=== PATIENT | female | born 1945 | race Caucasian/White ===

== ENCOUNTER 2016-03-23 20:32 | Inpatient (IN) | payer MEDICARE ==
[~2016-03-23] VITALS: Ht 167.6 cm; Wt 88.5 kg
[~2016-03-23 20:32] MED LIST changes: -ACET50TAOT PO; -CALCTAB52 PO; -KETO0.5S15 OS; -PRED1SOL3 OS; -VITA100066 PO
[2016-03-23 21:56] LABS: BASO % 0.4 % (0.0-1.0); EOS # 0.1 K/mm3 (0.0-0.50); EOS % 1.2 % (0.0-3.0); LARGE UNSTAINED CELL # 0.1 K/mm3 (0.0-0.4); LARGE UNSTAINED CELL % 1.1 % (0.0-4.0); LYMPH # 0.8 K/mm3 (1.5-4.5); LYMPH % 8.8 % (24.0-44.0); MEAN CORPUSCULAR HEMOGLOBIN 29.4 pg (27.0-33.0); MEAN CORPUSCULAR HGB CONC 33.5 g/dl (32.0-36.5); MONO # 0.4 K/mm3 (0.0-0.8); MONO % 4.5 % (0.0-5.0); NEUTROPHILS # 7.2 K/mm3 (1.8-7.7); NEUTROPHILS % 84.1 % (36.0-66.0); PLATELET COUNT, AUTOMATED 288 k/mm3 (150-450); RED CELL DISTRIBUTION WIDTH 13.1 % (11.5-14.5); WHITE BLOOD COUNT 8.6 K/mm3 (4.0-10.0)
[2016-03-23 22:04] LABS: INR 1.4
[2016-03-24 00:20] LABS: ALBUMIN 3.5 GM/DL (3.2-5.2); ALBUMIN/GLOBULIN RATIO 0.95 (1.00-1.93); BILIRUBIN,DIRECT 0.2 MG/DL (0.0-0.2); BILIRUBIN,TOTAL 0.4 MG/DL (0.2-1.0); CALCIUM LEVEL 9.7 MG/DL (8.8-10.2); GLOMERULAR FILTRATION RATE 1.3 (>39); POTASSIUM SERUM 4.6 MEQ/L (3.5-5.1); TOTAL PROTEIN 7.2 GM/DL (6.4-8.2)
[2016-03-24 00:22] LABS: CREATININE FOR GFR 27.1 MG/DL (0.55-1.02)
[2016-03-24] MEDS ORDERED: KETO0.5S15 OS (01:08)
[2016-03-24] MEDS ORDERED: CALCTAB52 PO (01:08)
[2016-03-24] MEDS ORDERED: PRED1SOL3 OS (01:08)
[2016-03-24] MEDS ORDERED: VITA100066 PO (01:08)
[2016-03-24] MEDS ORDERED: ACET50TAOT PO (01:08)
[2016-03-24] MEDS ORDERED: METOCLOPRAMIDE INJ 10MG/2ML VIAL (J2765) IV PRN (02:15)
--- NOTE | 2016-03-24 03:20 | REPUSA ---
CLINICAL HISTORY: Pain. TECHNIQUE: Realtime sonographic images were obtained in multiple projections. COMMENTS: The right kidney measures 14.1x5.3x6.2 cm and the left kidney measures 12.6x6.5x6.7 cm cm. Both k idneys demonstrate hydronephrosis. There is no evidence of solid or cystic mass. There is no perineph kimberly fluid. There is no renal calculus. IMPRESSION: Bilateral hydroureteronephrosis more prominent on the right. Thank you for your kind referral of this patient.
--- NOTE | 2016-03-24 03:54 | EDDOCDS ---
Physician Documentation [facility] Name: Briana Castlelanos Age: 70 yrs Sex: Female : 1945 Arrival Date: 03/23/2016 Time: 20:32 Bed 11 Private MD: Hellen Bose L. Disposition: 03/24/16 00:51 Hospitalization ordered by Ana Luisa Moser for Inpatient Admission. Preliminary diagnosis is Acute kidney failure. - Bed requested for 4 [place]. - Status is Inpatient Admission. cf2 - Condition is Stable. - Problem is new. - Symptoms are unchanged. Historical: - Allergies: No known drug Allergies; - Home Meds: 1. Calcium + Vitamin D 600 mg calcium- 200 unit Oral tab daily 2. Advil 200 mg Oral tab 1 tab as needed 3. acetaminophen 325 mg Oral tab 2 tabs as needed 4. Vitamin D3 1,000 unit oral tab daily 5. losartan-hydrochlorothiazide 50-12.5 mg oral tab 1 tab once daily - PMHx: Hypertension; COPD; vitamin D deficiency; hyperparathyroidism; osteopenia; - PSHx: Tubal ligation; right knee replacement; bilateral cataract; - Social history: Smoking status: Patient states former smoker of tobacco. No barriers to communication noted, The patient speaks fluent Singaporean, Speaks appropriately for age. - Family history: Not pertinent. - : The pt / caregiver states he / she is not on anticoagulants. Home medication list is obtained from the patient. - Exposure Risk Screening:: None identified. Vital Signs: 03/23 20:34 BP 219 / 106 RA Sitting (auto/reg); Pulse 108; Resp 18 S; Temp 96.7(O); Pulse Ox 98% on dd6 R/A; Weight 92.08 kg / 203 lbs (R); Height 5 ft. 6 in. (167.64 cm) (R); 20:35 BP 210 / 99 LA Sitting (auto/reg); dd6 23:51 BP 162 / 77; Pulse 88; Resp 18 S; Pulse Ox 96% on R/A; Pain 0/10; af2 03/24 03:11 BP 144 / 87; Pulse 82; Resp 16; Temp 98.0; Pulse Ox 97% on R/A; Pain 0/10; cf2 03/23 20:34 Body Mass Index 32.76 (92.08 kg, 167.64 cm) dd6 MDM: 03/23 21:16 IV Saline Lock ordered. cs11 21:16 CBC with Diff Ordered. EDMS 21:16 MED Profile Ordered. EDMS 21:16 Pt & Aptt Ordered. EDMS 21:16 Liver Profile Ordered. EDMS 21:45 NS 0.9% 500 ml IV at bolus once ordered. cs11 22:00 CBC with Diff Reviewed. cs11 22:29 Financial registration complete. [facility] 22:36 [facility] Payment Agreement was scanned into [employer] and attached to record. gjb 03/24 00:24 MED Profile Reviewed. cs11 00:24 Pt & Aptt Reviewed. cs11 00:24 Liver Profile Reviewed. cs11 00:28 BED REQUEST+ADM ordered. EDMS 00:35 Ultrasound, Renal Ordered. EDMS 02:15 Admission / Observation Status ordered. EDMS 02:45 URINALYSIS Ordered. EDMS 02:52 SODIUM,RANDOM URINE Ordered. EDMS 02:52 OSMOLALITY,URINE Ordered. EDMS 02:52 OSMOLALITY, SERUM Ordered. EDMS 02:52 COMPLEMENT C3 Ordered. EDMS 02:52 COMPLEMENT C4 Ordered. EDMS 02:52 COMPLEMENT TOTAL(CH50) Ordered. EDMS 02:52 ANTINUCLEAR ANTIBODIES Ordered. EDMS 02:53 ANTI-NEUTROPHIL CYTOPLASMIC AB Ordered. EDMS 02:53 ANTI-GLOMERULAR BASEMENT MEMB Ordered. EDMS 02:53 ANTI DOUBLE STRAND DNA ILDEFONSO Ordered. EDMS 02:53 GASTROINTESTINAL (GI) PANEL Ordered. EDMS 03:00 COMPLETE BLOOD COUNT Ordered. EDMS 03:00 RENAL PROFILE Ordered. EDMS 03:00 CALCIUM LEVEL Ordered. EDMS 03:02 VITAMIN D, 25-HYDROXY Ordered. EDMS 03:03 2 GRAM SODIUM DIET ordered. EDMS 03:47 ANTI-STREPTOLYSIN O SCREEN Ordered. EDMS Administered Medications: 03/23 21:48 Drug: NS 0.9% 500 ml [sodium chloride 0.9 % intravenous solution] Route: IV; Rate: cf2 bolus; Site: left antecubital; Signatures: Dispatcher [employer] EDNV Tameka Ly RN Garry Montano DO DO cs11 Pramod Mata RN RN jmb Beck, Gabriela gj Sherita CollazoRN RN cf2 The chart was reviewed and I authenticate all verbal orders and agree with the evaluation and treatment provided.Corrections: (The following items were deleted from the chart) 03/24 02:53 02:53 GASTROINTESTINAL (GI) PANEL ordered. EDMS EDMS 02:53 02:53 GASTROINTESTINAL (GI) PANEL ordered. EDMS EDMS 03: 03:00 VITAMIN D, 25-HYDROXY ordered. EDMS EDMS 03:03 02:15 NPO DIET ordered. EDMS EDMS : 03/23 22:36 [facility] [place] [place] Payment Agreement freddie MTDD
--- NOTE | 2016-03-24 03:54 | EDDOCDS ---
Nurse's Notes [facility] Name: Briana Castellanos Age: 70 yrs Sex: Female : 1945 Arrival Date: 03/23/2016 Time: 20:32 Bed 11 Private MD: Hellen Bose L. Diagnosis: Acute kidney failure Presentation: 03/23 20:36 Presenting complaint: Patient states: Patient reports that seen by Dr. Dupree whom was b suppose to call [facility] to let providers know that patient is severely dehydrated. Patient reports nausea, vomiting, and diarrhea since . Adult Sepsis Screening: The patient does not have new or worsening altered mentation. Patient's respiratory rate is less than 22. Systolic blood pressure is greater than 100. Patient has a qSOFA score of 0- Negative Sepsis Screen. Suicide/Homicide risk assessment- the patient denies having any suicidal and/or homicidal ideations and does not present with any other emotional, behavioral or mental health complaints. Status: Patient is not a seasonal customer service associate or dependent. Transition of care: patient was not received from another setting of care. 20:36 Acuity: CHARLEE Level 3 [facility] 20:36 Method Of Arrival: Walkin/Carried/Asstd [facility] Triage Assessment: 20:43 General: Appears in no apparent distress, Behavior is appropriate for age, cooperative. [facility] Pain: Denies pain. Neurological: Level of Consciousness is awake, alert, obeys commands, Oriented to person, place, time. Respiratory: Airway is patent Respiratory effort is even, Respiratory pattern is regular. Derm: Skin is pink, warm & dry. Musculoskeletal: Range of motion intact in all extremities. Historical: - Allergies: No known drug Allergies; - Home Meds: 1. Calcium + Vitamin D 600 mg calcium- 200 unit Oral tab daily 2. Advil 200 mg Oral tab 1 tab as needed 3. acetaminophen 325 mg Oral tab 2 tabs as needed 4. Vitamin D3 1,000 unit oral tab daily 5. losartan-hydrochlorothiazide 50-12.5 mg oral tab 1 tab once daily - PMHx: Hypertension; COPD; vitamin D deficiency; hyperparathyroidism; osteopenia; - PSHx: Tubal ligation; right knee replacement; bilateral cataract; - Social history: Smoking status: Patient states former smoker of tobacco. No barriers to communication noted, The patient speaks fluent Emirati, Speaks appropriately for age. - Family history: Not pertinent. - : The pt / caregiver states he / she is not on anticoagulants. Home medication list is obtained from the patient. - Exposure Risk Screening:: None identified. Screenin/05 00:27 Screening information is obtained from the patient. Fall risk: No risks identified. cf2 Assistance ADL's: requires no assistance with activities of daily living. Abuse/DV Screen: The patient / caregiver reports he/she is: not in a situation that causes fear, pain or injury. Nutritional screening: No deficits noted. Advance Directives: Further advance directive information is declined. home support is adequate. Assessment: 00:27 General: Appears in no apparent distress, comfortable, Behavior is appropriate for age, cf2 cooperative. Pain: Denies pain. Neurological: No deficits noted. EENT: No deficits noted. Cardiovascular: No deficits noted. Respiratory: No deficits noted. GI: Bowel sounds present X 4 quads. Abd is soft and non tender Reports diarrhea, nausea, vomiting. : No deficits noted. Derm: No deficits noted. Musculoskeletal: No deficits noted. Injury Description: No known injury. Vital Signs: 03/23 20:34 BP 219 / 106 RA Sitting (auto/reg); Pulse 108; Resp 18 S; Temp 96.7(O); Pulse Ox 98% on dd6 R/A; Weight 92.08 kg (R); Height 5 ft. 6 in. (167.64 cm) (R); 20:35 BP 210 / 99 LA Sitting (auto/reg); dd6 23:51 BP 162 / 77; Pulse 88; Resp 18 S; Pulse Ox 96% on R/A; Pain 0/10; af2 03/24 03:11 BP 144 / 87; Pulse 82; Resp 16; Temp 98.0; Pulse Ox 97% on R/A; Pain 0/10; cf2 03/23 20:34 Body Mass Index 32.76 (92.08 kg, 167.64 cm) dd6 Vitals: 03/23 20:34 Log In Time: March 23, 2016 at 20:32. dd6 ED Course: 20:34 Patient visited by Ortega Aguirre PCA. dd6 20:34 Hellen Bose is Private Physician. dd6 20:34 Patient moved to Waiting dd6 20:35 Patient moved to Pre RCE dd6 20:37 Triage Initiated jmb 20:54 Patient moved to Triage 3 jmb 21:09 Garry Fisher DO is Attending Physician. cs11 21:09 Patient visited by Garry Fisher DO. cs11 21:10 Patient moved to 11 b 21:12 Sherita Collazo,MARIA LUISA is Primary Nurse. cf2 21:12 Patient visited by Sherita Collazo,MARIA LUISA. cf2 21:47 Patient visited by Sherita Collazo RN. cf2 21:48 Liver Profile Sent. cf2 21:48 Pt & Aptt Sent. cf2 21:48 CBC with Diff Sent. cf2 21:48 MED Profile Sent. cf2 22:26 Patient visited by Sherita Collazo RN. cf2 22:36 [facility] Payment Agreement was scanned into [employer] and attached to record. gjb 22:40 Patient name changed from Briana\S\\S\Emanuel\S\ to Briana\S\ \S\Emanuel. EDMS 23:41 Patient visited by Dang Henley, Wheel Truing Machine Tender. jlm 23:51 Patient visited by Kirsten Matamoros RN. af2 23:52 Patient visited by Kirsten Matamoros RN. af2 23:52 The patient / caregiver is instructed regarding the plan of care and ED course. Patient af2 has correct armband on for positive identification. Placed in gown. 23:52 Labs drawn. (by ED staff). Sent per order to lab. af2 03/24 00:23 Patient visited by Sherita Collazo RN. cf2 00:23 Patient visited by Sherita Collazo RN. cf2 00:27 Inserted saline lock: 20 gauge in right antecubital area and blood collected. The cf2 patient tolerated the procedure well. No procedures done that require assistance. 00:51 Ana Luisa Moser is Hospitalizing Provider. cs11 00:56 Patient moved to Ultrasound br3 01:18 Patient moved to 11 br3 01:41 Patient visited by Sherita Collazo RN. cf2 03:23 Ultrasound, Renal Returned. EDMS Administered Medications: 03/23 21:48 Drug: NS 0.9% 500 ml [sodium chloride 0.9 % intravenous solution] Route: IV; Rate: cf2 bolus; Site: left antecubital; Order Results: Lab Order: CBC with Diff; SPEC'M 03/23/16 21:41 Test: WHITE BLOOD COUNT; Value: 8.6; Range: 4.0-10.0; Units: K/mm3; Status: F Test: RED BLOOD COUNT; Value: 4.02; Range: 4.00-5.40; Units: M/mm3; Status: F Test: HEMOGLOBIN; Value: 11.8; Range: 12.0-16.0; Abnormal: Below low normal; Units: g/dl; Status: F Test: HEMATOCRIT; Value: 35.4; Range: 36.0-47.0; Abnormal: Below low normal; Units: %; Status: F Test: MEAN CORPUSCULAR VOLUME; Value: 88.0; Range: 80.0-96.0; Units: fl; Status: F Test: MEAN CORPUSCULAR HEMOGLOBIN; Value: 29.4; Range: 27.0-33.0; Units: pg; Status: F Test: MEAN CORPUSCULAR HGB CONC; Value: 33.5; Range: 32.0-36.5; Units: g/dl; Status: F Test: RED CELL DISTRIBUTION WIDTH; Value: 13.1; Range: 11.5-14.5; Units: %; Status: F Test: PLATELET COUNT, AUTOMATED; Value: 288; Range: 150-450; Units: k/mm3; Status: F Test: NEUTROPHILS %; Value: 84.1; Range: 36.0-66.0; Abnormal: Above high normal; Units: %; Status: F Test: LYMPH %; Value: 8.8; Range: 24.0-44.0; Abnormal: Below low normal; Units: %; Status: F Test: MONO %; Value: 4.5; Range: 0.0-5.0; Units: %; Status: F Test: EOS %; Value: 1.2; Range: 0.0-3.0; Units: %; Status: F Test: BASO %; Value: 0.4; Range: 0.0-1.0; Units: %; Status: F Test: LARGE UNSTAINED CELL %; Value: 1.1; Range: 0.0-4.0; Units: %; Status: F Test: NEUTROPHILS #; Value: 7.2; Range: 1.8-7.7; Units: K/mm3; Status: F Test: LYMPH #; Value: 0.8; Range: 1.5-4.5; Abnormal: Below low normal; Units: K/mm3; Status: F Test: MONO #; Value: 0.4; Range: 0.0-0.8; Units: K/mm3; Status: F Test: EOS #; Value: 0.1; Range: 0.0-0.50; Units: K/mm3; Status: F Test: BASO #; Value: 0.0; Range: 0.0-0.2; Units: K/mm3; Status: F Test: LARGE UNSTAINED CELL #; Value: 0.1; Range: 0.0-0.4; Units: K/mm3; Status: F Lab Order: MED Profile; SPEC'M 03/23/16 23:47 Test: GLUCOSE, FASTING; Value: 104; Range: 83-110; Units: MG/DL; Status: F Test: BLOOD UREA NITROGEN; Value: 160; Range: 7-18; Abnormal: Above high normal; Units: MG/DL; Status: F Test: CREATININE FOR GFR; Value: 27.10; Range: 0.55-1.02; Abnormal: Above high normal; Units: MG/DL; Status: F Test: GLOMERULAR FILTRATION RATE; Value: 1.3; Range: >39; Abnormal: Below low normal; Status: F Test: SODIUM LEVEL; Value: 141; Range: 136-145; Units: MEQ/L; Status: F Test: POTASSIUM SERUM; Value: 4.6; Range: 3.5-5.1; Units: MEQ/L; Status: F Test: CHLORIDE LEVEL; Value: 102; Range: 98-107; Units: MEQ/L; Status: F Test: CARBON DIOXIDE LEVEL; Value: 15; Range: 21-32; Abnormal: Below low normal; Units: MEQ/L; Status: F Test: ANION GAP; Value: 24; Range: 8-16; Abnormal: Above high normal; Units: MEQ/L; Status: F Test: CALCIUM LEVEL; Value: 9.7; Range: 8.8-10.2; Units: MG/DL; Status: F Test Note: ; Units are mL/min/1.73 m2 Chronic Kidney Disease Staging per NKF: Stage I & II GFR >=60 Normal to Mildly Decreased Stage III GFR 30-59 Moderately Decreased Stage IV GFR 15-29 Severely Decreased Stage V GFR <15 Very Little GFR Left ESRD GFR <15 on HOSPITALIST MEDICAL DIRECTOR Lab Order: Pt & Aptt; SPEC'M 03/23/16 21:41 Test: PROTHROMBIN TIME; Value: 17.3; Range: 12.3-14.5; Abnormal: Above high normal; Units: SECONDS; Status: F Test: INR; Value: 1.40; Status: F Test: PARTIAL THROMBOPLASTIN TIME; Value: 31.7; Range: 26.6-37.1; Units: SECONDS; Status: F Test Note: ; THERAPUTIC HUMAN INR VALUES INDICATIONS NORMAL RANGES PROPHYLAXIS/TREATMENT OF: VENOUS THROMBOSIS 2.0-3.0 PULMONARY EMBOLISM 2.0-3.0 PREVENTION OF SYSTEMIC EMBOLISM FROM: TISSUE HEART VALVES 2.0-3.0 ACUTE MYOCARDIAL INFARCTION 2.0-3.0 VALVULAR HEART DISEASE 2.0-3.0 ATRIAL FIBRILLATION 2.0-3.0 MECHANICAL VALVES(HIGH RISK) 2.5-3.5 RECURRENT MYOCARDIAL INFARCTION 2.5-3.5 Lab Order: Liver Profile; SPEC'M 03/23/16 23:47 Test: AST/SGOT; Value: 7; Range: 15-37; Abnormal: Below low normal; Units: U/L; Status: F Test: ALT/SGPT; Value: 19; Range: 12-78; Units: U/L; Status: F Test: ALKALINE PHOSPHATASE; Value: 79; Range: 45-117; Units: U/L; Status: F Test: BILIRUBIN,TOTAL; Value: 0.4; Range: 0.2-1.0; Units: MG/DL; Status: F Test: BILIRUBIN,DIRECT; Value: 0.2; Range: 0.0-0.2; Units: MG/DL; Status: F Test: TOTAL PROTEIN; Value: 7.2; Range: 6.4-8.2; Units: GM/DL; Status: F Test: ALBUMIN; Value: 3.5; Range: 3.2-5.2; Units: GM/DL; Status: F Test: ALBUMIN/GLOBULIN RATIO; Value: 0.95; Range: 1.00-1.93; Abnormal: Below low normal; Status: F Radiology Order: Ultrasound, Renal Test: Ultrasound, Renal REASON FOR EXAMINATION: renal failure; ; CLINICAL HISTORY: Pain.; TECHNIQUE: Realtime sonographic images were obtained in multiple projections.; COMMENTS:; The right kidney measures 14.1x5.3x6.2 cm and the left kidney measures 12.6x6.5x6.7 cm cm. Both k; idneys demonstrate hydronephrosis. There is no evidence of solid or cystic mass. There is no perineph; kimberly fluid. There is no renal calculus.; IMPRESSION:; Bilateral hydroureteronephrosis more prominent on the right.; Thank you for your kind referral of this patient.; ; ; Outcome: 03/24 00:27 Property :Personal belongings accompany Pt. cf2 00:51 Decision to Hospitalize by Provider. cs11 03:11 The following High Risk Discharge criteria are identified: Yes, Admitted to Floor. cf2 Condition: improved. Ultrasound Study completed. 03:48 Discharge Assessment: Patient awake, alert and oriented x 3. No cognitive and/or cf2 functional deficits noted. Patient verbalized understanding of disposition instructions. Patient awake and alert. Oriented to person, place and time. patient administered narcotics - no. 03:53 Patient left the ED. cf2 Signatures: Dispatcher [employer] EDMS Ortega Aguirre, WHEAT SHIPPER WHEAT SHIPPER dd6 Laila Ty br3 Garry Fisher DO DO cs11 Pramod Mata,RN RN Dang Sandoval, Wheel Truing Machine Tender Unit Kirsten Dale RN RN Yesika Puri Christina,RN RN cf2 MTDD
[2016-03-24 04:25] VITALS: BP 162/86
[2016-03-24] MEDS: NS 1,000 ML IV SCH ×2 (04:26→07:13)
[2016-03-24] MEDS: ONDANSETRON 4MG/2ML VIAL (J2405) IV PRN ×2 (04:27→17:52)
[2016-03-24] MEDS: HEPARIN SOD (PORCINE) 5000 UNITS/ML VIAL SC SCH ×3 (05:30→21:39)
--- NOTE | 2016-03-24 05:39 | HPE ---
DATE OF ADMISSION: 03/24/2016 PRIMARY CARE PROVIDER: SERGIO Dan CHIEF COMPLAINT: Renal failure. HISTORY OF PRESENT ILLNESS: The patient is 70-year-old female with past medical history significant for hypertension, chronic obstructive pulmonary disease (COPD), osteopenia, who was instructed to come to [facility] on 03/23/2016, by her primary care provider. The patient followed up with primary care provider and patient was found to have acute renal failure on laboratory tests and patient was instructed to come to [facility] for further evaluation. Patient states she has been having diarrhea since 03/15/2016. Patient is also having constant vomiting. Usually she will have watery stool more than six times on a daily basis. Stool is dark brown. She is also vomiting continuously. She is not able to tolerate any significant oral intake due to the gastrointestinal (GI) symptoms. She denies any recent sick contacts. Denies any antibiotic use. Denies any new medication changes. Denies any food unprepared. She has never had these symptoms before. Patient also stated she is not able to urinate for the past seven days. Denies any fever or chills. Denies any chest pain, shortness of breath, or any associated symptoms. When patient arrived in the emergency room, her blood pressure was 219/106, pulse was 108. Patient was given 0.5 liter IV bolus and hospitalist team was called for admission. ALLERGIES: No known drug allergies. HOME MEDICATIONS: - calcium/vitamin D supplement by mouth daily - Advair 200 mg by mouth as needed - Tylenol 650 mg as needed - vitamin D3, 1000 units by mouth daily - losartan/hydrochlorothiazide 50/12.5 mg by mouth daily PAST MEDICAL HISTORY: 1. Hypertension. 2. COPD. 3. Vitamin D deficiency. 4. Osteopenia. 5. Questionable history of hyperparathyroidism (listed on medical record; however, patient denies the diagnosis). PAST SURGICAL HISTORY: 1. Tubal ligation. 2. Right knee replacement. 3. Bilateral cataracts. SOCIAL HISTORY: Patient used to smoke one pack daily for more than 30 years. Patient quit 14 years ago. Patient drinks a wine cooler occasionally. Denies any recreational drug use. PHYSICAL EXAMINATION: VITAL SIGNS: Blood pressure is 162/77, pulse is 88, respirations 18, temperature is 96.7, pulse oximetry is 98% in room air. Body weight is 92 kg, body height is 167.6 cm. GENERAL: No signs of acute distress, alert, and oriented times three, fatigued. HEENT: Normocephalic, atraumatic. Extraocular motors are grossly intact. CARDIOVASCULAR: Positive S1, S2, regular rate. LUNGS: Distant heart sounds, clear to auscultation bilaterally. No wheezes or rhonchi. ABDOMEN: Soft, nontender, and nondistended. Bowel sounds are present. No rebound, no guarding. EXTREMITIES: No lower extremity edema, no cyanosis. NEUROLOGICAL: Muscle strength 5/5. Sensation to fine touch grossly intact. LABORATORY DATA: WBC 8.6, hemoglobin 11.8, hematocrit is 35.4, platelet count is 288. Sodium is 141, potassium 4.6, chloride is 102, carbon dioxide is 15, BUN 160, creatinine is 27.1, GFR is 1.3, fasting glucose 104, calcium 9.7, total bilirubin 0.4, direct bilirubin 0.2, AST 7, ALT 19, alkaline phosphatase 79, total protein 7.2, albumin 3.5. IMAGING STUDIES: Renal ultrasound is pending. ASSESSMENT AND PLAN: 1. Acute renal failure. Patient will be admitted to the medical-surgical floor under inpatient status. Patient does have a history of significant fluid loss, and patient is received an IV bolus in the emergency room. We will continue with IV fluids. We will control the nausea and vomiting with IV Zofran or Reglan. We will obtain a GI panel to rule out any possible infectious etiology for the patient's continuous diarrhea. We will consult the head of drama in the morning. I will wait for the renal ultrasound report. We will followup with laboratory workup for the acute renal failure. Patient denies any history of any new medication changes. 2. Persistent diarrhea. Followup with GI panel. We will continue with conservative approach. Patient does not have any white count and vitals are stable at this moment. 3. Hypertension. Patient is hypertensive with a blood pressure of 219/106 initially, later patient's blood pressure came down nicely to 162/77 with a pulse of 88. Patient usually takes losartan and hydrochlorothiazide for her hypertension. Currently, due to acute renal failure, these medications will be on hold. We will monitor patient's blood pressure. 4. History of chronic obstructive pulmonary disease (COPD). Currently, it is compensated. Patient does not require any oxygen support at this moment. 5. History of vitamin D deficiency/osteopenia. 6. Questionable history of hyperparathyroidism. Patient denies the diagnosis. We will request records from the primary care provider. 7. Deep vein thrombosis (DVT) prophylaxis. The patient will be on heparin.
[2016-03-24 06:00] VITALS: BP 160/74
[2016-03-24 06:36] LABS: MEAN CORPUSCULAR HEMOGLOBIN 29.5 pg (27.0-33.0); MEAN CORPUSCULAR VOLUME 89.3 fl (80.0-96.0); WHITE BLOOD COUNT 9.2 K/mm3 (4.0-10.0)
[2016-03-24 07:11] LABS: ALBUMIN 3.2 GM/DL (3.2-5.2); CALCIUM LEVEL 9.6 MG/DL (8.8-10.2); CREATININE FOR GFR 26.3 MG/DL (0.55-1.02); GLOMERULAR FILTRATION RATE 1.3 (>39); PHOSPHORUS LEVEL 7.7 MG/DL (2.5-4.9); POTASSIUM SERUM 4.9 MEQ/L (3.5-5.1)
[2016-03-24 07:29] LABS: COMPLEMENT C4 24.4 MG/DL (10-40)
[2016-03-24 08:11] LABS: VENOUS BASE EXCESS -14.2 (-2.0-2.0); VENOUS O2 SATURATION 99.1 % (60.0-80.0); VENOUS PARTIAL PRESSURE O2 179.6 mmHg (30.0-50.0); VENOUS STANDARD HCO3 13.4 MEQ/L; VENOUS TOTAL CO2 11.7 MEQ/L (24.0-28.0)
[2016-03-24] MEDS: SODIUM BICARBONATE 75 MEQ in NS 0.45% 1,000 ML IV SCH (11:25)
--- NOTE | 2016-03-24 13:29 | CR ---
DATE OF CONSULTATION: 03/24/2016 REQUESTING PHYSICIAN: Sandro Pereira MD CONSULTING PHYSICIAN: Juan Naavrrete MD REASON FOR CONSULTATION: Management of acute kidney injury. CHIEF COMPLAINT: Patient was seen from her primary cares office for abnormal labs. HISTORY OF PRESENT ILLNESS: Briana Castellanos is a 70-year-old female with a past medical history of hypertension and chronic obstructive pulmonary disease (COPD). No significant past medical history of kidney disease. She presented to the emergency room yesterday after being asked by her primary care provider to go to the ER for abnormal labs and kidney failure. As reported by the patient, she started having diarrhea on 03/15/2016. The patient reports that she did not go outside, she did not eat anything from outside over [place], but she started having diarrhea about 3-4 episodes every time. Initially they were loose, but now the episodes of the diarrhea is still the same but she is not making a significant amount of stools at this time. She also reported having vomiting for the last one week at well. The patient also reports that she stopped making urine about 3-4 days before presentation to the hospital. The patient denies any fevers, chills or rigors at this time. She denies seeing any blood in the stools. On arrival in the emergency room, she was found to be hypertensive with blood pressure in the 200s and her BUN on admission was 160 and creatinine was 27. Nephrology service was called for the management of acute renal failure. The patient was already started on IV normal saline by the primary team. She got a Li catheter done this morning, but no urine came out. An ultrasound done this morning showed bilateral hydroureteronephrosis and the patient is still anuric at this time. PAST MEDICAL HISTORY: Past medical history is significant for hypertension, chronic obstructive pulmonary disease (COPD), osteopenia. PAST SURGICAL HISTORY: The patient has a history of tubal ligation, status post right knee replacement times two, bilateral cataract surgeries. ALLERGIES: No known drug allergies. HOME MEDICATIONS: The patient was taking losartan and hydrochlorothiazide 50/12.5 mg by mouth daily. She reports that she stopped taking this medicine about three days ago. She was also on calcium plus vitamin D, Advair 200 twice a day, Tylenol as needed and vitamin D 1000 units daily. FAMILY HISTORY: No significant family history of end stage renal disease or hemodialysis in the past. SOCIAL HISTORY: The patient is a former smoker. She quit 14 years ago. She occasionally drinks alcohol. She denies any recreational drug use at this time. REVIEW OF SYSTEMS: CONSTITUTIONAL: Patient reports feeling weak and tired. Otherwise, she denies any chills or rigors. EYES: She denies any recent blurry vision or change in the vision. ENT: She denies any ear discharge, ear pain, dysphagia or odynophagia. CARDIOVASCULAR: She denies any chest pain or palpitations. RESPIRATORY: She denies any shortness of breath or cough. GASTROINTESTINAL (GI): She reports diarrhea for the last one week and nausea and vomiting as well. GENITOURINARY (): She reports that she has not been making urine for the last three days. Otherwise, she denies any dysuria or hematuria. MUSCULOSKELETAL: She denies any muscle aches and pains. HEMATOLOGIC/ONCOLOGIC: She denies any history of anemia or easy bruising. ENDOCRINE: She denies any history of diabetes or thyroid disease. PSYCH: She denies any history of anxiety or depression. SAMPLE TESTER: No history of strokes or seizure disorder. All other review of systems is negative. PHYSICAL EXAMINATION: GENERAL: Patient is awake, alert and oriented times three, lying in bed in no apparent distress. VITAL SIGNS: Temperature is 96.8 degrees Fahrenheit, blood pressure is 160/74, pulse is 85, respiratory rate of 19, saturating 94% on room air. INTAKE AND OUTPUT: There is no urine output recorded so far. Weight on the bed scale is 92.08 kg. HEAD/NECK EXAM: Extraocular muscles intact. Pupils equally round and reactive to light. Neck is supple. There is no jugular venous distention (JVD). Mucous membranes are moist. CARDIOVASCULAR: S1 and S2, regular rate. No murmur, rub or gallop. RESPIRATORY: Chest is clear to auscultation bilaterally. Bilateral equal air entry. No rales or rhonchi. ABDOMEN: Soft, positive bowel sounds. Nontender. No ascites. No organomegaly. The patient has a Li catheter and there is no urine in the bag. EXTREMITIES: No clubbing or cyanosis. Pulses are 2+. SAMPLE TESTER: No focal neurological deficit. Power is 5/5 in all extremities. DIALYSIS ACCESS: Patient has a left IJ tunneled hemodialysis catheter. SKIN: No rashes or ulcers. PSYCH: Normal mood and affect. LYMPH NODES: There is no significant cervical, axillary or inguinal lymphadenopathy. LAB REVIEW: CBC showed a WBC of 9.2, hemoglobin 10.6, platelets 253. INR was 1.4. VBG showed a pH of 7.27, pCO2 was 24, pO2 179, bicarb is 10.9. BMP done this morning showed sodium 144, potassium 4.9, chloride 106, bicarb 13, BUN is 161, creatinine is 26.3. Osmolarity was 352, phosphorous is 7.7, calcium is 9.6, vitamin D is 47.7, PTH is 345. C3 is 144, which is normal. C4 is 24.4, which is normal. ENZO, ANCA, anti-double stranded DNA and anti-GBM antibodies are pending. Antistreptolysin O antibodies are high. They are 224. Urinalysis is not available. Microbiology: GI panel is pending. IMAGING: Ultrasound of the kidney showed bilateral hydroureteronephrosis, more prominent on the right side. CURRENT MEDICATIONS: Patient's medications were reviewed by me. She is on: - normal saline 150 mL per hour - Tylenol as needed - heparin subcu - Reglan 10 mg every 6 hours as needed nausea - Zofran 4 mg IV every 6 hours as needed nausea ASSESSMENT: 70-year-old female with past medical history of hypertension admitted this time with diarrhea and anuric renal failure. PLAN: 1. Acute anuric renal failure. The patient has not made any urine ever since she came to the hospital. Li catheter was also placed and bladder scan was also done. She is not making any urine. She was already hydrated overnight. Etiology is unknown at this time. The patient has bilateral hydronephrosis and she gives a history of diarrhea, nausea and vomiting for the last one week as well. The patient's volume status is well optimized at this time. Clinically she does not look like she is dry, however I have changed her IV fluids to 1/2 NS plus 75 mEq of bicarb at 100 mL per hour. The patient is going to get a stat CAT scan of the abdomen to look for the cause of bilateral hydroureteronephrosis. If the patient does show obstruction in the ureters, she would need to be evaluated stat by urology and if we cannot relieve obstruction, or if the changes are chronic, then the patient would need a PermaCath and we need to start hemodialysis on her. 2. Bilateral hydroureteronephrosis. A stat CAT scan with stone protocol was ordered. CAT scan report is pending. Further management after report of the CAT scan. 3. Metabolic acidosis. Metabolic acidosis is secondary to acute renal failure and diarrhea for the last one week. IV fluids have changed into bicarb fluids. Currently, acidosis is being compensated by respiratory alkalosis. 4. Hypertension. Patient was taking losartan and hydrochlorothiazide at home. The patient is in acute renal failure. Losartan has been stopped. If the patient's blood pressure stays high, she can be started on amlodipine. 5. Secondary hyperparathyroidism. Her PTH is 345. Phosphorous is 7.7. I am going to start the patient on calcitriol. 6. Hyperphosphatemia. Hyperphosphatemia is secondary to anuric acute renal failure. I am not going to start the phos binders at this time. Hyperphosphatemia will hopefully improve if the patient's obstruction is relived or if we start dialyzing this patient. Plan of care was discussed with the hospitalist team, Dr. Sandro Pereira. Thank you for the involving us in the care of this patient. We shall be happy to follow the patient along with you tomorrow morning.
--- NOTE | 2016-03-24 13:30 | REP ---
CT of abdomen and pelvis without IV or oral contrast, 03/24/2016: Indication: Evaluate hydronephrosis. Comparison: Renal ultrasound 03/24/2016. Technique: 3 mm contiguous spiral axial sections performed through the abdomen and pelvis without IV or oral contrast. Findings: Small amount of fibrotic scarring is seen in lung bases bilaterally, right greater than left. Liver is without focal lesions. The spleen, pancreas are normal. Gallbladder is partially contracted without visualized stones. There is no biliary dilatation. There is a large right and moderate left hydronephrosis with hydroureter, right greater than left. The right ureter is narrowed below the level of the inferior aspect of the right SI joint. A tiny 2 mm calcification at the left ureter is also tapered below the level of the left SI joint seen in distal right ureter in the area of ureteral narrowing/tapering. The left ureter mildly dilated throughout its course but with tapering in the lower left ureter distribution. Atrophic changes are seen within the upper pole right kidney. There are no definite obstructing ureteral calculi bilaterally. Moderate atrophic changes are seen within the upper pole right kidney. There is asymmetric mural thickening with a small hiatal hernia at gastroesophageal junction. The hiatal hernia is 2.7 cm diameter. There is asymmetric mural thickening within the gastric body. The small bowel is without obstruction. The terminal ileum and appendix are normal. There is mural thickening and generalized under distension seen throughout the colon most pronounced within the base of cecum. These findings may be secondary to spasm or possibly mild nonspecific colitis. Bladder is contracted due to Li catheter. The uterus is atrophic consistent with advanced patient age. There are no visualized adnexal masses. Impression: Large right and moderate left hydronephrosis with hydroureter with distal tapering in the pelvis bilaterally. There are no obvious pelvic masses. Bladder is contracted due to Li catheter. Consider CT of the abdomen and pelvis with hematuria protocol if and when possible (patient has history of acute renal failure). Pelvic ultrasound may also be beneficial. Diffuse mural thickening seen throughout the colon contributed to by under distension. In the appropriate clinical setting, differential diagnosis can also include mild generalized colitis. Asymmetric mural thickening noted within the mid gastric body. Consider upper endoscopy. Signed by Tania Kenny MD 03/26/2016 03:10 P
[2016-03-24 14:00] VITALS: BP 136/77
[2016-03-24 20:55] VITALS: BP_SYST 128; BP_SYST 153; BP_DIAS 61; BP_DIAS 74
[2016-03-25] VITALS (8 sets, daily range): BP systolic 140–172; BP diastolic 76–90
[2016-03-25 06:02] LABS: MEAN CORPUSCULAR HEMOGLOBIN 29.7 pg (27.0-33.0); MEAN CORPUSCULAR HGB CONC 33.1 g/dl (32.0-36.5); MEAN CORPUSCULAR VOLUME 89.6 fl (80.0-96.0); RED CELL DISTRIBUTION WIDTH 13.3 % (11.5-14.5); WHITE BLOOD COUNT 8.5 K/mm3 (4.0-10.0)
[2016-03-25 06:24] LABS: ALBUMIN 3.2 GM/DL (3.2-5.2); CALCIUM LEVEL 8.5 MG/DL (8.8-10.2); CREATININE FOR GFR 28.4 MG/DL (0.55-1.02); GLOMERULAR FILTRATION RATE 1.2 (>39); PHOSPHORUS LEVEL 8.1 MG/DL (2.5-4.9); POTASSIUM SERUM 4.7 MEQ/L (3.5-5.1)
[2016-03-25] MEDS: SODIUM BICARBONATE 75 MEQ in NS 0.45% 1,000 ML IV SCH (06:34)
[2016-03-25] MEDS ORDERED: LIDOCAINE 2% MDV 20 ML VIAL As Ordered ONE (11:19)
[2016-03-25] MEDS ORDERED: ISOVUE-300 61% 50ML VIAL (Q9967) As Ordered ONE (11:19)
[2016-03-25] MEDS ORDERED: SODIUM BICARBONATE 8.4% INJ 50MEQ 50 ML VIAL As Ordered ONE (11:19)
[2016-03-25] MEDS ORDERED: cefTRIAXone SOD 1 GM VIAL (J0696) As Ordered ONE (11:19)
[2016-03-25] MEDS ORDERED: MIDAZOLAM INJ 2 MG/2 ML VIAL (J2250) As Ordered ONE (11:23)
[2016-03-25] MEDS ORDERED: fentaNYL 100 MCG/2 ML INJECTION (J3010) As Ordered ONE (11:23)
--- NOTE | 2016-03-25 11:50 | IPN ---
DATE: 03/25/2016 SUBJECTIVE: Patient was seen and examined at the bedside today in the morning. Last 24 hour events were noted. CT scan of the abdomen and pelvis showed bilateral hydroureteronephrosis. She is totally anuric at this time. Patient was discussed with urology yesterday by the primary team. They recommended bilateral nephrostomy tubes and later on patient will probably get a cystoscopy and ureteroscopy as well. Patient is scheduled to have bilateral nephrostomy tubes placed at 10:30 this morning. REVIEW OF SYSTEMS: Patient denies any fever, chills, rigors, headache, chest pain. She does report some shortness of breath. She denies any pain in abdomen, but she still has diarrhea, she reports that she is having about 3-4 episodes of loose stools, but the amount of diarrhea is very small. Patient is totally anuric at this time. Her Li catheter was removed this morning. All other review of systems is negative. OBJECTIVE: VITAL SIGNS: Temperature 97.2 degrees Fahrenheit, blood pressure 172/83, pulse 85, respiratory rate 18, saturating at 94% on room air. INTAKE/OUTPUT: Patient is totally anuric, she is 865 mL positive yesterday, 600 mL positive so far today. Weight in the bed scale was 92 kg yesterday. PHYSICAL EXAMINATION: GENERAL: Patient is awake, alert, oriented times three, laying in bed, in no apparent distress. HEAD and NECK: Extraocular muscles intact. Pupils equally round and reactive to light. Neck is supple. There is mildly elevated jugular venous distention (JVD). Mucous membranes are moist. CARDIOVASCULAR: S1, S2, regular rate. No murmur, rub, or gallop. RESPIRATORY: Chest is clear to auscultation bilaterally. Bilateral equal air entry. No rales or rhonchi. ABDOMEN: Soft, positive bowel sounds, nontender. No ascites. No organomegaly. Li catheter has been removed. EXTREMITIES: No clubbing or cyanosis. Pulses are 2+. CENTRAL NERVOUS SYSTEM (ANESTHESIA TECHNICIAN): No focal neurological deficit. Power is 5/5 in all extremities. There is no asterixis. LABORATORY REVIEW: CBC showed WBC 8.5, hemoglobin 10.3, platelets 236. BMP showed sodium 144, potassium 4.7, chloride 106, bicarbonate 16, BUN 161, creatinine 28.4, calcium is 8.5. phosphorous 8.1, albumin 3.2. Microbiology: Gastrointestinal (GI) panel is negative by polymerase chain reaction (PCR). CURRENT MEDICATIONS: Patient's medications were all reviewed by me. There is no change in the medications as compared with yesterday. She continues to be on half normal saline (NS) plus 75 mEq of bicarbonate at 50 mL/hour. She is not on any antihypertensive medications at this time. ASSESSMENT: 70-year-old female with past medical history of hypertension, admitted at this time with diarrhea, nausea, vomiting, and anuric renal failure. Imaging showed she has bilateral hydroureteronephrosis. PLAN: 1. Acute anuric renal failure. Patient has bilateral hydroureteronephrosis on the CT scan and ultrasound. She is going for bilateral nephrostomy tubes. If patient starts having good urine output after the nephrostomy tubes, then we can wait for her renal function to improve. If patient's urine output does not improve after the nephrostomy tubes, then patient will need a tunneled hemodialysis catheter and we will need to start dialysis on her. Plan of care was already discussed with the patient and her at the bedside. 2. Bilateral hydroureteronephrosis. As mentioned above, patient is going for bilateral nephrostomies and, after the nephrostomies, urology service will possibly take her for a cystoscopy and ureteroscopy. 3. Metabolic acidosis. Metabolic acidosis is secondary to acute renal failure. She has been started on intravenous (IV) half normal saline (NS) plus bicarbonate. I cannot increase the fluid rate because she is anuric at this time. I am hopeful that after nephrostomies, once the patient's renal function starts improving, her acidosis will improve. 4. Hypertension. Patient was taking losartan and hydrochlorothiazide at home. Losartan has been stopped because of acute renal failure. Patient's blood pressure is still elevated. I will wait for her to get nephrostomies and once the urine output improves her blood pressure will also improve. If blood pressure remains elevated about 150, patient will be started on amlodipine. 5. Secondary hyperparathyroidism. Her parathyroid hormone (PTH) was high. I am going to start calcitriol for the patient. 6. Hyperphosphatemia. This is secondary to acute renal failure. Phosphorous will improve after relieving the obstruction and once the kidney function starts improving. Plan of care was discussed with the hospitalist team, Dr. Sandro Pereira, as well.
[2016-03-25] MEDS ORDERED: IPRATROPIUM 0.5MG/ALBUTEROL 2.5MG INH SOL UD 3ML (DUONEB)(J7620) NEB PRN (12:30)
--- NOTE | 2016-03-25 12:41 | IPNPDOC ---
Text Note Date of Service The patient was seen on 03/25/16 at 12:27. NOTE Subjective: Patient is a 70 year old female with a PMHx of HTN, COPD, Vit D deficiency, and Osteopenia, who presetned to the ER at the direction of her PCP because of abnormal renal function. She had lab work on 03/23 which revealed Acute renal failure. Patient noted that she had diarrhea from 03/15 and saw her primary care doctor. She notes that she has had several bowel movements and vomiting. She denies any blood in her stool. She notes that over the last 7 days she has not been urinating. Patient was admitted for acute renal failure. Patient was seen and examined at the bedside today. She notes that she is not having abdominal pain at this time. She notes that her diarrhea is not as bad as it was. She denies any chest pain, palpitations or confusion. Objective: Vitals (See below) General: Lying in bed, no acute distress, comfortable, AAOx3 HEENT: NC, AT CVS: RRR, +S1S2 Lungs: Fair air entry b/l, -w/r/r Abdomen: Soft, ND, NT, +BSx34 Extremities: +PPx4, -Edema, -calf tenderness Assessment and plan: 1. Acute renal failure - possibly 2/2 obstruction - Creatinine significantly elevated at 28 from baseline of 0.8 on 01/2016 - Reports no urine output, no symptoms - Li catheter placed without any output - US kidneys reveal bilateral hydronephrosis with hydroureter; CT Abdomen/ Pelvis - does not reveal any obvious bladder mass - Case discussed with Urology, Nephrology and IR: Plan for IR guided bilateral nephrostomy tubes to be placed today --- If output is poor and no urine is produced, will need to have IR guided catheter placement for dialysis today --- Will evaluate nephrostomy output post-op - Nephrology following (Dr. Navarrete) - appreciate their input - Urology following (Dr. Parra) - appreciate their input 2. AG metabolic acidosis - likely 2/2 uremia, diarrhea - Venous blood gas initially revealed acidosis - Will continue with Bicarb drip - Nephrology following (Dr. Navarrete) - appreciate their input 3. Diarrhea - Reports some improvement - GI panel has been negative 4. Hypertensive urgency - Will re-evaluate after nephrostomy tubes are placed - will start BP medication if still elevated 5. COPD - no evidence of exacerbation at this time - will c/w duoneb PRN 6. Vitamin D deficiency / Osteopenia 7. DVT prophylaxis - c/w heparin VS,Fishbone, I+O VS, Fishbone, I+O Laboratory Tests 03/25/16 05:48 Anion Gap 22 H, Red Blood Count 3.48 L, Mean Corpuscular Volume 89.6, Mean Corpuscular Hemoglobin 29.7, Mean Corpuscular Hemoglobin Concent 33.1, Red Cell Distribution Width 13.3 Vital Signs Date Time Temp Pulse Resp B/P Pulse Ox O2 Delivery O2 Flow Rate FiO2 03/25/16 05:35 97.2 85 19 172/83 94 Room Air I&O- Last 24 Hours up to 6 AM 03/25/16 06:00 Intake Total 640 ml Output Total 0 ml Balance 640 ml EVELINE ESCOTO MD Mar 25, 2016 12:41
--- NOTE | 2016-03-25 13:06 | REPKIM ---
CLINICAL HISTORY: Acute renal failure and bilateral hydronephrosis. The referring service has asked bilateral nephrostomy catheter placement. PROCEDURE PERFORMED: 1. Ultrasound Kidneys 2. Left Antegrade Pyelogram and Percutaneous Nephrostomy Drainage Catheter Placement 3. Right Antegrade Pyelogram and Percutaneous Nephrostomy Drainage Catheter Placement INTERVENTIONALIST: Yvonne Mendoza MD CONSENT: The risks, benefits and alternatives to the procedure were explained to the patient and informed written consent was obtained. SEDATION: Sedation and analgesia was provided by the Anesthesiology Dept. EBL: 5 mL FLUORO TIME: 1.6 minutes CONTRAST: 27mL Isovue 300 DEVICES USED: Resolve 8.5F catheter x 2 Lot# [id number] PROCEDURE/FINDINGS: The patient was brought to the interventional radiology suite and placed in the prone position. Time out procedure was performed. The patient was prepped and draped in a usual sterile fashion. Patient received Rocephin 1gm prophylactic IV antibiotic. LEFT SIDE: Ultrasound of the left kidney showed moderate hydronephrosis. Using ultrasound and fluoroscopy guidance, a 21-gauge Accustick needle was advanced into the targeted lower pole posterior calyx, after infiltration of the skin and deep tissues with local anesthetic. Using this access an Accustick catheter was introduced into the renal pelvis. Initial aspirate revealed relatively clear urine. Contrast was injected and an antegrade pyelogram was performed. This showed no free antegrade flow of contrast into the urinary bladder. Over the guidewire, an 8.5-[place]an nephrostomy drainage catheter was introduced. Its distal loop was formed and locked in the renal pelvis. Contrast was hand injected, confirming satisfactory drainage catheter position. RIGHT SIDE: Ultrasound of the right kidney showed severe hydronephrosis. Using ultrasound and fluoroscopy guidance, a 21-gauge Accustick needle was advanced into the lower pole posterior calyx, after infiltration of the skin and deep tissues with local anesthetic. Using this access an Accustick catheter was introduced into the renal pelvis. Initial aspirate revealed somewhat cloudy urine. A sample of urine sent for c/s. Contrast was injected and an antegrade pyelogram was performed. This showed no free antegrade flow of contrast into the urinary bladder. Over the guidewire, an 8.5-[place]an nephrostomy drainage catheter was introduced. Its distal loop was formed and locked in the renal pelvis. Contrast was hand injected, confirming satisfactory drainage catheter position. Each drainage catheter was then secured to the skin with 2-0 Prolene suture and covered with a sterile dressing. Each drainage catheter was flushed and connected to a gravity drainage bag. The patient tolerated the procedure well with no immediate complications. This procedure was performed using ultrasound and fluoroscopy. Dr. Mendoza was present. FINDINGS: 1. Ultrasound demonstrates moderate hydronephrosis on the left and severe hydronephrosis on the right. There is no free antegrade flow of contrast into the urinary bladder. A sample of urine sent for c/s. 2. Successful placement of bilateral 8.5-[place]an percutaneous nephrostomy urinary diversion tubes. IMPRESSION: Moderate to severe bilateral hydronephrosis. Successful placement of bilateral 8.5F percutaneous nephrostomy urinary diversion tubes as discussed above. cc: MD Juan Escobar MD MTDD
[2016-03-25] MEDS ORDERED: PROPOFOL 200 MG/20 ML VIAL As Ordered ONE (13:26)
[2016-03-25] MEDS: HEPARIN SOD (PORCINE) 5000 UNITS/ML VIAL SC SCH ×3 (14:23→22:56)
[2016-03-25] MEDS: diphenhydrAMINE 25 MG CAP PO PRN (14:43)
[2016-03-25 15:27] LABS: ALBUMIN 3.7 GM/DL (3.2-5.2); CREATININE FOR GFR 16.9 MG/DL (0.55-1.02); GLOMERULAR FILTRATION RATE 2.2 (>39); PHOSPHORUS LEVEL 4.9 MG/DL (2.5-4.9); POTASSIUM SERUM 4.4 MEQ/L (3.5-5.1)
[2016-03-25 15:31] LABS: ALBUMIN 3.8 GM/DL (3.2-5.2); ALBUMIN/GLOBULIN RATIO 1.09 (1.00-1.93); BILIRUBIN,TOTAL 0.3 MG/DL (0.2-1.0); CREATININE FOR GFR 16.9 MG/DL (0.55-1.02); GLOMERULAR FILTRATION RATE 2.2 (>39); MAGNESIUM LEVEL 2.6 MG/DL (1.8-2.4); POTASSIUM SERUM 4.4 MEQ/L (3.5-5.1); TOTAL PROTEIN 7.3 GM/DL (6.4-8.2)
[2016-03-25 15:40] LABS: CALCIUM LEVEL 9.8 MG/DL (8.8-10.2); CALCIUM LEVEL 9.9 MG/DL (8.8-10.2)
[2016-03-25] MEDS: KETOROLAC 0.4% OS SCH ×2 (18:02→22:56)
[2016-03-25] MEDS ORDERED: SODIUM CHLORIDE 0.9% 1000 ML IV ONE (18:15)
[2016-03-25] MEDS: NS 0.45% 1,000 ML IV SCH ×4 (18:23→22:57)
[2016-03-25] MEDS: ACETAMINOPHEN TAB 650MG DOSE (2X325MG) PO PRN (20:05)
[2016-03-25] MEDS ORDERED: diphenhydrAMINE INJ 50MG/ML VIAL (J1200) IV ONE (20:30)
[2016-03-25] MEDS: prednisoLONE ACET 1% OPHTH SUSP 5ML OS SCH (20:40)
[2016-03-25 21:40] LABS: ALBUMIN 3.7 GM/DL (3.2-5.2); CALCIUM LEVEL 9.9 MG/DL (8.8-10.2); CREATININE FOR GFR 5.53 MG/DL (0.55-1.02); GLOMERULAR FILTRATION RATE 8.1 (>39); PHOSPHORUS LEVEL 2.2 MG/DL (2.5-4.9); POTASSIUM SERUM 3.7 MEQ/L (3.5-5.1)
[2016-03-25] MEDS ORDERED: POTASSIUM CHLORIDE 10 MEQ SR TABLET PO ONE (22:45)
[2016-03-26] VITALS (11 sets, daily range): BP systolic 142–176; BP diastolic 72–95
[2016-03-26 00:06] LABS: COMPLEMENT TOTAL (CH50) > 63 U/mL (42-60)
[2016-03-26] MEDS: NS 0.45% 1,000 ML IV SCH ×10 (01:47→22:35)
[2016-03-26] MEDS: ACETAMINOPHEN TAB 650MG DOSE (2X325MG) PO PRN ×2 (04:09→08:09)
--- NOTE | 2016-03-26 04:54 | EDDOCDS ---
Nurse's Notes [facility] Name: Briana Castellanos Age: 70 yrs Sex: Female : 1945 Arrival Date: 03/23/2016 Time: 20:32 Bed 11 Private MD: Hellen Bose L. Diagnosis: Acute kidney failure Presentation: 03/23 20:36 Presenting complaint: Patient states: Patient reports that seen by Dr. Dupree whom was b suppose to call [facility] to let providers know that patient is severely dehydrated. Patient reports nausea, vomiting, and diarrhea since . Adult Sepsis Screening: The patient does not have new or worsening altered mentation. Patient's respiratory rate is less than 22. Systolic blood pressure is greater than 100. Patient has a qSOFA score of 0- Negative Sepsis Screen. Suicide/Homicide risk assessment- the patient denies having any suicidal and/or homicidal ideations and does not present with any other emotional, behavioral or mental health complaints. Status: Patient is not a insurance and financial services agent or dependent. Transition of care: patient was not received from another setting of care. 20:36 Acuity: CHARLEE Level 3 [facility] 20:36 Method Of Arrival: Walkin/Carried/Asstd [facility] Triage Assessment: 20:43 General: Appears in no apparent distress, Behavior is appropriate for age, cooperative. [facility] Pain: Denies pain. Neurological: Level of Consciousness is awake, alert, obeys commands, Oriented to person, place, time. Respiratory: Airway is patent Respiratory effort is even, Respiratory pattern is regular. Derm: Skin is pink, warm & dry. Musculoskeletal: Range of motion intact in all extremities. Historical: - Allergies: No known drug Allergies; - Home Meds: 1. Calcium + Vitamin D 600 mg calcium- 200 unit Oral tab daily 2. Advil 200 mg Oral tab 1 tab as needed 3. acetaminophen 325 mg Oral tab 2 tabs as needed 4. Vitamin D3 1,000 unit oral tab daily 5. losartan-hydrochlorothiazide 50-12.5 mg oral tab 1 tab once daily - PMHx: Hypertension; COPD; vitamin D deficiency; hyperparathyroidism; osteopenia; - PSHx: Tubal ligation; right knee replacement; bilateral cataract; - Social history: Smoking status: Patient states former smoker of tobacco. No barriers to communication noted, The patient speaks fluent Togolese, Speaks appropriately for age. - Family history: Not pertinent. - : The pt / caregiver states he / she is not on anticoagulants. Home medication list is obtained from the patient. - Exposure Risk Screening:: None identified. Screenin/05 00:27 Screening information is obtained from the patient. Fall risk: No risks identified. cf2 Assistance ADL's: requires no assistance with activities of daily living. Abuse/DV Screen: The patient / caregiver reports he/she is: not in a situation that causes fear, pain or injury. Nutritional screening: No deficits noted. Advance Directives: Further advance directive information is declined. home support is adequate. Assessment: 00:27 General: Appears in no apparent distress, comfortable, Behavior is appropriate for age, cf2 cooperative. Pain: Denies pain. Neurological: No deficits noted. EENT: No deficits noted. Cardiovascular: No deficits noted. Respiratory: No deficits noted. GI: Bowel sounds present X 4 quads. Abd is soft and non tender Reports diarrhea, nausea, vomiting. : No deficits noted. Derm: No deficits noted. Musculoskeletal: No deficits noted. Injury Description: No known injury. Vital Signs: 03/23 20:34 BP 219 / 106 RA Sitting (auto/reg); Pulse 108; Resp 18 S; Temp 96.7(O); Pulse Ox 98% on dd6 R/A; Weight 92.08 kg (R); Height 5 ft. 6 in. (167.64 cm) (R); 20:35 BP 210 / 99 LA Sitting (auto/reg); dd6 23:51 BP 162 / 77; Pulse 88; Resp 18 S; Pulse Ox 96% on R/A; Pain 0/10; af2 03/24 03:11 BP 144 / 87; Pulse 82; Resp 16; Temp 98.0; Pulse Ox 97% on R/A; Pain 0/10; cf2 03/23 20:34 Body Mass Index 32.76 (92.08 kg, 167.64 cm) dd6 Vitals: 03/23 20:34 Log In Time: March 23, 2016 at 20:32. dd6 ED Course: 20:34 Patient visited by Ortega Aguirre PCA. dd6 20:34 Hellen Bose is Private Physician. dd6 20:34 Patient moved to Waiting dd6 20:35 Patient moved to Pre RCE dd6 20:37 Triage Initiated jmb 20:54 Patient moved to Triage 3 jmb 21:09 Garry Fisher DO is Attending Physician. cs11 21:09 Patient visited by Garry Fisher DO. cs11 21:10 Patient moved to 11 jmb 21:12 Sherita Collazo,MARIA LUISA is Primary Nurse. cf2 21:12 Patient visited by Sherita Collazo,MARIA LUISA. cf2 21:47 Patient visited by Sherita Collazo RN. cf2 21:48 Liver Profile Sent. cf2 21:48 Pt & Aptt Sent. cf2 21:48 CBC with Diff Sent. cf2 21:48 MED Profile Sent. cf2 22:26 Patient visited by Sherita Collazo RN. cf2 22:36 [facility] Payment Agreement was scanned into [employer] and attached to record. gjb 22:40 Patient name changed from Briana\S\\S\Emanuel\S\ to Briana\S\ \S\Emanuel. EDMS 23:41 Patient visited by Dang Henley, Slab Polisher. jlm 23:51 Patient visited by Kirsten Matamoros RN. af2 23:52 Patient visited by Kirsten Matamoros RN. af2 23:52 The patient / caregiver is instructed regarding the plan of care and ED course. Patient af2 has correct armband on for positive identification. Placed in gown. 23:52 Labs drawn. (by ED staff). Sent per order to lab. af2 03/24 00:23 Patient visited by Sherita Collazo RN. cf2 00:23 Patient visited by Sherita Collazo RN. cf2 00:27 Inserted saline lock: 20 gauge in right antecubital area and blood collected. The cf2 patient tolerated the procedure well. No procedures done that require assistance. 00:51 Ana Luisa Moser is Hospitalizing Provider. cs11 00:56 Patient moved to Ultrasound br3 01:18 Patient moved to 11 br3 01:41 Patient visited by Sherita Collazo RN. cf2 03:23 Ultrasound, Renal Returned. EDMS 03/25 08:26 T-Sheet-- Draft Copy was scanned into [employer] and attached to record. gb Administered Medications: 03/23 21:48 Drug: NS 0.9% 500 ml [sodium chloride 0.9 % intravenous solution] Route: IV; Rate: cf2 bolus; Site: left antecubital; Order Results: Lab Order: CBC with Diff; SPEC'M 03/23/16 21:41 Test: WHITE BLOOD COUNT; Value: 8.6; Range: 4.0-10.0; Units: K/mm3; Status: F Test: RED BLOOD COUNT; Value: 4.02; Range: 4.00-5.40; Units: M/mm3; Status: F Test: HEMOGLOBIN; Value: 11.8; Range: 12.0-16.0; Abnormal: Below low normal; Units: g/dl; Status: F Test: HEMATOCRIT; Value: 35.4; Range: 36.0-47.0; Abnormal: Below low normal; Units: %; Status: F Test: MEAN CORPUSCULAR VOLUME; Value: 88.0; Range: 80.0-96.0; Units: fl; Status: F Test: MEAN CORPUSCULAR HEMOGLOBIN; Value: 29.4; Range: 27.0-33.0; Units: pg; Status: F Test: MEAN CORPUSCULAR HGB CONC; Value: 33.5; Range: 32.0-36.5; Units: g/dl; Status: F Test: RED CELL DISTRIBUTION WIDTH; Value: 13.1; Range: 11.5-14.5; Units: %; Status: F Test: PLATELET COUNT, AUTOMATED; Value: 288; Range: 150-450; Units: k/mm3; Status: F Test: NEUTROPHILS %; Value: 84.1; Range: 36.0-66.0; Abnormal: Above high normal; Units: %; Status: F Test: LYMPH %; Value: 8.8; Range: 24.0-44.0; Abnormal: Below low normal; Units: %; Status: F Test: MONO %; Value: 4.5; Range: 0.0-5.0; Units: %; Status: F Test: EOS %; Value: 1.2; Range: 0.0-3.0; Units: %; Status: F Test: BASO %; Value: 0.4; Range: 0.0-1.0; Units: %; Status: F Test: LARGE UNSTAINED CELL %; Value: 1.1; Range: 0.0-4.0; Units: %; Status: F Test: NEUTROPHILS #; Value: 7.2; Range: 1.8-7.7; Units: K/mm3; Status: F Test: LYMPH #; Value: 0.8; Range: 1.5-4.5; Abnormal: Below low normal; Units: K/mm3; Status: F Test: MONO #; Value: 0.4; Range: 0.0-0.8; Units: K/mm3; Status: F Test: EOS #; Value: 0.1; Range: 0.0-0.50; Units: K/mm3; Status: F Test: BASO #; Value: 0.0; Range: 0.0-0.2; Units: K/mm3; Status: F Test: LARGE UNSTAINED CELL #; Value: 0.1; Range: 0.0-0.4; Units: K/mm3; Status: F Lab Order: MED Profile; SPEC'M 03/23/16 23:47 Test: GLUCOSE, FASTING; Value: 104; Range: 83-110; Units: MG/DL; Status: F Test: BLOOD UREA NITROGEN; Value: 160; Range: 7-18; Abnormal: Above high normal; Units: MG/DL; Status: F Test: CREATININE FOR GFR; Value: 27.10; Range: 0.55-1.02; Abnormal: Above high normal; Units: MG/DL; Status: F Test: GLOMERULAR FILTRATION RATE; Value: 1.3; Range: >39; Abnormal: Below low normal; Status: F Test: SODIUM LEVEL; Value: 141; Range: 136-145; Units: MEQ/L; Status: F Test: POTASSIUM SERUM; Value: 4.6; Range: 3.5-5.1; Units: MEQ/L; Status: F Test: CHLORIDE LEVEL; Value: 102; Range: 98-107; Units: MEQ/L; Status: F Test: CARBON DIOXIDE LEVEL; Value: 15; Range: 21-32; Abnormal: Below low normal; Units: MEQ/L; Status: F Test: ANION GAP; Value: 24; Range: 8-16; Abnormal: Above high normal; Units: MEQ/L; Status: F Test: CALCIUM LEVEL; Value: 9.7; Range: 8.8-10.2; Units: MG/DL; Status: F Test Note: ; Units are mL/min/1.73 m2 Chronic Kidney Disease Staging per NKF: Stage I & II GFR >=60 Normal to Mildly Decreased Stage III GFR 30-59 Moderately Decreased Stage IV GFR 15-29 Severely Decreased Stage V GFR <15 Very Little GFR Left ESRD GFR <15 on CAT SKINNER Lab Order: Pt & Aptt; SPEC'M 03/23/16 21:41 Test: PROTHROMBIN TIME; Value: 17.3; Range: 12.3-14.5; Abnormal: Above high normal; Units: SECONDS; Status: F Test: INR; Value: 1.40; Status: F Test: PARTIAL THROMBOPLASTIN TIME; Value: 31.7; Range: 26.6-37.1; Units: SECONDS; Status: F Test Note: ; THERAPUTIC HUMAN INR VALUES INDICATIONS NORMAL RANGES PROPHYLAXIS/TREATMENT OF: VENOUS THROMBOSIS 2.0-3.0 PULMONARY EMBOLISM 2.0-3.0 PREVENTION OF SYSTEMIC EMBOLISM FROM: TISSUE HEART VALVES 2.0-3.0 ACUTE MYOCARDIAL INFARCTION 2.0-3.0 VALVULAR HEART DISEASE 2.0-3.0 ATRIAL FIBRILLATION 2.0-3.0 MECHANICAL VALVES(HIGH RISK) 2.5-3.5 RECURRENT MYOCARDIAL INFARCTION 2.5-3.5 Lab Order: Liver Profile; SPEC03/23/16 23:47 Test: AST/SGOT; Value: 7; Range: 15-37; Abnormal: Below low normal; Units: U/L; Status: F Test: ALT/SGPT; Value: 19; Range: 12-78; Units: U/L; Status: F Test: ALKALINE PHOSPHATASE; Value: 79; Range: 45-117; Units: U/L; Status: F Test: BILIRUBIN,TOTAL; Value: 0.4; Range: 0.2-1.0; Units: MG/DL; Status: F Test: BILIRUBIN,DIRECT; Value: 0.2; Range: 0.0-0.2; Units: MG/DL; Status: F Test: TOTAL PROTEIN; Value: 7.2; Range: 6.4-8.2; Units: GM/DL; Status: F Test: ALBUMIN; Value: 3.5; Range: 3.2-5.2; Units: GM/DL; Status: F Test: ALBUMIN/GLOBULIN RATIO; Value: 0.95; Range: 1.00-1.93; Abnormal: Below low normal; Status: F Radiology Order: Ultrasound, Renal Test: Ultrasound, Renal REASON FOR EXAMINATION: renal failure; ; CLINICAL HISTORY: Pain.; TECHNIQUE: Realtime sonographic images were obtained in multiple projections.; COMMENTS:; The right kidney measures 14.1x5.3x6.2 cm and the left kidney measures 12.6x6.5x6.7 cm cm. Both k; idneys demonstrate hydronephrosis. There is no evidence of solid or cystic mass. There is no perineph; kimberly fluid. There is no renal calculus.; IMPRESSION:; Bilateral hydroureteronephrosis more prominent on the right.; Thank you for your kind referral of this patient.; ; ; Outcome: 03/24 00:27 Property :Personal belongings accompany Pt. cf2 00:51 Decision to Hospitalize by Provider. cs11 03:11 The following High Risk Discharge criteria are identified: Yes, Admitted to Floor. cf2 Condition: improved. Ultrasound Study completed. 03:48 Discharge Assessment: Patient awake, alert and oriented x 3. No cognitive and/or cf2 functional deficits noted. Patient verbalized understanding of disposition instructions. Patient awake and alert. Oriented to person, place and time. patient administered narcotics - no. 03:53 Patient left the ED. cf2 Signatures: Dispatcher [employer] EDMS Shadia Arana, Darnell Reg gb Ortega Aguirre, CRYSTAL INSPECTOR CRYSTAL INSPECTOR dd6 Laila Ty br3 Garry Fisher DO DO cs11 Pramod Mata,RN RN Dang Sandoval, Slab Polisher Unit Kirsten DaleRN RN af2 Yesika Louise Christina,RN RN cf2 Chart Complete MTDD
--- NOTE | 2016-03-26 04:54 | EDDOCDS ---
Physician Documentation [facility] Name: Briana Castellanos Age: 70 yrs Sex: Female : 1945 Arrival Date: 03/23/2016 Time: 20:32 Bed 11 Private MD: Hlelen Bose L. Disposition: 03/24/16 00:51 Hospitalization ordered by Ana Luisa Moser for Inpatient Admission. Preliminary diagnosis is Acute kidney failure. - Bed requested for 4 [place]. - Status is Inpatient Admission. cf2 - Condition is Stable. - Problem is new. - Symptoms are unchanged. Historical: - Allergies: No known drug Allergies; - Home Meds: 1. Calcium + Vitamin D 600 mg calcium- 200 unit Oral tab daily 2. Advil 200 mg Oral tab 1 tab as needed 3. acetaminophen 325 mg Oral tab 2 tabs as needed 4. Vitamin D3 1,000 unit oral tab daily 5. losartan-hydrochlorothiazide 50-12.5 mg oral tab 1 tab once daily - PMHx: Hypertension; COPD; vitamin D deficiency; hyperparathyroidism; osteopenia; - PSHx: Tubal ligation; right knee replacement; bilateral cataract; - Social history: Smoking status: Patient states former smoker of tobacco. No barriers to communication noted, The patient speaks fluent Serbian, Speaks appropriately for age. - Family history: Not pertinent. - : The pt / caregiver states he / she is not on anticoagulants. Home medication list is obtained from the patient. - Exposure Risk Screening:: None identified. Vital Signs: 03/23 20:34 BP 219 / 106 RA Sitting (auto/reg); Pulse 108; Resp 18 S; Temp 96.7(O); Pulse Ox 98% on dd6 R/A; Weight 92.08 kg / 203 lbs (R); Height 5 ft. 6 in. (167.64 cm) (R); 20:35 BP 210 / 99 LA Sitting (auto/reg); dd6 23:51 BP 162 / 77; Pulse 88; Resp 18 S; Pulse Ox 96% on R/A; Pain 0/10; af2 03/24 03:11 BP 144 / 87; Pulse 82; Resp 16; Temp 98.0; Pulse Ox 97% on R/A; Pain 0/10; cf2 03/23 20:34 Body Mass Index 32.76 (92.08 kg, 167.64 cm) dd6 MDM: 03/23 21:16 IV Saline Lock ordered. cs11 21:16 CBC with Diff Ordered. EDMS 21:16 MED Profile Ordered. EDMS 21:16 Pt & Aptt Ordered. EDMS 21:16 Liver Profile Ordered. EDMS 21:45 NS 0.9% 500 ml IV at bolus once ordered. cs11 22:00 CBC with Diff Reviewed. cs11 22:29 Financial registration complete. [facility] 22:36 [facility] Payment Agreement was scanned into [employer] and attached to record. gjb 03/24 00:24 MED Profile Reviewed. cs11 00:24 Pt & Aptt Reviewed. cs11 00:24 Liver Profile Reviewed. cs11 00:28 BED REQUEST+ADM ordered. EDMS 00:35 Ultrasound, Renal Ordered. EDMS 02:15 Admission / Observation Status ordered. EDMS 02:45 URINALYSIS Ordered. EDMS 02:52 SODIUM,RANDOM URINE Ordered. EDMS 02:52 OSMOLALITY,URINE Ordered. EDMS 02:52 OSMOLALITY, SERUM Ordered. EDMS 02:52 COMPLEMENT C3 Ordered. EDMS 02:52 COMPLEMENT C4 Ordered. EDMS 02:52 COMPLEMENT TOTAL(CH50) Ordered. EDMS 02:52 ANTINUCLEAR ANTIBODIES Ordered. EDMS 02:53 ANTI-NEUTROPHIL CYTOPLASMIC AB Ordered. EDMS 02:53 ANTI-GLOMERULAR BASEMENT MEMB Ordered. EDMS 02:53 ANTI DOUBLE STRAND DNA ILDEFONSO Ordered. EDMS 02:53 GASTROINTESTINAL (GI) PANEL Ordered. EDMS 03:00 COMPLETE BLOOD COUNT Ordered. EDMS 03:00 RENAL PROFILE Ordered. EDMS 03:00 CALCIUM LEVEL Ordered. EDMS 03:02 VITAMIN D, 25-HYDROXY Ordered. EDMS 03:03 2 GRAM SODIUM DIET ordered. EDMS 03:47 ANTI-STREPTOLYSIN O SCREEN Ordered. EDMS 03/25 08:26 T-Sheet-- Draft Copy was scanned into [employer] and attached to record. gb Administered Medications: 03/23 21:48 Drug: NS 0.9% 500 ml [sodium chloride 0.9 % intravenous solution] Route: IV; Rate: cf2 bolus; Site: left antecubital; Signatures: Dispatcher [employer] EDMS Tameka Ly RN RN daq Shadia Arana, Reg Reg Garry Arias DO DO csPramod CuetoRN RN Yesika Muñoz ChristinaRN RN cf2 The chart was reviewed and I authenticate all verbal orders and agree with the evaluation and treatment provided.Corrections: (The following items were deleted from the chart) 03/24 02:53 02:53 GASTROINTESTINAL (GI) PANEL ordered. EDMS EDMS 02:53 02:53 GASTROINTESTINAL (GI) PANEL ordered. EDMS EDMS : 03:00 VITAMIN D, 25-HYDROXY ordered. EDMS EDMS 03:03 02:15 NPO DIET ordered. EDMS EDMS : 03/23 22:36 [facility] Payment Agreement [facility] 03/25 08:26 T-Sheet-- Draft Copy gb Chart Complete MTDD
--- NOTE | 2016-03-26 04:54 | EDDOCDS ---
Physician Documentation [facility] Name: Briana Castellanos Age: 70 yrs Sex: Female : 1945 Arrival Date: 03/23/2016 Time: 20:32 Bed 11 Private MD: Hellen Bose L. Disposition: 03/24/16 00:51 Hospitalization ordered by Ana Luisa Moser for Inpatient Admission. Preliminary diagnosis is Acute kidney failure. - Bed requested for 4 [place]. - Status is Inpatient Admission. cf2 - Condition is Stable. - Problem is new. - Symptoms are unchanged. Historical: - Allergies: No known drug Allergies; - Home Meds: 1. Calcium + Vitamin D 600 mg calcium- 200 unit Oral tab daily 2. Advil 200 mg Oral tab 1 tab as needed 3. acetaminophen 325 mg Oral tab 2 tabs as needed 4. Vitamin D3 1,000 unit oral tab daily 5. losartan-hydrochlorothiazide 50-12.5 mg oral tab 1 tab once daily - PMHx: Hypertension; COPD; vitamin D deficiency; hyperparathyroidism; osteopenia; - PSHx: Tubal ligation; right knee replacement; bilateral cataract; - Social history: Smoking status: Patient states former smoker of tobacco. No barriers to communication noted, The patient speaks fluent East [place]orese, Speaks appropriately for age. - Family history: Not pertinent. - : The pt / caregiver states he / she is not on anticoagulants. Home medication list is obtained from the patient. - Exposure Risk Screening:: None identified. Vital Signs: 03/23 20:34 BP 219 / 106 RA Sitting (auto/reg); Pulse 108; Resp 18 S; Temp 96.7(O); Pulse Ox 98% on dd6 R/A; Weight 92.08 kg / 203 lbs (R); Height 5 ft. 6 in. (167.64 cm) (R); 20:35 BP 210 / 99 LA Sitting (auto/reg); dd6 23:51 BP 162 / 77; Pulse 88; Resp 18 S; Pulse Ox 96% on R/A; Pain 0/10; af2 03/24 03:11 BP 144 / 87; Pulse 82; Resp 16; Temp 98.0; Pulse Ox 97% on R/A; Pain 0/10; cf2 03/23 20:34 Body Mass Index 32.76 (92.08 kg, 167.64 cm) dd6 MDM: 03/23 21:16 IV Saline Lock ordered. cs11 21:16 CBC with Diff Ordered. EDMS 21:16 MED Profile Ordered. EDMS 21:16 Pt & Aptt Ordered. EDMS 21:16 Liver Profile Ordered. EDMS 21:45 NS 0.9% 500 ml IV at bolus once ordered. cs11 22:00 CBC with Diff Reviewed. cs11 22:29 Financial registration complete. [facility] 22:36 [facility] Payment Agreement was scanned into [employer] and attached to record. gjb 03/24 00:24 MED Profile Reviewed. cs11 00:24 Pt & Aptt Reviewed. cs11 00:24 Liver Profile Reviewed. cs11 00:28 BED REQUEST+ADM ordered. EDMS 00:35 Ultrasound, Renal Ordered. EDMS 02:15 Admission / Observation Status ordered. EDMS 02:45 URINALYSIS Ordered. EDMS 02:52 SODIUM,RANDOM URINE Ordered. EDMS 02:52 OSMOLALITY,URINE Ordered. EDMS 02:52 OSMOLALITY, SERUM Ordered. EDMS 02:52 COMPLEMENT C3 Ordered. EDMS 02:52 COMPLEMENT C4 Ordered. EDMS 02:52 COMPLEMENT TOTAL(CH50) Ordered. EDMS 02:52 ANTINUCLEAR ANTIBODIES Ordered. EDMS 02:53 ANTI-NEUTROPHIL CYTOPLASMIC AB Ordered. EDMS 02:53 ANTI-GLOMERULAR BASEMENT MEMB Ordered. EDMS 02:53 ANTI DOUBLE STRAND DNA ILDEFONSO Ordered. EDMS 02:53 GASTROINTESTINAL (GI) PANEL Ordered. EDMS 03:00 COMPLETE BLOOD COUNT Ordered. EDMS 03:00 RENAL PROFILE Ordered. EDMS 03:00 CALCIUM LEVEL Ordered. EDMS 03:02 VITAMIN D, 25-HYDROXY Ordered. EDMS 03:03 2 GRAM SODIUM DIET ordered. EDMS 03:47 ANTI-STREPTOLYSIN O SCREEN Ordered. EDMS 03/25 08:26 T-Sheet-- Draft Copy was scanned into [employer] and attached to record. gb Administered Medications: 03/23 21:48 Drug: NS 0.9% 500 ml [sodium chloride 0.9 % intravenous solution] Route: IV; Rate: cf2 bolus; Site: left antecubital; Signatures: Dispatcher [employer] EDMS Tameka Ly RN RN daq Shadia Arana, Reg Reg Garry Arias DO DO csPramod CuetoRN RN Yesika Muñoz ChristinaRN RN cf2 The chart was reviewed and I authenticate all verbal orders and agree with the evaluation and treatment provided.Corrections: (The following items were deleted from the chart) 03/24 02:53 02:53 GASTROINTESTINAL (GI) PANEL ordered. EDMS EDMS 02:53 02:53 GASTROINTESTINAL (GI) PANEL ordered. EDMS EDMS : 03:00 VITAMIN D, 25-HYDROXY ordered. EDMS EDMS 03:03 02:15 NPO DIET ordered. EDMS EDMS : 03/23 22:36 [facility] Payment Agreement [facility] 03/25 08:26 T-Sheet-- Draft Copy gb Chart Complete MTDD
[2016-03-26] MEDS: HEPARIN SOD (PORCINE) 5000 UNITS/ML VIAL SC SCH ×3 (05:42→21:17)
[2016-03-26 06:33] LABS: MEAN CORPUSCULAR HEMOGLOBIN 28.9 pg (27.0-33.0); MEAN CORPUSCULAR HGB CONC 32.7 g/dl (32.0-36.5); MEAN CORPUSCULAR VOLUME 88.2 fl (80.0-96.0); RED CELL DISTRIBUTION WIDTH 13.6 % (11.5-14.5); WHITE BLOOD COUNT 10.4 K/mm3 (4.0-10.0)
[2016-03-26 06:51] LABS: ALBUMIN 3.8 GM/DL (3.2-5.2); CALCIUM LEVEL 10.1 MG/DL (8.8-10.2); CREATININE FOR GFR 1.57 MG/DL (0.55-1.02); GLOMERULAR FILTRATION RATE 34.5 (>39); PHOSPHORUS LEVEL 1.5 MG/DL (2.5-4.9)
[2016-03-26] MEDS: diphenhydrAMINE 25 MG CAP PO PRN (08:09)
[2016-03-26] MEDS: KETOROLAC 0.4% OS SCH ×4 (08:09→21:15)
[2016-03-26] MEDS: prednisoLONE ACET 1% OPHTH SUSP 5ML OS SCH ×2 (08:10→21:17)
--- NOTE | 2016-03-26 09:04 | SMCUROLCON ---
Urology Consultation General Date of Consultation 03/26/16 Reason For Consultation This patient is seen for Acute Renal Failure, Diarrhea. History of Present Illness The patient is a [70]-year-old [female] with a past medical history for [ARF s/ p bilateral NT; bilateral HUN with distal ureter stricture?]. NPO. Cystoscopy, bilateral RPG, +/- balloon dilation, JJ. Full consultation dictated. Cipro care transitions nurse to OR. Reviewed with Hospitalist. Medications Current Medications Current Medications Acetaminophen (Tylenol) 650 mg Q4HP PRN PO MILD PAIN OR FEVER Last administered on 03/26/16 08:09; Start 03/24/16 at 02:15; Stop 04/23/16 at 02:14 Albuterol/ Ipratropium (Duoneb (Ipr 0.5mg/Alb 2.5mg)) 3 ml Q2HP PRN NEB SOB/ WHEEZING; Start 03/25/16 at 12:30; Stop 04/24/16 at 12:29 Ceftriaxone Sodium (Rocephin) 1 gm STK-MED ONCE As Ordered ; Start 03/25/16 at 11 :19; Stop 03/25/16 at 11:20; Status DC Diphenhydramine HCl (Benadryl) 25 mg ONCE ONCE IV Last administered on 20:39; Start 03/25/16 at 20:30; Stop 03/25/16 at 20:34; Status DC Diphenhydramine HCl (Benadryl) 25 mg Q8HP PRN PO ITCHING Last administered on 08:09; Start 03/25/16 at 14:45; Stop 04/24/16 at 14:44 Fentanyl Citrate (Sublimaze) 100 mcg STK-MED ONCE As Ordered ; Start 03/25/16 at 11:23; Stop 03/25/16 at 11:24; Status DC Heparin Sodium (Porcine) 5000 units 5,000 units Q8H SC Last administered on 03/26 05:42; Start 03/24/16 at 06:00; Stop 03/29/16 at 05:59; Status Future hold Home Med ASDIRECTED XX ; Start 03/24/16 at 01:15; Stop 03/24/16 at 07:02; Status DC Iopamidol (Isovue-300 61%) 100 ml STK-MED ONCE As Ordered ; Start 03/25/16 at 11: 19; Stop 03/25/16 at 11:20; Status DC Lidocaine HCl (Lidocaine 2% Mdv) 40 ml STK-MED ONCE As Ordered ; Start 03/25/16 at 11:19; Stop 03/25/16 at 11:20; Status DC Metoclopramide HCl (Reglan) 10 mg Q6HP PRN IV NAUSEA OR VOMITING; Start at 02:15; Stop 03/24/16 at 12:22; Status DC Midazolam HCl (Versed) 2 mg STK-MED ONCE As Ordered ; Start 03/25/16 at 11:23; Stop 03/25/16 at 11:24; Status DC Miscellaneous SEE LABEL COMMENTS UNRESOLVED XX ; Start 03/25/16 at 00:01; Stop at 16:20; Status DC Ondansetron HCl (Zofran) 4 mg Q6HP PRN IV NAUSEA OR VOMITING Last administered on 03/24/16 17:52; Start 03/24/16 at 02:15; Stop 04/23/16 at 02:14 Patient Own Medication (Patient'S Own Med) 1 ea QID OS Last administered on 03/26 08:09; Start 03/25/16 at 17:00; Stop 04/24/16 at 16:59 Potassium Chloride 40 meq 40 meq ONCE ONCE PO Last administered on 03/25/16 22 :56; Start 03/25/16 at 22:45; Stop 03/25/16 at 22:48; Status DC Potassium Phosphate/Dextrose (Potassium Phosphate Inj/ Dextrose 5%) 256.6667 ml @ 85.553 m... ONCE ONCE IV ; Start 03/26/16 at 10:00; Stop 03/26/16 at 12:59 Prednisolone Acetate (Predforte 1% Ophth Susp) 1 drop BID OS Last administered on 03/26/16 08:10; Start 03/25/16 at 21:00; Stop 04/24/16 at 20:59 Propofol (Diprivan) 200 mg STK-MED ONCE As Ordered ; Start 03/25/16 at 13:26; Stop 03/25/16 at 13:27; Status DC Propofol (Diprivan) 200 mg STK-MED ONCE As Ordered ; Start 03/25/16 at 13:26; Stop 03/25/16 at 13:27; Status DC Sodium Bicarbonate/ Sodium Chloride (Sodium Bicarbonate/Nacl 0.45%) 1,075 ml @ 150 mls/hr Q7H10M IV Last administered on 03/25/16 06:34; Start 03/24/16 at 11: 00; Stop 03/25/16 at 17:59; Status DC Sodium Bicarbonate (Sodium Bicarbonate) 50 meq STK-MED ONCE As Ordered ; Start 03/25/16 at 11:19; Stop 03/25/16 at 11:20; Status DC Sodium Chloride (Nacl 0.45%) 1,000 ml @ 250 mls/hr Q4H IV Last administered on 03/26/16 08:00; Start 03/25/16 at 18:00; Stop 04/24/16 at 17:59 Sodium Chloride (Nacl 0.9%) 500 ml BOLUS ONCE IV Last administered on 18:23; Start 03/25/16 at 18:15; Stop 03/25/16 at 18:16; Status DC Sodium Chloride (Nacl 0.9%) 1,000 ml @ 150 mls/hr Q6H40M IV Last administered on 03/24/16 07:13; Start 03/24/16 at 02:12; Stop 03/24/16 at 09:26; Status DC Allergies Allergies: Coded Allergies: No Known Allergies (Verified , 09/23/02) Vital Signs/I&O Vital Signs Date Time Temp Pulse Resp B/P Pulse Ox O2 Delivery O2 Flow Rate FiO2 03/26/16 05:20 97.3 77 16 168/89 94 Room Air I&O- Last 24 Hours up to 6 AM 03/26/16 06:00 Intake Total 7200 ml Output Total 9630 ml Balance -2430 ml Laboratory Data 24H Labs Laboratory Tests 2 03/25/16 14:50: Blood Urea Nitrogen 131H, Creatinine 16.90H, Sodium Level 149H, Potassium Level 4.4, Chloride Level 113H, Carbon Dioxide Level 19L, Calcium Level 9.8, Aspartate Amino Transf (AST/SGOT) 10L, Alanine Aminotransferase (ALT/SGPT) 23, Alkaline Phosphatase 92, Total Bilirubin 0.3, Total Protein 7.3, Albumin 3.8, Albumin/Globulin Ratio 1.09, Anion Gap 16, Glomerular Filtration Rate 2.2L, Magnesium Level 2.6H, Phosphorus Level 4.9# 03/25/16 21:08: Blood Urea Nitrogen 66H, Creatinine 5.53#H, Sodium Level 150H, Potassium Level 3.7, Chloride Level 117H, Carbon Dioxide Level 20L, Calcium Level 9.9, Albumin 3.7, Anion Gap 13, Glomerular Filtration Rate 8.1L, Phosphorus Level 2.2#L 03/26/16 05:41: Blood Urea Nitrogen 28#H, Creatinine 1.57#H, Sodium Level 149H, Potassium Level 4.0, Chloride Level 117H, Carbon Dioxide Level 20L, Calcium Level 10.1, Albumin 3.8, Anion Gap 12, Glomerular Filtration Rate 34.5L, Phosphorus Level 1.5#L CBC/BMP Laboratory Tests 03/25/16 14:50 Anion Gap 16, Calcium Level 9.8, Aspartate Amino Transf (AST/SGOT) 10 L, Alanine Aminotransferase (ALT/SGPT) 23, Alkaline Phosphatase 92, Total Bilirubin 0.3, Total Protein 7.3, Albumin 3.8 03/25/16 21:08 Anion Gap 13 03/26/16 05:41 Anion Gap 12, Red Blood Count 4.18, Mean Corpuscular Volume 88.2, Mean Corpuscular Hemoglobin 28.9, Mean Corpuscular Hemoglobin Concent 32.7, Red Cell Distribution Width 13.6 Microbiology Microbiology 03/24/16 Gastrointestinal Tract Panel (PCR) - Final, Complete 03/25/16 Urine Culture, Received Pending 03/25/16 Gram Stain - Final, Resulted 03/25/16 Anaerobic Culture, Resulted Pending GUSTAVO MARCELO MD Mar 26, 2016 09:04
--- NOTE | 2016-03-26 09:40 | CR ---
DATE OF CONSULTATION: 03/26/2016 This 70-year-old female was evaluated in consultation as requested by Dr. Pereira on 03/26/2016 for acute renal failure and anuria. She was admitted to the hospital (03/24/2016) with diarrhea, acute renal failure and four day history of anuria. Serum creatinine at presentation was 28. She is status post bilateral nephrostomy tube placement by interventional radiology (03/25/2016). Subsequent to nephrostomy tube drainage, the creatinine has almost normalized. Prior to presentation, there is no history of voiding symptoms, gross hematuria, urinary tract infection, urolithiasis, flank pain or constitutional symptoms. PAST MEDICAL HISTORY: Significant for hypertension, chronic obstructive pulmonary disease, tubal ligation, right total knee arthroplasty, and bilateral cataract surgery. REVIEW OF SYSTEMS: Negative for diabetes, cardiac or thyroid pathology, headaches, epilepsy, coronary artery disease (CAD), glaucoma, peptic ulcer disease, urolithiasis, cholelithiasis, or blood borne diseases. CURRENT MEDICATIONS (include): - hydrochlorothiazide - Advair No allergies to medications. Socially, she is a 30 pack year smoker who quit 14 years previously. She consumes alcohol occasionally. She is and has two children. FAMILY HISTORY: Noncontributory. General examination revealed a comfortable individual. Her heart rate was 77, respiratory rate 16, blood pressure 160/89, and temperature 97.3 degrees Fahrenheit. Palpation of the head and neck failed to reveal the appearance of lymphadenopathy. Auscultation of the chest was clear. Normal heart sounds. Examination of the back and abdomen were benign. Bilateral nephrostomy tubes were noted. Urine culture (03/25/2016) remains pending at the time of this dictation. Bladder ultrasonograph (03/26/2016) recorded 44 mL of urine. Renal sonography (03/24/2016) demonstrated bilateral hydroureteronephrosis. Computer tomography of the abdomen and pelvis without intravenous contrast (03/24/2016) demonstrated bilateral hydroureteronephrosis (right greater than left), bilateral distal ureteral strictures ?, and a hiatal hernia. Serum hematologic and biochemical indices determination (03/26/2016) demonstrated a hemoglobin at 12.1, leukocyte content 0.4 and a creatinine of 1.6 (decreased from 2.8). ASSESSMENT: 1. Bilateral hydroureteronephrosis. 2. Bilateral distal ureter strictures ?. 3. Acute renal failure, resolving status post bilateral nephrostomy tube placement (03/25/2016). 4. Hypertension. 5. Chronic obstructive pulmonary disease. 6. Right total knee arthroplasty. 7. History of tubal ligation. PLAN: The above findings were discussed with the patient, nursing staff and primary service. Following nothing by mouth status, cystoscopy, bilateral retrograde ureteropyelography and possible balloon dilation of ureter with JJ-stent insertion will be performed to evaluate the distal ureters bilaterally. Perioperative ampicillin and gentamicin will be provided. Should you require additional information, please do not hesitate to contact me. Thanking you for the confidence of your referral.
[2016-03-26] MEDS ORDERED: GENTAMICIN SULF INJ 80MG/2ML VIAL (J1580) IP ONE (09:45)
[2016-03-26] MEDS ORDERED: VANCOMYCIN HCL 500 MG in D5W MINI-BAG PLUS 100 ML IV SCH (09:45)
[2016-03-26] MEDS ORDERED: POTASSIUM PHOSPHATE INJ 20 MMOL in D5W 250 ML IV ONE ×2 (10:00→17:00)
[2016-03-26] MEDS ORDERED: GENTAMICIN SULFATE 80 MG in APPROPRIATE DILUENT 1 EA IV SCH (10:00)
[2016-03-26] MEDS ORDERED: CONRAY-60 60% 50ML VIAL (Q9961) As Ordered ONE (11:48)
[2016-03-26] MEDS ORDERED: GENTAMICIN SULF INJ 80MG/2ML VIAL (J1580) As Ordered ONE (11:55)
[2016-03-26] MEDS ORDERED: AMPICILLIN 1 GM VIAL As Ordered ONE (12:08)
[2016-03-26] MEDS ORDERED: CONRAY-60 60% 50ML VIAL (Q9961) XX ONE (12:39)
[2016-03-26] MEDS ORDERED: PROPOFOL 200 MG/20 ML VIAL As Ordered ONE (12:41)
[2016-03-26] MEDS ORDERED: ONDANSETRON 4MG/2ML VIAL (J2405) As Ordered ONE (12:41)
[2016-03-26] MEDS ORDERED: LIDOCAINE 2% INJ 100 MG/5 ML SDV (FOR ANES.) As Ordered ONE (12:41)
[2016-03-26] MEDS ORDERED: MIDAZOLAM INJ 2 MG/2 ML VIAL (J2250) As Ordered ONE (12:41)
[2016-03-26] MEDS ORDERED: fentaNYL 100 MCG/2 ML INJECTION (J3010) As Ordered ONE (12:41)
[2016-03-26] MEDS ORDERED: fentaNYL 100 MCG/2 ML INJECTION (J3010) IV PRN (13:30)
[2016-03-26] MEDS ORDERED: ONDANSETRON 4MG/2ML VIAL (J2405) IV PRN (13:30)
[2016-03-26] MEDS ORDERED: LR 1,000 ML IV SCH (13:30)
--- NOTE | 2016-03-26 14:00 | IPNPDOC ---
Text Note Date of Service The patient was seen on 03/26/16 at 13:47. NOTE Subjective: Patient is a 70 year old female with a PMHx of HTN, COPD, Vit D deficiency, and Osteopenia, who presetned to the ER at the direction of her PCP because of abnormal renal function. She had lab work on 03/23 which revealed Acute renal failure. Patient noted that she had diarrhea from 03/15 and saw her primary care doctor. She notes that she has had several bowel movements and vomiting. She denies any blood in her stool. She notes that over the last 7 days she has not been urinating. Patient was admitted for acute renal failure. Patient was seen and examined at the bedside today. Reports that she feels fine. Still is having loose water stools, up to 5x today. No fever / chills. Objective: Vitals (See below) General: Lying in bed, no acute distress, comfortable, AAOx3 HEENT: NC, AT CVS: RRR, +S1S2 Lungs: Fair air entry b/l, -w/r/r Abdomen: Soft, ND, NT, +BSx34 Extremities: +PPx4, -Edema, -calf tenderness Assessment and plan: 1. Acute renal failure - possibly 2/2 obstruction; imaging with b/l hydronephrosis and hydroureter - Creatinine significantly elevated at 28 from baseline of 0.8 on 01/2016 - Reports no urine output - no output with urinary catheter, no symptoms - s/p IR guided b/l nephrostomy tubes - large volume diuresis - have been clamped - s/p Cystoscopy 03/26: Bilateral JJ stents placed, R ureter stricture 4cm - will need repair, L ureter narrow - should passively dilate - Output of >10 liters - post obstructive diuresis - Nephrology following (Dr. Navarrete) - appreciate their input - Urology following (Dr. Parra) - appreciate their input 2. AG and Non-AG metabolic acidosis - likely 2/2 uremia, diarrhea - Venous blood gas initially revealed acidosis - Delta / Delta of <1 - Improving - s/p Bicarb drip - Nephrology following (Dr. Navarrete) - appreciate their input 3. Multiple electrolyte abnormalities - will replete as required - Nephrology following (Dr. Navarrete) - appreciate their input 3. Acute diarrhea - will check stool osmolality gap (re: secretory vs. osmotic) - Alpha 1 antitrypsin, chymotrypsin, calprotectin, pancreatic elastase, - repeat C. diff PCR - GI panel has been negative 4. Hypertensive urgency - Will re-evaluate after nephrostomy tubes are placed - continues to have post obstructive diuresis - will start BP medication if BP remains elevated 5. COPD - no evidence of exacerbation at this time - will c/w duoneb PRN 6. Vitamin D deficiency / Osteopenia 7. DVT prophylaxis - c/w heparin VS,Fishbone, I+O VS, Fishbone, I+O Laboratory Tests 03/25/16 14:50 Anion Gap 16, Calcium Level 9.8, Aspartate Amino Transf (AST/SGOT) 10 L, Alanine Aminotransferase (ALT/SGPT) 23, Alkaline Phosphatase 92, Total Bilirubin 0.3, Total Protein 7.3, Albumin 3.8 03/25/16 21:08 Anion Gap 13 03/26/16 05:41 Anion Gap 12, Red Blood Count 4.18, Mean Corpuscular Volume 88.2, Mean Corpuscular Hemoglobin 28.9, Mean Corpuscular Hemoglobin Concent 32.7, Red Cell Distribution Width 13.6 Vital Signs Date Time Temp Pulse Resp B/P Pulse Ox O2 Delivery O2 Flow Rate FiO2 03/26/16 13:29 97.9 80 16 174/84 92 Room Air I&O- Last 24 Hours up to 6 AM 03/26/16 06:00 Intake Total 7200 ml Output Total 9630 ml Balance -2430 ml EVELINE ESCOTO MD Mar 26, 2016 13:59
[2016-03-26] MEDS: amLODIPine 5 MG TAB PO SCH (14:23)
--- NOTE | 2016-03-26 14:28 | RO ---
DATE OF PROCEDURE: 03/26/2016 PREOPERATIVE DIAGNOSES: 1. Bilateral hydroureteronephrosis. 2. Acute renal failure, status post bilateral nephrostomy tube insertion. POSTOPERATIVE DIAGNOSES: 1. Bilateral hydroureteronephrosis. 2. Acute renal failure, status post bilateral nephrostomy tube insertion. 3. Right midureter 4 cm stricture. 4. Left narrow ureter. COMPLICATIONS: None. SURGEON: Gibran Jain MD CLASSIFIED ADVERTISING MANAGER: ANESTHESIA: Laryngeal mask airway (LMA) anesthesia. ESTIMATED BLOOD LOSS: 0 mL. PROCEDURE: Cystoscopy, bilateral retrograde ureteropyelography, #6-German universal double J stent insertion, fluoroscopy. DESCRIPTION OF PROCEDURE: In lithotomy position, the patient was prepped and draped in the usual fashion. Plain fluoroscopy of the upper urinary tract confirmed the presence of bilateral nephrostomy tube placement. No radiopaque calculi were noted. A #22-German rigid cystoscope was advanced into the urinary bladder under direct vision. A urine specimen for culture and sensitivity was obtained. Minimal urine was noted within the urinary bladder. Pancystoscopy revealed normal ureteric orifices bilaterally and normal urothelium. There was no evidence of tumor, active bleeding, or urolithiasis. Normal bladder neck and urethra were noted. An area of erythema was noted on the posterior bladder wall, likely secondary to cystoscope insertion. On the right, a #5-German open-ended ureteral catheter was used to intubate the right ureteric orifice. Retrograde ureteropyelography confirmed a normal distal ureter with a 4 cm midureter stricture. Mild proximal hydroureter was noted with a second discrete area of stricture near the ureteropelvic junction. Under fluoroscopy, a 0.035 glidewire was advanced up into the right renal pelvis. The #5-German open-ended ureteral catheter was removed, and a #6-German universal double J stent was advanced under fluoroscopy and direct vision. Its position was confirmed. A #5-German open-ended ureteral catheter was then used to intubate the left ureteric orifice. Retrograde ureteropyelography confirmed no discrete areas of stricture. However, a small-caliber ureter was noted along the majority of the length of the ureter to the renal pelvis. Under fluoroscopy, a 0.035 glidewire was advanced up into the left renal pelvis. The #5-German open-ended ureteral catheter was removed, and a #6-German universal double J stent was advanced under fluoroscopy and direct vision. Its position was confirmed. Prior to removal of the instruments, the bladder was drained. At the conclusion of the procedure, sponge and instrument counts were correct. Estimated blood loss for the procedure was 0 mL. In the recovery room, the patient was alert and stable. DISPOSITION: Given the length of the right ureter stricture, balloon dilation was not performed (4 cm). Definitive stricture management will be undertaken by urology as an outpatient. On the left, passive dilation of the double J stent may allow for improvement of the ureter caliber. Clamp nephrostomy tubes. Serial creatinines until aubrey. The above information was transmitted to the primary service. CARMINA
[2016-03-26 14:29] LABS: ALBUMIN 3.5 GM/DL (3.2-5.2); ANION GAP 9 MEQ/L (8-16); BLOOD UREA NITROGEN 14 MG/DL (7-18); CALCIUM LEVEL 9.4 MG/DL (8.8-10.2); CARBON DIOXIDE LEVEL 23 MEQ/L (21-32); CHLORIDE LEVEL 114 MEQ/L (98-107); CREATININE FOR GFR 0.82 MG/DL (0.55-1.02); GLOMERULAR FILTRATION RATE > 60.0 (>39); GLUCOSE, FASTING 111 MG/DL (83-110); PHOSPHORUS LEVEL 1.9 MG/DL (2.5-4.9); POTASSIUM SERUM 4.2 MEQ/L (3.5-5.1); SODIUM LEVEL 146 MEQ/L (136-145)
--- NOTE | 2016-03-26 15:02 | ECGEPIP ---
Stationary ECG Study [facility] Test Date: 2016-03-25 Pat Name: ALFONSO BASHIR Department: Room: [place] [address] Gender: F Manager Of Case: JERROD [employer] SH[employer] MANAGER : 1945 Requested By: JORGE LUIS Rajput Order Number: [id number] Reading MD: Antony Serrano Measurements Intervals [place] Rate: 92 P: 53 [place]: 138 QRS: 26 QRSD: 100 T: 47 QT: 382 QTc: 474 Interpretive Statements SINUS RHYTHM WITH OCCASIONAL VENTRICULAR PREMATURE COMPLEXES WITH OCCASIONAL SUPRAVENTRICULAR PREMATURE COMPLEXES POSSIBLE LEFT ATRIAL ENLARGEMENT NO PRIOR Electronically Signed On 03-26-2016 15:01:46 EST by Antony Serrano
--- NOTE | 2016-03-26 16:24 | REP ---
Retrograde pyelogram: Nine views. History: Retrograde in OR. Fluoroscopy time is reported at 1 minute 11 seconds. Findings: A sequence of nine fluoroscopically obtained intraprocedural spot radiographs of the abdomen document bilateral percutaneous nephrostomy tubes, right and then left ureteral cannulation and contrast injection, and double pigtail bilateral ureteral stenting. Signed by Joni Jaramillo MD 03/26/2016 04:39 P
[2016-03-26] MEDS: SODIUM BICARBONATE 75 MEQ in NS 0.45% 1,000 ML IV SCH (22:22)
[2016-03-27] MEDS: ACETAMINOPHEN TAB 650MG DOSE (2X325MG) PO PRN (00:11)
[2016-03-27 02:00] VITALS: BP 158/83
[2016-03-27] MEDS: HEPARIN SOD (PORCINE) 5000 UNITS/ML VIAL SC SCH ×3 (05:51→21:11)
[2016-03-27] MEDS: NS 0.45% 1,000 ML IV SCH (05:53)
[2016-03-27 06:15] VITALS: BP 148/80
[2016-03-27 06:20] LABS: MEAN CORPUSCULAR HEMOGLOBIN 29.8 pg (27.0-33.0); MEAN CORPUSCULAR HGB CONC 33.1 g/dl (32.0-36.5); MEAN CORPUSCULAR VOLUME 89.9 fl (80.0-96.0); RED CELL DISTRIBUTION WIDTH 14.4 % (11.5-14.5); WHITE BLOOD COUNT 10.9 K/mm3 (4.0-10.0)
[2016-03-27 06:32] LABS: ALBUMIN 3.2 GM/DL (3.2-5.2); ANION GAP 9 MEQ/L (8-16); BLOOD UREA NITROGEN 9 MG/DL (7-18); CARBON DIOXIDE LEVEL 23 MEQ/L (21-32); CHLORIDE LEVEL 112 MEQ/L (98-107); CREATININE FOR GFR 0.66 MG/DL (0.55-1.02); GLOMERULAR FILTRATION RATE > 60.0 (>39); GLUCOSE, FASTING 93 MG/DL (83-110); PHOSPHORUS LEVEL 1.4 MG/DL (2.5-4.9); POTASSIUM SERUM 3.8 MEQ/L (3.5-5.1); SODIUM LEVEL 144 MEQ/L (136-145)
--- NOTE | 2016-03-27 08:02 | IPN ---
DATE OF SERVICE: 03/26/2016 SUBJECTIVE: The patient was seen and examined at the bedside today in the morning. She feels much better. She got the nephrostomy tubes placed yesterday bilaterally. She went into postobstructive diuresis after that. She required aggressive intravenous (IV) fluid hydration because of postobstructive diuresis. Her renal function is significantly getting better as compared with yesterday. She continues to be hypertensive at this time. The patient has some electrolyte abnormalities, as well, because of postobstructive diuresis; and at this time, the patient is nothing by mouth. She is getting IV vancomycin, and she is being prepared for operating room (OR). She would undergo cystoscopy and ureteroscopy by urology service this morning. REVIEW OF SYSTEMS: The patient denies any fever, chills, rigors, headache, nausea, vomiting. She does report that she is feeling very thirsty. She denies any chest pain or shortness of breath. She denies any pain abdomen, constipation, diarrhea. The rest of review of systems is negative. OBJECTIVE: VITAL SIGNS: Temperature 97.3 degrees Fahrenheit, blood pressure 168/89, pulse 77, respiratory rate 16, saturating 94% on room air. INTAKE AND OUTPUT: Urine output recorded is 7.5 liters yesterday and 2.9 liters so far today since overnight. Weight in the bed scale is 88.5 kg. PHYSICAL EXAMINATION: GENERAL: The patient is awake, alert, oriented times three, laying in bed, in no apparent distress. HEAD AND NECK EXAMINATION: Extraocular muscles intact. Pupils equally round and reactive to light. Neck is supple. There is no jugular venous distention (JVD) . Mucous membranes are moist. CARDIOVASCULAR: S1, S2, regular rate. No murmur, rub, and gallop. RESPIRATORY: Chest is clear to auscultation bilaterally. Bilateral equal air entry. No rales or rhonchi. ABDOMEN: Soft, positive bowel sounds, nontender. No ascites. No organomegaly. The patient has bilateral nephrostomy tubes at this time, which are draining a good amount of urine. Right-sided nephrostomy drainage is a little bit bloody as compared with left side. EXTREMITIES: No clubbing or cyanosis. Pulses are 2+. CENTRAL NERVOUS SYSTEM (PLANNING COORDINATOR): No focal neurological deficit. Power is 5/5 in all extremities. LABORATORY REVIEW: CBC showed WBC 10.4, hemoglobin 12.1, platelets 301. BMP showed sodium 149, potassium 4, chloride 117, bicarbonate 20, BUN 28, creatinine 1.5, glucose 111, calcium is 10.1. phosphorous 1.5, magnesium 2, albumin 3.8. MICROBIOLOGY: Urine culture is pending. CURRENT MEDICATIONS: The patient's medications were all reviewed by me. She is getting gentamicin and vancomycin for the OR. I have changed her IV fluid rate to 150 mL/hour of half normal saline. She has already been ordered potassium phosphate mmol V times one dose. I have ordered amlodipine 5 mg by mouth daily for her today. No other change in the medications as compared with yesterday. ASSESSMENT: A 70-year-old female with past medical history of hypertension, admitted at this time with diarrhea, nausea, vomiting, and anuric renal failure. She was found to have bilateral hydroureteronephrosis, status post bilateral nephrostomies. PLAN: 1. Acute anuric renal failure. The patient is status post bilateral nephrostomies. She is in postobstructive diuresis at this time. She required IV aggressive fluids. Her urine output is slowly decreasing now. I have changed the IV fluid rate to 150 mL/hour. 2. Bilateral hydroureteronephrosis. The patient is going to OR today for cystoscopy and ureteroscopy by urology. 3. Metabolic acidosis. Her acidosis is improving. She is not requiring any bicarbonate at this time. Bicarbonate level would improve with improving renal function. 4. Hypertension. Her angiotensin-converting enzyme (JOSE) inhibitors were stopped on admission because of acute renal failure. I have started the patient on amlodipine 5 mg by mouth daily. 5. Hypophosphatemia. Hypophosphatemia is secondary to postobstructive diuresis and secondary hyperparathyroidism. The primary team has already ordered potassium phosphate 20 mmol. It needs to be given sooner before the patient goes for the OR. The patient's RN was already informed. 6. Secondary hyperparathyroidism. It is most likely because of the chronic obstruction. I would start the treatment and repeat PTH again The plan of care was discussed with the patient's RN at the bedside and with the hospitalist, Dr. Sandro Pereira. CARMINA
[2016-03-27 08:38] LABS: MAGNESIUM LEVEL 1.6 MG/DL (1.8-2.4)
[2016-03-27] MEDS ORDERED: MAG SULF 1GM/100ML (MAG RUN) 1 GM in APPROPRIATE DILUENT 1 EA IV ONE (09:00)
[2016-03-27] MEDS: amLODIPine 5 MG TAB PO SCH (09:32)
[2016-03-27] MEDS: KETOROLAC 0.4% OS SCH ×4 (09:33→21:11)
[2016-03-27] MEDS: prednisoLONE ACET 1% OPHTH SUSP 5ML OS SCH ×2 (09:33→21:11)
[2016-03-27 10:00] VITALS: BP 155/69
[2016-03-27] MEDS ORDERED: POTASSIUM PHOSPHATE INJ 30 MMOL in D5W 500 ML IV ONE (10:00)
[2016-03-27] MEDS: CALCITRIOL 0.25 MCG CAP (S0169) PO SCH (11:13)
--- NOTE | 2016-03-27 13:18 | IPNPDOC ---
Assessment/Plan Date Seen The patient was seen on 03/27/16. Plan/VTE VTE Prophylaxis Ordered?: No VTE Exclusion Mechanical Proph: Low Risk for VTE Plan/Urinary Catheter Reason for insertion/continuin: Other-document below Subjective Review oF Systems Chief Complaint The patient is a 70-year-old female admitted with a reason for visit of Acute Renal Failure, Diarrhea. s/p cystoscopy, bilateral RPG, JJ (03/26/16). Bilateral NT clamped. Asymptomatic. Voiding well. Nephrology evaluation in progress. Urine clear. Comfortable. 94, 20, 155/69, 98.0F. Abdo: Benign. Urine culture (03/25/16) negative. (03/27/16) Hg 11.2, wbc 10.9, Cr .66 (normalized). A: Bilateral HUN; ARF resolved; right ureter stricture (4cm); narrow left ureter. P: NT clamp. Urology f/u for right ureter stricture management. Objective Vital Signs/I&O Vital Signs Date Time Temp Pulse Resp B/P Pulse Ox O2 Delivery O2 Flow Rate FiO2 03/27/16 10:00 98.0 94 20 155/69 94 Room Air I&O- Last 24 Hours up to 6 AM 03/27/16 06:00 Intake Total 3752 ml Output Total 2925 ml Balance 827 ml Laboratory Data Labs 24H Laboratory Tests 2 03/26/16 14:07: Albumin 3.5, Blood Urea Nitrogen 14, Creatinine 0.82, Sodium Level 146H, Potassium Level 4.2, Chloride Level 114H, Carbon Dioxide Level 23, Anion Gap 9, Calcium Level 9.4, Glomerular Filtration Rate > 60.0, Phosphorus Level 1.9#L 03/26/16 17:06: 03/27/16 00:20: 03/27/16 05:32: Albumin 3.2, Blood Urea Nitrogen 9, Creatinine 0.66, Sodium Level 144, Potassium Level 3.8, Chloride Level 112H, Carbon Dioxide Level 23, Anion Gap 9, Calcium Level 9.0, Glomerular Filtration Rate > 60.0, Phosphorus Level 1.4#L, Magnesium Level 1.6L CBC/BMP Laboratory Tests 03/26/16 14:07 Anion Gap 9 03/27/16 05:32 Anion Gap 9, Red Blood Count 3.76 L, Mean Corpuscular Volume 89.9, Mean Corpuscular Hemoglobin 29.8, Mean Corpuscular Hemoglobin Concent 33.1, Red Cell Distribution Width 14.4 Microbiology Microbiology 03/26/16 Stool Lactoferrin - Final, Complete 03/26/16 Clostridium difficile (PCR) - Final, Complete 03/24/16 Gastrointestinal Tract Panel (PCR) - Final, Complete 03/26/16 Urine Culture, Received Pending 03/25/16 Urine Culture - Final, Complete 03/25/16 Gram Stain - Final, Complete 03/25/16 Anaerobic Culture - Final, Complete GUSTAVO MARCELO MD Mar 27, 2016 13:18
[2016-03-27 14:00] VITALS: BP 152/70
--- NOTE | 2016-03-27 14:20 | IPNPDOC ---
Text Note Date of Service The patient was seen on 03/27/16 at 14:16. NOTE Subjective: Patient is a 70 year old female with a PMHx of HTN, COPD, Vit D deficiency, and Osteopenia, who presented to the ER at the direction of her PCP because of abnormal renal function. She had lab work on 03/23 which revealed Acute renal failure. Patient noted that she had diarrhea from 03/15 and saw her primary care doctor. She notes that she has had several bowel movements and vomiting. She denies any blood in her stool. She notes that over the last 7 days she has not been urinating. Patient was admitted for acute renal failure. Patient was seen and examined at the bedside today. She denies any pain. Notes that this morning that for the first time her BM was formed. She has been able to urinate without problem. Denies any dysuria. Objective: Vitals (See below) General: Lying in bed, no acute distress, comfortable, AAOx3 HEENT: NC, AT CVS: RRR, +S1S2 Lungs: Fair air entry b/l, -w/r/r Abdomen: Soft, ND, NT, +BSx34 Extremities: +PPx4, -Edema, -calf tenderness Assessment and plan: 1. Acute renal failure - possibly 2/2 obstruction; imaging with b/l hydronephrosis and hydroureter - Creatinine significantly elevated at 28 at admission from baseline of 0.8 on 01/2016 - Reports no urine output - no output with urinary catheter, no symptoms - s/p IR guided b/l nephrostomy tubes - large volume diuresis - have been clamped - s/p Cystoscopy 03/26: Bilateral JJ stents placed, R ureter stricture 4cm - will need repair, L ureter narrow - should passively dilate - Output of >10 liters - post obstructive diuresis; has had improvement in output today - Nephrology following (Dr. Navarrete) - appreciate their input - Urology following (Dr. Parra / Dr. Jain) - appreciate their input --- Case discussed; from urology perspective can be discharged home with Nephrostomy tubes in place (no bags), to follow up with urologist as outpatient ; provide patient with bags and teaching on attachment of bags 2. AG and Non-AG metabolic acidosis - likely 2/2 uremia, diarrhea - Venous blood gas initially revealed acidosis - Delta / Delta of <1 - Improving - s/p Bicarb drip - Nephrology following (Dr. Navarrete) - appreciate their input 3. Multiple electrolyte abnormalities (Magnesium, Phosphorous) - will replete as required - Nephrology following (Dr. Navarrete) - appreciate their input 3. Acute diarrhea - improving and becoming more formed - will check stool osmolality gap (re: secretory vs. osmotic) - Alpha 1 antitrypsin, chymotrypsin, calprotectin, pancreatic elastase, - GI panel has been negative and repeat C. diff PCR - negative 4. Hypertensive urgency - will increase dose of amlodipine today 5. COPD - no evidence of exacerbation at this time - will c/w duoneb PRN 6. Vitamin D deficiency / Osteopenia 7. DVT prophylaxis - c/w heparin VS,Fishbone, I+O VS, Fishbone, I+O Laboratory Tests 03/27/16 05:32 Anion Gap 9, Red Blood Count 3.76 L, Mean Corpuscular Volume 89.9, Mean Corpuscular Hemoglobin 29.8, Mean Corpuscular Hemoglobin Concent 33.1, Red Cell Distribution Width 14.4 Vital Signs Date Time Temp Pulse Resp B/P Pulse Ox O2 Delivery O2 Flow Rate FiO2 03/27/16 10:00 98.0 94 20 155/69 94 Room Air I&O- Last 24 Hours up to 6 AM 03/27/16 06:00 Intake Total 3752 ml Output Total 2925 ml Balance 827 ml EVELINE ESCOTO MD Mar 27, 2016 14:20
[2016-03-27 15:41] LABS: ALBUMIN 3.5 GM/DL (3.2-5.2); ALBUMIN/GLOBULIN RATIO 0.97 (1.00-1.93); ALKALINE PHOSPHATASE 75 U/L (45-117); ALT/SGPT 23 U/L (12-78); ANION GAP 10 MEQ/L (8-16); AST/SGOT 17 U/L (15-37); BILIRUBIN,TOTAL 0.4 MG/DL (0.2-1.0); BLOOD UREA NITROGEN 8 MG/DL (7-18); CALCIUM LEVEL 9.1 MG/DL (8.8-10.2); CARBON DIOXIDE LEVEL 23 MEQ/L (21-32); CHLORIDE LEVEL 108 MEQ/L (98-107); CREATININE FOR GFR 0.81 MG/DL (0.55-1.02); GLOMERULAR FILTRATION RATE > 60.0 (>39); GLUCOSE, FASTING 143 MG/DL (83-110); MAGNESIUM LEVEL 1.9 MG/DL (1.8-2.4); POTASSIUM SERUM 3.9 MEQ/L (3.5-5.1); SODIUM LEVEL 141 MEQ/L (136-145); TOTAL PROTEIN 7.1 GM/DL (6.4-8.2)
[2016-03-27 18:00] VITALS: BP 150/82
--- NOTE | 2016-03-27 20:25 | IPN ---
DATE: 03/27/2016 SUBJECTIVE: The patient was seen and examined at the bedside today in the morning. She feels much better. She is status post cystoscopy and ureteroscopy and bilateral double J stent placement yesterday. Bilateral nephrostomies have been clamped. She is making a good amount of urine. Her renal function is back to normal. She is still making a lot of urine and has some electrolyte abnormalities. Electrolytes are being repleted at this time. The patient is symptomatically feeling a lot better and her blood pressure is also better controlled with amlodipine today. REVIEW OF SYSTEMS: The patient denies any fever, chills, rigors, headache, nausea, vomiting, chest pain, shortness of breath, pain abdomen, constipation, diarrhea. The rest of review of systems is negative. OBJECTIVE: VITAL SIGNS: Temperature 98 degrees Fahrenheit, blood pressure 155/69, pulse is 94, respiratory rate 16, saturating 94% on room air. INTAKE AND OUTPUT: Urine output recorded is 4.8 liters yesterday and 1.4 liters so far today since overnight. PHYSICAL EXAMINATION: GENERAL: The patient is awake, alert, oriented times three, laying in bed, in no apparent distress. HEAD AND NECK EXAMINATION: Extraocular muscles intact. Pupils equally round and reactive to light. Neck is supple. There is no jugular venous distention (JVD). Mucous membranes are moist. CARDIOVASCULAR: S1, S2, regular rate. No murmur, rub, and gallop. RESPIRATORY: Chest is clear to auscultation bilaterally. Bilateral equal air entry. No rales or rhonchi. ABDOMEN: Soft, positive bowel sounds, nontender. No ascites. No organomegaly. The patient has bilateral nephrostomy tubes in place but they have been clamped. EXTREMITIES: No clubbing or cyanosis. Pulses are 2+. CENTRAL NERVOUS SYSTEM (COMPUTER SCIENCE PROFESSOR): No focal neurological deficit. Power is 5/5 in all extremities. LABORATORY REVIEW: Complete blood count (CBC) showed WBC 10.9, hemoglobin 11.2, platelets 258. Basic metabolic panel (BMP) showed sodium 141, potassium 3.9, chloride 108, bicarbonate 23, BUN 8, creatinine 0.8, calcium 9.1. phosphorous 1.4, magnesium was 1.6 this morning. MICROBIOLOGY: Stool for Clostridium (C) difficile is negative. Urine culture is negative. CURRENT MEDICATIONS: The patient's medications were all reviewed by me. Her IV fluids have been stopped. The patient is getting IV potassium phosphate and IV magnesium sulfate. She is currently on amlodipine 10 mg by mouth daily, and she has been started on calcitriol 0.25 mg by mouth daily. ASSESSMENT: A 70-year-old female with past medical history of hypertension, admitted at this time with anuric renal failure. Later on she was found to have bilateral hydroureteronephrosis, status post bilateral nephrostomies and bilateral double J stent placements in the ureters. PLAN: 1. Acute renal failure. The patient's bilateral nephrostomy tubes have been clamped. She got bilateral double J stents placed by urology yesterday. She is making a good amount of urine. Appreciate urology input. Renal function is back to normal. 2. Hypophosphatemia. Hypophosphatemia is secondary to postobstructive diuresis and secondary hyperparathyroidism. Phosphorous is being repleted at this time. I have also started the patient on calcitriol 0.25 mcg by mouth daily. 3. Hypomagnesemia. The patient is getting intravenous magnesium sulfate. I repeated the laboratories and repeat magnesium level is normal, it is 1.9, and repeat phosphorous is still pending. 4. Hypertension. The patient's angiotensin-converting enzyme (JOSE) inhibitors were stopped on admission. She was started on amlodipine 5 mg by mouth daily. Dose has been increased to amlodipine 10 mg by mouth daily. 5. Secondary hyperparathyroidism. I have started the patient on calcitriol 0.25 mcg by mouth daily because of high PTH levels and very low phosphorous on daily laboratories. She can followup as an outpatient and if the PTH levels come back within normal range, then calcitriol dose can be slowly tapered down. DISCHARGE PLANNING: If the patient's electrolytes remain stable by tomorrow, then can be discharged home and followup with urology as an outpatient. The plan of care was discussed with the hospitalist, Dr. Sandro Pereira.
[2016-03-27 22:00] VITALS: BP 166/81
[2016-03-28] MEDS: HEPARIN SOD (PORCINE) 5000 UNITS/ML VIAL SC SCH ×2 (05:28→14:29)
[2016-03-28 06:00] VITALS: BP 162/80
[2016-03-28 06:21] LABS: MEAN CORPUSCULAR HEMOGLOBIN 29.7 pg (27.0-33.0); MEAN CORPUSCULAR HGB CONC 33.4 g/dl (32.0-36.5); MEAN CORPUSCULAR VOLUME 89.1 fl (80.0-96.0); RED CELL DISTRIBUTION WIDTH 13.6 % (11.5-14.5); WHITE BLOOD COUNT 13.2 K/mm3 (4.0-10.0)
[2016-03-28 06:38] LABS: ALBUMIN 3.6 GM/DL (3.2-5.2); CALCIUM LEVEL 9.4 MG/DL (8.8-10.2); CREATININE FOR GFR 1.01 MG/DL (0.55-1.02); GLOMERULAR FILTRATION RATE 57.4 (>39); MAGNESIUM LEVEL 2.1 MG/DL (1.8-2.4); POTASSIUM SERUM 4.1 MEQ/L (3.5-5.1)
[2016-03-28] MEDS ORDERED: amLODIPine 10 MG TAB PO SCH (09:00)
[2016-03-28 09:55] VITALS: BP 140/84
[2016-03-28] MEDS: CALCITRIOL 0.25 MCG CAP (S0169) PO SCH (09:55)
[2016-03-28] MEDS: KETOROLAC 0.4% OS SCH ×2 (09:55→13:28)
[2016-03-28] MEDS: prednisoLONE ACET 1% OPHTH SUSP 5ML OS SCH (09:55)
[2016-03-28] MEDS ORDERED: SODIUM PHOSPHATE INJ 30 MMOL in D5W 500 ML IV ONE (10:00)
[2016-03-28] MEDS ORDERED: AMLO10TA2 PO (10:14)
--- NOTE | 2016-03-28 11:46 | IPN ---
DATE OF ENCOUNTER: 03/28/2016 SUBJECTIVE: Patient was seen this morning at bedside. No acute overnight issues. Patient states that she is feeling good. She is status post cystoscopy and ureteroscopy and bilateral double-J stent placement on 03/26/2016. Previously had bilateral nephrostomies. She is making good urine output at this time and renal function has normalized. She is feeling well and ready to go home. No acute overnight issues. No fevers or chills. No gastrointestinal (GI ) symptoms. No chest pain or shortness of breath. Appetite is good. OBJECTIVE: Vital signs: Temperature 98.8, pulse 82, respiratory rate 18, blood pressure 140/84, pulse oximetry 93% on room air. Intake and output total negative balance of 50 mL in previous 24 hours. Weight is currently 88.5. General: Patient is alert and oriented. In no acute distress. HEENT: Normocephalic, atraumatic. Extraocular muscles are intact. Moist mucosa. Neck: Supple. No jugular venous distension appreciated. Heart: Normal S1, S2. Regular rate and rhythm. No murmurs appreciated. No rubs or gallops. Lungs: Clear to auscultation bilaterally. No rales, rhonchi or wheezing. Abdomen: Soft, nontender, nondistended. Back: No drainage from former nephrostomy placement. Extremities: No cyanosis or edema. Neurologic: No focal deficits. LABORATORY DATA: WBC 13.2, hemoglobin 12.4, hematocrit 37.0, platelet count 278. Sodium 143, potassium 4.1, chloride 109, carbon dioxide 22, anion gap 12, BUN 10 , creatinine 1.01, GFR 57.4, fasting glucose 106, calcium 9.4, phosphorus 2.0, magnesium 2.1, albumin 3.6. ENZO, p-ANCA, double-stranded DNA glomerular basement membrane antibody is pending. Total complement slightly elevated at 63. C3-C4 within normal range. Antistreptolysin antibody 224. MICROBIOLOGY: Urine culture drawn on 03/25/2016 is negative. Repeat urine culture on 03/26/2016 is pending. C diff negative. ASSESSMENT AND PLAN: Ms. Castellanos is a 70-year-old female with past medical history significant for hypertension, admitted for anuric renal failure. Later on found to have bilateral hydro ureteral nephrosis, status post bilateral nephrostomies and bilateral double-J stent placement in the ureters. 1. Acute renal failure. She currently has bilateral double-J stents in place, placed on 03/26/2016. Making good urine at this time. Renal function is back to normal. She will need to followup with nephrology as well as urology as outpatient. Continue to follow with Dr. Navarrete as he was seen by him during hospitalization. 2. Hypomagnesemia. This was repleted and magnesium level is back to normal. 3. Hypophosphatemia. Improved. Probably secondary to post obstructive diuresis. She did receive phosphorous supplementation. Encouraged her to drink beverages with high phosphate with her meals. 4. Secondary hyperparathyroidism. Patient was started on calcitriol 0.25 mcg daily on 03/27/2016. Labs will need to continue to be monitored as outpatient, may be able to taper off of the calcitriol. 5. Hypertension. Amlodipine has been increased to 10 mg daily. Please continue to monitor her blood pressures. Angiotensin -converting enzyme (JOSE) inhibitor was stopped on admission. DISPOSITION: Patient's renal function is stable. Making good urine and double J stents are in place. She can be discharged home to followup with nephrology and urology. Thank you for allowing us to participate in the care of Ms. Castellanos. My preceptor for this patient encounter was Brenda Doe MD. The preceptor was physically present in the building during the encounter and was fully available. As needed, all aspects of the patient interview, examination, medical decision making process, and medical care plan development were reviewed and approved by the preceptor. The preceptor is aware and concurs with the plan as stated in the body of this note and will attest to such by his/her co-signature. CARMINA
--- NOTE | 2016-03-28 14:38 | IPN ---
DATE: 03/28/2016 Mrs. Castellanos is seen this morning on her bedside. She was admitted with acute renal failure and noticed to have bilateral hydronephrosis. She initially underwent bilateral nephrostomy tubes and later she had a cystoscopy and bilateral ureteral stents have been placed. She reports urinating well. Her nephrostomy tubes have been clamped. Her acute renal failure has resolved and creatinine has returned to normal range. The patient had a large amount of urine output after the obstruction was resolved. She is now at about euvolemic state. She also developed hypophosphatemia as a result of excessive urine output. Today, she is feeling well and denies any complaints. She has no dyspnea, chest pain, nausea or vomiting. PHYSICAL EXAMINATION Temperature 98.8 degrees Fahrenheit, heart rate 82 per minute and respiratory rate 18 per minute. Blood pressure 140/84 mmHg and oxygen saturation 93% on room air. Head is atraumatic. Ears, nose and throat are unremarkable. Heart sounds are regular and lungs clear to auscultation. Abdomen is soft and nontender. Bilateral nephrostomy tubes are in place and dressings are intact. Extremities have no cyanosis or clubbing. Skin has no rash or ulcers. Neurologically, she is awake, alert and oriented times three. Today's labs show intact PTH level of 144. Sodium is 9.4 and phosphorus 2.0. Magnesium level is 2.1. Rest of her electrolytes are within normal range. BUN is 10 and creatinine 1.0. WBC count is 13.2, hemoglobin 12.4 and hematocrit 37.0. PROBLEMS: 1. Acute renal failure. Kidney function has returned to normal. She has good urine output following bilateral J-tube ureteral stents placed. 2. Hypernatremia. Sodium level has corrected and normalized. No intervention is indicated. 3. Hypophosphatemia. Th is most likely nutritional and due to resolution of acute renal failure. Phosphorus level has improved. The patient is being advised to eat normal diet. She can drink Pepsi or Coke, which will also help to improve her phosphorus level. 4. Hyperparathyroidism. This is most likely related to acute renal failure. She is on calcitriol 0.25 mcg daily, which should be continued, and she can have a followup intact PTH level checked as an outpatient. 5. Hypertension. Blood pressure is well-controlled on current medications. DISPOSITION: From a renal standpoint, the patient can be discharged to home and follow up with Dr. Navarrete as an outpatient in a couple of weeks.
--- NOTE | 2016-03-28 18:02 | DSES ---
DATE OF ADMISSION: 03/24/2016 DATE OF DISCHARGE: 03/28/2016 ATTENDING PHYSICIAN: Sandro Pereira MD PRIMARY CARE PHYSICIAN: Hellen Bose NP REFERRING PHYSICIAN: None CONSULTING PHYSICIANS: Dr. Juan Navarrete, Dr. Iglesia Parra, Dr. Gibrna Jain, Dr. Brenda Doe. CONDITION ON DISCHARGE: Stable. FINAL DIAGNOSIS: Acute renal failure secondary to obstructive etiology. PROCEDURES: Patient had bilateral interventional radiology (IR) guided nephrostomy tubes placed on 03/25/2016. Patient had a cystoscopy and bilateral ureteral JJ stents placed by urology on 03/26/2016. HISTORY OF PRESENT ILLNESS: The patient is a 70-year-old female with a past medical history of hypertension, chronic obstructive pulmonary disease (COPD), vitamin D deficiency, and osteopenia, who presented to the emergency room at the direction of her primary care provider because of an abnormal renal function. She had lab work on 03/23/2016, which revealed acute renal failure. The patient noted that she had diarrhea from 03/15/2016, and saw her primary care doctor. She notes that since 2 days after Neida she has not been having any urine output. She notes that she has been having several bowel movements with voiding and she also had associated vomiting. She denied any blood in her stool. She noted that in the last 7 days she is having difficulty with urination. Patient was admitted for acute renal failure. HOSPITAL COURSE: 1. Acute renal failure, possibly secondary to obstructive etiology. Imaging was consistent with bilateral hydronephrosis and hydroureter. Creatinine was significantly elevated at 28 on admission, baseline in January 2016 was 0.8. Reports no urine output. No urine was noted with urinary catheter placement. Status post IR guided placement of bilateral nephrostomy tubes which revealed large volume diuresis. She had cystoscopy done on 03/26/2015, and bilateral JJ stents placed which also revealed there was right ureteral stricture 4 cm which needs repair and left ureteral narrowing. Output has been greater than 10 liters after the nephrostomy tubes were placed. Nephrology was consulted and urology was consulted to manage postobstructive diuresis. Her creatinine has trended back to normal. Her urine output has normalized and she is making normal amounts of urine. 2. Anion gap and non-anion gap metabolic acidosis, secondary to uremia and diarrhea. Venous blood gas was initially acidotic, delta of less than 1, it has been improving. She is status post bicarbonate drip. 3. Multiple electrolyte abnormalities including magnesium and phosphate, have been repleted. 4. Acute diarrhea. Patient notes that her diarrhea has become more formed after she had the nephrostomy tubes put in. She has no more diarrhea this morning. Stool workup was ordered, however was not completed. Gastrointestinal (GI) panel was negative for Clostridium (C) difficile. 5. Hypertensive urgency. Will increase dose of amlodipine. Blood pressure well controlled with amlodipine 10 mg. 6. Chronic obstructive pulmonary disease (COPD). No evidence of exacerbation at this time. Will continue with DuoNeb as needed. 7. Vitamin D deficiency and osteopenia. 8. Deep venous thrombosis (DVT) prophylaxis. Continue with heparin. DISCHARGE MEDICATIONS: Patient has been discharged home with: - acetaminophen 500 mg by mouth every 4 hours as needed for pain - calcium one tablet by mouth daily - vitamin D 1000 units by mouth daily - ketorolac one drop in each eye four times a day - prednisolone one drop in each eye three times a day Medications which were stopped include losartan and hydrochlorothiazide one tablet by mouth daily. New medications which were prescribed are: - amlodipine 10 mg by mouth daily DISCHARGE INSTRUCTIONS: Patient was advised to followup with her primary care provider and nephrology, as well as urology, within the next 1-2 weeks. She has been advised to call to confirm/schedule appointment. She has been advised to remain compliant with treatment plan and recommendations and to return to the emergency room if she experiences any problems. TIME SPENT ON DISCHARGE: 35 minutes.
== END 2016-03-28 15:45 | disposition home or self-care (01) | DRG 683 ==
LOC: M ED 20:32 → M ED INP 03-24 02:12 → M MSPAV 03-24 04:20
PROVIDERS: ADMIT Internal Medicine; ATTEND Internal Medicine
PROC: 0T9130Z Drainage of Left Kidney with Drainage Device, Percutaneous Approach (ICD-10-PCS; principal; 2016-03-25)
PROC: 0T788DZ Dilation of Bilateral Ureters with Intraluminal Device, Via Natural or Artificial Opening Endoscopic (ICD-10-PCS; 2016-03-26)
PROC: 0T903ZZ Drainage of Right Kidney, Percutaneous Approach (ICD-10-PCS; 2016-03-26)
DX: N17.9 Acute kidney failure, unspecified (principal); E87.0 Hyperosmolality and hypernatremia; I10 Essential (primary) hypertension; J44.9 Chronic obstructive pulmonary disease, unspecified; M85.80 Other specified disorders of bone density and structure, unspecified site; E83.42 Hypomagnesemia; R19.7 Diarrhea, unspecified; E55.9 Vitamin D deficiency, unspecified; N25.81 Secondary hyperparathyroidism of renal origin; R11.2 Nausea with vomiting, unspecified; N13.1 Hydronephrosis with ureteral stricture, not elsewhere classified; I16.0 Hypertensive urgency; Z87.891 Personal history of nicotine dependence; Z96.651 Presence of right artificial knee joint; Z79.899 Other long term (current) drug therapy

== ENCOUNTER → 2016-03-23 | Outpatient (REF) | payer MEDICARE ==
[~2016-03-23] MED LIST: ACET50TAOT PO; CALCTAB52 PO; IBUP-1114 PO; KETO0.5S15 OS; LOSA50TA21 PO; PRED1SOL3 OS; TYLE500T78 PO; VITA100066 PO
[2016-03-23 16:26] LABS: MEAN CORPUSCULAR HEMOGLOBIN 28.9 pg (27.0-33.0); MEAN CORPUSCULAR HGB CONC 32.7 g/dl (32.0-36.5); MEAN CORPUSCULAR VOLUME 88.3 fl (80.0-96.0); RED CELL DISTRIBUTION WIDTH 13.8 % (11.5-14.5); WHITE BLOOD COUNT 12.2 K/mm3 (4.0-10.0)
[2016-03-23 17:00] LABS: ALBUMIN 3.7 GM/DL (3.2-5.2); ALBUMIN/GLOBULIN RATIO 0.95 (1.00-1.93); BILIRUBIN,TOTAL 0.4 MG/DL (0.2-1.0); CALCIUM LEVEL 10.5 MG/DL (8.8-10.2); POTASSIUM SERUM 4.6 MEQ/L (3.5-5.1); TOTAL PROTEIN 7.6 GM/DL (6.4-8.2)
[2016-03-23 17:36] LABS: GLOMERULAR FILTRATION RATE 1.3 (>39)
[2016-03-23 17:37] LABS: CREATININE FOR GFR 26.6 MG/DL (0.55-1.02)
== END ==
LOC: M SFHCPLAZ 14:21
PROVIDERS: ATTEND Nurse Practitioner Adult Health
DX: K29.70 Gastritis, unspecified, without bleeding (principal)

== ENCOUNTER 2016-04-01 16:18 | Inpatient (IN) | payer MEDICARE ==
[~2016-04-01] VITALS: Ht 167.6 cm; Wt 93.5 kg
[~2016-04-01 16:18] MED LIST changes: +ACET50TAOT PO; +AMLO10TA2 PO; +CALCTAB52 PO; +KETO0.5S15 OS; +PRED1SOL3 OS; +VITA100066 PO
[2016-04-01 18:21] LABS: BASO % 0.2 % (0.0-1.0); EOS # 0.2 K/mm3 (0.0-0.50); LARGE UNSTAINED CELL # 0.3 K/mm3 (0.0-0.4); LARGE UNSTAINED CELL % 1.7 % (0.0-4.0); LYMPH # 1.1 K/mm3 (1.5-4.5); LYMPH % 6.4 % (24.0-44.0); MEAN CORPUSCULAR HEMOGLOBIN 29.4 pg (27.0-33.0); MEAN CORPUSCULAR HGB CONC 32.7 g/dl (32.0-36.5); MEAN CORPUSCULAR VOLUME 89.8 fl (80.0-96.0); MONO # 1.1 K/mm3 (0.0-0.8); MONO % 6.5 % (0.0-5.0); NEUTROPHILS % 84.3 % (36.0-66.0); PLATELET COUNT, AUTOMATED 354 k/mm3 (150-450); RED CELL DISTRIBUTION WIDTH 13.3 % (11.5-14.5); WHITE BLOOD COUNT 16.6 K/mm3 (4.0-10.0)
[2016-04-01 18:43] LABS: CALCIUM LEVEL 10.6 MG/DL (8.8-10.2); CREATININE FOR GFR 2.13 MG/DL (0.55-1.02); GLOMERULAR FILTRATION RATE 24.2 (>39); POTASSIUM SERUM 3.7 MEQ/L (3.5-5.1)
--- NOTE | 2016-04-01 18:45 | REP ---
Clinical: Flank pain rule out a nephrostomy tube obstruction. Comparison: 03/24/2016. Findings: Bilateral nephrostomy tubes and eight ureteral stents are identified in seemingly satisfactory position. Marked bilateral grade IV/V hydroureteronephrosis (right greater than left) appears essentially unchanged. Minimal right perinephric stranding appears similar to prior examination while increased left perinephric stranding is not noted on current examination which may reflect associated acute pyelonephritis. No significant perinephric fluid collection or hematoma is identified. The bladder is grossly unremarkable and the previously placed Li catheter has been removed. Liver, spleen, pancreas, gallbladder, and bilateral adrenal glands are normal for noncontrast examination. The enteric system suggests fecal stasis without obstruction or obvious acute inflammatory process. Colonic diverticulosis noted without acute diverticulitis. Normal terminal ileum and appendix are identified in the right lower quadrant. Pelvis demonstrates stable age appropriate appearance to the uterus and adnexa. No pelvic fluid/ascites. No significant adenopathy. Musculoskeletal structures demonstrate age-related degenerative changes. Lung bases demonstrate mild chronic changes. Impression: 1. Bilateral ureteral stents and nephrostomy tubes in seemingly satisfactory position. The extent of bilateral hydronephrosis is unchanged. Increased left perinephric stranding is appreciated which may reflect an associated pyelonephritis. Actual obstruction to the bilateral nephrostomy tubes cannot be evaluated by CT and should be correlated clinically although given the fact that neither kidney demonstrates improved hydronephrosis may reflect chronic change. 2. Sigmoid diverticula without acute diverticulitis. 3. No pelvic fluid or ascites. No significant adenopathy. No free air. Signed by Juan Pablo Garsia MD 04/01/2016 06:37 P
[2016-04-01] MEDS ORDERED: ACETAMINOPH W/CODEINE #3 TAB UD As Ordered ONE (20:10)
[2016-04-01] MEDS ORDERED: cefTRIAXone SOD 1 GM VIAL (J0696) As Ordered ONE (20:46)
[2016-04-01] MEDS ORDERED: diphenhydrAMINE INJ 50MG/ML VIAL (J1200) IV PRN (21:00)
[2016-04-01] MEDS ORDERED: ONDANSETRON 4MG/2ML VIAL (J2405) IV PRN (21:00)
[2016-04-01] MEDS ORDERED: ACETAMINOPHEN 500 MG TAB PO PRN (21:00)
[2016-04-01] MEDS ORDERED: LACT10SO29 PO (21:00)
[2016-04-01] MEDS ORDERED: K-TA10TA2 PO (21:00)
[2016-04-01] MEDS ORDERED: metroNIDAZOLE 500 MG in APPROPRIATE DILUENT 1 EA IV SCH (21:15)
--- NOTE | 2016-04-01 22:07 | EDDOCDS ---
Physician Documentation [facility] Name: Briana Castellanos Age: 70 yrs Sex: Female : 1945 Arrival Date: 04/01/2016 Time: 16:18 Bed I6 / 28 Private MD: Hellen Bose L. Disposition: 04/01/16 20:44 Hospitalization ordered by Constance Pradhan for Inpatient Admission. Preliminary diagnosis are Acute kidney failure, Urinary tract infection, site not specified. - Bed requested for 4 [place]. - Status is Inpatient Admission. mcp - Condition is Stable. - Problem is new. - Symptoms have improved. Historical: - Allergies: PENICILLINS; - Home Meds: 1. amlodipine 10 mg Oral tab 1 tab once daily (Last dose: 04/01/2016 08:00) 2. Vitamin D Oral 1,000 unit daily 3. acetaminophen 325 mg Oral tab 2 tabs as needed 4. potassium chloride 10 mEq Oral TbER 1 tab once daily hasnt started yet 5. lactulose 10 gram/15 mL (15 mL) Oral soln 3 tsp once daily hasnt started 6. Tylenol 500mg Oral every 4 hours prn - PMHx: COPD; hyperparathyroidism; Hypertension; osteopenia; Vitamin D deficiency; kideny failure; hydronephrosis with ureteral stricture; hypercalcemia; hypokalemia; - PSHx: Tubal ligation; right knee replacement; bilateral cataract; bilateral nephrostomy tube placement; - Social history: Smoking status: Patient states former smoker of tobacco. No barriers to communication noted, The patient speaks fluent Setswana, Speaks appropriately for age. - Family history: Not pertinent. - : The pt / caregiver states he / she is not on anticoagulants. Home medication list is obtained from the patient. - Exposure Risk Screening:: None identified. Vital Signs: 04/01 16:20 BP 166 / 83; Pulse 85; Resp 18; Temp 98.3(O); Pulse Ox 98% on R/A; Weight 87.54 kg / ct3 192.99 lbs (R); Height 5 ft. 6 in. (167.64 cm) (R); Pain 6/10; 21:52 BP 118 / 64; Pulse 82; Resp 18; Temp 98.6; Pulse Ox 98% ; Pain 5/10; ajs 16:20 Body Mass Index 31.15 (87.54 kg, 167.64 cm) ct3 MDM: 17:45 IV Saline Lock ordered. ck7 17:45 Misc. Nursing Order ordered. ck7 17:46 Basic Metabolic Profile Ordered. EDMS 17:46 CBC with Diff Ordered. EDMS 17:47 CT ABD & PELVIS: No Contrast Ordered. EDMS 17:49 Financial registration complete. gjb 17:49 Physician consultation:. ck7 17:50 [facility] Payment Agreement was scanned into [employer] and attached to record. gjb 18:43 UA Ordered. EDMS 19:11 Basic Metabolic Profile Reviewed. ck7 19:11 CBC with Diff Reviewed. ck7 19:11 CT ABD & PELVIS: No Contrast Reviewed. ck7 19:57 UA Reviewed. ck7 20:01 Acetaminophen-Codeine 300 mg-30 mg 2 tabs PO once ordered. ck7 20:39 Urine Culture Ordered. EDMS 20:43 cefTRIAXone 1 grams IVPB once over 30 mins; dilute in 50mL of NS or D5W ordered. ck7 20:43 BED REQUEST+ADM ordered. EDMS 21:08 Admission / Observation Status ordered. EDMS 21:08 REGULAR DIET ordered. EDMS 21:53 URINE CULTURE Ordered. EDMS 21:53 BLOOD CULTURES Ordered. EDMS Administered Medications: 20:14 Drug: Acetaminophen-Codeine 2 tabs [acetaminophen 300 mg-codeine 30 mg tablet (2 tabs)] af2 Route: PO; 21:00 Drug: cefTRIAXone 1 grams [ceftriaxone 1 gram solution for injection] Route: IVPB; af2 Infused Over: 30 mins; Site: right antecubital; Signatures: [facility] Gisselle Alexander RN RN srm Peters, Mary RN Tameka Covington mcp, RN RN daq Kwaczala, Christopher, RPA-C RPA-Yesika Hagan Amber RN af2 The chart was reviewed and I authenticate all verbal orders and agree with the evaluation and treatment provided.Attachments: 17:50 [facility] Payment Agreement gj [id number]
--- NOTE | 2016-04-01 22:07 | EDDOCDS ---
Nurse's Notes [facility] Name: Briana Castellanos Age: 70 yrs Sex: Female : 1945 Arrival Date: 04/01/2016 Time: 16:18 Bed I6 / 28 Private MD: Hellen Bose L. Diagnosis: Acute kidney failure;Urinary tract infection, site not specified Presentation: 04/01 16:26 Presenting complaint: Patient states: sent here from kidney doctor ( agnes) to have srm bags attached to nephrostomy tubes. then pt can be discharged. Adult Sepsis Screening: The patient does not have new or worsening altered mentation. Patient's respiratory rate is less than 22. Systolic blood pressure is greater than 100. Patient has a qSOFA score of 0- Negative Sepsis Screen. Suicide/Homicide risk assessment- the patient denies having any suicidal and/or homicidal ideations and does not present with any other emotional, behavioral or mental health complaints. Status: Patient is not a special agent secret service or dependent. Transition of care: patient was received from dr alarcon. 16:26 Method Of Arrival: Walkin/Carried/Asstd srm 16:26 Acuity: CHARLEE Level 4 srm 17:25 Presenting complaint: per charge nurse- she was notified by nephrology that pt's neph srm tubes may be obstructed and is here for evaluation. Acuity level changed due to complexity of care. 17:25 Acuity: CHARLEE Level 3 srm Triage Assessment: 16:33 General: Appears in no apparent distress, Behavior is appropriate for age, cooperative. srm Pain: Pain currently is 6 out of 10 on a pain scale. Historical: - Allergies: PENICILLINS; - Home Meds: 1. amlodipine 10 mg Oral tab 1 tab once daily (Last dose: 04/01/2016 08:00) 2. Vitamin D Oral 1,000 unit daily 3. acetaminophen 325 mg Oral tab 2 tabs as needed 4. potassium chloride 10 mEq Oral TbER 1 tab once daily hasnt started yet 5. lactulose 10 gram/15 mL (15 mL) Oral soln 3 tsp once daily hasnt started 6. Tylenol 500mg Oral every 4 hours prn - PMHx: COPD; hyperparathyroidism; Hypertension; osteopenia; Vitamin D deficiency; kideny failure; hydronephrosis with ureteral stricture; hypercalcemia; hypokalemia; - PSHx: Tubal ligation; right knee replacement; bilateral cataract; bilateral nephrostomy tube placement; - Social history: Smoking status: Patient states former smoker of tobacco. No barriers to communication noted, The patient speaks fluent Tajik, Speaks appropriately for age. - Family history: Not pertinent. - : The pt / caregiver states he / she is not on anticoagulants. Home medication list is obtained from the patient. - Exposure Risk Screening:: None identified. Screenin:22 Screening information is obtained from the patient. Fall risk: No risks identified. jmk Assistance ADL's: requires no assistance with activities of daily living. Abuse/DV Screen: The patient / caregiver reports he/she is: not in a situation that causes fear, pain or injury. Nutritional screening: No deficits noted. home support is adequate. 22:05 Advance Directives: There is no active DNR order. [facility] Assessment: 18:18 General: Appears in no apparent distress, skin warm and dry color satisfactory. moist jmk pink oral mucosa. abd unremarkable, indicates bilateral back pain. dressings intact to bilateral low back area. 8.5 nephrostomy tubes noted bilaterally.. Respiratory: No deficits noted. Airway is patent Respiratory effort is even, unlabored, Respiratory pattern is regular, Sputum is. : Reports pain to flank area. 18:47 General: Appears ambulated to bathroom with steady gait to obtain UA. k 19:40 General: Appears in no apparent distress, Behavior is appropriate for age, cooperative, af2 assumed care of pt at this time, pt lying on stretcher resting quietly without complaint. nephrostomy tubes not attached to pt at this time, pt updated regarding plan of care. will continue to monitor.. 20:09 General: Appears in no apparent distress, Behavior is appropriate for age, nephrostomy af2 bags applied to pt at this time, tolerated procedure well. will continue to monitor. . 21:00 General: Appears in no apparent distress, comfortable, Behavior is appropriate for age, af2 cooperative, This television writer spoke with Dr. Pradhan and LUIS ENRIQUE Perera regarding pt allergy of penicillins and pt to receive ceftriaxone. Per Dr. Pradhan, pt okay to receive ceftriaxone with close monitoring for any symptoms. Pt and spouse instructed of this information, door to pt room open and visible from nursing station. Will continue to monitor.. Neurological: Level of Consciousness is awake, alert. Respiratory: Airway is patent Respiratory effort is even, unlabored. :. : no drainage noted in nephrostomy bags. Derm: Skin is normal. 22:03 General: Appears in no apparent distress, Behavior is cooperative. Neurological: No mcp deficits noted. Respiratory: Airway is patent Respiratory effort is even, unlabored. : nephrostomy tube intact with no drainage noted in bag. Derm: Skin is pink, warm & dry. Vital Signs: 16:20 BP 166 / 83; Pulse 85; Resp 18; Temp 98.3(O); Pulse Ox 98% on R/A; Weight 87.54 kg (R); ct3 Height 5 ft. 6 in. (167.64 cm) (R); Pain 6/10; 21:52 BP 118 / 64; Pulse 82; Resp 18; Temp 98.6; Pulse Ox 98% ; Pain 5/10; ajs 16:20 Body Mass Index 31.15 (87.54 kg, 167.64 cm) ct3 Vitals: 16:20 Log In Time: April 01, 2016 at 16:17. ct3 ED Course: 16:20 Patient visited by Shalini Lam PCA. ct3 16:20 Hellen Bose is Private Physician. ct3 16:20 Patient moved to Waiting ct3 16:21 Patient moved to Pre RCE ct3 16:28 Triage Initiated srm 17:15 Patient moved to Triage 2 srm 17:32 Justus Guaman RPA-C is [facility]. ck7 17:32 Beverly Nelosn MD is Attending Physician. ck7 17:32 Patient visited by Justus Guaman RPA-C. ck7 17:47 Patient moved to I dy 17:50 [facility] Payment Agreement was scanned into [employer] and attached to record. gjb 17:51 Patient name changed from Briana\S\\S\Emanuel\S\ to Briana\S\ \S\Emanuel. EDMS 17:51 Patient moved to I nb2 18:09 Basic Metabolic Profile Sent. jmk 18:09 CBC with Diff Sent. jmk 18:12 Patient visited by Justus Guaman RPA-C. ck7 18:22 Patient visited by Dale Chamorro RN. jmk 18:53 UA Sent. ajs 19:02 Patient visited by Justus Guaman RPA-C. ck7 19:08 CT ABD & PELVIS: No Contrast Returned. EDMS 19:36 Patient visited by Justus Guaman RPA-C. ck7 19:41 Patient visited by Kirsten Matamoros RN. af2 20:13 Patient visited by Kirsten Matamoros RN. af2 20:43 Constance Pradhan is Hospitalizing Provider. ck7 20:44 Urine Culture Sent. af2 21:03 Patient visited by Kirsten Matamoros RN. af2 21:53 Patient visited by Zahra Mitchell. ajs 21:59 Patient visited by Luz Santiago RN. mcp 22:05 The patient / caregiver is instructed regarding the plan of care and ED course. mcp 22:05 No procedures done that require assistance. mcp 22:05 Inserted saline lock: 20 gauge in right antecubital area. mcp Administered Medications: 20:14 Drug: Acetaminophen-Codeine 2 tabs [acetaminophen 300 mg-codeine 30 mg tablet (2 tabs)] af2 Route: PO; 21:00 Drug: cefTRIAXone 1 grams [ceftriaxone 1 gram solution for injection] Route: IVPB; af2 Infused Over: 30 mins; Site: right antecubital; Order Results: Lab Order: Basic Metabolic Profile; SPEC'M 04/01/16 18:06 Test: GLUCOSE, FASTING; Value: 111; Range: 83-110; Abnormal: Above high normal; Units: MG/DL; Status: F Test: BLOOD UREA NITROGEN; Value: 27; Range: 7-18; Abnormal: Above high normal; Units: MG/DL; Status: F Test: CREATININE FOR GFR; Value: 2.13; Range: 0.55-1.02; Abnormal: Above high normal; Units: MG/DL; Status: F Test: GLOMERULAR FILTRATION RATE; Value: 24.2; Range: >39; Abnormal: Below low normal; Status: F Test: SODIUM LEVEL; Value: 135; Range: 136-145; Abnormal: Below low normal; Units: MEQ/L; Status: F Test: POTASSIUM SERUM; Value: 3.7; Range: 3.5-5.1; Units: MEQ/L; Status: F Test: CHLORIDE LEVEL; Value: 99; Range: 98-107; Units: MEQ/L; Status: F Test: CARBON DIOXIDE LEVEL; Value: 27; Range: 21-32; Units: MEQ/L; Status: F Test: ANION GAP; Value: 9; Range: 8-16; Units: MEQ/L; Status: F Test: CALCIUM LEVEL; Value: 10.6; Range: 8.8-10.2; Abnormal: Above high normal; Units: MG/DL; Status: F Test Note: ; Units are mL/min/1.73 m2 Chronic Kidney Disease Staging per NKF: Stage I & II GFR >=60 Normal to Mildly Decreased Stage III GFR 30-59 Moderately Decreased Stage IV GFR 15-29 Severely Decreased Stage V GFR <15 Very Little GFR Left ESRD GFR <15 on SEED TECHNICIAN Lab Order: CBC with Diff; SPEC'M 04/01/16 18:06 Test: WHITE BLOOD COUNT; Value: 16.6; Range: 4.0-10.0; Abnormal: Above high normal; Units: K/mm3; Status: F Test: RED BLOOD COUNT; Value: 4.04; Range: 4.00-5.40; Units: M/mm3; Status: F Test: HEMOGLOBIN; Value: 11.9; Range: 12.0-16.0; Abnormal: Below low normal; Units: g/dl; Status: F Test: HEMATOCRIT; Value: 36.3; Range: 36.0-47.0; Units: %; Status: F Test: MEAN CORPUSCULAR VOLUME; Value: 89.8; Range: 80.0-96.0; Units: fl; Status: F Test: MEAN CORPUSCULAR HEMOGLOBIN; Value: 29.4; Range: 27.0-33.0; Units: pg; Status: F Test: MEAN CORPUSCULAR HGB CONC; Value: 32.7; Range: 32.0-36.5; Units: g/dl; Status: F Test: RED CELL DISTRIBUTION WIDTH; Value: 13.3; Range: 11.5-14.5; Units: %; Status: F Test: PLATELET COUNT, AUTOMATED; Value: 354; Range: 150-450; Units: k/mm3; Status: F Test: NEUTROPHILS %; Value: 84.3; Range: 36.0-66.0; Abnormal: Above high normal; Units: %; Status: F Test: LYMPH %; Value: 6.4; Range: 24.0-44.0; Abnormal: Below low normal; Units: %; Status: F Test: MONO %; Value: 6.5; Range: 0.0-5.0; Abnormal: Above high normal; Units: %; Status: F Test: EOS %; Value: 1.0; Range: 0.0-3.0; Units: %; Status: F Test: BASO %; Value: 0.2; Range: 0.0-1.0; Units: %; Status: F Test: LARGE UNSTAINED CELL %; Value: 1.7; Range: 0.0-4.0; Units: %; Status: F Test: NEUTROPHILS #; Value: 14.0; Range: 1.8-7.7; Abnormal: Above high normal; Units: K/mm3; Status: F Test: LYMPH #; Value: 1.1; Range: 1.5-4.5; Abnormal: Below low normal; Units: K/mm3; Status: F Test: MONO #; Value: 1.1; Range: 0.0-0.8; Abnormal: Above high normal; Units: K/mm3; Status: F Test: EOS #; Value: 0.2; Range: 0.0-0.50; Units: K/mm3; Status: F Test: BASO #; Value: 0.0; Range: 0.0-0.2; Units: K/mm3; Status: F Test: LARGE UNSTAINED CELL #; Value: 0.3; Range: 0.0-0.4; Units: K/mm3; Status: F Lab Order: UA; SPEC'M 04/01/16 18:51 Test: APPEARANCE, URINE; Value: HAZY; Range: CLEAR; Status: F Test: COLOR, URINE; Value: YELLOW; Range: YELLOW; Status: F Test: PH,URINE; Value: 5.0; Range: 5.0-9.0; Units: UNITS; Status: F Test: SPECIFIC GRAVITY URINE AUTO; Value: 1.016; Range: 1.002-1.035; Status: F Test: PROTEIN, URINE AUTO; Value: NEGATIVE; Range: NEGATIVE; Units: mg/dL; Status: F Test: GLUCOSE, URINE (UA) AUTO; Value: NEGATIVE; Range: NEGATIVE; Units: mg/dL; Status: F Test: KETONE, URINE AUTO; Value: NEGATIVE; Range: NEGATIVE; Units: mg/dL; Status: F Test: UROBILINOGEN, URINE AUTO; Value: 0.2; Range: 0.0-2.0; Units: mg/dL; Status: F Test: BILIRUBIN, URINE AUTO; Value: NEGATIVE; Range: NEGATIVE; Status: F Test: NITRITE, URINE AUTO; Value: NEGATIVE; Range: NEGATIVE; Status: F Test: LEUKOCYTE ESTERASE, URINE AUTO; Value: 3+; Range: NEGATIVE; Abnormal: Above high normal; Status: F Test: BLOOD, URINE BLOOD; Value: 2+; Range: NEGATIVE; Abnormal: Above high normal; Status: F Test: WBC, URINE AUTO; Value: 123; Range: 0-3; Abnormal: Above high normal; Units: /HPF; Status: F Test: RBC, URINE AUTO; Value: 16; Range: 0-3; Abnormal: Above high normal; Units: /HPF; Status: F Test: BACTERIA, URINE AUTO; Value: 1+; Range: NEGATIVE; Abnormal: Above high normal; Status: F Test: SQUAMOUS EPITHELIAL CELL UR AU; Value: 1; Range: 0-6; Units: /HPF; Status: F Test: MUCUS, URINE; Value: SMALL; Range: NEGATIVE; Status: F Test: HYALINE CAST, URINE AUTO; Value: 0; Range: 0-1; Units: /LPF; Status: F Test: AMORPHOUS SEDIMENT; Value: SMALL; Range: NEGATIVE; Abnormal: Above high normal; Status: F Radiology Order: CT ABD & PELVIS: No Contrast Test: CT ABD & PELVIS: No Contrast REASON FOR EXAMINATION: r/o nephrostomy tube obstruction; Clinical: Flank pain rule out a nephrostomy tube obstruction.; ; Comparison: 03/24/2016.; ; Findings:; Bilateral nephrostomy tubes and eight ureteral stents are identified in seemingly; satisfactory position. Marked bilateral grade IV/V hydroureteronephrosis (right; greater than left) appears essentially unchanged. Minimal right perinephric; stranding appears similar to prior examination while increased left perinephric; stranding is not noted on current examination which may reflect associated acute; pyelonephritis. No significant perinephric fluid collection or hematoma is; identified. The bladder is grossly unremarkable and the previously placed Li; catheter has been removed.; ; Liver, spleen, pancreas, gallbladder, and bilateral adrenal glands are normal for; noncontrast examination. The enteric system suggests fecal stasis without; obstruction or obvious acute inflammatory process. Colonic diverticulosis noted; without acute diverticulitis. Normal terminal ileum and appendix are identified; in the right lower quadrant. Pelvis demonstrates stable age appropriate; appearance to the uterus and adnexa. No pelvic fluid/ascites. No significant; adenopathy. Musculoskeletal structures demonstrate age-related degenerative; changes. Lung bases demonstrate mild chronic changes.; ; Impression:; 1. Bilateral ureteral stents and nephrostomy tubes in seemingly satisfactory; position. The extent of bilateral hydronephrosis is unchanged. Increased left; perinephric stranding is appreciated which may reflect an associated; pyelonephritis. Actual obstruction to the bilateral nephrostomy tubes cannot be; evaluated by CT and should be correlated clinically although given the fact that; neither kidney demonstrates improved hydronephrosis may reflect chronic change.; 2. Sigmoid diverticula without acute diverticulitis.; 3. No pelvic fluid or ascites. No significant adenopathy. No free air.; ; ; Signed by; Juan Pablo Garsia MD 04/01/2016 06:37 P; Outcome: 20:44 Decision to Hospitalize by Provider. ck7 22:04 Discharge Assessment: patient administered narcotics - no. The following High Risk [facility] Discharge criteria are identified: None. Admitted to Med/Surg accompanied by tech, via stretcher, on monitor. Condition: stable. Property :Personal belongings accompany Pt. 22:05 CT Study completed. [facility] 22:06 Patient left the ED. [facility] Signatures: Dispatcher [employer] EDIA Dale Chamorro,RN Gisselle Barragan RN Luz Hernandez RN RN mcp Youngs, David, RN Shalini Min, SCUBA DIVING TEACHER SCUBA DIVING TEACHER ct3 Zahra Mitchell Christopher, RPA-C RPA-Cck7 Kirsten Matamoros,RN RN Yesika Puri Nicole nb2 MTDD
[2016-04-01 22:30] VITALS: BP 137/87
[2016-04-01] MEDS ORDERED: oxyCODONE 5MG TAB PO PRN (22:30)
[2016-04-01] MEDS: NS 1,000 ML IV SCH (22:46)
[2016-04-02 06:00] VITALS: BP 123/79
[2016-04-02 09:30] VITALS: BP 132/60
[2016-04-02 11:05] LABS: MEAN CORPUSCULAR HGB CONC 32.2 g/dl (32.0-36.5); MEAN CORPUSCULAR VOLUME 89.8 fl (80.0-96.0); RED CELL DISTRIBUTION WIDTH 14.3 % (11.5-14.5); WHITE BLOOD COUNT 8.6 K/mm3 (4.0-10.0)
[2016-04-02] MEDS: PANTOPRAZOLE 40MG TAB (PROTONIX) PO SCH (11:08)
[2016-04-02] MEDS: amLODIPine 10 MG TAB PO SCH (11:08)
[2016-04-02] MEDS: ENOXAPARIN 30 MG/0.3 ML SYR (J1650) SC SCH (11:09)
[2016-04-02 11:20] LABS: ALBUMIN 2.8 GM/DL (3.2-5.2); CALCIUM LEVEL 9.7 MG/DL (8.8-10.2); CREATININE FOR GFR 1.22 MG/DL (0.55-1.02); GLOMERULAR FILTRATION RATE 46.1 (>39); PHOSPHORUS LEVEL 2.7 MG/DL (2.5-4.9); POTASSIUM SERUM 3.6 MEQ/L (3.5-5.1)
[2016-04-02] MEDS: NS 1,000 ML IV SCH (11:49)
[2016-04-02] MEDS: prednisoLONE ACET 1% OPHTH SUSP 5ML OS SCH ×2 (12:30→21:10)
[2016-04-02] MEDS: KETOROLAC 0.4% OS SCH ×3 (12:30→21:10)
[2016-04-02 14:05] VITALS: BP 127/60
--- NOTE | 2016-04-02 15:34 | CR.PDOC ---
[facility] Consultation Consultation DATE OF ADMISSION: 04/01/2016 DATE OF CONSULTATION: 04/02/2016 REQUESTING PROVIDER: Dr. Branden Salazar REASON FOR CONSULTATION/CHIEF COMPLAINT: Acute renal failure HISTORY OF PRESENT ILLNESS: Ms. Castellanos is a 70-year-old female with past medical history significant for hypertension, COPD, osteopenia, vitamin D deficiency who presents to the hospital after being found to have worsening renal function on labs during outpatient routine office visit. Patient was recently admitted from March 24 to March 28 after being found to have abnormal renal function on outpatient labs. She reported some GI losses as well as inability to urinate during that admission. Imaging performed at that time revealed bilateral hydroureteronephrosis. She had bilateral nephrostomy tubes placed on March 25 with subsequent cystoscopy and bilateral ureteral double- J stents placed on March 26. She was found to have midureter stricture on the left and left ureter narrowing and with these interventions her renal function returned to normal. She was discharged in stable condition and had a routine follow-up with nephrology yesterday. Her labs revealed that her creatinine had increased from 1.01 (on March 28) to 2.13. She states that she felt well at home without any symptoms. She denied any flank pain or abdominal pain. Denies difficulty with urination. Reports having back pain last night after presenting to the ER. No nausea, vomiting, diarrhea, constipation, fever, chills, chest pain, shortness of breath, headache, lightheadedness, dizziness. Her bilateral nephrostomy tubes were initially clamped, but she had significant urinary output when they were opened and attached to a bag yesterday. She has not yet been to see urology, as she has an appointment on April 11. Nephrology consult was requested secondary to her acute renal injury. PAST MEDICAL HISTORY: 1. Bilateral hydroureteronephrosis status post nephrostomy tubes and double-J stents 2. History of acute renal failure secondary to obstructive uropathy 3. Hypertension 4. Hyperparathyroidism 5. COPD 6. Vitamin D deficiency 7. Osteopenia PAST SURGICAL HISTORY: 1. Bilateral nephrostomy tubes 2. Ureteral stents 3. Right knee replacement 4. Bilateral cataract surgery 5. Tubal ligation ALLERGIES: Penicillin HOME MEDICATIONS: Please see below. FAMILY HISTORY: No significant family history of renal disease. SOCIAL HISTORY: She is a former smoker, quit 14 years ago. Occasional alcohol. No illicit drug use. REVIEW OF SYSTEMS: CONSTITUTIONAL: Denies fevers, chills, fatigue, weakness. HEENT: Denies headache, lightheadedness, dizziness. No visual disturbance. No hearing changes. CARDIOVASCULAR: Denies chest pain, chest pressure, shortness of breath. No orthopnea or paroxysmal nocturnal dyspnea. No chronic lower extremity edema. RESPIRATORY: No shortness of breath. No cough or hemoptysis. GENITOURINARY: No increased urinary frequency or urgency. No dysuria or hematuria. MUSCULOSKELETAL: No new or unusual muscle or joint pains GASTROINTESTINAL: No nausea, vomiting, abdominal pain, diarrhea, constipation, hematochezia or melena. SKIN: No unusual rashes or skin lesions. NEUROLOGICAL: No Syncope. No numbness or tingling. ENDOCRINE: No history of diabetes or thyroid disorder. HEMATOLOGIC/LYMPHATIC: No excessive bleeding or bruising. PHYSICAL EXAMINATION: Vital Signs Date Time Temp Pulse Resp B/P Pulse Ox O2 Delivery O2 Flow Rate FiO2 04/02/16 14:05 97.8 20 127/60 93 Room Air 04/02/16 11:08 98 I&O- Last 24 Hours up to 6 AM 04/02/16 06:00 Intake Total 240 ml Output Total 2675 ml Balance -2435 ml GENERAL APPEARANCE: Alert and oriented 3. In no acute distress. HEENT: Normocephalic, atraumatic. Extraocular muscles are intact. Pupils are equally round and reactive to light. No scleral icterus. Moist mucosa. NECK: Supple. No jugular venous distention appreciated. HEART: Normal S1 and S2. Regular rate and rhythm. No murmur, gallops or rubs appreciated. LUNGS: Good air movement bilaterally. No rales, rhonchi or wheezing appreciated. ABDOMEN: Soft, nontender, nondistended. Bowel sounds are present. No rebound, guarding or rigidity. BACK: Left CVA tenderness. Has bilateral nephrostomy tubes draining clear urine. EXTREMITIES: No cyanosis or lower extremity edema. Positive pedal pulses bilaterally. SKIN: Warm and dry. Good skin turgor. No rashes or lesions noted. NEUROLOGIC: No focal deficits. Cranial nerves II through XII are grossly intact. Motor and sensation intact. LABORATORY DATA: 04/02/16 10:46 Red Blood Count 3.69 L, Mean Corpuscular Volume 89.8, Mean Corpuscular Hemoglobin 29.0, Mean Corpuscular Hemoglobin Concent 32.2, Red Cell Distribution Width 14.3, Anion Gap 10, Calcium Level 9.7, Glomerular Filtration Rate 46.1, Albumin 2.8L, Phosphorus Level 2.7 MICROBIOLOGY: Urine culture showed no growth. Blood culture pending. IMAGING: Abdomen/pelvis CT performed yesterday show bilateral ureteral stents and nephrostomy tubes. The extent of bilateral hydronephrosis is unchanged. She had increased left perinephric stranding which may reflect pyelonephritis. Obstruction in the nephrostomy tubes could not be appreciated. ASSESSMENT/PLAN: 1. Acute renal failure, likely secondary to obstruction with possible pyelonephritis in the setting of bilateral hydroureteronephrosis status post nephrostomy tubes and double-J stents. Her nephrostomy tubes were unclamped and she produced a lot of urine. Renal function has already significantly improved. Given her huge jump in sodium, we will change her fluids to half normal at a rate of 75 mL/h and add a little potassium to her fluids. Urology consult has already been placed to determine why her stents have already caused an issue. Nephrostomy tubes should remain open until this has been sorted out. 2. Possible pyelonephritis. Patient is currently on ceftriaxone. 3. Hypertension. Blood pressure stable on Norvasc. 4. Anemia. Hemoglobin is currently stable. The decrease is likely dilutional. Thank you for the consultation and allowing us to participate in the care of Ms. Castellanos. We will continue to follow along with you. Allergies Coded Allergies: Penicillins (Verified Allergy, Mild, Rash / Hives, 03/26/16) Home Medications Scheduled Amlodipine Besylate (Amlodipine Besylate) 10 Mg Tab #30 10 MG PO DAILY Cholecalciferol (Vitamin D) 1,000 Unit Tab 1,000 UNIT PO DAILY (Reported) Ketorolac Tromethamine (Ketorolac Tromethamine) 100 Drop/5 Ml Soln 1 DROP OS QID (Reported) Lactulose (Lactulose) 10 Gm/15 Ml Lyndsey 15 ML PO DAILY (Reported) JUST PRESCRIBED. HAS NOT STARTED YET Potassium Chloride (K-Tab) 10 Meq Tab 10 MEQ PO DAILY (Reported) JUST PRESCRIBED. HAS NOT STARTED YET Prednisolone Sodium Phosphate (Prednisolone Sodium Phosp 1% Opth Lyndsey) 1 % Lyndsey 1 DROP OS TID (Reported) Scheduled PRN Acetaminophen (Acetaminophen) 500 Mg Tab 500 MG PO Q4H PRN PRN PAIN (Reported) GME ATTESTATION GME ATTESTATION My preceptor for this patient encounter was physically present in the building during the encounter and was fully available. As needed, all aspects of the patient interview, examination, medical decision making process, and medical care plan development were reviewed and approved by the preceptor. Preceptor is aware and concurs with the plan as stated in the body of this note and will attest to such by his/her cosignature. JORGE MOE DO Apr 02, 2016 15:34
--- NOTE | 2016-04-02 16:09 | HPE ---
DATE OF ADMISSION: 04/01/2016 PRIMARY CARE PHYSICIAN: Hellen Bose NP ROADABILITY MACHINE OPERATOR: Dr. Navarrete CHIEF COMPLAINT: The patient was sent from beef killer's office for worsening renal function. PAST MEDICAL HISTORY: 1. Acute renal failure due to bilateral obstructive uropathy and bilateral hydroureteronephrosis diagnosed on 03/24/2016. Has bilateral percutaneous nephrostomies in position, which are clamped at this point. 2. Right sided ureteral stricture and narrow left ureter with bilateral ureteral stents. 3. Hypertension. 4. Chronic obstructive pulmonary disease (COPD). HISTORY OF PRESENT ILLNESS: This is a 70-year-old female who was recently admitted to the hospital from 03/24 to 03/28/2016 for acute renal failure due to obstructive uropathy due to bilateral ureteral obstructions. Cystoscopy showed right sided mid ureteral stricture of 4 cm and left sided overall narrow ureter. The patient was managed with bilateral percutaneous nephrostomy and bilateral ureteral stents, seven in number, and was discharged with normal renal function on 03/28/2016. On discharge, the patient's percutaneous nephrostomy tubes were clamped. The patient was able to urinate normally by herself. Today, the patient had gone for a routine followup visit with her beef killer. Blood work was done in the office, which showed worsening of renal functions with a rise in creatinine from 1 on discharge to 2.1 in four days. The patient was sent to the emergency room for evaluation. In the emergency department, the patient complained of bilateral back pain related to the position of both the nephrostomy tubes and also complained of left lower quadrant pain. However, she did say that she was able to urinate normally by herself. The nephrostomy tubes have been clamped since discharge from the hospital and they have not needed to use them. The patient denied any fever or chills at home. Denied any dysuria or hematuria. In the emergency department, the patient was found to have a creatinine of 2.1, white count of 16.6. The patient's UA was dirty with a WBC of 123, 16 of RBC, 3+ leukocyte esterase, 2+ blood, nitrate was negative. CT scan of the abdomen and pelvis was done, which showed bilateral nephrostomy tubes and eight ureteral stents, which were in satisfactory position. There was persistent grade IV to V hydroureteronephrosis, right greater than left, which remained unchanged. There was increased perinephric stranding around the left kidney, suggestive of acute pyelonephritis, as well as there some diverticulosis was seen, without any diverticulitis. The patient was diagnosed with acute pyelonephritis with acute kidney injury and was admitted to the hospitalist service for management. PAST SURGICAL HISTORY: 1. Bilateral percutaneous stent placement. 2. Right knee replacement. 3. Cataract surgery. 4. Bilateral percutaneous nephrostomy tube placement. 5. Bilateral ureteral stents. 6. Cystoscopy. ALLERGIES: PENICILLIN causes rash and hives. HOME MEDICATIONS: - amlodipine 10 mg daily - Tylenol 500 mg by mouth every four hours as needed for pain - cholecalciferol 1000 units by mouth daily - lactulose 15 mL by mouth daily - potassium chloride 10 mEq by mouth daily - prednisolone drops one drop in both eyes three times a day - ketorolac eye drops one drop four times a day SOCIAL HISTORY: The patient used to be a smoker, quit 14 years ago. Drinks wine occasionally. Does not use any recreational drugs. REVIEW OF SYSTEMS: All 10 point review of systems are negative except as mentioned in the history of present illness. PHYSICAL EXAMINATION: VITAL SIGNS: Blood pressure 166/83, pulse 85, respiratory rate 18, temperature 98.3, pulse oximetry 98% on room air. GENERAL: The patient awake, alert, oriented times three. Sitting up in bed in no acute distress. HEENT: Normocephalic, atraumatic. Moist mucous membranes. Anicteric eyes. CHEST: Clear to auscultation. CARDIOVASCULAR: S1, S2 regular. No rub, murmur, or gallop. ABDOMEN: Soft, nontender. Bowel sounds are present. EXTREMITIES: Bilateral 1+ edema. LABORATORY DATA: White blood count (WBC) 16.6, hemoglobin 11.9, platelets 354. Sodium 135, potassium 3.7, chloride 99, bicarbonate 27, BUN 27, creatine 2.1, glucose 111, calcium 10.6, PTH 144. UA dirty. Urine cultures and blood cultures have been ordered. ASSESSMENT AND PLAN: This is a 70-year-old female admitted for acute pyelonephritis and acute kidney injury. PLAN: 1. Acute pyelonephritis. We will start the patient on ceftriaxone. The patient carries a diagnosis of allergy to penicillin, so we will give Benadryl as needed if there is any rash or hives. 2. Acute kidney injury. We will open the percutaneous nephrostomy tubes. We will give her gentle hydration. Monitor creatinine. CT of the abdomen and pelvis shows the tubes and ureteral stents are in satisfactory position. 3. Hypertension. We will continue with amlodipine. 4. Chronic obstructive pulmonary disease (COPD). The patient takes Advair as needed. At present, no issues. We will continue to monitor. 5. Hyperparathyroidism with mildly elevated calcium. We will continue to monitor. 6. Deep vein thrombosis (DVT) prophylaxis has been ordered. 7. Gastrointestinal prophylaxis has been ordered.
[2016-04-02] MEDS: KCL 20MEQ IN 0.45NS 1000ML 1,000 ML IV SCH (16:42)
[2016-04-02 17:04] VITALS: BP 128/62
[2016-04-02] MEDS: cefTRIAXone SOD 1 GM in D5W MINI-BAG PLUS 50 ML IV SCH (21:10)
[2016-04-02] MEDS ORDERED: BISACODYL 5 MG TAB PO PRN (21:30)
[2016-04-02 22:00] VITALS: BP 125/54
[2016-04-02] MEDS: SENOKOT S TAB PO SCH (22:18)
[2016-04-03] MEDS: KCL 20MEQ IN 0.45NS 1000ML 1,000 ML IV SCH (05:31)
[2016-04-03 06:00] VITALS: BP 124/80
[2016-04-03 06:32] LABS: MEAN CORPUSCULAR HEMOGLOBIN 29.3 pg (27.0-33.0); MEAN CORPUSCULAR HGB CONC 32.3 g/dl (32.0-36.5); MEAN CORPUSCULAR VOLUME 90.5 fl (80.0-96.0); RED CELL DISTRIBUTION WIDTH 13.5 % (11.5-14.5); WHITE BLOOD COUNT 6.3 K/mm3 (4.0-10.0)
[2016-04-03 06:42] LABS: CALCIUM LEVEL 9.3 MG/DL (8.8-10.2); CREATININE FOR GFR 0.98 MG/DL (0.55-1.02); GLOMERULAR FILTRATION RATE 59.4 (>39); POTASSIUM SERUM 3.3 MEQ/L (3.5-5.1)
[2016-04-03] MEDS ORDERED: POTASSIUM CHLORIDE 10 MEQ SR TABLET PO ONE (07:15)
[2016-04-03] MEDS: amLODIPine 10 MG TAB PO SCH (09:18)
[2016-04-03] MEDS: ENOXAPARIN 30 MG/0.3 ML SYR (J1650) SC SCH (09:18)
[2016-04-03] MEDS: SENOKOT S TAB PO SCH ×2 (09:18→20:08)
[2016-04-03] MEDS: KETOROLAC 0.4% OS SCH ×4 (09:19→20:08)
[2016-04-03] MEDS: prednisoLONE ACET 1% OPHTH SUSP 5ML OS SCH ×2 (09:19→20:08)
[2016-04-03] MEDS: PANTOPRAZOLE 40MG TAB (PROTONIX) PO SCH (09:19)
[2016-04-03 09:31] LABS: MAGNESIUM LEVEL 1.5 MG/DL (1.8-2.4)
--- NOTE | 2016-04-03 11:28 | HPEPDOC ---
General Date of Admission Apr 01, 2016 at 20:46 Chief Complaint The patient is a 70-year-old female admitted with acute renal failure associated with bilateral ureteral obstruction. 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 She was admitted on the of this month with acute renal failure that was found to be secondary to bilateral ureteral obstruction. During that hospitalization she had bilateral ureteral stents placed, 8 [place]. An bilateral nephrostomy tubes. Her renal function improved she was here was discharged on the with a creatinine of 1.01. After discharge her nephrostomy tubes were clamped. She progressively gallop worsening bilateral flank pain that she attributed to the tubes themselves. She was seen for routine follow-up at her nephrology office and blood work showed a creatinine risen to 2.13. She was sent here to the emergency room for admission and treatment. Her nephrostomy tubes were unclamped and both are draining good amounts of urine since been unclamped. Her pain is significantly improved since they were unclamped as well. She denies any fever or chills but does report that on her way to the hospital she had some nausea and vomiting. On admission on the which was 2 days ago, she had a white count of 16 and has now come down to 6. Her creatinine was 2.138 is now come down to 0.98. She is making good urine output out of both nephrostomy tubes and urology was asked to assist in further management. Home Medications Scheduled Amlodipine Besylate (Amlodipine Besylate) 10 Mg Tab 10 MG PO DAILY Cholecalciferol (Vitamin D) 1,000 Unit Tab 1,000 UNIT PO DAILY (Reported) Ketorolac Tromethamine (Ketorolac Tromethamine) 100 Drop/5 Ml Soln 1 DROP OS QID (Reported) Lactulose (Lactulose) 10 Gm/15 Ml Lyndsey 15 ML PO DAILY (Reported) JUST PRESCRIBED. HAS NOT STARTED YET Potassium Chloride (K-Tab) 10 Meq Tab 10 MEQ PO DAILY (Reported) JUST PRESCRIBED. HAS NOT STARTED YET Prednisolone Sodium Phosphate (Prednisolone Sodium Phosp 1% Opth Lyndsey) 1 % Lyndsey 1 DROP OS TID (Reported) Scheduled PRN Acetaminophen (Acetaminophen) 500 Mg Tab 500 MG PO Q4H PRN PRN PAIN (Reported) Allergies Coded Allergies: Penicillins (Verified Allergy, Mild, Rash / Hives, 03/26/16) Past Medical History Medical History 1. Acute renal failure due to bilateral obstructive uropathy and bilateral hydroureteronephrosis diagnosed on 03/24/2016. Has bilateral percutaneous nephrostomies in position, which are clamped at this point. 2. Right sided ureteral stricture and narrow left ureter with bilateral ureteral stents. 3. Hypertension. 4. Chronic obstructive pulmonary disease (COPD). Surgical History 1. Bilateral percutaneous nephrostomy tubes placed 03/25/2016 2. Cystoscopy with bilateral ureteral stents placed 03/26/2016 3. Right knee replacement. 4. Cataract surgery. Family History Significant Family History: No pertinent family hx Social History * Smoker: former Smoker Alcohol: rarely Drugs: denies Recent Travel/Sick Contacts: Denies: Recent sick contacts, Recent travel Psychosocial History: No pertinent psych hx Review of Symptoms Constitutional: Denies: Chills, Fever, Night Sweats Eyes: Denies: Pain, Vision change ENT: Denies: Dysphagia, Ear Pain, Head Aches Skin: Denies: Breakdown, Lesions, Rash Pulmonary: Denies: Cough, Dyspnea Cardiovascular: Denies: Chest Pain, Lt Headedness, Orthopnea, Palpitations, Paroxysmal Noc. Dyspnea Gastrointestinal: Reports: Nausea, Other Symptoms (bilateral flank pain), Vomiting, Denies: Abdominal Pain, Constipation, Diarrhea, Hematochezia, Melena Hematologic: Denies: Bleeding Excessively, Bruising Endocrine: Denies: Cold Intolerance, Heat Intolerance, Other Endocrine Sx, Polydipsia, Polyphagia, Polyuria Musculoskeletal: Reports: Back Pain, Denies: Joint Pain, Muscle Pain, Neck Pain, Spasms Neurological: Denies: Change in speech, Confusion, Numbness, Weakness Psych: Reports: Mood Normal, Denies: Depression, Memory Issues Physical Examination General Exam: Positive: Alert, Cooperative, No Acute Distress Eye Exam: Positive: Conjunctiva & lids normal, EOMI, PERRLA, Negative: Sclera icteric ENT Exam: Positive: Atraumatic, Mucous membr. moist/pink, Pharynx Normal Neck Exam: Positive: Supple, Negative: JVD, thyromegaly Chest Exam: Positive: Clear to auscultation, Normal air movement Heart Exam: Positive: Normal S1, Normal S2, Rate Normal, Regular Rhythm, Negative: Murmurs, Rubs Abdomen Exam: Positive: Normal bowel sounds, Soft, Negative: Hepatospenomegaly Extremity Exam: Positive: Normal pulses, Negative: Clubbing, Cyanosis, Edema Skin Exam: Positive: Nl turgor and temperature, Negative: Breakdown, Lesion Neuro Exam: Positive: Cranial Nerves 3-12 NL, Normal Gait, Normal Speech Psych Exam: Positive: Mental status NL Other physical findings Bilateral nephrostomy tubes are in position and draining urine. The left urine is completely clear the right urine is blood-tinged. Vital Signs Vital Signs Label Value Date Time Patient Temperature 97.6 degrees F 04/03/16 0600 Pulse 82 04/03/16 0600 Respiratory Rate 20 bpm 04/03/16 0600 Blood Pressure Assessment 124/80 (95) 04/03/16 0600 Bedside Pulse Oximetry 96 % 04/03/16 0600 Laboratory Data Labs 24H Laboratory Tests 2 04/03/16 05:40: Anion Gap 10, Blood Urea Nitrogen 19H, Creatinine 0.98, Sodium Level 144, Potassium Level 3.3L, Chloride Level 107, Carbon Dioxide Level 27, Calcium Level 9.3, Glomerular Filtration Rate 59.4, Magnesium Level 1.5L CBC/BMP Laboratory Tests 04/03/16 05:40 Calcium Level 9.3, Red Blood Count 3.47 L, Mean Corpuscular Volume 90.5, Mean Corpuscular Hemoglobin 29.3, Mean Corpuscular Hemoglobin Concent 32.3, Red Cell Distribution Width 13.5 Microbiology Microbiology 04/01/16 Blood Culture - Preliminary, Resulted No growth after 24 hours . All specim... 04/01/16 Urine Culture - Final, Complete RAD Interpretation STUDY: Impression: Assessment/Plan Problems: (1) Acute renal failure Status: Acute Response to Treatment: Improving Discussed With: Nurse, Payroll Secretary (2) Diarrhea Status: Acute (3) Acute pyelonephritis Status: Acute Response to Treatment: Improving Discussed With: Nurse, Payroll Secretary (4) Acute kidney injury Status: Acute Response to Treatment: Improving Discussed With: Nurse, Payroll Secretary Plan / VTE VTE Prophylaxis Ordered?: Yes Plan Plan This patient is very well known to Dr. Parra from her recent admission. I Agree with monitoring and admission. Recommend leaving nephrostomy tubes unclamped and draining freely. Since the nephrostomy tubes have been unclamped her white count is come back down to normal and her creatinine has normalized and she is making good urine out of both nephrostomy tubes. I will add culture from each nephrostomy tube in addition to the one taken from the bladder. She is currently on Rocephin and responding well. We will await the cultures. We'll notify Dr. Kelley of her admission and he can make a long-term plan. Diet: Continue Current Activity: Continue Current LUI HERNANDEZ MD Apr 03, 2016 11:28
--- NOTE | 2016-04-03 11:54 | IPNPDOC ---
Assessment/Plan Date Seen The patient was seen on 04/02/16. Problems Problems: (1) Acute renal failure Status: Acute Response to Treatment: Improving Discussed With: Nurse, Solar Installation Helper Problem Specific Plan: Consult Specialist, Repeat Labs Problem Text: in the setting of bilateral obstructive uropathy secondary to bilateral hydrouretronephrolithiasis s/p b/l nephrostomy tubes 03/24/16 nephrostomy tubes originally clamped and were opened in ER draining well (2) Acute pyelonephritis Status: Acute Response to Treatment: Improving Discussed With: Nurse, Solar Installation Helper Problem Specific Plan: Consult Specialist, Monitor Clinically, Repeat Labs Problem Text: cultures pending IV ceftriaxone (3) Diarrhea Status: Resolved Discussed With: Patient (4) COPD (chronic obstructive pulmonary disease) Status: Chronic Problem Specific Plan: Monitor Clinically (5) HTN (hypertension) Status: Chronic Discussed With: Patient Problem Specific Plan: Monitor Clinically Problem Text: norvasc Plan / VTE VTE Prophylaxis Ordered?: Yes Plan IVF: Continue Diet: Continue Current Activity: Continue Current Diagnostics: Repeat Labs in AM, Obtain Cultures Anticipated Discharge: Home Subjective Review of Systems CC/HPI The patient is a 70-year-old female admitted with a reason for visit of Acute Kidney Injury/Acute Pyelonephritis. General: Denies: Chills, Fatigue, Malaise, Night Sweats, Normal Appetite, Other Symptoms, ROS Unobtainable Constitutional: Denies: Chills, Fatigue, Fever, Lethargy, Malaise, Night Sweats , Other, Weakness, Weight Loss Eyes: Denies: Conjunctivae inflammation, Eyelid inflammation, Other, Pain, Redness, Vision change ENT: Denies: Dysphagia, Ear Pain, Epistaxis, Head Aches, Other Symptoms, Post Nasal Drip, Sinus Congestion, Sore Throat Skin: Denies: Breakdown, Bruising, Dry, Itching, Jaundice, Lesions, Nail Changes, Other, Rash Pulmonary: Denies: Cough, Dyspnea, Other Symptoms, Pleuritic Chest Pain Gastrointestinal: Denies: Abdominal Pain, Constipation, Diarrhea, Hematochezia , Melena, Nausea, Other Symptoms, Vomiting Genitourinary: Denies: Dysuria, Frequency, Hematuria, Incontinence, Other Symptoms, Retention Musculoskeletal: Reports: Back Pain Objective Physical Examination General Exam: Positive: Alert, Cooperative, No Acute Distress Eye Exam: Positive: Conjunctiva & lids normal, EOMI, PERRLA, Negative: Sclera icteric ENT Exam: Positive: Atraumatic, Mucous membr. moist/pink, Pharynx Normal Neck Exam: Positive: Supple, Negative: JVD, thyromegaly Chest Exam: Positive: Clear to auscultation, Normal air movement Heart Exam: Positive: Normal S1, Normal S2, Rate Normal, Regular Rhythm, Negative: Murmurs, Rubs Abdomen Exam: Positive: Normal bowel sounds, Soft, Negative: Hepatospenomegaly Extremity Exam: Positive: Normal pulses, Negative: Clubbing, Cyanosis, Edema Skin Exam: Positive: Nl turgor and temperature, Negative: Breakdown, Lesion Neuro Exam: Positive: Cranial Nerves 3-12 NL, Normal Gait, Normal Speech Psych Exam: Positive: Mental status NL Vital Signs/I&O Vital Signs Date Time Temp Pulse Resp B/P Pulse Ox O2 Delivery O2 Flow Rate FiO2 04/03/16 09:18 82 124/80 04/03/16 06:00 97.6 20 96 04/02/16 17:04 Room Air I&O- Last 24 Hours up to 6 AM 04/03/16 06:00 Intake Total 3960 ml Output Total 1940 ml Balance 2020 ml Laboratory Data Labs 24H Laboratory Tests 2 04/03/16 05:40: Anion Gap 10, Blood Urea Nitrogen 19H, Creatinine 0.98, Sodium Level 144, Potassium Level 3.3L, Chloride Level 107, Carbon Dioxide Level 27, Calcium Level 9.3, Glomerular Filtration Rate 59.4, Magnesium Level 1.5L CBC/BMP Laboratory Tests 04/03/16 05:40 Calcium Level 9.3, Red Blood Count 3.47 L, Mean Corpuscular Volume 90.5, Mean Corpuscular Hemoglobin 29.3, Mean Corpuscular Hemoglobin Concent 32.3, Red Cell Distribution Width 13.5 Microbiology Microbiology 04/01/16 Blood Culture - Preliminary, Resulted No growth after 24 hours . All specim... 04/01/16 Urine Culture - Final, Complete KEVEN CHAVARRIA MD Apr 03, 2016 11:54
--- NOTE | 2016-04-03 11:57 | IPNPDOC ---
Assessment/Plan Date Seen The patient was seen on 04/03/16. Problems Problems: (1) Acute renal failure Status: Acute Response to Treatment: Improving Discussed With: Endless Track Vehicle Supervisor Problem Specific Plan: Consult Specialist, Repeat Labs Problem Text: in the setting of bilateral obstructive uropathy with bilateral hydrouretronephrosis s/p b/l nephrostomy tubes 03/24/16 nephrostomy tubes originally clamped and were opened in ER draining well renal function continues to improve follow as per nephrology and urology, assistance appreciated (2) Acute pyelonephritis Status: Acute Response to Treatment: Improving Discussed With: Endless Track Vehicle Supervisor Problem Specific Plan: Consult Specialist, Monitor Clinically, Repeat Labs Problem Text: cultures pending repeat cultures obtained as per urology IV ceftriaxone (3) Diarrhea Status: Resolved Discussed With: Patient (4) COPD (chronic obstructive pulmonary disease) Status: Chronic Problem Specific Plan: Monitor Clinically (5) HTN (hypertension) Status: Chronic Discussed With: Patient Problem Specific Plan: Monitor Clinically Problem Text: norvasc Plan / VTE VTE Prophylaxis Ordered?: Yes Plan IVF: Continue Diet: Continue Current Activity: Continue Current Diagnostics: Repeat Labs in AM, Obtain Cultures Anticipated Discharge: Home Subjective Review of Systems CC/HPI The patient is a 70-year-old female admitted with a reason for visit of Acute Kidney Injury/Acute Pyelonephritis. General: Denies: Chills, Fatigue, Malaise, Night Sweats, Normal Appetite, Other Symptoms, ROS Unobtainable Constitutional: Denies: Chills, Fatigue, Fever, Lethargy, Malaise, Night Sweats , Other, Weakness, Weight Loss Eyes: Denies: Conjunctivae inflammation, Eyelid inflammation, Other, Pain, Redness, Vision change ENT: Denies: Dysphagia, Ear Pain, Epistaxis, Head Aches, Other Symptoms, Post Nasal Drip, Sinus Congestion, Sore Throat Skin: Denies: Breakdown, Bruising, Dry, Itching, Jaundice, Lesions, Nail Changes, Other, Rash Pulmonary: Denies: Cough, Dyspnea, Other Symptoms, Pleuritic Chest Pain Cardiovascular: Denies: Chest Pain, Edema, Lt Headedness, Orthopnea, Other Symptoms, Palpitations, Paroxysmal Noc. Dyspnea Gastrointestinal: Denies: Abdominal Pain, Constipation, Diarrhea, Hematochezia , Melena, Nausea, Other Symptoms, Vomiting Genitourinary: Denies: Dysuria, Frequency, Hematuria, Incontinence, Other Symptoms, Retention Objective Physical Examination General Exam: Positive: Alert, Cooperative, No Acute Distress Eye Exam: Positive: Conjunctiva & lids normal, EOMI, PERRLA, Negative: Sclera icteric ENT Exam: Positive: Atraumatic, Mucous membr. moist/pink, Pharynx Normal Neck Exam: Positive: Supple Chest Exam: Positive: Clear to auscultation, Normal air movement Heart Exam: Positive: Normal S1, Normal S2, Rate Normal, Regular Rhythm, Negative: Murmurs, Rubs Abdomen Exam: Positive: Normal bowel sounds, Soft, Negative: Hepatospenomegaly, Tenderness Extremity Exam: Positive: Normal pulses, Negative: Edema Neuro Exam: Positive: Normal Gait, Normal Speech Psych Exam: Positive: Mental status NL, Oriented x 3 Vital Signs/I&O Vital Signs Date Time Temp Pulse Resp B/P Pulse Ox O2 Delivery O2 Flow Rate FiO2 04/03/16 09:18 82 124/80 04/03/16 06:00 97.6 20 96 04/02/16 17:04 Room Air I&O- Last 24 Hours up to 6 AM 04/03/16 06:00 Intake Total 3960 ml Output Total 1940 ml Balance 2020 ml Laboratory Data Labs 24H Laboratory Tests 2 04/03/16 05:40: Anion Gap 10, Blood Urea Nitrogen 19H, Creatinine 0.98, Sodium Level 144, Potassium Level 3.3L, Chloride Level 107, Carbon Dioxide Level 27, Calcium Level 9.3, Glomerular Filtration Rate 59.4, Magnesium Level 1.5L CBC/BMP Laboratory Tests 04/03/16 05:40 Calcium Level 9.3, Red Blood Count 3.47 L, Mean Corpuscular Volume 90.5, Mean Corpuscular Hemoglobin 29.3, Mean Corpuscular Hemoglobin Concent 32.3, Red Cell Distribution Width 13.5 Microbiology Microbiology 04/01/16 Blood Culture - Preliminary, Resulted No growth after 24 hours . All specim... 04/03/16 Urine Culture, Received Pending 04/03/16 Urine Culture, Received Pending 04/01/16 Urine Culture - Final, Complete KEVEN CHAVARRIA MD Apr 03, 2016 11:57
--- NOTE | 2016-04-03 13:04 | IPN ---
DATE: 04/03/2016 Ms. Castellanos is seen this morning on her bedside. She is sitting in the chair and reports feeling better. She denies any nausea, vomiting, dyspnea, chest pain, flank pain or dysuria. Her bilateral nephrostomies are draining clear urine. She is also urinating. She was initially felt to have pyelonephritis due to obstruction of her ureteral stent while her nephrostomy tubes were clamped. Now, her nephrostomy tubes have been opened and they are draining clear urine. She is being treated for pyelonephritis with antibiotics. PHYSICAL EXAMINATION: On physical examination, temperature 97.6 degrees Fahrenheit, heart rate 82 per minute and respiratory rate 20 per minute. Blood pressure 124/80 mmHg and oxygen saturation 96% on room air. Intake and output records from yesterday show a total intake 4020 and output 3765 mL. Her head is atraumatic. Ears, nose and throat are unremarkable. Pupils are equal and reactive to light and sclera is anicteric. Heart sounds are regular and lungs clear to auscultation. Abdomen is soft and nontender. Bilateral nephrostomy tubes are in place and draining clear urine. Extremities have no cyanosis or clubbing. Skin has no rash or ulcers. Neurologically, she is awake, alert and oriented times three. She has no focal neurological deficit. LABORATORY DATA: Today's laboratories show WBC count 6.3, hemoglobin 10.2 and hematocrit 31.7. Sodium 144 and potassium 3.3. BUN 19 and creatinine 0.98. Calcium level 9.3 and magnesium 1.5. PROBLEMS: 1. Acute renal failure, most likely related to obstruction and infection. At present, her nephrostomy tubes are draining clear urine. Infection has been treated with antibiotics and she is completely asymptomatic. She will continue with her nephrostomy tubes and followup with urology as an outpatient. 2. Acute pyelonephritis, most likely related to obstruction. The patient has been on ceftriaxone. I suggest to switch her to oral antibiotic. Initial urine culture did not show any growth. 3. Hypokalemia. This is related to obstructive uropathy with postobstructive diuresis. The patient has been given one dose of oral potassium chloride 40 mEq. She is being advised to increase oral intake of high potassium foods. 4. Hypomagnesemia. I suggest to replace her magnesium with oral magnesium oxide 400 mg twice a day. DISPOSITION: From a renal standpoint, the patient can be discharged to home and followup with urology as an outpatient.
[2016-04-03 14:00] VITALS: BP 129/63
[2016-04-03] MEDS: MAG SULF 1GM/100ML (MAG RUN) 1 GM in APPROPRIATE DILUENT 1 EA IV SCH ×2 (15:31→17:02)
[2016-04-03] MEDS: cefTRIAXone SOD 1 GM in D5W MINI-BAG PLUS 50 ML IV SCH (20:08)
[2016-04-03 22:00] VITALS: BP 156/74
--- NOTE | 2016-04-03 23:07 | EDDOCDS ---
Physician Documentation [facility] Name: Briana Castellanos Age: 70 yrs Sex: Female : 1945 Arrival Date: 04/01/2016 Time: 16:18 Bed I6 / 28 Private MD: Hellen Bose L. Disposition: 04/01/16 20:44 Hospitalization ordered by Constance Pradhan for Inpatient Admission. Preliminary diagnosis are Acute kidney failure, Urinary tract infection, site not specified. - Bed requested for 4 [place]. - Status is Inpatient Admission. mcp - Condition is Stable. - Problem is new. - Symptoms have improved. Historical: - Allergies: PENICILLINS; - Home Meds: 1. amlodipine 10 mg Oral tab 1 tab once daily (Last dose: 04/01/2016 08:00) 2. Vitamin D Oral 1,000 unit daily 3. acetaminophen 325 mg Oral tab 2 tabs as needed 4. potassium chloride 10 mEq Oral TbER 1 tab once daily hasnt started yet 5. lactulose 10 gram/15 mL (15 mL) Oral soln 3 tsp once daily hasnt started 6. Tylenol 500mg Oral every 4 hours prn - PMHx: COPD; hyperparathyroidism; Hypertension; osteopenia; Vitamin D deficiency; kideny failure; hydronephrosis with ureteral stricture; hypercalcemia; hypokalemia; - PSHx: Tubal ligation; right knee replacement; bilateral cataract; bilateral nephrostomy tube placement; - Social history: Smoking status: Patient states former smoker of tobacco. No barriers to communication noted, The patient speaks fluent Thai, Speaks appropriately for age. - Family history: Not pertinent. - : The pt / caregiver states he / she is not on anticoagulants. Home medication list is obtained from the patient. - Exposure Risk Screening:: None identified. Vital Signs: 04/01 16:20 BP 166 / 83; Pulse 85; Resp 18; Temp 98.3(O); Pulse Ox 98% on R/A; Weight 87.54 kg / ct3 192.99 lbs (R); Height 5 ft. 6 in. (167.64 cm) (R); Pain 6/10; 21:52 BP 118 / 64; Pulse 82; Resp 18; Temp 98.6; Pulse Ox 98% ; Pain 5/10; ajs 16:20 Body Mass Index 31.15 (87.54 kg, 167.64 cm) ct3 MDM: 17:45 IV Saline Lock ordered. ck7 17:45 Misc. Nursing Order ordered. ck7 17:46 Basic Metabolic Profile Ordered. EDMS 17:46 CBC with Diff Ordered. EDMS 17:47 CT ABD & PELVIS: No Contrast Ordered. EDMS 17:49 Financial registration complete. gjb 17:49 Physician consultation:. ck7 17:50 [facility] was scanned into [employer] and attached to record. gjb 18:43 UA Ordered. EDMS 19:11 Basic Metabolic Profile Reviewed. ck7 19:11 CBC with Diff Reviewed. ck7 19:11 CT ABD & PELVIS: No Contrast Reviewed. ck7 19:57 UA Reviewed. ck7 20:01 Acetaminophen-Codeine 300 mg-30 mg 2 tabs PO once ordered. ck7 20:39 Urine Culture Ordered. EDMS 20:43 cefTRIAXone 1 grams IVPB once over 30 mins; dilute in 50mL of NS or D5W ordered. ck7 20:43 BED REQUEST+ADM ordered. EDMS 21:08 Admission / Observation Status ordered. EDMS 21:08 REGULAR DIET ordered. EDMS 21:53 URINE CULTURE Ordered. EDMS 21:53 BLOOD CULTURES Ordered. EDMS 04/02 09:06 T-Sheet-- Draft Copy was scanned into [employer] and attached to record. gb Administered Medications: 04/01 20:14 Drug: Acetaminophen-Codeine 2 tabs [acetaminophen 300 mg-codeine 30 mg tablet (2 tabs)] af2 Route: PO; 21:00 Drug: cefTRIAXone 1 grams [ceftriaxone 1 gram solution for injection] Route: IVPB; af2 Infused Over: 30 mins; Site: right antecubital; Signatures: Dispatcher Med[employer] EDWA Gisselle Alexander RN Luz Hernandez RN Tameka Covington mcp, RN RN daq Barnhardt, Gloria, Justus Oden RPA-C KENDRA-Yesika Hagan Amber RN af2 The chart was reviewed and I authenticate all verbal orders and agree with the evaluation and treatment provided.Attachments: 17:50 [facility] Payment Agreement gjb 04/02 09:06 T-Sheet-- Draft Copy gb Chart Complete MTDD
--- NOTE | 2016-04-03 23:07 | EDDOCDS ---
Physician Documentation [facility] Name: Briana Castellanos Age: 70 yrs Sex: Female : 1945 Arrival Date: 04/01/2016 Time: 16:18 Bed I6 / 28 Private MD: Hellen Bose L. Disposition: 04/01/16 20:44 Hospitalization ordered by Constance Pradhan for Inpatient Admission. Preliminary diagnosis are Acute kidney failure, Urinary tract infection, site not specified. - Bed requested for 4 [place]. - Status is Inpatient Admission. mcp - Condition is Stable. - Problem is new. - Symptoms have improved. Historical: - Allergies: PENICILLINS; - Home Meds: 1. amlodipine 10 mg Oral tab 1 tab once daily (Last dose: 04/01/2016 08:00) 2. Vitamin D Oral 1,000 unit daily 3. acetaminophen 325 mg Oral tab 2 tabs as needed 4. potassium chloride 10 mEq Oral TbER 1 tab once daily hasnt started yet 5. lactulose 10 gram/15 mL (15 mL) Oral soln 3 tsp once daily hasnt started 6. Tylenol 500mg Oral every 4 hours prn - PMHx: COPD; hyperparathyroidism; Hypertension; osteopenia; Vitamin D deficiency; kideny failure; hydronephrosis with ureteral stricture; hypercalcemia; hypokalemia; - PSHx: Tubal ligation; right knee replacement; bilateral cataract; bilateral nephrostomy tube placement; - Social history: Smoking status: Patient states former smoker of tobacco. No barriers to communication noted, The patient speaks fluent Telugu, Speaks appropriately for age. - Family history: Not pertinent. - : The pt / caregiver states he / she is not on anticoagulants. Home medication list is obtained from the patient. - Exposure Risk Screening:: None identified. Vital Signs: 04/01 16:20 BP 166 / 83; Pulse 85; Resp 18; Temp 98.3(O); Pulse Ox 98% on R/A; Weight 87.54 kg / ct3 192.99 lbs (R); Height 5 ft. 6 in. (167.64 cm) (R); Pain 6/10; 21:52 BP 118 / 64; Pulse 82; Resp 18; Temp 98.6; Pulse Ox 98% ; Pain 5/10; ajs 16:20 Body Mass Index 31.15 (87.54 kg, 167.64 cm) ct3 MDM: 17:45 IV Saline Lock ordered. ck7 17:45 Misc. Nursing Order ordered. ck7 17:46 Basic Metabolic Profile Ordered. EDMS 17:46 CBC with Diff Ordered. EDMS 17:47 CT ABD & PELVIS: No Contrast Ordered. EDMS 17:49 Financial registration complete. gjb 17:49 Physician consultation:. ck7 17:50 [facility] [place] was scanned into [employer] and attached to record. gjb 18:43 UA Ordered. EDMS 19:11 Basic Metabolic Profile Reviewed. ck7 19:11 CBC with Diff Reviewed. ck7 19:11 CT ABD & PELVIS: No Contrast Reviewed. ck7 19:57 UA Reviewed. ck7 20:01 Acetaminophen-Codeine 300 mg-30 mg 2 tabs PO once ordered. ck7 20:39 Urine Culture Ordered. EDMS 20:43 cefTRIAXone 1 grams IVPB once over 30 mins; dilute in 50mL of NS or D5W ordered. ck7 20:43 BED REQUEST+ADM ordered. EDMS 21:08 Admission / Observation Status ordered. EDMS 21:08 REGULAR DIET ordered. EDMS 21:53 URINE CULTURE Ordered. EDMS 21:53 BLOOD CULTURES Ordered. EDMS 04/02 09:06 T-Sheet-- Draft Copy was scanned into [employer] and attached to record. gb Administered Medications: 04/01 20:14 Drug: Acetaminophen-Codeine 2 tabs [acetaminophen 300 mg-codeine 30 mg tablet (2 tabs)] af2 Route: PO; 21:00 Drug: cefTRIAXone 1 grams [ceftriaxone 1 gram solution for injection] Route: IVPB; af2 Infused Over: 30 mins; Site: right antecubital; Signatures: Dispatcher [employer] EDMA Gisselle Alexander RN Luz Hernandez RN Tameka Covington mcp, RN RN daq Barnhardt, Gloria, Justus Oden RPA-C KENDRA-Yesika Hagan Amber RN af2 The chart was reviewed and I authenticate all verbal orders and agree with the evaluation and treatment provided.Attachments: 17:50 [facility] Payment Agreement gjb 04/02 09:06 T-Sheet-- Draft Copy gb Chart Complete MTDD
--- NOTE | 2016-04-03 23:07 | EDDOCDS ---
Nurse's Notes [facility] Name: Briana Castellanos Age: 70 yrs Sex: Female : 1945 Arrival Date: 04/01/2016 Time: 16:18 Bed I6 / 28 Private MD: Hellen Bose L. Diagnosis: Acute kidney failure;Urinary tract infection, site not specified Presentation: 04/01 16:26 Presenting complaint: Patient states: sent here from kidney doctor ( agnes) to have srm bags attached to nephrostomy tubes. then pt can be discharged. Adult Sepsis Screening: The patient does not have new or worsening altered mentation. Patient's respiratory rate is less than 22. Systolic blood pressure is greater than 100. Patient has a qSOFA score of 0- Negative Sepsis Screen. Suicide/Homicide risk assessment- the patient denies having any suicidal and/or homicidal ideations and does not present with any other emotional, behavioral or mental health complaints. 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 Transition of care: patient was received from dr alarcon. 16:26 Method Of Arrival: Walkin/Carried/Asstd srm 16:26 Acuity: CHARLEE Level 4 srm 17:25 Presenting complaint: per charge nurse- she was notified by nephrology that pt's neph srm tubes may be obstructed and is here for evaluation. Acuity level changed due to complexity of care. 17:25 Acuity: CHARLEE Level 3 srm Triage Assessment: 16:33 General: Appears in no apparent distress, Behavior is appropriate for age, cooperative. srm Pain: Pain currently is 6 out of 10 on a pain scale. Historical: - Allergies: PENICILLINS; - Home Meds: 1. amlodipine 10 mg Oral tab 1 tab once daily (Last dose: 04/01/2016 08:00) 2. Vitamin D Oral 1,000 unit daily 3. acetaminophen 325 mg Oral tab 2 tabs as needed 4. potassium chloride 10 mEq Oral TbER 1 tab once daily hasnt started yet 5. lactulose 10 gram/15 mL (15 mL) Oral soln 3 tsp once daily hasnt started 6. Tylenol 500mg Oral every 4 hours prn - PMHx: COPD; hyperparathyroidism; Hypertension; osteopenia; Vitamin D deficiency; kideny failure; hydronephrosis with ureteral stricture; hypercalcemia; hypokalemia; - PSHx: Tubal ligation; right knee replacement; bilateral cataract; bilateral nephrostomy tube placement; - Social history: Smoking status: Patient states former smoker of tobacco. No barriers to communication noted, The patient speaks fluent Urdu, Speaks appropriately for age. - Family history: Not pertinent. - : The pt / caregiver states he / she is not on anticoagulants. Home medication list is obtained from the patient. - Exposure Risk Screening:: None identified. Screenin:22 Screening information is obtained from the patient. Fall risk: No risks identified. jmk Assistance ADL's: requires no assistance with activities of daily living. Abuse/DV Screen: The patient / caregiver reports he/she is: not in a situation that causes fear, pain or injury. Nutritional screening: No deficits noted. home support is adequate. 22:05 Advance Directives: There is no active DNR order. [facility] Assessment: 18:18 General: Appears in no apparent distress, skin warm and dry color satisfactory. moist jmk pink oral mucosa. abd unremarkable, indicates bilateral back pain. dressings intact to bilateral low back area. 8.5 nephrostomy tubes noted bilaterally.. Respiratory: No deficits noted. Airway is patent Respiratory effort is even, unlabored, Respiratory pattern is regular, Sputum is. : Reports pain to flank area. 18:47 General: Appears ambulated to bathroom with steady gait to obtain UA. k 19:40 General: Appears in no apparent distress, Behavior is appropriate for age, cooperative, af2 assumed care of pt at this time, pt lying on stretcher resting quietly without complaint. nephrostomy tubes not attached to pt at this time, pt updated regarding plan of care. will continue to monitor.. 20:09 General: Appears in no apparent distress, Behavior is appropriate for age, nephrostomy af2 bags applied to pt at this time, tolerated procedure well. will continue to monitor. . 21:00 General: Appears in no apparent distress, comfortable, Behavior is appropriate for age, af2 cooperative, This medical writer spoke with Dr. Pradhan and LUIS ENRIQUE Perera regarding pt allergy of penicillins and pt to receive ceftriaxone. Per Dr. Pradhan, pt okay to receive ceftriaxone with close monitoring for any symptoms. Pt and spouse instructed of this information, door to pt room open and visible from nursing station. Will continue to monitor.. Neurological: Level of Consciousness is awake, alert. Respiratory: Airway is patent Respiratory effort is even, unlabored. :. : no drainage noted in nephrostomy bags. Derm: Skin is normal. 22:03 General: Appears in no apparent distress, Behavior is cooperative. Neurological: No mcp deficits noted. Respiratory: Airway is patent Respiratory effort is even, unlabored. : nephrostomy tube intact with no drainage noted in bag. Derm: Skin is pink, warm & dry. Vital Signs: 16:20 BP 166 / 83; Pulse 85; Resp 18; Temp 98.3(O); Pulse Ox 98% on R/A; Weight 87.54 kg (R); ct3 Height 5 ft. 6 in. (167.64 cm) (R); Pain 6/10; 21:52 BP 118 / 64; Pulse 82; Resp 18; Temp 98.6; Pulse Ox 98% ; Pain 5/10; ajs 16:20 Body Mass Index 31.15 (87.54 kg, 167.64 cm) ct3 Vitals: 16:20 Log In Time: April 01, 2016 at 16:17. ct3 ED Course: 16:20 Patient visited by Shalini Lam PCA. ct3 16:20 Hellen Bose is Private Physician. ct3 16:20 Patient moved to Waiting ct3 16:21 Patient moved to Pre RCE ct3 16:28 Triage Initiated srm 17:15 Patient moved to Triage 2 srm 17:32 Justus Guaman RPA-C is [facility]. ck7 17:32 Beverly Nelson MD is Attending Physician. ck7 17:32 Patient visited by Justus Guaman RPA-C. ck7 17:47 Patient moved to I dy 17:50 [facility] Payment Agreement was scanned into [employer] MD and attached to record. gjb 17:51 Patient name changed from Briana\S\\S\Emanuel\S\ to Briana\S\ \S\Emanuel. EDMS 17:51 Patient moved to I nb2 18:09 Basic Metabolic Profile Sent. jmk 18:09 CBC with Diff Sent. jmk 18:12 Patient visited by Justus Guaman RPA-C. ck7 18:22 Patient visited by Dale Chamorro RN. jmk 18:53 UA Sent. ajs 19:02 Patient visited by Justus Guaman RPA-C. ck7 19:08 CT ABD & PELVIS: No Contrast Returned. EDMS 19:36 Patient visited by Justus Guaman RPA-C. ck7 19:41 Patient visited by Kirsten Matamoros RN. af2 20:13 Patient visited by Kirsten Matamoros RN. af2 20:43 Constance Pradhan is Hospitalizing Provider. ck7 20:44 Urine Culture Sent. af2 21:03 Patient visited by Kirsten Matamoros RN. af2 21:53 Patient visited by Zahra Mitchell. ajs 21:59 Patient visited by Luz Santiago RN. mcp 22:05 The patient / caregiver is instructed regarding the plan of care and ED course. mcp 22:05 No procedures done that require assistance. mcp 22:05 Inserted saline lock: 20 gauge in right antecubital area. [facility] 04/02 09:06 T-Sheet-- Draft Copy was scanned into [employer] MD and attached to record. gb Administered Medications: 04/01 20:14 Drug: Acetaminophen-Codeine 2 tabs [acetaminophen 300 mg-codeine 30 mg tablet (2 tabs)] af2 Route: PO; 21:00 Drug: cefTRIAXone 1 grams [ceftriaxone 1 gram solution for injection] Route: IVPB; af2 Infused Over: 30 mins; Site: right antecubital; Order Results: Lab Order: Basic Metabolic Profile; SPEC'M 04/01/16 18:06 Test: GLUCOSE, FASTING; Value: 111; Range: 83-110; Abnormal: Above high normal; Units: MG/DL; Status: F Test: BLOOD UREA NITROGEN; Value: 27; Range: 7-18; Abnormal: Above high normal; Units: MG/DL; Status: F Test: CREATININE FOR GFR; Value: 2.13; Range: 0.55-1.02; Abnormal: Above high normal; Units: MG/DL; Status: F Test: GLOMERULAR FILTRATION RATE; Value: 24.2; Range: >39; Abnormal: Below low normal; Status: F Test: SODIUM LEVEL; Value: 135; Range: 136-145; Abnormal: Below low normal; Units: MEQ/L; Status: F Test: POTASSIUM SERUM; Value: 3.7; Range: 3.5-5.1; Units: MEQ/L; Status: F Test: CHLORIDE LEVEL; Value: 99; Range: 98-107; Units: MEQ/L; Status: F Test: CARBON DIOXIDE LEVEL; Value: 27; Range: 21-32; Units: MEQ/L; Status: F Test: ANION GAP; Value: 9; Range: 8-16; Units: MEQ/L; Status: F Test: CALCIUM LEVEL; Value: 10.6; Range: 8.8-10.2; Abnormal: Above high normal; Units: MG/DL; Status: F Test Note: ; Units are mL/min/1.73 m2 Chronic Kidney Disease Staging per NKF: Stage I & II GFR >=60 Normal to Mildly Decreased Stage III GFR 30-59 Moderately Decreased Stage IV GFR 15-29 Severely Decreased Stage V GFR <15 Very Little GFR Left ESRD GFR <15 on LEAF BLENDER Lab Order: CBC with Diff; SPEC'M 04/01/16 18:06 Test: WHITE BLOOD COUNT; Value: 16.6; Range: 4.0-10.0; Abnormal: Above high normal; Units: K/mm3; Status: F Test: RED BLOOD COUNT; Value: 4.04; Range: 4.00-5.40; Units: M/mm3; Status: F Test: HEMOGLOBIN; Value: 11.9; Range: 12.0-16.0; Abnormal: Below low normal; Units: g/dl; Status: F Test: HEMATOCRIT; Value: 36.3; Range: 36.0-47.0; Units: %; Status: F Test: MEAN CORPUSCULAR VOLUME; Value: 89.8; Range: 80.0-96.0; Units: fl; Status: F Test: MEAN CORPUSCULAR HEMOGLOBIN; Value: 29.4; Range: 27.0-33.0; Units: pg; Status: F Test: MEAN CORPUSCULAR HGB CONC; Value: 32.7; Range: 32.0-36.5; Units: g/dl; Status: F Test: RED CELL DISTRIBUTION WIDTH; Value: 13.3; Range: 11.5-14.5; Units: %; Status: F Test: PLATELET COUNT, AUTOMATED; Value: 354; Range: 150-450; Units: k/mm3; Status: F Test: NEUTROPHILS %; Value: 84.3; Range: 36.0-66.0; Abnormal: Above high normal; Units: %; Status: F Test: LYMPH %; Value: 6.4; Range: 24.0-44.0; Abnormal: Below low normal; Units: %; Status: F Test: MONO %; Value: 6.5; Range: 0.0-5.0; Abnormal: Above high normal; Units: %; Status: F Test: EOS %; Value: 1.0; Range: 0.0-3.0; Units: %; Status: F Test: BASO %; Value: 0.2; Range: 0.0-1.0; Units: %; Status: F Test: LARGE UNSTAINED CELL %; Value: 1.7; Range: 0.0-4.0; Units: %; Status: F Test: NEUTROPHILS #; Value: 14.0; Range: 1.8-7.7; Abnormal: Above high normal; Units: K/mm3; Status: F Test: LYMPH #; Value: 1.1; Range: 1.5-4.5; Abnormal: Below low normal; Units: K/mm3; Status: F Test: MONO #; Value: 1.1; Range: 0.0-0.8; Abnormal: Above high normal; Units: K/mm3; Status: F Test: EOS #; Value: 0.2; Range: 0.0-0.50; Units: K/mm3; Status: F Test: BASO #; Value: 0.0; Range: 0.0-0.2; Units: K/mm3; Status: F Test: LARGE UNSTAINED CELL #; Value: 0.3; Range: 0.0-0.4; Units: K/mm3; Status: F Lab Order: UA; SPEC'M 04/01/16 18:51 Test: APPEARANCE, URINE; Value: HAZY; Range: CLEAR; Status: F Test: COLOR, URINE; Value: YELLOW; Range: YELLOW; Status: F Test: PH,URINE; Value: 5.0; Range: 5.0-9.0; Units: UNITS; Status: F Test: SPECIFIC GRAVITY URINE AUTO; Value: 1.016; Range: 1.002-1.035; Status: F Test: PROTEIN, URINE AUTO; Value: NEGATIVE; Range: NEGATIVE; Units: mg/dL; Status: F Test: GLUCOSE, URINE (UA) AUTO; Value: NEGATIVE; Range: NEGATIVE; Units: mg/dL; Status: F Test: KETONE, URINE AUTO; Value: NEGATIVE; Range: NEGATIVE; Units: mg/dL; Status: F Test: UROBILINOGEN, URINE AUTO; Value: 0.2; Range: 0.0-2.0; Units: mg/dL; Status: F Test: BILIRUBIN, URINE AUTO; Value: NEGATIVE; Range: NEGATIVE; Status: F Test: NITRITE, URINE AUTO; Value: NEGATIVE; Range: NEGATIVE; Status: F Test: LEUKOCYTE ESTERASE, URINE AUTO; Value: 3+; Range: NEGATIVE; Abnormal: Above high normal; Status: F Test: BLOOD, URINE BLOOD; Value: 2+; Range: NEGATIVE; Abnormal: Above high normal; Status: F Test: WBC, URINE AUTO; Value: 123; Range: 0-3; Abnormal: Above high normal; Units: /HPF; Status: F Test: RBC, URINE AUTO; Value: 16; Range: 0-3; Abnormal: Above high normal; Units: /HPF; Status: F Test: BACTERIA, URINE AUTO; Value: 1+; Range: NEGATIVE; Abnormal: Above high normal; Status: F Test: SQUAMOUS EPITHELIAL CELL UR AU; Value: 1; Range: 0-6; Units: /HPF; Status: F Test: MUCUS, URINE; Value: SMALL; Range: NEGATIVE; Status: F Test: HYALINE CAST, URINE AUTO; Value: 0; Range: 0-1; Units: /LPF; Status: F Test: AMORPHOUS SEDIMENT; Value: SMALL; Range: NEGATIVE; Abnormal: Above high normal; Status: F Radiology Order: CT ABD & PELVIS: No Contrast Test: CT ABD & PELVIS: No Contrast REASON FOR EXAMINATION: r/o nephrostomy tube obstruction; Clinical: Flank pain rule out a nephrostomy tube obstruction.; ; Comparison: 03/24/2016.; ; Findings:; Bilateral nephrostomy tubes and eight ureteral stents are identified in seemingly; satisfactory position. Marked bilateral grade IV/V hydroureteronephrosis (right; greater than left) appears essentially unchanged. Minimal right perinephric; stranding appears similar to prior examination while increased left perinephric; stranding is not noted on current examination which may reflect associated acute; pyelonephritis. No significant perinephric fluid collection or hematoma is; identified. The bladder is grossly unremarkable and the previously placed Li; catheter has been removed.; ; Liver, spleen, pancreas, gallbladder, and bilateral adrenal glands are normal for; noncontrast examination. The enteric system suggests fecal stasis without; obstruction or obvious acute inflammatory process. Colonic diverticulosis noted; without acute diverticulitis. Normal terminal ileum and appendix are identified; in the right lower quadrant. Pelvis demonstrates stable age appropriate; appearance to the uterus and adnexa. No pelvic fluid/ascites. No significant; adenopathy. Musculoskeletal structures demonstrate age-related degenerative; changes. Lung bases demonstrate mild chronic changes.; ; Impression:; 1. Bilateral ureteral stents and nephrostomy tubes in seemingly satisfactory; position. The extent of bilateral hydronephrosis is unchanged. Increased left; perinephric stranding is appreciated which may reflect an associated; pyelonephritis. Actual obstruction to the bilateral nephrostomy tubes cannot be; evaluated by CT and should be correlated clinically although given the fact that; neither kidney demonstrates improved hydronephrosis may reflect chronic change.; 2. Sigmoid diverticula without acute diverticulitis.; 3. No pelvic fluid or ascites. No significant adenopathy. No free air.; ; ; Signed by; Juan Pablo Garsia MD 04/01/2016 06:37 P; Outcome: 20:44 Decision to Hospitalize by Provider. ck7 22:04 Discharge Assessment: patient administered narcotics - no. The following High Risk [facility] Discharge criteria are identified: None. Admitted to Med/Surg accompanied by tech, via stretcher, on monitor. Condition: stable. Property :Personal belongings accompany Pt. 22:05 CT Study completed. [facility] 22:06 Patient left the ED. [facility] Signatures: Dispatcher [employer] EDMS Dale ChamorroRN Gisselle Barargan RN Luz Hernandez RN MARIA LUISA [facility] Shadia Arana, Kiran Butterfield, RN Shalini Min, BENITA COAT JOINER ct3 Zahra Mitchell Christopher, RPA-C [id number] Kirsten Matamoros RN RN Yesika Puri Nicole nb2 Chart Complete MTDD
[2016-04-04 05:54] LABS: MEAN CORPUSCULAR HEMOGLOBIN 28.5 pg (27.0-33.0); MEAN CORPUSCULAR HGB CONC 31.7 g/dl (32.0-36.5); MEAN CORPUSCULAR VOLUME 89.9 fl (80.0-96.0); RED CELL DISTRIBUTION WIDTH 14.3 % (11.5-14.5); WHITE BLOOD COUNT 5.7 K/mm3 (4.0-10.0)
[2016-04-04 06:00] VITALS: BP 123/64
[2016-04-04 06:08] LABS: ANION GAP 6 MEQ/L (8-16); BLOOD UREA NITROGEN 13 MG/DL (7-18); CALCIUM LEVEL 9.2 MG/DL (8.8-10.2); CARBON DIOXIDE LEVEL 30 MEQ/L (21-32); CHLORIDE LEVEL 107 MEQ/L (98-107); CREATININE FOR GFR 0.92 MG/DL (0.55-1.02); GLOMERULAR FILTRATION RATE > 60.0 (>39); GLUCOSE, FASTING 98 MG/DL (83-110); POTASSIUM SERUM 3.7 MEQ/L (3.5-5.1); SODIUM LEVEL 143 MEQ/L (136-145)
[2016-04-04 07:51] LABS: MAGNESIUM LEVEL 1.9 MG/DL (1.8-2.4)
[2016-04-04] MEDS: ENOXAPARIN 30 MG/0.3 ML SYR (J1650) SC SCH (08:17)
[2016-04-04 08:18] VITALS: BP 123/64
[2016-04-04] MEDS: prednisoLONE ACET 1% OPHTH SUSP 5ML OS SCH (08:18)
[2016-04-04] MEDS: PANTOPRAZOLE 40MG TAB (PROTONIX) PO SCH (08:18)
[2016-04-04] MEDS: amLODIPine 10 MG TAB PO SCH (08:18)
[2016-04-04] MEDS: KETOROLAC 0.4% OS SCH (08:18)
[2016-04-04] MEDS: SENOKOT S TAB PO SCH (08:18)
[2016-04-04] MEDS ORDERED: CEFD300CAP FT (09:00)
--- NOTE | 2016-04-04 11:55 | DS.PDOC ---
Discharge Summary General Date of Admission Apr 01, 2016 at 20:46 Date of Discharge Apr 04, 2016 at 11:10 Discharge Summary PRIMARY CARE PHYSICIAN: Hellen Bose NP ATTENDING AT TIME OF DISCHARGE: Dr. Branden Salazar M.D. DISCHARGE DIAGNOS(E)S: 1. Acute renal failure due to obstructive uropathy and bilateral Hydroureteronephrosis with bilateral percutaneous nephrostomies in position 2. Right-sided ureteral stricture and narrow left ureter with bilateral ureteral stents 3. Acute pyelonephritis, most likely related to obstruction 4. Hypertension 5. COPD HPI & HOSPITAL COURSE: Ms. Castellanos presented to the emergency department and acute renal failure with suspected acute pyelonephritis. She had bilateral percutaneous nephrostomies in place prior to this hospitalization, however they were clamped upon arrival. They have been unclamped by urology during her hospitalization here and have been draining well ever since. She was treated empirically with ceftriaxone, her white count dropped to within normal limits in the first 24 hours, and she has been afebrile the entire time. Her acute kidney injury has resolved and her GFR has returned to normal. A urine culture from a clean catch urine upon arrival has showed no growth, urine cultures from both of the nephrostomy tubes are still pending. Today, the day of discharge, she is sitting upright on the edge of the bed eating breakfast, she has no pain. She and her are both aware of how to drain the nephrostomy bags. She will be sent home on an equivalent oral third-generation cephalosporin, and close follow-up with her urologist is recommended. PHYSICAL EXAMINATION ON DISCHARGE: VITAL SIGNS: Temperature 97.5, pulse 74, respiratory rate 20, blood pressure 123 /64, pulse oximetry 96% on room air GENERAL: Awake, alert, oriented 3. She is in good spirits. She is in no acute distress. CARDIOVASCULAR EXAMINATION: Regular rate and rhythm, with no rubs, gallops, or murmur. RESPIRATORY EXAMINATION: Clear to auscultation bilaterally with no wheezes, rales, or rhonchi. ABDOMINAL EXAMINATION: Soft, nontender, nondistended. Bowel sounds present. Bilateral percutaneous nephrostomy tubes are present, left is draining clear urine, right is a little pinkish today. EXTREMITIES: No clubbing or edema noted. 2+ pulses in the radial bilaterally. DISPOSITION: Home DISCHARGE INSTRUCTIONS: Follow-up with primary care provider Hellen Bose as well as urologist Dr. Constantino within 3-5 days. Diet as tolerated. Activity as tolerated, no strenuous activity. If symptoms return, or if you experience worsening of your symptoms, please call your doctor or return to the emergency department. ITEMS THAT NEED OUTPATIENT FOLLOWUP: Urine cultures from bilateral nephrostomy tubes are still pending. My preceptor for this patient encounter was physically present in the building during the encounter and was fully available. As needed, all aspects of the patient interview, examination, medical decision making process, and medical care plan development were reviewed and approved by the preceptor. Preceptor is aware and concurs with the plan as stated in the body of this note and will attest to such by his/her cosignature. Vital Signs/I&Os I&O- Last 24 Hours up to 6 AM 04/04/16 06:00 Intake Total 3040 ml Output Total 2800 ml Balance 240 ml Laboratory Data Labs 24H Laboratory Tests 2 04/04/16 05:35: Anion Gap 6L, Blood Urea Nitrogen 13, Creatinine 0.92, Sodium Level 143, Potassium Level 3.7, Chloride Level 107, Carbon Dioxide Level 30, Calcium Level 9.2, Glomerular Filtration Rate > 60.0, Magnesium Level 1.9 CBC/BMP Laboratory Tests 04/04/16 05:35 Calcium Level 9.2, Red Blood Count 3.56 L, Mean Corpuscular Volume 89.9, Mean Corpuscular Hemoglobin 28.5, Mean Corpuscular Hemoglobin Concent 31.7 L, Red Cell Distribution Width 14.3 Microbiology Microbiology 04/01/16 Blood Culture - Preliminary, Resulted No Growth after 48 hours. All Specime... 04/03/16 Urine Culture, Received Pending 04/03/16 Urine Culture, Received Pending 04/01/16 Urine Culture - Final, Complete Medications Scheduled Amlodipine Besylate (Amlodipine Besylate) 10 Mg Tab 10 MG PO DAILY Cefdinir (Cefdinir) 300 Mg Cap 300 MG FT BID Cholecalciferol (Vitamin D) 1,000 Unit Tab 1,000 UNIT PO DAILY Ketorolac Tromethamine (Ketorolac Tromethamine) 100 Drop/5 Ml Soln 1 DROP OS QID Lactulose (Lactulose) 10 Gm/15 Ml Lyndsey 15 ML PO DAILY JUST PRESCRIBED. HAS NOT STARTED YET Potassium Chloride (K-Tab) 10 Meq Tab 10 MEQ PO DAILY JUST PRESCRIBED. HAS NOT STARTED YET Prednisolone Sodium Phosphate (Prednisolone Sodium Phosp 1% Opth Lyndsey) 1 % Lyndsey 1 DROP OS TID Scheduled PRN Acetaminophen (Acetaminophen) 500 Mg Tab 500 MG PO Q4H PRN PRN PAIN Allergies Coded Allergies: Penicillins (Verified Allergy, Mild, Rash / Hives, 03/26/16) SARBJIT ALDANA DO Apr 04, 2016 11:55
--- NOTE | 2016-04-04 13:48 | IPNPDOC ---
Date/Time Seen The patient was seen on 04/04/16 at 13:37. Progress Note DATE OF ENCOUNTER: 04/04/2016 SUBJECTIVE: Ms. Castellanos was seen this morning at bedside. No acute overnight issues. She reports that she is feeling well and ready to go home. Brief review of systems is negative for nausea, vomiting, abdominal pain, diarrhea, chest pain, shortness of breath, fever, chills, headache, dizziness, back pain. She reports that she is not having any urinary output because urine is flowing through nephrostomy tubes which continue to be attached to the bags. Urine is clear. Reports that she has been moving her bowels. Appetite is good. OBJECTIVE: Vital Signs Date Time Temp Pulse Resp B/P Pulse Ox O2 Delivery O2 Flow Rate FiO2 04/04/16 08:18 74 123/64 04/04/16 06:00 97.5 20 96 04/03/16 14:00 Room Air I&O- Last 24 Hours up to 6 AM 04/04/16 06:00 Intake Total 3040 ml Output Total 2800 ml Balance 240 ml PHYSICAL EXAMINATION: GENERAL APPEARANCE: Alert and oriented 3. In no acute distress. HEENT: Normocephalic, atraumatic. Extraocular muscles are intact. Pupils are equally round and reactive to light. Moist mucosa. NECK: Supple. No jugular venous distention appreciated. HEART: Normal S1 and S2. Regular rate and rhythm. No murmur, gallops or rubs appreciated. LUNGS: Good air movement bilaterally. No rales, rhonchi or wheezing appreciated. ABDOMEN: Soft, nontender, nondistended. Bowel sounds are present. No rebound, guarding or rigidity. BACK: Has bilateral nephrostomy tubes draining clear urine. EXTREMITIES: No cyanosis or lower extremity edema. Positive pedal pulses bilaterally. SKIN: Warm and dry. Good skin turgor. No rashes or lesions noted. NEUROLOGIC: No focal deficits. LABORATORY DATA: 04/04/16 05:35 Red Blood Count 3.56 L, Mean Corpuscular Volume 89.9, Mean Corpuscular Hemoglobin 28.5, Mean Corpuscular Hemoglobin Concent 31.7 L, Red Cell Distribution Width 14.3, Anion Gap 6L, Calcium Level 9.2, Glomerular Filtration Rate > 60.0, Magnesium Level 1.9 MICROBIOLOGY: Initial urine culture showed no growth. Blood culture showed no growth thus far. Repeat urine culture pending. ASSESSMENT/PLAN: 1. Acute renal failure, likely secondary to obstruction with possible pyelonephritis in the setting of bilateral hydroureteronephrosis status post nephrostomy tubes and double-J stents. Her nephrostomy tubes were unclamped and she continues to produce clear urine. Renal function has returned back to baseline. She was seen by urology as inpatient and they will continue to follow along with her as outpatient. For the time being, nephrostomy tubes will remain unclamped. Electrolytes are stable. 2. Pyelonephritis. Patient was on ceftriaxone, which will be changed to oral antibiotics. 3. Hypertension. Blood pressure stable on Norvasc. 4. Anemia. Hemoglobin is currently stable. DISPOSITION: Patient will be discharged today. Nephrostomy tubes are to remain unclamped. She will follow up with nephrology within 1 week. She has an appointment with urology on April 11. GME ATTESTATION GME ATTESTATION My preceptor for this patient encounter was physically present in the building during the encounter and was fully available. As needed, all aspects of the patient interview, examination, medical decision making process, and medical care plan development were reviewed and approved by the preceptor. Preceptor is aware and concurs with the plan as stated in the body of this note and will attest to such by his/her cosignature. ATTENDING NOTE Nephrology Attending: Pt was seen and examined during work rounds. OK to discharge from nephrology standpoint. Follow up in clinic. JORGE MOE DO Apr 04, 2016 13:48 JORGE LUIS MEMBRENO MD Apr 04, 2016 21:57
== END 2016-04-04 11:10 | disposition home or self-care (01) | DRG 699 ==
LOC: M ED 16:18 → M ED INP 20:46 → M MSPAV 22:15
PROVIDERS: ADMIT Internal Medicine Nephrology; ATTEND Internal Medicine
DX: T83.192A Other mechanical complication of indwelling ureteral stent, initial encounter (principal); N10 Acute pyelonephritis; N13.1 Hydronephrosis with ureteral stricture, not elsewhere classified; N17.9 Acute kidney failure, unspecified; I10 Essential (primary) hypertension; E21.3 Hyperparathyroidism, unspecified; J44.9 Chronic obstructive pulmonary disease, unspecified; R19.7 Diarrhea, unspecified; N13.9 Obstructive and reflux uropathy, unspecified; E87.6 Hypokalemia; Z88.0 Allergy status to penicillin; Z79.52 Long term (current) use of systemic steroids; Z79.899 Other long term (current) drug therapy; Z96.0 Presence of urogenital implants; Z96.651 Presence of right artificial knee joint; Z87.891 Personal history of nicotine dependence

== ENCOUNTER → 2016-04-25 | Outpatient (REF) | payer MEDICARE ==
[~2016-04-25] MED LIST changes: +CEFD300CAP FT; +K-TA10TA2 PO; +LACT10SO29 PO
[2016-04-25 17:37] LABS: MEAN CORPUSCULAR HEMOGLOBIN 28.7 pg (27.0-33.0); MEAN CORPUSCULAR HGB CONC 32.2 g/dl (32.0-36.5); MEAN CORPUSCULAR VOLUME 89.3 fl (80.0-96.0); RED CELL DISTRIBUTION WIDTH 13.4 % (11.5-14.5); WHITE BLOOD COUNT 8.7 K/mm3 (4.0-10.0)
[2016-04-25 18:01] LABS: CALCIUM LEVEL 10.1 MG/DL (8.8-10.2); CREATININE FOR GFR 1.13 MG/DL (0.55-1.02); GLOMERULAR FILTRATION RATE 50.2 (>39); POTASSIUM SERUM 3.4 MEQ/L (3.5-5.1)
== END ==
LOC: M LABSMT 10:56
PROVIDERS: ATTEND Urology
DX: N13.1 Hydronephrosis with ureteral stricture, not elsewhere classified (principal)

== ENCOUNTER → 2016-05-09 | Outpatient (CLI) | payer MEDICARE ==
[~2016-05-09] MED LIST changes: +ISOVUE-370 76% 100ML VIAL (Q9967) As Ordered ONE
--- NOTE | 2016-05-09 13:45 | REP ---
Clinical: Bilateral hydronephrosis. Technique: PA and lateral. Findings: Mediastinum and cardiac silhouette are normal. Lung colón demonstrate chronic changes without acute consolidation, effusion, or pneumothorax. Bilateral nephrostomy tubes identified. Impression: Chronic-appearing changes. No acute cardiopulmonary process. Signed by Juan Pablo Garsia MD 05/09/2016 01:37 P
--- NOTE | 2016-05-09 14:22 | REP ---
CT abdomen pelvis: Biphasic scanning is performed with IV contrast during the portal venous phase of enhancement from the diaphragms to the pubic symphysis. This is followed by delayed equilibrium phase scanning during the renal excretion phase scanning from the diaphragms to the iliac crests, pelvis not included. Comparison is 04/01/1926. On the comparison study there were bilateral ureteral stents. These have been removed. On the comparison study there were bilateral nephrostomies. These still remain. On the initial scan during the portal venous phase of enhancement. There is no hydronephrosis on the right on the left. The previous hydronephrosis has resolved. On the delayed equilibrium phase during the renal excretion of IV contrast, there is mild bilateral hydronephrosis as a change from the precontrast scan but significantly decreased from the comparison study of 04/01/2016. The mid and distal ureters are excluded on the delayed scan as the pelvis is not included. There is focal renal cortical atrophy in the mid pole of the right kidney laterally. This is unchanged. The visualized lung colón are unremarkable. The hepatic parenchyma, gallbladder, pancreas and spleen are unremarkable and unchanged. The adrenals are unremarkable and unchanged. The abdominal aorta is unchanged and unremarkable except for occasional calcified atheroma. There is no bowel distension. Mesentery is unremarkable. Pelvis: There is a trace of ascites in the dependent pelvis. No pelvic adenopathy is identified. Uterus and adnexa are unremarkable. The bladder is nondistended and cannot be evaluated. The appendix is unremarkable. There are no lytic, blastic or destructive skeletal changes. Impression: The previous bilateral ureteral stents have been removed. There are bilateral nephrostomies, unchanged. There is no hydronephrosis on the initial scan. However, on the delayed renal excretion scan there is mild bilateral hydronephrosis, significantly decreased from the comparison study. No perinephric stranding. No renal masses are identified. There is focal renal cortical atrophy at the mid pole right kidney laterally, unchanged. There is no intraperitoneal or retroperitoneal adenopathy. There is a trace of ascites in the pelvis. The bladder is incompletely distended and cannot be assessed. Signed by Lion Miller MD 05/09/2016 02:14 P
== END ==
LOC: M RAD 13:02
PROVIDERS: ATTEND Urology
DX: N13.30 Unspecified hydronephrosis (principal)
CPT/HCPCS: 71020; 74177; Q9967

== ENCOUNTER → 2016-05-16 | Outpatient (CLI) | payer MEDICARE ==
[~2016-05-16] MED LIST changes: -ISOVUE-370 76% 100ML VIAL (Q9967) As Ordered ONE
--- NOTE | 2016-05-16 10:37 | ECGEPIP ---
Stationary ECG Study 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
== END ==
LOC: M LAB 09:34
PROVIDERS: ATTEND Urology
DX: Z01.818 Encounter for other preprocedural examination (principal); N13.30 Unspecified hydronephrosis; I10 Essential (primary) hypertension; R73.09 Other abnormal glucose; E55.9 Vitamin D deficiency, unspecified; Z79.891 Long term (current) use of opiate analgesic

== ENCOUNTER → 2016-06-16 | Outpatient (CLI) | payer MEDICARE ==
[~2016-06-16] MED LIST changes: +CIPR500T3 PO; +CIPROFLOXACIN 500 MG TAB As Ordered ONE; +ISOVUE-300 61% 50ML VIAL (Q9967) As Ordered ONE; +LIDOCAINE 2% MDV 20 ML VIAL As Ordered ONE; +LORazepam 0.5 MG TAB As Ordered ONE; +MAGN30TA2 PO; +SODIUM BICARBONATE 8.4% INJ 50MEQ 50 ML VIAL As Ordered ONE
--- NOTE | 2016-06-16 16:15 | REPKIM ---
CLINICAL HISTORY: Patient with bilateral hydronephrosis and suspected ureteral stricture(s) has nephrostomy urinary diversion tubes. Patient presents for a follow up Nephrostogram and bilateral nephrostomy tube change. PROCEDURE PERFORMED: 1. Left Nephrostogram and Nephrostomy Drainage Catheter Change 2. Right Nephrostogram and Nephrostomy Drainage Catheter Change INTERVENTIONALIST: Yvonne Mendoza MD CONSENT: The risks, benefits and alternatives to the procedure were explained to the patient and informed written consent was obtained. MEDICATIONS: Local Lidocaine and Cipro CONTRAST: 55 mL Isovue 300 EBL: 2 mL FLUORO TIME: 4.9 minutes DEVICES USED: 8.5F Resolve catheter x 2 Lot #[id number] PROCEDURE/FINDINGS: The patient was brought to the interventional radiology suite where a timeout procedure was performed. The patient was placed in the prone position, prepped and draped in the usual sterile fashion. LEFT SIDE: Contrast was injected through the existing nephrostomy catheter and DSA images were obtained. This showed the pelvicalyceal system has decompressed. There is obstructive stricture involving the distal ureter at the S1 level. There is no antegrade flow of contrast into the urinary bladder. A guidewire was advanced into the renal pelvis. The existing PCN was unlocked and removed. Then a new 8.5 -Sinhala nephrostomy drainage catheter was advanced over the guidewire. The guidewire was removed and the distal loop of the catheter formed in the renal pelvic. Contrast was gently hand injected, confirming satisfactory drainage catheter positioning. The nephrostomy urinary diversion catheter was flushed and connected to a gravity bag. RIGHT SIDE: Contrast was injected through the existing nephrostomy catheter and DSA images were obtained. This showed the pelvicalyceal system has decompressed. There is obstructive stricture involving the distal ureter at the S1 level. There is no antegrade flow of contrast into the urinary bladder. Over the guidewire, an 8.5- Sinhala nephrostomy drainage catheter was introduced. Its distal loop was formed and locked in the renal pelvis. Contrast was hand injected, confirming satisfactory drainage catheter position. Each drainage catheter was then secured to the skin with 2-0 Prolene suture and covered with a sterile dressing. The patient tolerated the procedure well with no immediate complications. This procedure was performed using fluoroscopy. IMPRESSION: 1. Nephrostogram demonstrates obstructive ureteral stricture at the S1 level bilaterally. There is no free antegrade flow of contrast into the urinary bladder. 2. Successful bilateral nephrostomy urinary diversion tube change as discussed above. Plan: Routine maintenance catheter check/change in approximately 10 weeks or earlier if signs of tube dysfunction were to occur. cc: MD Juan Escobar MD Alejandro R Rodriguez, MD MTDD
== END | disposition home or self-care (01) ==
LOC: M IRPRO 12:37
DX: Z01.818 Encounter for other preprocedural examination (principal); N13.1 Hydronephrosis with ureteral stricture, not elsewhere classified
CPT/HCPCS: 36415; 50435; 80048; 85027; 85610; 85730; C1729; C1769; C1887; Q9967

== ENCOUNTER → 2016-06-16 | Outpatient (CLI) | payer MEDICARE ==
[~2016-06-16] MED LIST changes: -CIPR500T3 PO; -CIPROFLOXACIN 500 MG TAB As Ordered ONE; -ISOVUE-300 61% 50ML VIAL (Q9967) As Ordered ONE; -LIDOCAINE 2% MDV 20 ML VIAL As Ordered ONE; -LORazepam 0.5 MG TAB As Ordered ONE; -SODIUM BICARBONATE 8.4% INJ 50MEQ 50 ML VIAL As Ordered ONE
[2016-06-16 16:45] LABS: ANION GAP 8 MEQ/L (8-16); BLOOD UREA NITROGEN 9 MG/DL (7-18); CALCIUM LEVEL 10.6 MG/DL (8.8-10.2); CARBON DIOXIDE LEVEL 31 MEQ/L (21-32); CHLORIDE LEVEL 99 MEQ/L (98-107); CREATININE FOR GFR 0.79 MG/DL (0.55-1.02); GLOMERULAR FILTRATION RATE > 60.0 (>39); GLUCOSE, FASTING 100 MG/DL (83-110); POTASSIUM SERUM 3.4 MEQ/L (3.5-5.1); SODIUM LEVEL 138 MEQ/L (136-145)
[2016-06-16 16:46] LABS: INR 1.17
[2016-06-16 17:01] LABS: MEAN CORPUSCULAR HEMOGLOBIN 28.1 pg (27.0-33.0); MEAN CORPUSCULAR HGB CONC 32.6 g/dl (32.0-36.5); MEAN CORPUSCULAR VOLUME 86.5 fl (80.0-96.0); RED CELL DISTRIBUTION WIDTH 13.2 % (11.5-14.5); WHITE BLOOD COUNT 8.4 K/mm3 (4.0-10.0)
== END ==
LOC: M LAB 15:36
PROVIDERS: ATTEND Urology
DX: Z01.818 Encounter for other preprocedural examination (principal); N13.1 Hydronephrosis with ureteral stricture, not elsewhere classified

== ENCOUNTER → 2016-06-22 | Day surgery (SDC) | payer MEDICARE ==
[~2016-06-22] VITALS: Ht 167.6 cm; Wt 78.0 kg
[~2016-06-22] MED LIST changes: +CIPR500T3 PO; +CIPROFLOXACIN 500 MG TAB PO SCH; +CONRAY-60 60% 50ML VIAL (Q9961) As Ordered ONE; +LIDOCAINE 2% INJ 100 MG/5 ML SDV (FOR ANES.) As Ordered ONE; +LR 1,000 ML IV SCH; +LevoFLOXacin IV 500 MG in APPROPRIATE DILUENT 1 EA IV ONE; +METOCLOPRAMIDE INJ 10MG/2ML VIAL (J2765) IV PRN; +MIDAZOLAM INJ 2 MG/2 ML VIAL (J2250) As Ordered ONE; +NORCO, ANEXSIA 5/325MG TABLET (HYDROcodone/ACETAMINOPHEN) PO PRN; +ONDANSETRON 4MG/2ML VIAL (J2405) As Ordered ONE; +ONDANSETRON 4MG/2ML VIAL (J2405) IV PRN; +PROPOFOL 200 MG/20 ML VIAL As Ordered ONE; +fentaNYL 100 MCG/2 ML INJECTION (J3010) As Ordered ONE; +fentaNYL 100 MCG/2 ML INJECTION (J3010) IV PRN
--- NOTE | 2016-06-22 13:52 | REP ---
C-ARM VIEWS DURING RETROGRADE PYELOGRAM: Multiple C-arm views of the abdomen and pelvis are performed. Bilateral nephrostomy tubes are noted. There is injection of contrast into the left ureter partially opacifying the left ureter and left renal pelvis. There is injection of contrast into the right ureter. There is mild right hydronephrosis. Right ureter is partially opacified. There is moderate left hydronephrosis. 5 minutes 27 seconds fluoroscopy time utilized. Signed by Lion Vásquez MD 06/22/2016 05:39 P
[2016-06-22 14:45] VITALS: BP 124/58
--- NOTE | 2016-06-22 16:40 | RO ---
DATE OF PROCEDURE: 06/22/2016 PREPROCEDURE DIAGNOSIS: Bilateral hydronephrosis. POSTPROCEDURE DIAGNOSIS: Bilateral hydronephrosis, plus retroperitoneal fibrosis. SURGERY PERFORMED: Cystoscopy, plus bilateral retrograde pyelogram, plus bilateral antegrade nephrostograms. SURGEON: Dr. Iglesia Parra PROGRAM PLANNER: Rosalino Bernstein, PGY-3 resident ANESTHESIA: General. COMPLICATIONS: None. ESTIMATED BLOOD LOSS: N/A. HISTORY OF PRESENT ILLNESS: 71-year-old female patient that had bilateral hydronephrosis with increased creatinine up to 10, for which she required bilateral nephrostomy tubes. A CT scan of the abdomen and pelvis showed bilateral hydronephrosis and bilateral nephrostomy tubes in place. There is no intraabdominal masses. For this reason, we have consented the patient for a cystoscopy plus bilateral retrograde pyelograms, possible bilateral flexible ureteroscopy, possible ureteral biopsies, possible double JJ stents. DESCRIPTION OF PROCEDURE: With the patient under general anesthesia in supine , modified low lithotomy position, after prepping and draping the area of concern , which included the entire genitalia and abdomen, we introduced a #21-[place] cystoscope with 30 degree lens. Under video endoscopic guidance, the bladder neck and urethra were totally normal. The bladder had no tumors, no stones, no foreign objects. Both ureteral orifices were seen. We then catheterized the left ureteral orifice with an [place] tip catheter, #8-Botswanan, and did a retrograde pyelogram. We could see that there was only about 2 cm of distal ureter and then a complete stricture up to above the iliac levels, and then a normal ureter. For this reason, we did an antegrade nephrostogram from the left side and the left side also showed hydronephrosis up to the proximal ureter. We could not pass a Sensor guidewire up to the kidney or a firm guidewire up to the kidney. For this reason, we actually took the the [place] tip catheter out and then placed the [place] catheter on the right ureteral orifice. On the right ureteral orifice, we did a retrograde pyelogram, which actually showed also a 1 cm distal ureteral stricture from about 1 cm above from the bladder, and then there was narrowing with difficult passage of contrast up to the kidney. For this reason, we did a right antegrade nephrostogram, and the right antegrade nephrostogram showed a right hydronephrosis, renal pelvis and a right proximal ureter ending up for about 3 or 4 cm below the ureteropelvic junction. It was very difficult to pass the contrast down the ureter for the mid ureter and right distal ureteral stricture, possible extrinsic compression. For this reason, we actually passed the guidewire. The guidewire could actually pass to the kidney, and then advanced a [place] catheter and did a retrograde. We could see that there was a narrowing and kinking at the level of the UPJ and the proximal ureter. The proximal ureter was dilated to the level of the mid ureter and then there was extrinsic compression and stenosis of the distal ureter from mid ureter above above the iliac down to the distal ureter. We decided not to put a double JJ stent since the patient has bilateral nephrostomy tubes. We emptied the bladder and took the cystoscope out. PLAN: The patient will go home today with antibiotics. She will followup in one week to discuss treatment options. The patient could actually be recommended for a robotic assisted bilateral ureterolysis, omental flap wrapping around the ureters versus bilateral ureteral reimplanations versus bilateral psoas hitch versus boari flap versus ileal interpositions to connect the upper tract systems. We think that the cause of the ureteral stenosis and hydronephrosis is due to retroperitoneal fibrosis. This will be discussed in full length in the visit following this surgery at the clinic with the patient and family. CARMINA
== END | disposition home or self-care (01) ==
LOC: M SDC 09:26
PROVIDERS: ATTEND Urology
DX: N13.30 Unspecified hydronephrosis (principal); N13.5 Crossing vessel and stricture of ureter without hydronephrosis; I10 Essential (primary) hypertension; J44.9 Chronic obstructive pulmonary disease, unspecified; E55.9 Vitamin D deficiency, unspecified; E21.3 Hyperparathyroidism, unspecified; M19.90 Unspecified osteoarthritis, unspecified site; Z87.891 Personal history of nicotine dependence; Z88.0 Allergy status to penicillin; Z79.899 Other long term (current) drug therapy
CPT/HCPCS: 36415; 52005; 74420; 86850; 86900; 86901; C1726; J1956; J2250; J2405; J3010; Q9961

== ENCOUNTER → 2016-07-11 | Outpatient (REF) | payer MEDICARE ==
[~2016-07-11] MED LIST changes: -CIPROFLOXACIN 500 MG TAB PO SCH; -CONRAY-60 60% 50ML VIAL (Q9961) As Ordered ONE; -LIDOCAINE 2% INJ 100 MG/5 ML SDV (FOR ANES.) As Ordered ONE; -LR 1,000 ML IV SCH; -LevoFLOXacin IV 500 MG in APPROPRIATE DILUENT 1 EA IV ONE; -METOCLOPRAMIDE INJ 10MG/2ML VIAL (J2765) IV PRN; -MIDAZOLAM INJ 2 MG/2 ML VIAL (J2250) As Ordered ONE; -NORCO, ANEXSIA 5/325MG TABLET (HYDROcodone/ACETAMINOPHEN) PO PRN; -ONDANSETRON 4MG/2ML VIAL (J2405) As Ordered ONE; -ONDANSETRON 4MG/2ML VIAL (J2405) IV PRN; -PROPOFOL 200 MG/20 ML VIAL As Ordered ONE; -fentaNYL 100 MCG/2 ML INJECTION (J3010) As Ordered ONE; -fentaNYL 100 MCG/2 ML INJECTION (J3010) IV PRN
[2016-07-11 13:41] LABS: TOTAL PROTEIN 7.2 GM/DL (6.4-8.2)
[2016-07-14 12:21] LABS: ALBUMIN % 51.9 % (55.8-66.1)
[2016-07-14 12:22] LABS: ALBUMIN 3.74 GM/DL (3.29-5.55); GAMMA GLOBULIN % 15.6 % (11.1-18.8)
== END ==
LOC: M LAB REF 12:57
PROVIDERS: ATTEND Internal Medicine Nephrology
DX: E83.52 Hypercalcemia (principal)

== ENCOUNTER → 2016-07-18 | Outpatient (CLI) | payer MEDICARE ==
[~2016-07-18] MED LIST changes: +METO5TAB2; +METO5TAB2 PO; +ONDA1TAB15 PO; +POTA20TA PO; +ZOFR20TA PO
[2016-07-18 11:23] LABS: ALBUMIN 3.7 GM/DL (3.2-5.2); ANION GAP 14 MEQ/L (8-16); BLOOD UREA NITROGEN 16 MG/DL (7-18); CARBON DIOXIDE LEVEL 32 MEQ/L (21-32); CHLORIDE LEVEL 91 MEQ/L (98-107); CREATININE FOR GFR 0.86 MG/DL (0.55-1.02); GLOMERULAR FILTRATION RATE > 60.0 (>39); GLUCOSE, FASTING 91 MG/DL (83-110); PHOSPHORUS LEVEL 2.7 MG/DL (2.5-4.9); POTASSIUM SERUM 4.6 MEQ/L (3.5-5.1); SODIUM LEVEL 137 MEQ/L (136-145)
== END ==
LOC: M LAB 10:14
PROVIDERS: ATTEND Internal Medicine Nephrology
DX: Z01.818 Encounter for other preprocedural examination (principal); N13.1 Hydronephrosis with ureteral stricture, not elsewhere classified; E87.6 Hypokalemia; E83.52 Hypercalcemia; R11.2 Nausea with vomiting, unspecified; I12.9 Hypertensive chronic kidney disease with stage 1 through stage 4 chronic kidney disease, or unspecified chronic kidney disease; N18.9 Chronic kidney disease, unspecified; J44.9 Chronic obstructive pulmonary disease, unspecified; Z86.39 Personal history of other endocrine, nutritional and metabolic disease; Z87.891 Personal history of nicotine dependence; R73.09 Other abnormal glucose; K29.70 Gastritis, unspecified, without bleeding; Z79.899 Other long term (current) drug therapy

== ENCOUNTER → 2016-07-18 | Outpatient (CLI) | payer MEDICARE ==
[~2016-07-18] MED LIST changes: -METO5TAB2; -METO5TAB2 PO; -POTA20TA PO; -ZOFR20TA PO
[2016-07-18 11:09] LABS: MEAN CORPUSCULAR HGB CONC 32.4 g/dl (32.0-36.5); MEAN CORPUSCULAR VOLUME 86.3 fl (80.0-96.0); RED CELL DISTRIBUTION WIDTH 14.2 % (11.5-14.5); WHITE BLOOD COUNT 9.4 K/mm3 (4.0-10.0)
[2016-07-18 11:14] LABS: INR 1.11
[2016-07-18 11:24] LABS: ANION GAP 14 MEQ/L (8-16); BLOOD UREA NITROGEN 16 MG/DL (7-18); CALCIUM LEVEL 11.1 MG/DL (8.8-10.2); CARBON DIOXIDE LEVEL 32 MEQ/L (21-32); CHLORIDE LEVEL 91 MEQ/L (98-107); CREATININE FOR GFR 0.86 MG/DL (0.55-1.02); GLOMERULAR FILTRATION RATE > 60.0 (>39); GLUCOSE, FASTING 88 MG/DL (83-110); POTASSIUM SERUM 4.7 MEQ/L (3.5-5.1); SODIUM LEVEL 137 MEQ/L (136-145)
--- NOTE | 2016-07-18 13:12 | REP ---
CHEST, TWO VIEWS: COMPARISON: 05/09/2016. Two views of the chest are performed and demonstrate stable scattered chronic changes without evidence of acute infiltrate or pulmonary edema. The heart is normal in size. There is calcification and tortuosity of the thoracic aorta. The mediastinal silhouette is unchanged. There are degenerative changes of the spine. IMPRESSION: Stable exam. No acute pulmonary disease. Signed by Lion Vásquez MD 07/18/2016 05:43 P
--- NOTE | 2016-07-18 22:53 | ECGEPIP ---
Stationary ECG Study [facility] Test Date: 2016-07-18 Pat Name: ALFONSO BASHIR Department: Room: - Gender: F Bed Operator: : 1945 Requested By: TERENCE Delaney Order Number: [id number] Reading MD: Destin Villarreal Measurements Intervals [place] Rate: 77 P: 76 HI: 136 QRS: 45 QRSD: 98 T: 37 QT: 398 QTc: 452 Interpretive Statements SINUS RHYTHM ARTIFACT NOTED ON THE BASELINE IN THE LIMB LEADS LAST TRACING ON 05/16/2016 AT 10:06:30. NO REMARKABLE CHANGES Electronically Signed On 07-18-2016 22:53:45 EDT by Destin Villarreal
== END ==
LOC: M LAB 10:10
PROVIDERS: ATTEND Urology
DX: Z01.818 Encounter for other preprocedural examination (principal); N13.30 Unspecified hydronephrosis; E87.6 Hypokalemia; E83.52 Hypercalcemia

== ENCOUNTER 2016-07-26 11:04 | Inpatient (IN) | payer MEDICARE ==
[~2016-07-26] VITALS: Ht 167.6 cm; Wt 79.3 kg
[2016-07-26] MEDS ORDERED: NS 1,000 ML IV SCH (11:12)
[2016-07-26] MEDS ORDERED: METO5TAB2 (11:19)
[2016-07-26 11:51] LABS: MEAN CORPUSCULAR HEMOGLOBIN 29.2 pg (27.0-33.0); MEAN CORPUSCULAR HGB CONC 34.1 g/dl (32.0-36.5); MEAN CORPUSCULAR VOLUME 85.6 fl (80.0-96.0); PLATELET COUNT, AUTOMATED 441 k/mm3 (150-450); WHITE BLOOD COUNT 17.1 K/mm3 (4.0-10.0)
[2016-07-26 11:56] LABS: INR 1.22
[2016-07-26 12:14] LABS: ALBUMIN 3.7 GM/DL (3.2-5.2); ALBUMIN/GLOBULIN RATIO 0.76 (1.00-1.93); ALKALINE PHOSPHATASE 131 U/L (45-117); ALT/SGPT 25 U/L (12-78); AMYLASE 79 U/L (25-115); AST/SGOT 32 U/L (15-37); BILIRUBIN,DIRECT 0.8 MG/DL (0.0-0.2); BILIRUBIN,TOTAL 1.6 MG/DL (0.2-1.0); BLOOD UREA NITROGEN 47 MG/DL (7-18); CHLORIDE LEVEL 69 MEQ/L (98-107); CREATININE FOR GFR 1.53 MG/DL (0.55-1.02); GLOMERULAR FILTRATION RATE 35.4 (>39); GLUCOSE, FASTING 126 MG/DL (83-110); SODIUM LEVEL 130 MEQ/L (136-145); TOTAL PROTEIN 8.6 GM/DL (6.4-8.2)
--- NOTE | 2016-07-26 12:15 | REP ---
HEAD CT WITHOUT CONTRAST: HISTORY: Altered mental status. Trauma. No comparison brain imaging. CT FINDINGS: Digital preliminary lateral route supervisor view is unremarkable. Bone window settings demonstrate no evidence of skull base or other calvarial fracture. There is no evidence of paranasal sinus disease or intraorbital abnormality. On soft tissue window settings, there is minimal diffuse cerebral atrophy. There is mild distal carotid artery vascular calcification bilaterally. There is no evidence of intracranial hemorrhage. There are small vessel atherosclerotic low density changes in the periventricular white matter of the frontal and parietal lobes bilaterally. There is physiologic calcification in the basal ganglia on the left. 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 This measures 7 mm in diameter. No other intracranial vascular abnormality is seen. IMPRESSION: 1. Mild diffuse atrophy, small vessel atherosclerotic changes and vascular calcification. There is no evidence of hemorrhage, mass, infarct or midline shift. 2. 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 Further evaluation with MR angiography should be considered. Signed by Joni Jaramillo MD 07/26/2016 01:50 P
--- NOTE | 2016-07-26 12:17 | REP ---
PORTABLE CHEST X-RAY: Sitting AP view. HISTORY: Sepsis. Shock. Comparison study: July 18, 2016. FINDINGS: EKG monitoring electrodes overlie the chest. The lungs are symmetrically aerated and clear. Pleural angles are sharp. Heart size is normal. Pulmonary vasculature is not increased. The aorta somewhat tortuous. There are degenerative changes in the thoracic spine. IMPRESSION: No active cardiopulmonary disease. Signed by Joni Jaramillo MD 07/26/2016 01:50 P
[2016-07-26 12:25] LABS: ANION GAP 15 MEQ/L (8-16); CARBON DIOXIDE LEVEL 46 MEQ/L (21-32)
[2016-07-26 12:26] LABS: POTASSIUM SERUM 2.2 MEQ/L (3.5-5.1)
[2016-07-26] MEDS: POTASSIUM CHLORIDE 10 MEQ SR TABLET PO ONE ×2 (12:59→13:00)
[2016-07-26] MEDS ORDERED: SODIUM CHLORIDE 0.9% 1000 ML IV ONE (13:00)
[2016-07-26] MEDS ORDERED: POTASSIUM CHLORIDE INJ 10 MEQ in D5W/0.2% SODIUM CHLORIDE 1,000 ML IV SCH (13:15)
[2016-07-26] MEDS ORDERED: LevoFLOXacin IV 500 MG in APPROPRIATE DILUENT 1 EA IV ONE (13:30)
[2016-07-26] MEDS ORDERED: METO5TAB2 PO (13:46)
[2016-07-26] MEDS ORDERED: ZOFR20TA PO (13:46)
[2016-07-26] MEDS ORDERED: POTA20TA PO (13:46)
[2016-07-26] MEDS ORDERED: AMLO10TA2 PO (13:46)
[2016-07-26] MEDS ORDERED: KCL 10MEQ IN 100ML SWI (KRUN) 10 MEQ in APPROPRIATE DILUENT 1 EA IV ONE ×2 (14:00)
[2016-07-26 15:05] LABS: ABG BASE EXCESS 17.7 (-2.0-2.0); ABG PARTIAL PRESSURE CO2 33.9 mmHg (35.0-45.0); ABG PARTIAL PRESSURE O2 121.7 mmHg (75.0-100.0); ABG TOTAL CO2 40.1 MEQ/L (23.0-31.0)
[2016-07-26 15:09] LABS: ABG pH (ARTERIAL) 7.679 UNITS (7.350-7.450)
[2016-07-26] MEDS ORDERED: ONDANSETRON 4MG/2ML VIAL (J2405) IV ONE (15:15)
[2016-07-26] MEDS ORDERED: ONDANSETRON 4MG/2ML VIAL (J2405) IV PRN (16:00)
[2016-07-26] MEDS ORDERED: BISACODYL 5 MG TAB PO PRN (16:00)
[2016-07-26 16:45] VITALS: BP 125/71
[2016-07-26] MEDS ORDERED: IPRATROPIUM 0.5MG/ALBUTEROL 2.5MG INH SOL UD 3ML (DUONEB)(J7620) NEB PRN (17:15)
[2016-07-26] MEDS: KCL 10MEQ IN 100ML SWI (KRUN) 10 MEQ in APPROPRIATE DILUENT 1 EA IV SCH ×4 (17:35→18:41)
--- NOTE | 2016-07-26 17:40 | HPE ---
DATE OF ADMISSION: 07/26/2016 PRIMARY CARE PROVIDER: Dr. Maximino Spicer UROLOGIST: Dr. Parra CHIEF COMPLAINT: states she is not herself. HISTORY OF PRESENT ILLNESS: Ms. 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 He reports that started last night. She had become more drowsy and was not answering questions appropriately. She was scheduled for urological procedure this morning, but instead of having the procedure done, he proceeded to bring her to the emergency room (ER). According to documentation, she was scheduled to have possible ureterolysis, ureteral implantation, possible flap, double-J stent placement. The patient is currently awake and answering questions. She is alert and oriented times two. She is not clear on the year but does state that the month is July. She reports nausea, vomiting, anorexia, and a 50-pound weight loss since March 2015. She states that her appetite has been poor. This nausea and vomiting has been ongoing for a couple of months and she has been tried on antiemetics as outpatient. She denies any fevers or chills. No change in the color of the urine. Nephrostomy tubes have been draining well with no decrease in urination. No hematuria. She denies any flank pain, back pain, abdominal pain, diarrhea, constipation, chest pain, shortness of breath, headache, lightheadedness, or dizziness. On arrival to the emergency department, she was mildly tachycardiac and had a white count. She had several electrolyte disturbances. Hospital service was called to admit. PAST MEDICAL HISTORY: 1. Bilateral hydroureteronephrosis with bilateral ureteral strictures, status post nephrostomy tubes and double-J stent, stents were changed in March 2016. 2. History of acute renal failure secondary to obstructive uropathy. 3. Hypertension. 4. Hyperparathyroidism. 5. Chronic obstructive pulmonary disease (COPD). 6. Vitamin D deficiency. 7. Osteopenia. PAST SURGICAL HISTORY: 1. Bilateral nephrostomy tubes and stents in March 2016. 2. Right knee replacement. 3. Bilateral cataract surgery. 4. Tubal ligation. HOME MEDICATIONS: - amlodipine 10 mg by mouth daily - metoclopramide 5 mg by mouth three times daily as needed - Zofran 4 mg by mouth three times daily as needed - potassium chloride 20 mEq by mouth twice a day ALLERGIES: PENICILLIN (rash). SOCIAL HISTORY: The patient lives with her . She is a former smoker, quit in 2004. Rare alcohol use. No illicit drug use. No pets in the home. FAMILY HISTORY: No significant family history of renal disease or urological disease. Mother had rheumatoid arthritis. Sister also has arthritis. REVIEW OF SYSTEMS: CONSTITUTIONAL: The patient denies any fevers or chills. Positive for weakness. Positive for 50-pound weight loss since March 2016. Positive for anorexia and decreased appetite. HEENT: Denies headache, lightheadedness, or dizziness. No visual or hearing changes. CARDIOVASCULAR: Denies chest pain, chest pressure, or shortness of breath. No orthopnea or paroxysmal nocturnal dyspnea. No chronic lower extremity edema. RESPIRATORY: No shortness of breath. No cough. GENITOURINARY: No decreased or increased urinary frequency. No hematuria. Nephrostomy tubes have been draining well as usual. No change in color of urine. GASTROINTESTINAL: Positive for chronic nausea and vomiting. No abdominal pain. No diarrhea, constipation, hematochezia or melena. INTEGUMENT: No unusual rashes or skin lesions. ENDOCRINE: No history of diabetes or thyroid disorder. MUSCULOSKELETAL: No unusual muscle or joint pains. HEMATOLOGIC: No excessive bleeding or bruising. NEUROLOGICAL: No paresthesias. No syncope. No history of cerebrovascular accident (CVA). PHYSICAL EXAMINATION: VITAL SIGNS: Temperature 98.0, pulse 93, respiratory rate 18, blood pressure 96/61, pulse oximetry 99% on two liters. GENERAL: The patient is alert and awake, in no acute distress. HEENT: Normocephalic, atraumatic. Extraocular muscles are intact. Pupils are equally round and reactive to light. No scleral icterus. Moist mucosa. NECK: Supple. No cervical lymphadenopathy. No thyromegaly appreciated. HEART: Normal S1, S2, regular rate and rhythm. No murmurs or rubs. LUNGS: Good air movement bilaterally. No rales, rhonchi or wheezing. ABDOMEN: Soft, nontender, nondistended. Positive bowel sounds. No rebound, guarding or rigidity. BACK: No costovertebral angle (CVA) tenderness. Bilateral nephrostomy tubes draining tea-colored urine. EXTREMITIES: No cyanosis or lower extremity edema. Positive pedal pulses bilaterally. She has a vertical incision that is healed on the right knee. SKIN: Warm and dry. Good skin turgor. No rashes or skin lesions. NEUROLOGIC: No focal deficits. Cranial nerves II-XII are grossly intact. Motor and sensation intact. No asterixis. LABORATORY DATA: WBC 17.1, hemoglobin 17.4, hematocrit 51.1, platelet count 441. Sodium 130, potassium 2.2, chloride 69, carbon dioxide 46, anion gap 15, BUN 47, creatinine 1.53, GFR 35.4, fasting glucose 126, lactic acid 2.7, calcium 11.0, total bilirubin 1.6, direct bilirubin 0.8, AST 32, ALT 25, alkaline phosphatase 131, total creatinine kinase 62, CK-MB 1.0, troponin less than 0.02, C-reactive protein 9.51, total protein 8.6, albumin 3.7, amylase 79, PT 15.5, INR 1.22, PTT 23.8. Blood gas shows a pH of 7.68, pCO2 33.9, pO2 121.7, HCO3 39.0, total CO2 40.1, oxygen saturation 99. Urinalysis showed cloudy urine, 2+ protein, trace ketones, 1+ blood, 2.0 urobilinogen, 2+ leukocyte esterase, 31 WBC, 9 RBC, 1+ bacteria. Microbiology: Blood culture and urine culture are pending. Imaging studies: The patient had a head CT which showed mild diffuse atrophy, small vessel atherosclerotic changes and vascular calcification. No acute findings. 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 Chest x-ray revealed no acute cardiopulmonary disease. The patient had EKG done which shows sinus rhythm, PVC, left ventricular hypertrophy, ST-T wave changes. ASSESSMENT AND PLAN: 1. Altered mental status, possibly secondary to urinary tract infection. We will treat infection and monitor her neurological status. 2. Sepsis secondary to urinary tract infection. The patient will be placed on vancomycin and cefepime. Urine culture is pending. She is being given potassium chloride (KCl) in normal saline at a rate of 100 mL per hour. Lactic acid was elevated at 2.7. We will check a repeat at four hours. She did have a urine culture on 07/18/2016, which grew Staphylococcus hominis. This could be a colonization or contamination but given her complicated genitourinary history, we will treat with antibiotics and tailor down based on urine culture. 3. Hypokalemia. Potassium was 2.2. She has received IV supplementation. We will repeat a basic metabolic profile at 8:00 p.m. to reevaluate her electrolytes. 4. Acute kidney injury. The patient has a creatinine of 1.5, previously normal on 07/18/2016. We will hydrate and continue to monitor her renal function. Likely secondary to prerenal causes. 5. Nausea and vomiting, intractable. The patient will be placed on Zofran as needed. We will try to control her gastrointestinal (GI) losses. 6. Hyponatremia, mild. Continue to monitor sodium levels. She has been given normal saline. 7. Metabolic alkalosis. We will replete her potassium level, hydrate her, and reassess her acid-based disorder. 8. 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 Recommending MRA. This will be scheduled for tomorrow given that renal function improves. 9. 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 Consider consulting urology to reschedule urologic procedure. 10. Hypertension. We will hold her amlodipine at this time given that her blood pressures are soft. 11. Primary hyperparathyroidism. Calcium is currently 11. 12. Chronic obstructive pulmonary disease (COPD). DuoNeb breathing treatments as needed. 13. History of vitamin D deficiency, chronic. 14. Code status. The patient is a full code. The patient is being admitted to the progressive care unit (PCU). Expected to stay at least two midnights. Dr. Guzman to take over her care in the morning. My preceptor for this patient encounter was Dr. Ana Luisa Moser. The preceptor was physically present in the building during the encounter and was fully available as needed. All aspects of the patient interview, examination, medical decision making process, and medical care plan development were reviewed and approved by the preceptor. The preceptor is aware and concurs with the plan as stated in the body of this note and will attest to such by his/her co-signature.
[2016-07-26] MEDS: KCL 20MEQ in NS 1000ML 1,000 ML IV SCH (18:05)
[2016-07-26] MEDS: VANCOMYCIN HCL 1,000 MG, VIAL MATE ADAPTER 1 EACH in D5W 250 ML IV SCH (18:25)
[2016-07-26 19:57] VITALS: BP 130/72
[2016-07-26 20:17] LABS: CALCIUM LEVEL 9.5 MG/DL (8.8-10.2); CREATININE FOR GFR 1.38 MG/DL (0.55-1.02); GLOMERULAR FILTRATION RATE 39.9 (>39); POTASSIUM SERUM 2.4 MEQ/L (3.5-5.1)
--- NOTE | 2016-07-26 20:45 | PHACANCOPD ---
PHARMACY VANCOMYCIN DOSING Pt Demographics Demographics Patient Age:71 , Weight:62.100 , Gender: female Adjusted Body Weight Date: 07/26/16, Adjusted Body Weight: Kg Events Past 24 Hours Events Past 24 Hours: YES: Elevation in WBC, Pending Diagnostics Vancomycin Vancomycin indication: SEPSIS Vancomycin Target Ranges: 10-20 mcg/ml Vancomycin Load Y/N: No Load Dose Date Time Vancomycin Load Dose: Date: Time: Vancomycin Dose Date: 07/26/16. Current Vancomycin Dose: [1g IV Q24H] Intermittent Dosing?: No Labs Labs Item Value Date Time White Blood Count 17.1 K/mm3 H 07/26/16 1136 Blood Urea Nitrogen 47 MG/DL H 07/26/16 1136 Creatinine 1.53 MG/DL H 07/26/16 1136 Lactic Acid Level 2.7 MMOL/L *H 07/26/16 1136 Lactic Acid Followup at 4 Hours 2.3 MMOL/L *H 07/26/16 1628 C-Reactive Protein, Quantitative 9.51 MG/DL H 07/26/16 1136 Micro Microbiology 07/26/16 Blood Culture, Received Pending 07/26/16 Blood Culture, Received Pending 07/26/16 Urine Culture, Received Pending 07/26/16 Urine Culture, Received Pending Creatinine Clearance Date:07/26/16. Estimated Creatinine Clearance: [~32.7ml/min]. Assessment and Plan Maintaining Current Dose?: Yes Reason for dose change: No Dose Change Pharmacist Note Pharmacist Note Date: 07/26/16. Pharmacist note: Day #1 empiric cefepime/vanco initiated at 1g IV Q24H for the treatment of sepsis possibly secondary to a complicated UTI - aiming for a goal trough of 10-20mcg/ml. The patient has a PMH of bilateral hydroureteronephrosis s/p nephrostomy tubes and double j stent, as well as a hx of ARF - baseline scr ~ <1. WBC, lactic acid, and CRP are currently elevated. Patient is afebrile. No PMH of MRSA or vanco use here at [facility]. Blood and urine cultures are pending. We will continue to monitor the patient's kidney function and schedule a trough/adjust dosing if needed. TEMO CESAR PHARMACY July 26, 2016 20:45
[2016-07-26] MEDS ORDERED: POTASSIUM CHLORIDE 10 MEQ SR TABLET PO ONE ×2 (21:15→23:30)
[2016-07-26] MEDS: CEFEPIME HCL 1 GM in D5W MINI-BAG PLUS 50 ML IV SCH (21:42)
[2016-07-26] MEDS ORDERED: KCL 10MEQ IN 100ML SWI (KRUN) 10 MEQ in APPROPRIATE DILUENT 1 EA IV SCH ×2 (22:00)
[2016-07-26 22:23] LABS: ABG BASE EXCESS 22.7 (-2.0-2.0); ABG HCO3 48.1 MEQ/L (22.0-26.0); ABG PARTIAL PRESSURE O2 132.1 mmHg (75.0-100.0); ABG STANDARD HCO3 47.7 MEQ/L (22.0-26.0); ABG TOTAL CO2 49.7 MEQ/L (23.0-31.0); ABG pH (ARTERIAL) 7.584 UNITS (7.350-7.450)
[2016-07-27 00:09] LABS: CALCIUM LEVEL 9.4 MG/DL (8.8-10.2); CREATININE FOR GFR 1.39 MG/DL (0.55-1.02); GLOMERULAR FILTRATION RATE 39.6 (>39)
[2016-07-27 00:35] LABS: POTASSIUM SERUM 2.4 MEQ/L (3.5-5.1)
[2016-07-27 00:47] VITALS: BP 143/81
[2016-07-27] MEDS: DILUENT IV SCH ×6 (01:36→03:41)
[2016-07-27] MEDS: SWI IV SCH ×6 (01:36→03:41)
[2016-07-27] MEDS: KCL IV SCH ×6 (01:36→03:41)
[2016-07-27 03:39] LABS: DIFF SLIDE NUMBER 75; MEAN CORPUSCULAR HEMOGLOBIN 27.8 pg (27.0-33.0); MEAN CORPUSCULAR HGB CONC 32.5 g/dl (32.0-36.5); MEAN CORPUSCULAR VOLUME 85.6 fl (80.0-96.0); RED CELL DISTRIBUTION WIDTH 14.2 % (11.5-14.5); WHITE BLOOD COUNT 15.6 K/mm3 (4.0-10.0)
[2016-07-27 03:41] LABS: PLATELET COUNT, AUTOMATED 310 k/mm3 (150-450)
[2016-07-27 04:41] LABS: BANDS 2 % (< 11)
[2016-07-27 04:51] VITALS: BP 124/69
[2016-07-27 06:21] LABS: CALCIUM LEVEL 9.1 MG/DL (8.8-10.2); CREATININE FOR GFR 1.28 MG/DL (0.55-1.02); GLOMERULAR FILTRATION RATE 43.5 (>39); POTASSIUM SERUM 2.8 MEQ/L (3.5-5.1)
[2016-07-27] MEDS ORDERED: POTASSIUM CHLORIDE 10 MEQ SR TABLET PO ONE ×4 (07:15→22:30)
[2016-07-27 08:00] VITALS: BP 127/74
[2016-07-27 08:00] LABS: MAGNESIUM LEVEL 2.2 MG/DL (1.8-2.4)
[2016-07-27] MEDS: KCL 20MEQ in NS 1000ML 1,000 ML IV SCH ×2 (08:46→16:38)
--- NOTE | 2016-07-27 11:27 | IPNPDOC ---
Subjective Date Seen The patient was seen on 07/27/16. Subjective Chief Complaint/HPI The patient is a 71-year-old female admitted with a reason for visit of Mental Status Alteration; Sepsis. Events since last encounter Patient was seen this morning at bedside. No acute overnight events. She is oriented to person and place and month but not year. She denies any fevers, chills, back pain, chest pain, shortness of breath, lightheadedness, dizziness, abdominal pain and diarrhea. No vomiting this morning. Objective Physical Examination General Exam: Positive: Alert, Cooperative, No Acute Distress Eye Exam: Positive: Conjunctiva & lids normal, EOMI, Negative: Sclera icteric ENT Exam: Positive: Mucous membr. moist/pink, Pharynx Normal Neck Exam: Positive: Supple, Negative: thyromegaly Chest Exam: Positive: Clear to auscultation, Normal air movement Heart Exam: Positive: Rate Normal, Regular Rhythm, Normal S1, Normal S2 Abdomen Exam: Positive: Normal bowel sounds, Soft, Negative: Tenderness Extremity Exam: Positive: Normal pulses, Negative: Cyanosis, Edema, Tenderness Skin Exam: Positive: Nl turgor and temperature, Negative: Rash Neuro Exam: Positive: Normal Speech, Cranial Nerves 3-12 NL Assessment /Plan Problems (1) Sepsis Status: Acute Problem Specific Plan: Monitor Clinically Problem Text: * Secondary to urinary tract infection * She is currently on cefepime and vancomycin (2) Mental status alteration Status: Acute Response to Treatment: Improving Problem Specific Plan: Monitor Clinically Problem Text: * Likely secondary to infection * This has improved, continue to monitor neuro status (3) UTI (urinary tract infection) Status: Acute Problem Specific Plan: Monitor Clinically Problem Text: * Currently on cefepime and vancomycin * Awaiting urine culture and blood culture for de-escalation of therapy * Afebrile, leukocytosis has improved a little bit (4) Hypokalemia Status: Acute Problem Specific Plan: Monitor Clinically, Repeat Labs Problem Text: * She has only had GI loss via vomiting * Received IV and by mouth supplementation * Will repeat potassium level at noon (5) Metabolic alkalosis Status: Acute Response to Treatment: Improving Problem Specific Plan: Monitor Clinically Problem Text: * Improved, likely secondary from hypokalemia and volume contraction * Will continue to treat underlying causes (6) Acute renal failure Status: Acute Response to Treatment: Improving Problem Specific Plan: Monitor Clinically, Repeat Labs Problem Text: * Improved with IV hydration * Continue to monitor renal function (7) Hydroureteronephrosis Status: Chronic Problem Specific Plan: Monitor Clinically Problem Text: * 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 * She reports that nephrostomy tubes were changed in May * Nephrostomy tubes have been draining well, decreased output was denied * She was supposed to have urological procedure (ureterolysis, ureteral implantation, possible flap and double-J stent placement) on July 26, however came to the emergency department instead * Will need to schedule follow-up with urology once infection has resolved (8) Nausea and vomiting Status: Chronic Problem Specific Plan: Monitor Clinically Problem Text: * This has been a chronic issue for her for several months * Continue with antiemetics * reported that this was being worked up as outpatient (9) Hyponatremia Status: Acute Response to Treatment: Improving Problem Specific Plan: Repeat Labs Problem Text: * Sodium level has improved, currently 133 (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 Problem Specific Plan: Monitor Clinically Problem Text: * 7 mm delgado aneurysm was seen on head CT, recommending MRA (11) HTN (hypertension) Status: Chronic Problem Specific Plan: Monitor Clinically Problem Text: * Blood pressure stable (12) COPD (chronic obstructive pulmonary disease) Status: Chronic Problem Specific Plan: Monitor Clinically Problem Text: * Breathing is stable and at baseline * Albuterol as needed (13) Hyperparathyroidism Status: Chronic Problem Text: * Calcium level is within normal Plan/VTE VTE Prophylaxis Ordered?: Yes (heparin) VS, I&O, 24H, Fishbone Vital Signs/I&O Vital Signs Date Time Temp Pulse Resp B/P (MAP) Pulse Ox O2 Delivery O2 Flow Rate FiO2 07/27/16 08:00 97.6 80 18 127/74 (91) 99 Nasal Cannula 2.0 I&O- Last 24 Hours up to 6 AM 07/27/16 06:00 Intake Total 1900 ml Output Total 675 ml Balance 1225 ml Laboratory Data CBC/BMP Laboratory Tests 07/26/16 11:36 Red Blood Count 5.97 H, Mean Corpuscular Volume 85.6, Mean Corpuscular Hemoglobin 29.2, Mean Corpuscular Hemoglobin Concent 34.1, Red Cell Distribution Width 14.0 07/26/16 19:47 Calcium Level 9.5 07/26/16 23:29 Calcium Level 9.4 07/27/16 02:56 Red Blood Count 5.00, Mean Corpuscular Volume 85.6, Mean Corpuscular Hemoglobin 27.8, Mean Corpuscular Hemoglobin Concent 32.5, Red Cell Distribution Width 14.2 07/27/16 05:50 Calcium Level 9.1 Microbiology Microbiology 07/26/16 Blood Culture, Received Pending 07/26/16 Blood Culture, Received Pending 07/26/16 Urine Culture, Received Pending 07/26/16 Urine Culture, Received Pending GME ATTESTATION GME ATTESTATION My preceptor for this patient encounter was physically present in the building during the encounter and was fully available. As needed, all aspects of the patient interview, examination, medical decision making process, and medical care plan development were reviewed and approved by the preceptor. Preceptor is aware and concurs with the plan as stated in the body of this note and will attest to such by his/her cosignature. JORGE MOE DO July 27, 2016 11:27
[2016-07-27] MEDS: HEPARIN SOD (PORCINE) 5000 UNITS/ML VIAL SQ SCH ×2 (13:54→22:42)
[2016-07-27] MEDS ORDERED: KCL 10MEQ IN 100ML SWI (KRUN) 10 MEQ in APPROPRIATE DILUENT 1 EA IV ONE ×4 (14:30→15:30)
[2016-07-27 16:00] VITALS: BP 136/76
--- NOTE | 2016-07-27 17:50 | REP ---
MR angiography of the brain without contrast: History: Delgado aneurysm. Comparison head CT study showed evidence of a 7 mm aneurysm of the right middle cerebral artery. Technique: 3-D [id number] MR angiography of the brain is acquired in the usual fashion and maximal intensity projection images are generated and displayed rotationally. Source axial images are reviewed. MR angiographic findings: There is an 11 x 6 mm T1 hyperintensity at the bifurcation of the middle cerebral artery on the right at the temporal tip corresponding with the CT finding. It appears larger in overall size than on the CT. There is a central pattern of decreased signal which may reflect partial thrombosis. Maximal intensity projection images suggest a very narrow 2-3 mm neck from the inferior aspect of the distal middle cerebral artery. The distal vertebral and basilar arteries are patent and somewhat tortuous. Posterior cerebral and superior cerebellar vessels are unremarkable. The distal internal carotid arteries are unremarkable. Anterior cerebral arteries and the left middle cerebral artery are unremarkable. There is no other delgado aneurysm seen. No evidence of arteriovenous malformation is noted. 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 No other delgado aneurysm is seen. Signed by Joni Jaramillo MD 07/28/2016 12:52 P
[2016-07-27] MEDS: CEFEPIME HCL 1 GM in D5W MINI-BAG PLUS 50 ML IV SCH (17:55)
[2016-07-27] MEDS: VANCOMYCIN HCL 1,000 MG, VIAL MATE ADAPTER 1 EACH in D5W 250 ML IV SCH (18:58)
--- NOTE | 2016-07-27 20:02 | ECGEPIP ---
Stationary ECG Study [facility] - ED Test Date: 2016-07-26 Pat Name: ALFONSO BASHIR Department: Room: - Gender: F Dock Operator: : 1945 Requested By: Beverly Nelson Order Number: [id number] Reading MD: Sanam Bland Measurements Intervals [place] Rate: 142 P: MA: 0 QRS: 57 QRSD: 92 T: 260 QT: 303 QTc: 466 Interpretive Statements ATRIAL FIBRILLATION WITH RAPID VENTRICULAR RESPONSE WITH ABERRANT CONDUCTION OR VENTRICULAR PREMATURE COMPLEXES MODERATE VOLTAGE CRITERIA FOR LVH, CONSIDER NORMAL VARIANT ST DEVIATION AND MODERATE T-WAVE ABNORMALITY, CONSIDER LATERAL ISCHEMIA ST DEVIATION AND MODERATE T-WAVE ABNORMALITY, CONSIDER INFERIOR ISCHEMIA cw 07/18/16 -rate increased rhythm changes changes to st t wave segments clinically correlate Electronically Signed On 07-27-2016 20:02:08 EDT by Sanam Bland
--- NOTE | 2016-07-27 20:03 | ECGEPIP ---
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
[2016-07-27 23:59] VITALS: BP 142/69
[2016-07-28 04:00] VITALS: BP 130/65
[2016-07-28] MEDS: HEPARIN SOD (PORCINE) 5000 UNITS/ML VIAL SQ SCH ×3 (05:52→21:20)
[2016-07-28] MEDS: KCL 20MEQ in NS 1000ML 1,000 ML IV SCH ×3 (05:53→21:20)
[2016-07-28 07:27] LABS: BASO % 0.3 % (0.0-1.0); EOS # 0.1 K/mm3 (0.0-0.50); EOS % 0.5 % (0.0-3.0); LARGE UNSTAINED CELL # 0.1 K/mm3 (0.0-0.4); LARGE UNSTAINED CELL % 0.4 % (0.0-4.0); LYMPH # 0.4 K/mm3 (1.5-4.5); MEAN CORPUSCULAR HEMOGLOBIN 27.8 pg (27.0-33.0); MEAN CORPUSCULAR HGB CONC 32.3 g/dl (32.0-36.5); MEAN CORPUSCULAR VOLUME 86.1 fl (80.0-96.0); MONO # 0.7 K/mm3 (0.0-0.8); MONO % 5.7 % (0.0-5.0); NEUTROPHILS # 10.6 K/mm3 (1.8-7.7); PLATELET COUNT, AUTOMATED 257 k/mm3 (150-450); RED CELL DISTRIBUTION WIDTH 14.4 % (11.5-14.5); WHITE BLOOD COUNT 11.8 K/mm3 (4.0-10.0)
[2016-07-28 07:59] LABS: CALCIUM LEVEL 9.3 MG/DL (8.8-10.2); CREATININE FOR GFR 1.06 MG/DL (0.55-1.02); GLOMERULAR FILTRATION RATE 54.1 (>39); POTASSIUM SERUM 3.6 MEQ/L (3.5-5.1)
[2016-07-28 08:00] VITALS: BP 124/76
--- NOTE | 2016-07-28 09:04 | IPNPDOC ---
Subjective Date Seen The patient was seen on 07/28/16. Subjective Chief Complaint/HPI The patient is a 71-year-old female admitted with a reason for visit of Mental Status Alteration; Sepsis. Events since last encounter Patient was seen this morning at bedside. No acute overnight issues. She denies any pain. No fevers, chills, abdominal pain, back pain, chest pain/pressure, shortness of breath, dizziness. She does have chronic nausea and vomiting and did have an episode of emesis this morning. Objective Physical Examination General Exam: Positive: Alert, Cooperative, No Acute Distress Eye Exam: Positive: Conjunctiva & lids normal, EOMI, Negative: Sclera icteric ENT Exam: Positive: Mucous membr. moist/pink, Pharynx Normal Neck Exam: Positive: Supple, Negative: thyromegaly Chest Exam: Positive: Clear to auscultation, Normal air movement Heart Exam: Positive: Rate Normal, Regular Rhythm, Normal S1, Normal S2 Abdomen Exam: Positive: Normal bowel sounds, Soft, Negative: Tenderness Extremity Exam: Positive: Normal pulses, Negative: Cyanosis, Edema, Tenderness Skin Exam: Positive: Nl turgor and temperature, Negative: Rash Neuro Exam: Positive: Normal Speech, Cranial Nerves 3-12 NL Assessment /Plan Problems (1) Sepsis Status: Acute Problem Specific Plan: Monitor Clinically Problem Text: * Secondary to urinary tract infection * She is currently on cefepime and vancomycin, initiated on 07/26 (2) Mental status alteration Status: Acute Response to Treatment: Improving Problem Specific Plan: Monitor Clinically Problem Text: * Likely secondary to infection * This has improved, continue to monitor neuro status (3) UTI (urinary tract infection) Status: Acute Problem Specific Plan: Monitor Clinically Problem Text: * Currently on cefepime and vancomycin, initiated on 07/26 * Urine culture grew Staphylococcus hominis, possibly colonization with chronic nephrostomy tubes * Blood cultures show no growth thus far * Afebrile, leukocytosis continues to improve (4) Hypokalemia Status: Acute Problem Specific Plan: Monitor Clinically, Repeat Labs Problem Text: * She has only had GI loss via vomiting * Received IV and by mouth supplementation * Potassium levels have improved (5) Metabolic alkalosis Status: Acute Response to Treatment: Improving Problem Specific Plan: Monitor Clinically Problem Text: * Improved, likely secondary from hypokalemia and volume contraction * Will continue to treat underlying causes * Continue IV hydration (6) Acute renal failure Status: Resolved Response to Treatment: Improving Problem Specific Plan: Monitor Clinically, Repeat Labs Problem Text: * Improved with IV hydration * Continue to monitor renal function (7) Hydroureteronephrosis Status: Chronic Problem Specific Plan: Monitor Clinically Problem Text: * 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 * She reports that nephrostomy tubes were changed in May * Nephrostomy tubes have been draining well, decreased output was denied * She was supposed to have urological procedure (ureterolysis, ureteral implantation, possible flap and double-J stent placement) on July 26, however came to the emergency department instead * Will need to schedule follow-up with urology once infection has resolved (8) Nausea and vomiting Status: Acute Problem Specific Plan: Monitor Clinically Problem Text: * She reports that this has been going on for a couple months * Will obtain upper GI series to evaluate * Continue with antiemetics (9) Hyponatremia Status: Resolved Response to Treatment: Improving Problem Specific Plan: Repeat Labs Problem Text: * Sodium level has improved, currently 138 (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 No cranial nerve deficits. Patient is asymptomatic. * Spoke to the neurosurgeon credit union field examiner, Dr Brower and he stated that patient could just followup with their office on discharge, given incidental finding without SAH. (11) HTN (hypertension) Status: Chronic Problem Specific Plan: Monitor Clinically Problem Text: * Blood pressure stable (12) COPD (chronic obstructive pulmonary disease) Status: Chronic Problem Specific Plan: Monitor Clinically Problem Text: * Breathing is stable and at baseline * Albuterol as needed (13) Hyperparathyroidism Status: Chronic Problem Text: * Calcium level is within normal Plan/VTE VTE Prophylaxis Ordered?: Yes (heparin) VS, I&O, 24H, Fishbone Vital Signs/I&O Vital Signs Date Time Temp Pulse Resp B/P (MAP) Pulse Ox O2 Delivery O2 Flow Rate FiO2 07/28/16 08:00 98.1 87 18 124/76 (92) 97 Nasal Cannula 2.0 I&O- Last 24 Hours up to 6 AM 07/28/16 06:00 Intake Total 2600 ml Output Total 980 ml Balance 1620 ml Laboratory Data CBC/BMP Laboratory Tests 07/27/16 12:02 07/28/16 07:12 Calcium Level 9.3 07/28/16 07:13 Red Blood Count 4.84, Mean Corpuscular Volume 86.1, Mean Corpuscular Hemoglobin 27.8, Mean Corpuscular Hemoglobin Concent 32.3, Red Cell Distribution Width 14.4 , Neutrophils (%) (Auto) 90.0 H, Lymphocytes (%) (Auto) 3.0 L, Monocytes (%) ( Auto) 5.7 H, Eosinophils (%) (Auto) 0.5, Basophils (%) (Auto) 0.3, Neutrophils # (Auto) 10.6 H, Lymphocytes # (Auto) 0.4 L, Monocytes # (Auto) 0.7, Eosinophils # (Auto) 0.1, Basophils # (Auto) 0.0 Microbiology Microbiology 07/26/16 Blood Culture - Preliminary, Resulted No growth after 24 hours . All specim... 07/26/16 Blood Culture - Preliminary, Resulted No growth after 24 hours . All specim... 07/26/16 Urine Culture, Received Pending 07/26/16 Urine Culture - Final, Complete Staphylococcus Hominis Ssp Iza GME ATTESTATION GME ATTESTATION My preceptor for this patient encounter was physically present in the building during the encounter and was fully available. As needed, all aspects of the patient interview, examination, medical decision making process, and medical care plan development were reviewed and approved by the preceptor. Preceptor is aware and concurs with the plan as stated in the body of this note and will attest to such by his/her cosignature. JORGE MOE DO July 28, 2016 09:04
[2016-07-28 11:35] VITALS: BP 146/77
[2016-07-28 14:00] VITALS: BP 130/74
--- NOTE | 2016-07-28 14:56 | PHACANCOPD ---
PHARMACY VANCOMYCIN DOSING Pt Demographics Demographics Patient Age:71 , Weight:67.100 , Gender: female Adjusted Body Weight Date: 07/26/16, Adjusted Body Weight: Kg Vancomycin Vancomycin indication: SEPSIS Vancomycin Target Ranges: 10-20 mcg/ml Vancomycin Load Y/N: No Load Dose Date Time Vancomycin Load Dose: Date: Time: Vancomycin Dose Date: 07/26/16. Current Vancomycin Dose: [1g IV Q24H] Intermittent Dosing?: No Labs Micro Microbiology 07/26/16 Blood Culture - Preliminary, Resulted No Growth after 48 hours. All Specime... 07/26/16 Blood Culture - Preliminary, Resulted No Growth after 48 hours. All Specime... 07/26/16 Urine Culture, Received Pending 07/26/16 Urine Culture - Final, Complete Staphylococcus Hominis Ssp Iza Creatinine Clearance Date:07/26/16. Estimated Creatinine Clearance: [~32.7ml/min]. Assessment and Plan Maintaining Current Dose?: Yes Reason for dose change: No Dose Change Pharmacist Note Pharmacist Note 07/28/16: I have scheduled a vancomycin trough for 07/29/16 @1800, prior to the fourth dose. The patient's scr has improved, and output remains stable. We will continue to monitor and follow-up on trough level tomorrow, adjusting dose accordingly. Date: 07/26/16. Pharmacist note: Day #1 empiric cefepime/vanco initiated at 1g IV Q24H for the treatment of sepsis possibly secondary to a complicated UTI - aiming for a goal trough of 10-20mcg/ml. The patient has a PMH of bilateral hydroureteronephrosis s/p nephrostomy tubes and double j stent, as well as a hx of ARF - baseline scr ~ <1. WBC, lactic acid, and CRP are currently elevated. Patient is afebrile. No PMH of MRSA or vanco use here at [facility]. Blood and urine cultures are pending. We will continue to monitor the patient's kidney function and schedule a trough/adjust dosing if needed. TEMO CESAR PHARMACY July 28, 2016 14:56
[2016-07-28] MEDS: CEFEPIME HCL 1 GM in D5W MINI-BAG PLUS 50 ML IV SCH (17:26)
[2016-07-28] MEDS: VANCOMYCIN HCL 1,000 MG, VIAL MATE ADAPTER 1 EACH in D5W 250 ML IV SCH (18:20)
[2016-07-28 22:00] VITALS: BP 145/74
[2016-07-29] MEDS: HEPARIN SOD (PORCINE) 5000 UNITS/ML VIAL SQ SCH ×3 (05:59→21:27)
[2016-07-29 06:00] VITALS: BP 141/86
[2016-07-29 06:37] LABS: BASO % 0.2 % (0.0-1.0); EOS % 0.3 % (0.0-3.0); LARGE UNSTAINED CELL # 0.1 K/mm3 (0.0-0.4); LARGE UNSTAINED CELL % 1.1 % (0.0-4.0); LYMPH # 0.6 K/mm3 (1.5-4.5); LYMPH % 5.7 % (24.0-44.0); MEAN CORPUSCULAR HEMOGLOBIN 28.7 pg (27.0-33.0); MEAN CORPUSCULAR HGB CONC 33.2 g/dl (32.0-36.5); MEAN CORPUSCULAR VOLUME 86.6 fl (80.0-96.0); MONO # 0.6 K/mm3 (0.0-0.8); MONO % 5.4 % (0.0-5.0); NEUTROPHILS % 87.2 % (36.0-66.0); PLATELET COUNT, AUTOMATED 284 k/mm3 (150-450); RED CELL DISTRIBUTION WIDTH 14.1 % (11.5-14.5); WHITE BLOOD COUNT 10.4 K/mm3 (4.0-10.0)
[2016-07-29 06:46] LABS: ANION GAP 5 MEQ/L (8-16); BLOOD UREA NITROGEN 19 MG/DL (7-18); CALCIUM LEVEL 9.1 MG/DL (8.8-10.2); CARBON DIOXIDE LEVEL 39 MEQ/L (21-32); CHLORIDE LEVEL 92 MEQ/L (98-107); CREATININE FOR GFR 0.74 MG/DL (0.55-1.02); GLOMERULAR FILTRATION RATE > 60.0 (>39); GLUCOSE, FASTING 106 MG/DL (83-110); POTASSIUM SERUM 3.2 MEQ/L (3.5-5.1); SODIUM LEVEL 136 MEQ/L (136-145)
[2016-07-29] MEDS: POTASSIUM CHLORIDE 10 MEQ SR TABLET PO ONE ×2 (07:15→08:36)
[2016-07-29 07:31] LABS: MAGNESIUM LEVEL 1.9 MG/DL (1.8-2.4)
[2016-07-29] MEDS: KCL 20MEQ in NS 1000ML 1,000 ML IV SCH ×3 (07:46→21:27)
[2016-07-29] MEDS ORDERED: E-Z-GAS II EFFERVESCENT PACKET (SODIUM BICARB./CITRIC ACID/SIMETHICONE) As Ordered ONE (09:12)
[2016-07-29] MEDS ORDERED: E-Z-PAQUE 96% w/w SUSP 176GM BTL As Ordered ONE (09:12)
[2016-07-29] MEDS ORDERED: E-Z-HD 98% w/w 340GM SUSP BTL As Ordered ONE (09:12)
[2016-07-29] MEDS ORDERED: POTASSIUM CHLORIDE 10 MEQ SR TABLET PO ONE (10:40)
--- NOTE | 2016-07-29 11:00 | IPNPDOC ---
Subjective Date Seen The patient was seen on 07/29/16. Subjective Chief Complaint/HPI The patient is a 71-year-old female admitted with a reason for visit of Mental Status Alteration; Sepsis. Events since last encounter Patient was seen this morning at bedside. She had some more nausea and vomiting this morning. Upper GI series/Xray revealed irregular mass. Will have NG tube placed and surgical consult. She denies any fevers, chills. Has some abd tenderness after swallowing the barium. No diarrhea, chest pain/pressure, shortness of breath. Objective Physical Examination General Exam: Positive: Alert, Cooperative, No Acute Distress Eye Exam: Positive: Conjunctiva & lids normal, EOMI, Negative: Sclera icteric ENT Exam: Positive: Mucous membr. moist/pink, Pharynx Normal Neck Exam: Positive: Supple, Negative: thyromegaly Chest Exam: Positive: Clear to auscultation, Normal air movement Heart Exam: Positive: Rate Normal, Regular Rhythm, Normal S1, Normal S2 Abdomen Exam: Positive: Normal bowel sounds, Soft, Tenderness (midl tenderness to deep palpation) Extremity Exam: Positive: Normal pulses, Negative: Cyanosis, Edema Skin Exam: Positive: Nl turgor and temperature, Negative: Rash Neuro Exam: Positive: Normal Speech, Cranial Nerves 3-12 NL Assessment /Plan Problems (1) Sepsis Status: Acute Response to Treatment: Improving Problem Specific Plan: Monitor Clinically Problem Text: * Secondary to urinary tract infection * She is currently on cefepime and vancomycin, initiated on 07/26, will dc cefepime (2) Mental status alteration Status: Acute Response to Treatment: Improving Problem Specific Plan: Monitor Clinically Problem Text: * Likely secondary to infection * Mentation back to baseline (3) UTI (urinary tract infection) Status: Acute Problem Specific Plan: Monitor Clinically Problem Text: * Currently on cefepime and vancomycin, initiated on 07/26, will dc cefepime * Urine culture grew Staphylococcus hominis, with history of chronic nephrostomy tubes * Blood cultures show no growth thus far * Afebrile, leukocytosis continues to improve (4) Gastric mass Status: Acute Problem Specific Plan: Consult Specialist, Monitor Clinically, Repeat Tests Problem Text: * Found to have an irregular mass of the antrum involving the pylorus, causing partial obstruction * Will have NG tube placed * Surgery has been consulted (5) Nausea and vomiting Status: Acute Problem Specific Plan: Monitor Clinically Problem Text: * Likely secondary to gastric mass causing partial obstruction * Receives antiemetics as needed (6) Hypokalemia Status: Acute Problem Specific Plan: Monitor Clinically, Repeat Labs Problem Text: * She has only had GI loss via vomiting * Received IV and by mouth supplementation * Continue to monitor electrolytes (7) Metabolic alkalosis Status: Acute Response to Treatment: Improving Problem Specific Plan: Monitor Clinically Problem Text: * Improved, likely secondary from hypokalemia and volume contraction * Will continue to treat underlying causes * Continue IV hydration (8) Acute renal failure Status: Resolved Problem Specific Plan: Monitor Clinically, Repeat Labs Problem Text: * Resolved * Continue to monitor renal function (9) Hydroureteronephrosis Status: Chronic Problem Specific Plan: Monitor Clinically Problem Text: * 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 * She reports that nephrostomy tubes were changed in May * Nephrostomy tubes have been draining well, decreased output was denied * She was supposed to have urological procedure (ureterolysis, ureteral implantation, possible flap and double-J stent placement) on July 26, however came to the emergency department instead * Will need to schedule follow-up with urology once acute issues have resolved (10) Hyponatremia Status: Resolved Problem Specific Plan: Repeat Labs Problem Text: * Sodium level with normal * Continue to monitor electrolytes (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 No cranial nerve deficits. Patient is asymptomatic. * Spoke to the neurosurgeon automation manager on 07/28, Dr Brower, and he stated that patient could just followup with their office on discharge, given incidental finding without SAH. (12) HTN (hypertension) Status: Chronic Problem Specific Plan: Monitor Clinically Problem Text: * Blood pressure stable (13) COPD (chronic obstructive pulmonary disease) Status: Chronic Problem Specific Plan: Monitor Clinically Problem Text: * Breathing is stable and at baseline * Albuterol as needed (14) Hyperparathyroidism Status: Chronic Problem Text: * Calcium level is within normal Plan/VTE VTE Prophylaxis Ordered?: Yes (heparin) VS, I&O, 24H, Fishbone Vital Signs/I&O Vital Signs Date Time Temp Pulse Resp B/P (MAP) Pulse Ox O2 Delivery O2 Flow Rate FiO2 07/29/16 06:00 97.5 66 18 141/86 (104) 92 Room Air 2.0 I&O- Last 24 Hours up to 6 AM 07/29/16 06:00 Intake Total 2410 ml Output Total 1225 ml Balance 1185 ml Laboratory Data CBC/BMP Laboratory Tests 07/29/16 06:01 Red Blood Count 4.98, Mean Corpuscular Volume 86.6, Mean Corpuscular Hemoglobin 28.7, Mean Corpuscular Hemoglobin Concent 33.2, Red Cell Distribution Width 14.1 , Neutrophils (%) (Auto) 87.2 H, Lymphocytes (%) (Auto) 5.7 L, Monocytes (%) ( Auto) 5.4 H, Eosinophils (%) (Auto) 0.3, Basophils (%) (Auto) 0.2, Neutrophils # (Auto) 9.0 H, Lymphocytes # (Auto) 0.6 L, Monocytes # (Auto) 0.6, Eosinophils # (Auto) 0.0, Basophils # (Auto) 0.0, Calcium Level 9.1 Microbiology Microbiology 07/26/16 Blood Culture - Preliminary, Resulted No Growth after 48 hours. All Specime... 07/26/16 Blood Culture - Preliminary, Resulted No Growth after 48 hours. All Specime... 07/26/16 Urine Culture, Received Pending 07/26/16 Urine Culture - Final, Complete Staphylococcus Hominis Ssp Iza GME ATTESTATION GME ATTESTATION My preceptor for this patient encounter was physically present in the building during the encounter and was fully available. As needed, all aspects of the patient interview, examination, medical decision making process, and medical care plan development were reviewed and approved by the preceptor. Preceptor is aware and concurs with the plan as stated in the body of this note and will attest to such by his/her cosignature. JORGE MOE DO July 29, 2016 11:00
[2016-07-29 14:00] VITALS: BP 142/81
[2016-07-29] MEDS ORDERED: KCL 10MEQ IN 100ML SWI (KRUN) 10 MEQ in APPROPRIATE DILUENT 1 EA IV ONE ×2 (14:30)
--- NOTE | 2016-07-29 17:34 | REP ---
UPPER GI: The procedure was performed under the direct supervision of Dr. Vásquez. The images were reviewed with Dr. Vásquez. The electronic field service engineer film demonstrates bilateral nephrostomy, catheter is in place. The intestinal gas pattern is nonspecific. Liquid barium was administered in the prone oblique position. The oral and pharyngeal stage of deglutition are unremarkable. Esophageal transport is prompt and efficient and there is no esophagitis, stricture or mucosal ring. There is a hiatal hernia present. There is gastroesophageal reflux demonstrated to the level of the thoracic inlet. Within the antrum of the stomach there is a large irregular mass which involves the pylorus. This causes partial obstruction with delayed passage of contrast. There is fold thickening in the duodenal bulb. These findings were relayed to the ordering physician at the time of the procedure. IMPRESSION: 1. In the antrum of the stomach there is a large irregular mass which also involves the pylorus. This causes partial obstruction with delay of passage of contrast. There is fold thickening of in the duodenal bulb. 2. There is a hiatal hernia present. There is gastroesophageal reflux demonstrated to the level of the thoracic inlet. 3 minutes and 39 seconds of fluoroscopic time was utilized for this procedure. Reviewed by GIANCARLO Herrera 08/01/2016 10:54 AEdited and Signed by Lion Vásquez MD 08/01/2016 12:23 P
[2016-07-29] MEDS: VANCOMYCIN HCL 1,000 MG, VIAL MATE ADAPTER 1 EACH in D5W 250 ML IV SCH (18:44)
[2016-07-29 20:45] VITALS: BP 134/79
[2016-07-30 05:45] VITALS: BP 145/83
[2016-07-30] MEDS: VANCOMYCIN HCL 1,000 MG, VIAL MATE ADAPTER 1 EACH in D5W 250 ML IV SCH (05:45)
[2016-07-30] MEDS: KCL 20MEQ in NS 1000ML 1,000 ML IV SCH ×2 (05:45→21:03)
[2016-07-30] MEDS: HEPARIN SOD (PORCINE) 5000 UNITS/ML VIAL SQ SCH ×3 (05:45→21:03)
[2016-07-30 06:00] LABS: BASO % 0.2 % (0.0-1.0); EOS % 0.3 % (0.0-3.0); LARGE UNSTAINED CELL # 0.1 K/mm3 (0.0-0.4); LARGE UNSTAINED CELL % 1.3 % (0.0-4.0); LYMPH # 0.7 K/mm3 (1.5-4.5); LYMPH % 8.8 % (24.0-44.0); MEAN CORPUSCULAR HEMOGLOBIN 29.6 pg (27.0-33.0); MEAN CORPUSCULAR HGB CONC 33.7 g/dl (32.0-36.5); MEAN CORPUSCULAR VOLUME 87.6 fl (80.0-96.0); MONO # 0.6 K/mm3 (0.0-0.8); MONO % 6.9 % (0.0-5.0); NEUTROPHILS # 6.9 K/mm3 (1.8-7.7); NEUTROPHILS % 82.6 % (36.0-66.0); PLATELET COUNT, AUTOMATED 261 k/mm3 (150-450); RED CELL DISTRIBUTION WIDTH 14.3 % (11.5-14.5); WHITE BLOOD COUNT 8.3 K/mm3 (4.0-10.0)
[2016-07-30 06:12] LABS: ANION GAP 8 MEQ/L (8-16); BLOOD UREA NITROGEN 16 MG/DL (7-18); CALCIUM LEVEL 9.3 MG/DL (8.8-10.2); CARBON DIOXIDE LEVEL 39 MEQ/L (21-32); CHLORIDE LEVEL 95 MEQ/L (98-107); CREATININE FOR GFR 0.66 MG/DL (0.55-1.02); GLOMERULAR FILTRATION RATE > 60.0 (>39); GLUCOSE, FASTING 84 MG/DL (83-110); POTASSIUM SERUM 3.3 MEQ/L (3.5-5.1); SODIUM LEVEL 142 MEQ/L (136-145)
[2016-07-30] MEDS: KCL 10MEQ IN 100ML SWI (KRUN) 10 MEQ in APPROPRIATE DILUENT 1 EA IV SCH ×4 (08:10→09:32)
--- NOTE | 2016-07-30 08:50 | IPNPDOC ---
Subjective Date Seen The patient was seen on 07/30/16. Subjective Chief Complaint/HPI The patient is a 71-year-old female admitted with a reason for visit of Mental Status Alteration; Sepsis. Events since last encounter Patient was seen this morning at bedside. She continues to have NG tube in place and is nothing by mouth. She denies any abdominal pain. No nausea. No chest pain/pressure, shortness of breath, lightheadedness, dizziness, headache, fevers, chills. No bowel movement yesterday, but had some the day prior. Objective Physical Examination General Exam: Positive: Alert, Cooperative, No Acute Distress Eye Exam: Positive: Conjunctiva & lids normal, EOMI, Negative: Sclera icteric ENT Exam: Positive: Atraumatic, Pharynx Normal, Tongue Midline, Other ENT (NG tube in place) Neck Exam: Positive: Supple, Negative: thyromegaly Chest Exam: Positive: Clear to auscultation, Normal air movement Heart Exam: Positive: Rate Normal, Regular Rhythm, Normal S1, Normal S2 Abdomen Exam: Positive: Normal bowel sounds, Soft, Negative: Tenderness Extremity Exam: Positive: Normal pulses, Negative: Cyanosis, Edema, Tenderness Skin Exam: Positive: Nl turgor and temperature, Negative: Rash Neuro Exam: Positive: Normal Speech, Cranial Nerves 3-12 NL Assessment /Plan Problems (1) Sepsis Status: Acute Response to Treatment: Improving Problem Specific Plan: Monitor Clinically Problem Text: * Secondary to urinary tract infection * Was initiated on cefepime and vancomycin on 07/26 * Remains on vancomycin (2) Mental status alteration Status: Acute Response to Treatment: Improving Problem Specific Plan: Monitor Clinically Problem Text: * Likely secondary to infection * Mentation is back to baseline (3) UTI (urinary tract infection) Status: Acute Problem Specific Plan: Monitor Clinically Problem Text: * Initiated on cefepime and vancomycin on 07/26, remains on vancomycin given that she is NPO * Urine culture grew Staphylococcus hominis, with history of chronic nephrostomy tubes * Blood cultures show no growth thus far * Afebrile, leukocytosis has resolved (4) Hypokalemia Status: Acute Problem Specific Plan: Monitor Clinically, Repeat Labs Problem Text: * She has only had GI loss via vomiting * Received IV and by mouth supplementation (5) Gastric mass Status: Acute Problem Specific Plan: Consult Specialist, Monitor Clinically, Repeat Tests Problem Text: * Upper GI series found a large irregular mass of the antrum involving the pylorus, causing partial obstruction * Has NG tube in place * Surgery was consulted, will have upper endoscopy on Monday to evaluate and biopsy (6) Nausea and vomiting Status: Acute Problem Specific Plan: Monitor Clinically Problem Text: * Upper GI series/abd xray revealed a large irregular mass in the antrum extending to the pylorus causing partial obstruction * Likely the cause of nausea & vomiting * Antiemetics as needed (7) Metabolic alkalosis Status: Acute Response to Treatment: Improving Problem Specific Plan: Monitor Clinically Problem Text: * Improved, likely secondary from hypokalemia and volume contraction * Will continue to treat underlying causes * Continue IV hydration (8) Acute renal failure Status: Resolved Response to Treatment: Improving Problem Specific Plan: Monitor Clinically, Repeat Labs Problem Text: * Improved with IV hydration * Continue to monitor renal function (9) Hydroureteronephrosis Status: Chronic Problem Specific Plan: Monitor Clinically Problem Text: * 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 * She reports that nephrostomy tubes were changed in May * Nephrostomy tubes have been draining well, decreased output was denied on admission * She was supposed to have urological procedure (ureterolysis, ureteral implantation, possible flap and double-J stent placement) on July 26, however came to the emergency department instead * Will need to schedule follow-up with urology once acute issues have resolved (10) Hyponatremia Status: Resolved Response to Treatment: Improving Problem Specific Plan: Repeat Labs Problem Text: * Sodium level is within normal (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 No cranial nerve deficits. Patient is asymptomatic. * Spoke to the neurosurgeon show operations supervisor, Dr Brower and he stated that patient could just followup with their office on discharge, given incidental finding without SAH. (12) HTN (hypertension) Status: Chronic Problem Specific Plan: Monitor Clinically Problem Text: * Blood pressure stable * Continue amlodipine (13) COPD (chronic obstructive pulmonary disease) Status: Chronic Problem Specific Plan: Monitor Clinically Problem Text: * Breathing is stable and at baseline * Albuterol as needed (14) Hyperparathyroidism Status: Chronic Problem Text: * Calcium level is within normal Plan/VTE VTE Prophylaxis Ordered?: Yes (heparin) VS, I&O, 24H, Fishbone Vital Signs/I&O Vital Signs Date Time Temp Pulse Resp B/P (MAP) Pulse Ox O2 Delivery O2 Flow Rate FiO2 07/30/16 05:45 97.5 82 18 145/83 (103) 95 Nasal Cannula 2.0 I&O- Last 24 Hours up to 6 AM 07/30/16 06:00 Intake Total 1565 ml Output Total 2575 ml Balance -1010 ml Laboratory Data CBC/BMP Laboratory Tests 07/30/16 05:31 Red Blood Count 4.82, Mean Corpuscular Volume 87.6, Mean Corpuscular Hemoglobin 29.6, Mean Corpuscular Hemoglobin Concent 33.7, Red Cell Distribution Width 14.3 , Neutrophils (%) (Auto) 82.6 H, Lymphocytes (%) (Auto) 8.8 L, Monocytes (%) ( Auto) 6.9 H, Eosinophils (%) (Auto) 0.3, Basophils (%) (Auto) 0.2, Neutrophils # (Auto) 6.9, Lymphocytes # (Auto) 0.7 L, Monocytes # (Auto) 0.6, Eosinophils # (Auto) 0.0, Basophils # (Auto) 0.0, Calcium Level 9.3 Microbiology Microbiology 07/26/16 Blood Culture - Preliminary, Resulted No Growth after 72 hours. All specime... 07/26/16 Blood Culture - Preliminary, Resulted No Growth after 72 hours. All specime... 07/26/16 Urine Culture - Final, Complete Staphylococcus Hominis Ssp Iza Staphylococcus Hominis Ssp Iza#2 07/26/16 Urine Culture - Final, Complete Staphylococcus Hominis Ssp Iza GME ATTESTATION GME ATTESTATION My preceptor for this patient encounter was physically present in the building during the encounter and was fully available. As needed, all aspects of the patient interview, examination, medical decision making process, and medical care plan development were reviewed and approved by the preceptor. Preceptor is aware and concurs with the plan as stated in the body of this note and will attest to such by his/her cosignature. JORGE MOE DO July 30, 2016 08:50
[2016-07-30] MEDS: amLODIPine 10 MG TAB PO SCH (09:31)
[2016-07-30 14:00] VITALS: BP 146/83
[2016-07-30] MEDS ORDERED: GLUCOSE 4 GM CHEW TABLET PO PRN (15:30)
[2016-07-30] MEDS ORDERED: GLUCAGON FOR INJ 1 MG VIAL (J1610) SC PRN (15:30)
[2016-07-30] MEDS ORDERED: DEXTROSE 50% 50 ML SYRINGE IV PRN (15:30)
[2016-07-30] MEDS: AMINO AC/ELECTROLYTE/DEX/CALC 1,000 ML IV SCH (15:59)
[2016-07-30] MEDS: HumaLOG INSULIN (NovoLOG) PER UNIT SC SCH ×2 (17:47→23:52)
[2016-07-30] MEDS ORDERED: FAT EMULSION IV 20% 500 ML IV SCH (18:00)
[2016-07-30 22:00] VITALS: BP 148/86
[2016-07-30] MEDS: ACETAMINOPHEN TAB 650MG DOSE (2X325MG) PO PRN (23:08)
[2016-07-31] MEDS: VANCOMYCIN HCL 1,000 MG, VIAL MATE ADAPTER 1 EACH in D5W 250 ML IV SCH ×2 (00:11→17:50)
[2016-07-31 06:00] VITALS: BP 155/82
[2016-07-31 06:20] LABS: BASO % 0.2 % (0.0-1.0); EOS % 0.4 % (0.0-3.0); LARGE UNSTAINED CELL # 0.1 K/mm3 (0.0-0.4); LARGE UNSTAINED CELL % 1.1 % (0.0-4.0); LYMPH # 0.7 K/mm3 (1.5-4.5); LYMPH % 7.7 % (24.0-44.0); MEAN CORPUSCULAR HEMOGLOBIN 27.6 pg (27.0-33.0); MEAN CORPUSCULAR HGB CONC 32.2 g/dl (32.0-36.5); MEAN CORPUSCULAR VOLUME 85.7 fl (80.0-96.0); MONO # 0.6 K/mm3 (0.0-0.8); MONO % 7.8 % (0.0-5.0); NEUTROPHILS # 6.6 K/mm3 (1.8-7.7); NEUTROPHILS % 82.8 % (36.0-66.0); PLATELET COUNT, AUTOMATED 311 k/mm3 (150-450); RED CELL DISTRIBUTION WIDTH 14.4 % (11.5-14.5)
[2016-07-31] MEDS: AMINO AC/ELECTROLYTE/DEX/CALC 1,000 ML IV SCH ×2 (06:24→19:39)
[2016-07-31] MEDS: HEPARIN SOD (PORCINE) 5000 UNITS/ML VIAL SQ SCH ×3 (06:24→21:41)
[2016-07-31 06:30] LABS: ANION GAP 5 MEQ/L (8-16); BLOOD UREA NITROGEN 15 MG/DL (7-18); CALCIUM LEVEL 9.7 MG/DL (8.8-10.2); CARBON DIOXIDE LEVEL 39 MEQ/L (21-32); CHLORIDE LEVEL 95 MEQ/L (98-107); CREATININE FOR GFR 0.66 MG/DL (0.55-1.02); GLOMERULAR FILTRATION RATE > 60.0 (>39); GLUCOSE, FASTING 137 MG/DL (83-110); POTASSIUM SERUM 3.3 MEQ/L (3.5-5.1); SODIUM LEVEL 139 MEQ/L (136-145)
[2016-07-31] MEDS: HumaLOG INSULIN (NovoLOG) PER UNIT SC SCH ×3 (06:34→17:51)
[2016-07-31] MEDS: amLODIPine 10 MG TAB PO SCH (08:13)
[2016-07-31] MEDS: KCL 20MEQ in NS 1000ML 1,000 ML IV SCH ×2 (08:13→19:39)
--- NOTE | 2016-07-31 12:43 | IPNPDOC ---
Subjective Date Seen The patient was seen on 07/31/16. Subjective Chief Complaint/HPI The patient is a 71-year-old female admitted with a reason for visit of Mental Status Alteration; Sepsis. Constitutional: Denies: Chills, Fever, Night Sweats Objective Physical Examination General Exam: Positive: Alert, Cooperative, No Acute Distress Eye Exam: Positive: Conjunctiva & lids normal, EOMI, Negative: Sclera icteric ENT Exam: Positive: Atraumatic, Pharynx Normal, Tongue Midline, Other ENT (NG tube in place) Neck Exam: Positive: Supple, Negative: thyromegaly Chest Exam: Positive: Clear to auscultation, Normal air movement Heart Exam: Positive: Rate Normal, Regular Rhythm, Normal S1, Normal S2 Abdomen Exam: Positive: Normal bowel sounds, Soft, Negative: Tenderness Extremity Exam: Positive: Normal pulses, Negative: Cyanosis, Edema, Tenderness Skin Exam: Positive: Nl turgor and temperature, Negative: Rash Neuro Exam: Positive: Normal Speech, Cranial Nerves 3-12 NL Assessment /Plan Problems (1) Gastric mass Status: Acute Problem Specific Plan: Consult Specialist, Monitor Clinically, Repeat Tests Problem Text: * Upper GI series found a large irregular mass of the antrum involving the pylorus, causing partial obstruction * Has NG tube in place * Surgery was consulted, will have upper endoscopy on Monday to evaluate and biopsy * continue PPN for now, will order picc line in am for TPN (2) Sepsis Status: Acute Response to Treatment: Improving Problem Specific Plan: Monitor Clinically Problem Text: * Secondary to urinary tract infection * Was initiated on cefepime and vancomycin on 07/26 * Remains on vancomycin (3) Mental status alteration Status: Acute Response to Treatment: Improving Problem Specific Plan: Monitor Clinically Problem Text: * Likely secondary to infection * Mentation is back to baseline (4) UTI (urinary tract infection) Status: Acute Response to Treatment: Improving Problem Specific Plan: Monitor Clinically Problem Text: * Initiated on cefepime and vancomycin on 07/26, remains on vancomycin given that she is NPO * Urine culture grew Staphylococcus hominis, with history of chronic nephrostomy tubes * Blood cultures show no growth thus far * Afebrile, leukocytosis has resolved (5) Hypokalemia Status: Acute Problem Specific Plan: Monitor Clinically, Repeat Labs Problem Text: * She has only had GI loss via vomiting * Received IV and by mouth supplementation (6) Nausea and vomiting Status: Acute Problem Specific Plan: Monitor Clinically Problem Text: * Upper GI series/abd xray revealed a large irregular mass in the antrum extending to the pylorus causing partial obstruction * Likely the cause of nausea & vomiting * Antiemetics as needed (7) Metabolic alkalosis Status: Acute Response to Treatment: Improving Problem Specific Plan: Monitor Clinically Problem Text: * Improved, likely secondary from hypokalemia and volume contraction * Will continue to treat underlying causes * Continue IV hydration (8) Acute renal failure Status: Resolved Response to Treatment: Improving Problem Specific Plan: Monitor Clinically, Repeat Labs Problem Text: * Improved with IV hydration * Continue to monitor renal function (9) Hydroureteronephrosis Status: Chronic Problem Specific Plan: Monitor Clinically Problem Text: * 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 * She reports that nephrostomy tubes were changed in May * Nephrostomy tubes have been draining well, decreased output was denied on admission * She was supposed to have urological procedure (ureterolysis, ureteral implantation, possible flap and double-J stent placement) on July 26, however came to the emergency department instead * Will need to schedule follow-up with urology once acute issues have resolved (10) Hyponatremia Status: Resolved Response to Treatment: Improving Problem Specific Plan: Repeat Labs Problem Text: * Sodium level is within normal (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 No cranial nerve deficits. Patient is asymptomatic. * Spoke to the neurosurgeon contract administration coordinator, Dr Brower and he stated that patient could just followup with their office on discharge, given incidental finding without SAH. (12) HTN (hypertension) Status: Chronic Problem Specific Plan: Monitor Clinically Problem Text: * Blood pressure stable * Continue amlodipine (13) COPD (chronic obstructive pulmonary disease) Status: Chronic Problem Specific Plan: Monitor Clinically Problem Text: * Breathing is stable and at baseline * Albuterol as needed (14) Hyperparathyroidism Status: Chronic Problem Text: * Calcium level is within normal Plan/VTE VTE Prophylaxis Ordered?: Yes (heparin) VS, I&O, 24H, Fishbone Vital Signs/I&O Vital Signs Date Time Temp Pulse Resp B/P (MAP) Pulse Ox O2 Delivery O2 Flow Rate FiO2 07/31/16 09:00 Room Air 07/31/16 08:13 86 155/82 07/31/16 07:14 97 07/31/16 06:00 97.8 20 1.0 I&O- Last 24 Hours up to 6 AM 07/31/16 05:59 Intake Total 3405 ml Output Total 2175 ml Balance 1230 ml Laboratory Data 24H LABS Laboratory Tests 2 07/30/16 17:29: Bedside Glucose (Misc Panel) 115H 07/30/16 23:34: Bedside Glucose (Misc Panel) 106 07/31/16 05:27: White Blood Count 8.0, Red Blood Count 5.14, Hemoglobin 14.2, Hematocrit 44.0, Mean Corpuscular Volume 85.7, Mean Corpuscular Hemoglobin 27.6, Mean Corpuscular Hemoglobin Concent 32.2, Red Cell Distribution Width 14.4, Platelet Count 311, Neutrophils (%) (Auto) 82.8H, Lymphocytes (%) (Auto) 7.7L, Monocytes (%) (Auto) 7.8H, Eosinophils (%) (Auto) 0.4, Basophils (%) (Auto) 0.2, Neutrophils # (Auto) 6.6, Lymphocytes # (Auto) 0.7L, Monocytes # (Auto) 0.6, Eosinophils # (Auto) 0.0, Basophils # (Auto) 0.0, Large Unclassified Cells % 1.1 , Large Unclassified Cells # 0.1, Anion Gap 5L, Glomerular Filtration Rate > 60.0, Blood Urea Nitrogen 15, Creatinine 0.66, Sodium Level 139, Potassium Level 3.3L, Chloride Level 95L, Carbon Dioxide Level 39H, Calcium Level 9.7 07/31/16 11:44: Bedside Glucose (Misc Panel) 132H CBC/BMP Laboratory Tests 07/31/16 05:27 Red Blood Count 5.14, Mean Corpuscular Volume 85.7, Mean Corpuscular Hemoglobin 27.6, Mean Corpuscular Hemoglobin Concent 32.2, Red Cell Distribution Width 14.4 , Neutrophils (%) (Auto) 82.8 H, Lymphocytes (%) (Auto) 7.7 L, Monocytes (%) ( Auto) 7.8 H, Eosinophils (%) (Auto) 0.4, Basophils (%) (Auto) 0.2, Neutrophils # (Auto) 6.6, Lymphocytes # (Auto) 0.7 L, Monocytes # (Auto) 0.6, Eosinophils # (Auto) 0.0, Basophils # (Auto) 0.0, Calcium Level 9.7 Microbiology Microbiology 07/26/16 Blood Culture - Final, Complete NO GROWTH AFTER 5 DAYS 07/26/16 Blood Culture - Final, Complete NO GROWTH AFTER 5 DAYS 07/26/16 Urine Culture - Final, Complete Staphylococcus Hominis Ssp Iza Staphylococcus Hominis Ssp Iza#2 07/26/16 Urine Culture - Final, Complete Staphylococcus Hominis Ssp Iza MILAGROS SAMUEL DO July 31, 2016 12:43
[2016-07-31] MEDS: KCL 10MEQ IN 100ML SWI (KRUN) 10 MEQ in APPROPRIATE DILUENT 1 EA IV SCH ×4 (13:23→14:15)
--- NOTE | 2016-07-31 17:41 | PHACANCOPD ---
PHARMACY VANCOMYCIN DOSING Pt Demographics Demographics Patient Age:71 , Weight:67.100 , Gender: female Adjusted Body Weight Date: 07/26/16, Adjusted Body Weight: Kg Events Past 24 Hours Events Past 24 Hours: YES: Change in CrCl, NO: Dialysis, Diuretic Therapy, Fever, Elevation in WBC, Pending Diagnostics , Pending Procedures, Other Vancomycin Vancomycin indication: SEPSIS Vancomycin Target Ranges: 10-20 mcg/ml Vancomycin Load Y/N: No Load Dose Date Time Vancomycin Load Dose: Date: Time: Vancomycin Dose Date: 07/29/16. Current Vancomycin Dose: [1g IV q18h @06] Date: 07/26/16. Current Vancomycin Dose: [1g IV Q24H] Intermittent Dosing?: No Labs Labs Item Value Date Time Vancomycin Level Trough 16.0 UG/ML 07/31/16 1652 Vancomycin Level Trough 8.5 UG/ML L 07/29/16 1755 Creatinine 0.74 MG/DL 07/29/16 0601 Creatinine 0.66 MG/DL 07/30/16 0531 Creatinine 0.66 MG/DL 07/31/16 0527 Creatinine 1.06 MG/DL H 07/28/16 0712 White Blood Count 8.3 K/mm3 07/30/16 0531 White Blood Count 8.0 K/mm3 07/31/16 0527 White Blood Count 10.4 K/mm3 H 07/29/16 0601 Micro Microbiology 07/26/16 Blood Culture - Final, Complete NO GROWTH AFTER 5 DAYS 07/26/16 Blood Culture - Final, Complete NO GROWTH AFTER 5 DAYS 07/26/16 Urine Culture - Final, Complete Staphylococcus Hominis Ssp Iza Staphylococcus Hominis Ssp Iza#2 07/26/16 Urine Culture - Final, Complete Staphylococcus Hominis Ssp Iza Creatinine Clearance Date:07/31/16. Creatinine Clearance: [~75 ml/min]. Date:07/26/16. Estimated Creatinine Clearance: [~32.7ml/min]. Assessment and Plan Maintaining Current Dose?: Yes Reason for dose change: No Dose Change Pharmacist Note Pharmacist Note Date: 07/31/16. Pharmacist note: Vanco trough drawn prior to 4th dose was low ( 8.5), I changed her dosing to 1g IV q18h to begin ~12 hours after her last dose. Repeat trough this afternoon was 16. I will continue her current dosing. Urine cultures from nephrostomy tube positive for Staph hominis ([facility] = 0.5). Cefepime has been discontinued. We will continue to monitor. 07/28/16: I have scheduled a vancomycin trough for 07/29/16 @1800, prior to the fourth dose. The patient's scr has improved, and output remains stable. We will continue to monitor and follow-up on trough level tomorrow, adjusting dose accordingly. Date: 07/26/16. Pharmacist note: Day #1 empiric cefepime/vanco initiated at 1g IV Q24H for the treatment of sepsis possibly secondary to a complicated UTI - aiming for a goal trough of 10-20mcg/ml. The patient has a PMH of bilateral hydroureteronephrosis s/p nephrostomy tubes and double j stent, as well as a hx of ARF - baseline scr ~ <1. WBC, lactic acid, and CRP are currently elevated. Patient is afebrile. No PMH of MRSA or vanco use here at [facility]. Blood and urine cultures are pending. We will continue to monitor the patient's kidney function and schedule a trough/adjust dosing if needed. Liam Patterson Pharm.D. July 31, 2016 17:41
[2016-07-31] MEDS ORDERED: FAT EMULSION IV 20% 500 ML IV SCH (18:00)
[2016-07-31 22:00] VITALS: BP 162/96
[2016-08-01] MEDS: HumaLOG INSULIN (NovoLOG) PER UNIT SC SCH ×5 (00:04→23:51)
[2016-08-01 05:27] VITALS: BP 158/92
[2016-08-01] MEDS: KCL 20MEQ in NS 1000ML 1,000 ML IV SCH ×2 (05:38→15:56)
[2016-08-01 05:56] LABS: BASO % 0.3 % (0.0-1.0); EOS % 0.4 % (0.0-3.0); LARGE UNSTAINED CELL # 0.1 K/mm3 (0.0-0.4); LYMPH # 0.8 K/mm3 (1.5-4.5); LYMPH % 8.6 % (24.0-44.0); MEAN CORPUSCULAR HEMOGLOBIN 28.2 pg (27.0-33.0); MEAN CORPUSCULAR HGB CONC 32.4 g/dl (32.0-36.5); MEAN CORPUSCULAR VOLUME 87.2 fl (80.0-96.0); MONO # 0.5 K/mm3 (0.0-0.8); MONO % 5.9 % (0.0-5.0); NEUTROPHILS # 7.5 K/mm3 (1.8-7.7); NEUTROPHILS % 83.8 % (36.0-66.0); PLATELET COUNT, AUTOMATED 272 k/mm3 (150-450); RED CELL DISTRIBUTION WIDTH 14.5 % (11.5-14.5); WHITE BLOOD COUNT 8.9 K/mm3 (4.0-10.0)
[2016-08-01] MEDS: HEPARIN SOD (PORCINE) 5000 UNITS/ML VIAL SQ SCH (06:00)
[2016-08-01 06:19] LABS: ANION GAP 9 MEQ/L (8-16); BLOOD UREA NITROGEN 19 MG/DL (7-18); CALCIUM LEVEL 9.8 MG/DL (8.8-10.2); CARBON DIOXIDE LEVEL 35 MEQ/L (21-32); CHLORIDE LEVEL 95 MEQ/L (98-107); CREATININE FOR GFR 0.86 MG/DL (0.55-1.02); GLOMERULAR FILTRATION RATE > 60.0 (>39); GLUCOSE, FASTING 143 MG/DL (83-110); POTASSIUM SERUM 3.8 MEQ/L (3.5-5.1); SODIUM LEVEL 139 MEQ/L (136-145)
[2016-08-01] MEDS: amLODIPine 10 MG TAB PO SCH (08:33)
[2016-08-01] MEDS: AMINO AC/ELECTROLYTE/DEX/CALC 1,000 ML IV SCH (09:15)
--- NOTE | 2016-08-01 09:21 | CR.PDOC ---
[facility] Consultation Consultation DATE OF CONSULTATION: July 26, 2016 at 13:55 PRIMARY CARE PHYSICIAN: REFERRING PROVIDER: [Dr. Tian Enriquez] ATTENDING PHYSICIAN: REASON FOR CONSULTATION/CHIEF COMPLAINT: [Gastric mass]. HISTORY OF PRESENT ILLNESS: [Patient's currently admitted to the hospital for change in mentation. She reports a chronic history of intermittent episodes of nausea, vomiting, diarrhea and significant weight loss of 50 pounds. She underwent upper GI series today and a prepyloric irregular shaped mass was found which seemed to be partially obstructing the gastric outlet. She denies any significant family history for gastric malignancy.]. ALLERGIES: Please see below. HOME MEDICATIONS: Please see below. PAST MEDICAL HISTORY: 1. . 2. . PAST SLaboratory Tests 2 07/29/16 06:01: White Blood Count 10.4H, Red Blood Count 4.98, Hemoglobin 14.3, Hematocrit 43.1 , Mean Corpuscular Volume 86.6, Mean Corpuscular Hemoglobin 28.7, Mean Corpuscular Hemoglobin Concent 33.2, Red Cell Distribution Width 14.1, Platelet Count 284, Neutrophils (%) (Auto) 87.2H, Lymphocytes (%) (Auto) 5.7L, Monocytes (%) (Auto) 5.4H, Eosinophils (%) (Auto) 0.3, Basophils (%) (Auto) 0.2, Neutrophils # (Auto) 9.0H, Lymphocytes # (Auto) 0.6L, Monocytes # (Auto) 0.6, Eosinophils # (Auto) 0.0, Basophils # (Auto) 0.0, Large Unclassified Cells % 1.1 , Large Unclassified Cells # 0.1, Anion Gap 5L, Glomerular Filtration Rate > 60.0, Blood Urea Nitrogen 19H, Creatinine 0.74, Sodium Level 136, Potassium Level 3.2L, Chloride Level 92L, Carbon Dioxide Level 39H, Calcium Level 9.1, Magnesium Level 1.9 URGICAL HISTORY: 1. 2. FAMILY HISTORY: Father: Mother: Siblings: Children: Hereditary Diseases: Unexpected deaths due to medical reasons: SOCIAL HISTORY: Marital status and/or living arrangements: Children: Employment: Tobacco use: ETOH: Illicit drug use: IV drug use: Other relevant social factors: REVIEW OF SYSTEMS: CONSTITUTIONAL: . HEENT: . CARDIOVASCULAR: . RESPIRATORY: . GENITOURINARY: . MUSCULOSKELETAL: . GASTROINTESTINAL: . SKIN: . NEUROLOGICAL: . PSYCHIATRIC: . ENDOCRINE: . HEMATOLOGIC/LYMPHATIC: . ALLERGIC/IMMUNOLOGIC: . PHYSICAL EXAMINATION: VITAL SIGNS: Please see below. GENERAL APPEARANCE: . HEENT: . RESPIRATORY: . CARDIOVASCULAR: . ABDOMEN: . EXTREMITIES: . NEUROLOGICAL: . PSYCHIATRIC: . LABORATORY DATA: Please see below. ASSESSMENT/PLAN: 1. Possible gastric mass This was seen in the previously done an upper GI series. Patient does act like she has gastric outlet obstruction with continued vomiting and food intolerance as well as typical electrolyte abnormality secondary to this. Recommend start her on TPN. Correct electrolytes. We will plan to do an upper GI endoscopy next week to verify the presence of the mass and biopsy this. 2. Her history of possible retroperitoneal fibrosis, abdominal examination of fixed abdominal structures at the midline suspicious for gastric malignancy with carcinomatosis. Depending on the results of the endoscopy may need further studies to verify this including repeat CT of the abdomen and pelvis. Vital Signs/I&O Vital Signs Date Time Temp Pulse Resp B/P (MAP) Pulse Ox O2 Delivery O2 Flow Rate FiO2 07/29/16 09:00 Nasal Cannula 2.0 07/29/16 06:00 97.5 66 18 141/86 (104) 92 I&O- Last 24 Hours up to 6 AM 07/29/16 06:00 Intake Total 2410 ml Output Total 1225 ml Balance 1185 ml Laboratory Data Labs 24H Laboratory Tests 2 07/29/16 06:01: White Blood Count 10.4H, Red Blood Count 4.98, Hemoglobin 14.3, Hematocrit 43.1 , Mean Corpuscular Volume 86.6, Mean Corpuscular Hemoglobin 28.7, Mean Corpuscular Hemoglobin Concent 33.2, Red Cell Distribution Width 14.1, Platelet Count 284, Neutrophils (%) (Auto) 87.2H, Lymphocytes (%) (Auto) 5.7L, Monocytes (%) (Auto) 5.4H, Eosinophils (%) (Auto) 0.3, Basophils (%) (Auto) 0.2, Neutrophils # (Auto) 9.0H, Lymphocytes # (Auto) 0.6L, Monocytes # (Auto) 0.6, Eosinophils # (Auto) 0.0, Basophils # (Auto) 0.0, Large Unclassified Cells % 1.1 , Large Unclassified Cells # 0.1, Anion Gap 5L, Glomerular Filtration Rate > 60.0, Blood Urea Nitrogen 19H, Creatinine 0.74, Sodium Level 136, Potassium Level 3.2L, Chloride Level 92L, Carbon Dioxide Level 39H, Calcium Level 9.1, Magnesium Level 1.9 CBC/BMP Laboratory Tests 07/29/16 06:01 Red Blood Count 4.98, Mean Corpuscular Volume 86.6, Mean Corpuscular Hemoglobin 28.7, Mean Corpuscular Hemoglobin Concent 33.2, Red Cell Distribution Width 14.1 , Neutrophils (%) (Auto) 87.2 H, Lymphocytes (%) (Auto) 5.7 L, Monocytes (%) ( Auto) 5.4 H, Eosinophils (%) (Auto) 0.3, Basophils (%) (Auto) 0.2, Neutrophils # (Auto) 9.0 H, Lymphocytes # (Auto) 0.6 L, Monocytes # (Auto) 0.6, Eosinophils # (Auto) 0.0, Basophils # (Auto) 0.0, Calcium Level 9.1 Microbiology Microbiology 07/26/16 Blood Culture - Preliminary, Resulted No Growth after 48 hours. All Specime... 07/26/16 Blood Culture - Preliminary, Resulted No Growth after 72 hours. All specime... 07/26/16 Urine Culture, Received Pending 07/26/16 Urine Culture - Final, Complete Staphylococcus Hominis Ssp Iza Allergies Coded Allergies: Penicillins (Verified Allergy, Mild, Rash / Hives, 07/18/16) Home Medications Scheduled Amlodipine Besylate (Amlodipine Besylate) 10 Mg Tab, 10 MG PO DAILY, (Reported) Potassium Chloride (Klor-Con M20) 20 Meq Tabcr, 20 MEQ PO BID, (Reported) Scheduled PRN Metoclopramide HCl (Metoclopramide HCl) 5 Mg Tab, 5 MG PO TID PRN for STOMACH PAIN, (Reported) Ondansetron HCl (Zofran) 4 Mg Tab, 4 MG PO TID PRN for NAUSEA OR VOMITING, ( Reported) Assessment Prepyloric mass found on upper GI series done today with partial gastric outlet obstruction history of ureteral obstruction s/p percutaneous nephrostomy bilateral suspected due to retroperitoneal fibrosis Recommendation and Plan Nasogastric tube has been placed to decompress the stomach. We will schedule her for upper GI endoscopy next week. Recommend make sure electrolytes are corrected. Plan to biopsy the mass. If this returns as something malignant. We' ll proceed with staging the mass. We'll need to discuss with family their options Her abdominal exam is concerning for some hardness, fixed intraabdominal contents. Also the history of ureteral obstruction with recent nephrostomy tube placement is likewise suspicious that the gastric mass may be related to all these findings. Review of the Ct of abdomen and pelvis did not show any mesenteric mass. Past Medical History Allergies Coded Allergies: Penicillins (Verified Allergy, Mild, Rash / Hives, 07/18/16) Medications Scheduled Amlodipine Besylate (Amlodipine Besylate) 10 Mg Tab, 10 MG PO DAILY Potassium Chloride (Klor-Con M20) 20 Meq Tabcr, 20 MEQ PO BID Scheduled PRN Metoclopramide HCl (Metoclopramide HCl) 5 Mg Tab, 5 MG PO TID PRN for STOMACH PAIN Ondansetron HCl (Zofran) 4 Mg Tab, 4 MG PO TID PRN for NAUSEA OR VOMITING SOFIE BEAUCHAMP MD July 29, 2016 12:11
--- NOTE | 2016-08-01 10:13 | IPNPDOC ---
Subjective Date Seen The patient was seen on 08/01/16. Subjective Chief Complaint/HPI The patient is a 71-year-old female admitted with a reason for visit of Mental Status Alteration; Sepsis. Events since last encounter Patient was sent his morning at bedside. No acute overnight events. Continues tohave NG tube in place. Will have upper endoscopy this AM. Will need PICC line for TPN. She denies any nausea or abd pain. No chest pain/pressure, SOB, lightheadedness, dizziness, fevers, chills. Objective Physical Examination General Exam: Positive: Alert, Cooperative, No Acute Distress Eye Exam: Positive: Conjunctiva & lids normal, EOMI, Negative: Sclera icteric ENT Exam: Positive: Atraumatic, Pharynx Normal, Tongue Midline, Other ENT (NG tube in place) Neck Exam: Positive: Supple, Negative: thyromegaly Chest Exam: Positive: Clear to auscultation, Normal air movement Heart Exam: Positive: Rate Normal, Regular Rhythm, Normal S1, Normal S2 Abdomen Exam: Positive: BS Hypoactive, Negative: Soft, Tenderness Extremity Exam: Positive: Normal pulses, Negative: Cyanosis, Edema, Tenderness Skin Exam: Positive: Nl turgor and temperature, Negative: Rash Neuro Exam: Positive: Normal Speech, Cranial Nerves 3-12 NL Assessment /Plan Problems (1) Gastric mass Status: Acute Problem Specific Plan: Consult Specialist, Monitor Clinically, Repeat Tests Problem Text: * Upper GI series found a large irregular mass of the antrum involving the pylorus, causing partial obstruction * Has NG tube in place * Surgery was consulted, will have upper endoscopy today to evaluate and biopsy * continue PPN for now, PICC line ordered for TPN (2) Sepsis Status: Acute Response to Treatment: Improving Problem Specific Plan: Monitor Clinically Problem Text: * Secondary to urinary tract infection * Was initiated on cefepime and vancomycin on 07/26 * Remains on vancomycin (3) Mental status alteration Status: Acute Response to Treatment: Improving Problem Specific Plan: Monitor Clinically Problem Text: * Likely secondary to infection * Mentation is back to baseline (4) UTI (urinary tract infection) Status: Acute Response to Treatment: Improving Problem Specific Plan: Monitor Clinically Problem Text: * Initiated on cefepime and vancomycin on 07/26, remains on vancomycin given that she is NPO * Urine culture grew Staphylococcus hominis, with history of chronic nephrostomy tubes * Blood cultures show no growth * Afebrile, leukocytosis has resolved (5) Hypokalemia Status: Acute Problem Specific Plan: Monitor Clinically, Repeat Labs Problem Text: * She has only had GI loss via vomiting * Received IV and by mouth supplementation (6) Nausea and vomiting Status: Acute Problem Specific Plan: Monitor Clinically Problem Text: * Upper GI series/abd xray revealed a large irregular mass in the antrum extending to the pylorus causing partial obstruction * Likely the cause of nausea & vomiting * Antiemetics as needed (7) Metabolic alkalosis Status: Acute Response to Treatment: Improving Problem Specific Plan: Monitor Clinically Problem Text: * Improved, likely secondary from hypokalemia and volume contraction * Will continue to treat underlying causes * Continue IV hydration (8) Acute renal failure Status: Resolved Response to Treatment: Improving Problem Specific Plan: Monitor Clinically, Repeat Labs Problem Text: * Improved with IV hydration * Continue to monitor renal function (9) Hydroureteronephrosis Status: Chronic Problem Specific Plan: Monitor Clinically Problem Text: * 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 * She reports that nephrostomy tubes were changed in May * Nephrostomy tubes have been draining well, decreased output was denied on admission * She was supposed to have urological procedure (ureterolysis, ureteral implantation, possible flap and double-J stent placement) on July 26, however came to the emergency department instead * Will need to schedule follow-up with urology once acute issues have resolved (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 No cranial nerve deficits. Patient is asymptomatic. * Spoke to the neurosurgeon slurry control operator helper, Dr Brower and he stated that patient could just followup with their office on discharge, given incidental finding without SAH. (11) HTN (hypertension) Status: Chronic Problem Specific Plan: Monitor Clinically Problem Text: * Blood pressure stable * Continue amlodipine (12) COPD (chronic obstructive pulmonary disease) Status: Chronic Problem Specific Plan: Monitor Clinically Problem Text: * Breathing is stable and at baseline * Albuterol as needed (13) Hyperparathyroidism Status: Chronic Problem Text: * Calcium level is within normal Plan/VTE VTE Prophylaxis Ordered?: Yes (heparin) VS, I&O, 24H, Fishbone Vital Signs/I&O Vital Signs Date Time Temp Pulse Resp B/P (MAP) Pulse Ox O2 Delivery O2 Flow Rate FiO2 08/01/16 05:27 97.9 104 22 158/92 (114) 98 Room Air 07/31/16 06:00 1.0 I&O- Last 24 Hours up to 6 AM 08/01/16 05:59 Intake Total 1310 ml Output Total 2225 ml Balance -915 ml Laboratory Data CBC/BMP Laboratory Tests 08/01/16 05:28 Red Blood Count 5.08, Mean Corpuscular Volume 87.2, Mean Corpuscular Hemoglobin 28.2, Mean Corpuscular Hemoglobin Concent 32.4, Red Cell Distribution Width 14.5 , Neutrophils (%) (Auto) 83.8 H, Lymphocytes (%) (Auto) 8.6 L, Monocytes (%) ( Auto) 5.9 H, Eosinophils (%) (Auto) 0.4, Basophils (%) (Auto) 0.3, Neutrophils # (Auto) 7.5, Lymphocytes # (Auto) 0.8 L, Monocytes # (Auto) 0.5, Eosinophils # (Auto) 0.0, Basophils # (Auto) 0.0, Calcium Level 9.8 Microbiology Microbiology 07/26/16 Blood Culture - Final, Complete NO GROWTH AFTER 5 DAYS 07/26/16 Blood Culture - Final, Complete NO GROWTH AFTER 5 DAYS 07/26/16 Urine Culture - Final, Complete Staphylococcus Hominis Ssp Iza Staphylococcus Hominis Ssp Iza#2 07/26/16 Urine Culture - Final, Complete Staphylococcus Hominis Ssp Iza GME ATTESTATION GME ATTESTATION My preceptor for this patient encounter was physically present in the building during the encounter and was fully available. As needed, all aspects of the patient interview, examination, medical decision making process, and medical care plan development were reviewed and approved by the preceptor. Preceptor is aware and concurs with the plan as stated in the body of this note and will attest to such by his/her cosignature. JORGE MOE DO August 01, 2016 10:13
[2016-08-01] MEDS: VANCOMYCIN HCL 1,000 MG, VIAL MATE ADAPTER 1 EACH in D5W 250 ML IV SCH ×2 (12:00→16:36)
--- NOTE | 2016-08-01 13:32 | ROOR ---
Patient Name: Briana Castellanos Procedure Date: 08/01/2016 12:38 PM Date of : 1945 Age: 71 Gender: Female Note Status: Finalized Procedure: Upper GI endoscopy Indications: Abnormal UGI series Providers: DO Chel Hurt MD: Hellen Bose NP Requesting Provider: Medicines: Propofol per Anesthesia Complications: No immediate complications. Estimated blood loss: Minimal. Procedure: Pre-Anesthesia Assessment: - Prior to the procedure, a History and Physical was performed, and patient medications and allergies were reviewed. The patient is competent. The risks and benefits of the procedure and the sedation options and risks were discussed with the patient. All questions were answered and informed consent was obtained. Patient identification and proposed procedure were verified by the physician, the nurse, the anesthesiologist and the telecommunications field technician in the procedure room. Mental Status Examination: alert and oriented. Airway Examination: normal oropharyngeal airway and neck mobility. Respiratory Examination: clear to auscultation. CV Examination: normal. Prophylactic Antibiotics: The patient does not require prophylactic antibiotics. Prior Anticoagulants: The patient has taken no previous anticoagulant or antiplatelet agents. ASA Grade Assessment: III - A patient with severe systemic disease. After reviewing the risks and benefits, the patient was deemed in satisfactory condition to undergo the procedure. The anesthesia plan was to use monitored anesthesia care (MAC). Immediately prior to administration of medications, the patient was re-assessed for adequacy to receive sedatives. The heart rate, respiratory rate, oxygen saturations, blood pressure, adequacy of pulmonary ventilation, and response to care were monitored throughout the procedure. The physical status of the patient was re-assessed after the procedure. The Endoscope was introduced through the mouth, and advanced to the prepyloric region, stomach. The upper GI endoscopy was accomplished without difficulty. The patient tolerated the procedure well. Findings: A small hiatal hernia was present. Estimated blood loss: none. A large, fungating, circumferential mass with oozing bleeding was found in the prepyloric region of the stomach. Biopsies were taken with a cold forceps for histology. Estimated blood loss was minimal. Moderate inflammation was found in the entire examined stomach. Biopsies were taken with a cold forceps for histology. Esophagitis was found. Impression: - Small hiatal hernia. 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 Biopsied. - Gastritis. Biopsied. - Esophagitis. Recommendation: - [facility]. - Await pathology results. Lion Molina DO 08/01/2016 1:32:02 PM This report has been signed electronically. Number of Addenda: 0 Note Initiated On: 08/01/2016 12:38 PM Estimated Blood Loss: Estimated blood loss was minimal.
[2016-08-01] MEDS ORDERED: LR 1,000 ML IV SCH (14:15)
[2016-08-01] MEDS ORDERED: ONDANSETRON 4MG/2ML VIAL (J2405) IV PRN (14:15)
[2016-08-01 15:15] VITALS: BP 156/84
[2016-08-01] MEDS ORDERED: AMINO AC/ELECTROLYTE/DEX/CALC 2,000 ML IV SCH (18:00)
[2016-08-01] MEDS ORDERED: FAT EMULSION IV 20% 500 ML IV SCH (18:00)
[2016-08-01 22:00] VITALS: BP 140/87
[2016-08-02] MEDS: KCL 20MEQ in NS 1000ML 1,000 ML IV SCH (03:05)
[2016-08-02] MEDS: SODIUM CHLORIDE 0.9% INJ 10 ML SYR IV SCH ×2 (05:08→18:07)
[2016-08-02] MEDS: HumaLOG INSULIN (NovoLOG) PER UNIT SC SCH ×4 (05:08→23:57)
[2016-08-02 05:42] LABS: MEAN CORPUSCULAR HEMOGLOBIN 27.8 pg (27.0-33.0); MEAN CORPUSCULAR HGB CONC 32.1 g/dl (32.0-36.5); MEAN CORPUSCULAR VOLUME 86.8 fl (80.0-96.0); PLATELET COUNT, AUTOMATED 249 k/mm3 (150-450); RED CELL DISTRIBUTION WIDTH 14.4 % (11.5-14.5); WHITE BLOOD COUNT 10.6 K/mm3 (4.0-10.0)
[2016-08-02 05:58] LABS: CALCIUM LEVEL 9.5 MG/DL (8.8-10.2); CREATININE FOR GFR 0.97 MG/DL (0.55-1.02); GLOMERULAR FILTRATION RATE 59.9 (>39); POTASSIUM SERUM 3.7 MEQ/L (3.5-5.1)
[2016-08-02 06:00] VITALS: BP 158/98
[2016-08-02] MEDS: amLODIPine 10 MG TAB PO SCH (08:25)
--- NOTE | 2016-08-02 08:45 | IPNPDOC ---
Subjective Date Seen The patient was seen on 08/02/16. Subjective Chief Complaint/HPI The patient is a 71-year-old female admitted with a reason for visit of Mental Status Alteration; Sepsis. Events since last encounter Patient was seen this morning at bedside. No acute overnight events. had upper endoscopy yesterday, no complications, pathology pending. Continues to have NG tube in place. Abdomen is firm and tender to palpation. She denies any nausea, vomiting, diarrhea, dizziness, headache, chest pain/pressure, shortness of breath. Vitals are stable. Afebrile, had a mild white count status post endoscopy. Objective Physical Examination General Exam: Positive: Alert, Cooperative, No Acute Distress Eye Exam: Positive: Conjunctiva & lids normal, EOMI, Negative: Sclera icteric ENT Exam: Positive: Atraumatic, Pharynx Normal, Tongue Midline, Other ENT (NG tube in place) Neck Exam: Positive: Supple, Negative: thyromegaly Chest Exam: Positive: Clear to auscultation, Normal air movement Heart Exam: Positive: Rate Normal, Regular Rhythm, Normal S1, Normal S2 Abdomen Exam: Positive: BS Hypoactive, Tenderness, Negative: Soft Extremity Exam: Positive: Edema (mild), Normal pulses, Negative: Cyanosis, Tenderness Skin Exam: Positive: Nl turgor and temperature, Negative: Rash Neuro Exam: Positive: Normal Speech, Cranial Nerves 3-12 NL Assessment /Plan Problems (1) Gastric mass Status: Acute Problem Specific Plan: Consult Specialist, Monitor Clinically, Repeat Tests Problem Text: * Upper GI series found a large irregular mass of the antrum involving the pylorus, causing partial obstruction * Has NG tube in place * Surgery consulted, she had upper endoscopy with biopsy on 08/01, awaiting pathology * PICC line in place, continue TPN * Has mild white count after procedure, will monitor for now * Will obtain abd/pelvis CT to rule out metastatic disease (2) Sepsis Status: Acute Response to Treatment: Improving Problem Specific Plan: Monitor Clinically Problem Text: * Secondary to urinary tract infection * Was initiated on cefepime and vancomycin on 07/26 * Remains on vancomycin, complete 10 day course (3) Urinary tract infection associated with nephrostomy catheter Status: Acute Response to Treatment: Improving Problem Specific Plan: Monitor Clinically Problem Text: * Initiated on cefepime and vancomycin on 07/26, remains on vancomycin given that she is NPO * Urine culture grew Staphylococcus hominis, with history of chronic nephrostomy tubes * Blood cultures show no growth * Complete 10 day course (4) Metabolic encephalopathy Status: Acute Response to Treatment: Improving Problem Specific Plan: Monitor Clinically Problem Text: * Likely secondary to infection * Mentation is back to baseline (5) Hypokalemia Status: Resolved Problem Specific Plan: Monitor Clinically, Repeat Labs Problem Text: * Received IV and by mouth supplementation * Monitor electrolytes while on TPN (6) Nausea and vomiting Status: Acute Problem Specific Plan: Monitor Clinically Problem Text: * Upper GI series/abd xray revealed a large irregular mass in the antrum extending to the pylorus causing partial obstruction * Likely the cause of nausea & vomiting * No recurrence since NG in place * Antiemetics as needed (7) Metabolic alkalosis Status: Acute Response to Treatment: Improving Problem Specific Plan: Monitor Clinically Problem Text: * Improving, secondary to hypokalemia and volume contraction on admission * Continue with nutrition and hydration (8) Hydroureteronephrosis Status: Chronic Problem Specific Plan: Monitor Clinically Problem Text: * 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 * She reports that nephrostomy tubes were changed in May * Nephrostomy tubes have been draining well, decreased output was denied on admission * She was supposed to have urological procedure (ureterolysis, ureteral implantation, possible flap and double-J stent placement) on July 26, however came to the emergency department instead * Will need to schedule follow-up with urology once acute issues have resolved (9) Delgado aneurysm Status: Chronic Problem Specific Plan: Monitor Clinically Problem Text: * 7 mm delgado aneurysm was seen on head CT, recommended MRA * MRA on 07/27 revealed findings compatible with 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 No cranial nerve deficits. Patient is asymptomatic. * Spoke to the neurosurgeon confectionery laboratory manager, Dr Brower and he stated that patient could just followup with their office on discharge, given incidental finding without SAH. (10) HTN (hypertension) Status: Chronic Problem Specific Plan: Monitor Clinically Problem Text: * Blood pressure stable * Continue amlodipine (11) COPD (chronic obstructive pulmonary disease) Status: Chronic Problem Specific Plan: Monitor Clinically Problem Text: * Breathing is stable and at baseline * Albuterol as needed (12) Hyperparathyroidism Status: Chronic Problem Text: * Calcium level is within normal Plan/VTE VTE Prophylaxis Ordered?: Yes (lovenox) VS, I&O, 24H, Fishbone Vital Signs/I&O Vital Signs Date Time Temp Pulse Resp B/P (MAP) Pulse Ox O2 Delivery O2 Flow Rate FiO2 08/02/16 08:25 107 121/87 08/02/16 06:00 99.0 18 97 08/01/16 20:20 Room Air 07/31/16 06:00 1.0 I&O- Last 24 Hours up to 6 AM 08/02/16 06:00 Intake Total 0 ml Output Total 2425 ml Balance -2425 ml Laboratory Data CBC/BMP Laboratory Tests 08/02/16 05:20 Red Blood Count 4.95, Mean Corpuscular Volume 86.8, Mean Corpuscular Hemoglobin 27.8, Mean Corpuscular Hemoglobin Concent 32.1, Red Cell Distribution Width 14.4 , Calcium Level 9.5 Microbiology Microbiology 07/26/16 Blood Culture - Final, Complete NO GROWTH AFTER 5 DAYS 07/26/16 Blood Culture - Final, Complete NO GROWTH AFTER 5 DAYS 07/26/16 Urine Culture - Final, Complete Staphylococcus Hominis Ssp Iza Staphylococcus Hominis Ssp Iza#2 07/26/16 Urine Culture - Final, Complete Staphylococcus Hominis Ssp Iza GME ATTESTATION GME ATTESTATION My preceptor for this patient encounter was physically present in the building during the encounter and was fully available. As needed, all aspects of the patient interview, examination, medical decision making process, and medical care plan development were reviewed and approved by the preceptor. Preceptor is aware and concurs with the plan as stated in the body of this note and will attest to such by his/her cosignature. JORGE MOE DO August 02, 2016 08:44
[2016-08-02] MEDS: ENOXAPARIN 40 MG/0.4 ML SYRINGE (J1650) SC SCH (09:47)
[2016-08-02] MEDS: VANCOMYCIN HCL 1,000 MG, VIAL MATE ADAPTER 1 EACH in D5W 250 ML IV SCH (09:47)
--- NOTE | 2016-08-02 12:36 | REP ---
Procedure: PICC line insertion with [place] The procedure was performed under the direct supervision of Dr. Jaramillo. The risks and benefits of the procedure were explained to the patient and informed consent was obtained. The right basilic vein was localized using ultrasound guidance. The skin was prepped and draped in a sterile fashion. 2% lidocaine was used as a local anesthetic. Using ultrasound guidance the basilic vein was cannulated and a 0.018 guidewire was inserted and advanced to the SVC using fluoroscopic guidance. The needle was removed and a 5.5 Vincentian dilator and peel-away sheath was inserted over the guide wire. A 5.5 Vincentian dual lumen catheter was cut to length of 42 cm. The dilator was removed and the catheter was inserted over the guide wire with the tip ending in the SVC. The peel-away sheath was removed and the catheter was flushed with heparinized saline as per Hospital protocol. The catheter was affixed to the skin and a sterile dressing was applied. The the patient tolerated the procedure well and there were no immediate complications. 0.1 minutes of fluoro time was utilized for this procedure. Reviewed by GIANCARLO Herrera 08/02/2016 08:21 ASigned by Joni Jaramillo MD 08/02/2016 12:27 P
[2016-08-02 14:00] VITALS: BP 134/73
[2016-08-02] MEDS ORDERED: GASTROGRAFIN SOLUTION 30ML PO ONE ×2 (14:15→15:15)
[2016-08-02] MEDS ORDERED: GASTROGRAFIN SOLUTION 30ML (Q9963) PO ONE ×2 (14:45→15:45)
[2016-08-02] MEDS ORDERED: ISOVUE-370 76% 100ML VIAL (Q9967) As Ordered ONE (16:15)
[2016-08-02] MEDS: SODIUM CHLORIDE 0.9% INJ 10 ML SYR IV PRN (17:08)
--- NOTE | 2016-08-02 17:22 | REP ---
Clinical: Gastric cancer. Technique: Axial contrast enhanced images from the lung bases to the pubic symphysis using 100 ml Isovue 370 intravenous contrast material with coronal and sagittal re-formations. Comparison: 05/09/2016. Findings: Lung bases demonstrate moderate right and small left pleural effusions with associated passive atelectasis. Visualized portions of the heart and pericardium are grossly normal. Marked ascites noted throughout the abdomen and pelvis. Liver, spleen, pancreas, gallbladder, bilateral adrenal glands are normal. Kidneys demonstrate bilateral nephrostomy tubes with evidence for bilateral hydronephrosis (left greater than right), but obstructing cause cannot be identified due to surrounding ascites and adjacent soft tissue structures obscuring complete evaluation of the ureters. A nasogastric tube is identified in the collapsed stomach and irregular low density changes involving the gastric wall are nonspecific but gastric carcinoma as per history cannot be excluded. The remainder of the enteric system is grossly unremarkable. Barium within the distal small bowel and ascending colon is consistent with recent upper GI examination. Pelvis demonstrates collapsed bladder and age-appropriate uterus/adnexa. No free air. Atherosclerotic changes of the vasculature noted. No obvious adenopathy although evaluation is limited due to ascites. Skeletal structures demonstrate age-related degenerative changes. Impression: 1. Marked ascites. 2. Moderate right and small left pleural effusions with passive atelectasis. 3. Collapse appearance to the stomach with low density changes in the gastric wall are nonspecific but carcinoma as per history cannot be excluded. 4. No obvious adenopathy, hepatic lesion, or obvious mesenteric mass lesion identified. Signed by Juan Pablo Garsia MD 08/02/2016 05:13 P
[2016-08-02] MEDS ORDERED: FAT EMULSION IV 20% 500 ML IV SCH (18:00)
[2016-08-02] MEDS ORDERED: AMINO AC/ELECTROLYTE/DEX/CALC 2,000 ML IV SCH (18:00)
[2016-08-02 22:00] VITALS: BP 144/85
[2016-08-03] MEDS: VANCOMYCIN HCL 1,000 MG, VIAL MATE ADAPTER 1 EACH in D5W 250 ML IV SCH (03:54)
[2016-08-03] MEDS: ACETAMINOPHEN TAB 650MG DOSE (2X325MG) PO PRN (04:04)
[2016-08-03 05:48] LABS: MEAN CORPUSCULAR HEMOGLOBIN 28.7 pg (27.0-33.0); MEAN CORPUSCULAR HGB CONC 33.1 g/dl (32.0-36.5); MEAN CORPUSCULAR VOLUME 86.8 fl (80.0-96.0); RED CELL DISTRIBUTION WIDTH 14.6 % (11.5-14.5); WHITE BLOOD COUNT 10.5 K/mm3 (4.0-10.0)
[2016-08-03 06:00] VITALS: BP 150/86
[2016-08-03] MEDS: SODIUM CHLORIDE 0.9% INJ 10 ML SYR IV SCH ×2 (06:00→17:55)
[2016-08-03 06:06] LABS: CALCIUM LEVEL 9.4 MG/DL (8.8-10.2); CREATININE FOR GFR 1.32 MG/DL (0.55-1.02); POTASSIUM SERUM 3.7 MEQ/L (3.5-5.1)
[2016-08-03] MEDS: HumaLOG INSULIN (NovoLOG) PER UNIT SC SCH ×3 (06:29→17:55)
[2016-08-03] MEDS: NYSTATIN 500,000 U/5 ML SUSP UDC PO SCH ×3 (08:53→17:55)
[2016-08-03] MEDS: amLODIPine 10 MG TAB PO SCH (08:54)
[2016-08-03] MEDS: ENOXAPARIN 40 MG/0.4 ML SYRINGE (J1650) SC SCH (09:00)
--- NOTE | 2016-08-03 11:41 | IPNPDOC ---
Subjective Date Seen The patient was seen on 08/03/16. Subjective Chief Complaint/HPI The patient is a 71-year-old female admitted with a reason for visit of Mental Status Alteration; Sepsis. Events since last encounter Patient was seen this morning at bedside. No acute overnight events. NG tube remains in place. She continues to have distended abdomen and mildly tender in the upper areas. She denies any nausea. No chest pain/pressure, shortness of breath, lightheadedness, dizziness, fevers or chills. White count is mildly elevated. Vitals are stable. Objective Physical Examination General Exam: Positive: Alert, Cooperative, No Acute Distress Eye Exam: Positive: Conjunctiva & lids normal, EOMI, Negative: Sclera icteric ENT Exam: Positive: Atraumatic, Pharynx Normal, Tongue Midline, Other ENT (NG tube in place) Neck Exam: Positive: Supple, Negative: thyromegaly Chest Exam: Positive: Normal air movement, Negative: Rhonchi, Wheezing Heart Exam: Positive: Rate Normal, Regular Rhythm, Normal S1, Normal S2 Abdomen Exam: Positive: BS Hypoactive, Tenderness, Negative: Soft Extremity Exam: Positive: Edema (minimal), Normal pulses, Negative: Cyanosis, Tenderness Skin Exam: Positive: Nl turgor and temperature, Negative: Rash Neuro Exam: Positive: Normal Speech, Cranial Nerves 3-12 NL Assessment /Plan Problems (1) Gastric mass Status: Acute Problem Specific Plan: Consult Specialist, Monitor Clinically, Repeat Tests Problem Text: * Upper GI series found a large irregular mass of the antrum involving the pylorus, causing partial obstruction * Has NG tube in place * Surgery consulted, she had upper endoscopy with biopsy on 08/01, pathology negative for malignancy * PICC line in place, continue TPN * Has mild white count after procedure, will monitor for now * Abd/pelvis CT revealed marked ascites, moderate right and small left pleural effusion with passive atelectasis, collapse appearance of the stomach with low density changes in the gastric wall, no adenopathy hepatic lesion or obvious mesenteric mass (2) Ascites Status: Acute Problem Specific Plan: Monitor Clinically, Repeat Tests Problem Text: * Paracentesis pending (3) Sepsis Status: Acute Response to Treatment: Improving Problem Specific Plan: Monitor Clinically Problem Text: * Secondary to urinary tract infection * Was initiated on cefepime and vancomycin on 07/26 * Remains on vancomycin, complete 10 day course (4) Urinary tract infection associated with nephrostomy catheter Status: Acute Response to Treatment: Improving Problem Specific Plan: Monitor Clinically Problem Text: * Initiated on cefepime and vancomycin on 07/26, remains on vancomycin given that she is NPO * Urine culture grew Staphylococcus hominis, with history of chronic nephrostomy tubes * Blood cultures show no growth * Complete 10 day course (5) Hydroureteronephrosis Status: Chronic Problem Specific Plan: Consult Specialist, Monitor Clinically Problem Text: * 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 * Nephrostomy tubes were last changed in May, they will need to be changed again, interventional radiology has been consulted * She was supposed to have urological procedure (ureterolysis, ureteral implantation, possible flap and double-J stent placement) on July 26, however came to the emergency department instead * Will need to schedule follow-up with urology once acute issues have resolved (6) Metabolic encephalopathy Status: Resolved Response to Treatment: Improving Problem Specific Plan: Monitor Clinically Problem Text: * Likely secondary to infection * Mentation is back to baseline (7) Hypokalemia Status: Resolved Problem Specific Plan: Monitor Clinically, Repeat Labs Problem Text: * Received IV and by mouth supplementation * Monitor electrolytes while on TPN (8) Nausea and vomiting Status: Acute Problem Specific Plan: Monitor Clinically Problem Text: * Upper GI series/abd xray revealed a large irregular mass in the antrum extending to the pylorus causing partial obstruction * Likely the cause of nausea & vomiting * No recurrence since NG in place * Antiemetics as needed (9) Metabolic alkalosis Status: Acute Response to Treatment: Improving Problem Specific Plan: Monitor Clinically Problem Text: * Improving, secondary to hypokalemia and volume contraction on admission (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 No cranial nerve deficits. Patient is asymptomatic. * Spoke to the neurosurgeon director medical economics, Dr Brower and he stated that patient could just followup with their office on discharge, given incidental finding without SAH. (11) HTN (hypertension) Status: Chronic Problem Specific Plan: Monitor Clinically Problem Text: * Blood pressure stable * Continue amlodipine (12) COPD (chronic obstructive pulmonary disease) Status: Chronic Problem Specific Plan: Monitor Clinically Problem Text: * Breathing is stable and at baseline * Albuterol as needed (13) Hyperparathyroidism Status: Chronic Problem Text: * Calcium level is within normal Plan/VTE VTE Prophylaxis Ordered?: Yes (lovenox) VS, I&O, 24H, Fishbone Vital Signs/I&O Vital Signs Date Time Temp Pulse Resp B/P (MAP) Pulse Ox O2 Delivery O2 Flow Rate FiO2 08/03/16 08:54 80 122/79 08/03/16 08:50 Room Air 08/03/16 06:00 97.9 18 98 07/31/16 06:00 1.0 I&O- Last 24 Hours up to 6 AM 08/03/16 05:59 Intake Total 4320 ml Output Total 1350 ml Balance 2970 ml Laboratory Data 24H LABS Laboratory Tests 2 08/02/16 11:35: Bedside Glucose (Misc Panel) 174H 08/02/16 17:21: Bedside Glucose (Misc Panel) 95 08/02/16 23:41: Bedside Glucose (Misc Panel) 148H 08/03/16 05:31: Anion Gap 9, Glomerular Filtration Rate 42.0, Blood Urea Nitrogen 37H, Creatinine 1.32H, Sodium Level 137, Potassium Level 3.7, Chloride Level 91L, Carbon Dioxide Level 37H, Calcium Level 9.4 08/03/16 05:39: Bedside Glucose (Misc Panel) 145H CBC/BMP Laboratory Tests 08/03/16 05:31 Red Blood Count 4.81, Mean Corpuscular Volume 86.8, Mean Corpuscular Hemoglobin 28.7, Mean Corpuscular Hemoglobin Concent 33.1, Red Cell Distribution Width 14.6 H, Calcium Level 9.4 Microbiology Microbiology 07/26/16 Blood Culture - Final, Complete NO GROWTH AFTER 5 DAYS 07/26/16 Blood Culture - Final, Complete NO GROWTH AFTER 5 DAYS 07/26/16 Urine Culture - Final, Complete Staphylococcus Hominis Ssp Iza Staphylococcus Hominis Ssp Iza#2 07/26/16 Urine Culture - Final, Complete Staphylococcus Hominis Ssp Iza GME ATTESTATION GME ATTESTATION My preceptor for this patient encounter was physically present in the building during the encounter and was fully available. As needed, all aspects of the patient interview, examination, medical decision making process, and medical care plan development were reviewed and approved by the preceptor. Preceptor is aware and concurs with the plan as stated in the body of this note and will attest to such by his/her cosignature. JORGE MOE DO August 03, 2016 11:41
[2016-08-03 14:18] LABS: SPEC. GRAVITY BODY FLUIDS 1.023 (NOT ESTABLISHED)
[2016-08-03 14:33] LABS: RBC ASCITES FLUID < 10 (<10mm3 cells/uL); TNC ASCITES FLUID 153 cells/uL (0-20)
[2016-08-03 14:38] LABS: TOTAL PROTEIN, BODY FLUID 3.2 G/DL (NOT ESTABLISHED)
[2016-08-03 15:30] LABS: BF DIFF IF INDICATED? YES (NO)
[2016-08-03 15:33] LABS: CC BF DIFF EXAM CYTOCENTRIFUGE
--- NOTE | 2016-08-03 16:04 | REP ---
Ultrasound-guided paracentesis The procedure was performed under the direct supervision of Dr. Jaramillo. The risks and benefits of the procedure were explained to the patient and informed consent was obtained. The largest pocket of fluid was localized in the right flank using ultrasound guidance. The skin was prepped and draped in a sterile fashion. 1% lidocaine was used as a local anesthetic. An 8-Bulgarian multi side-hole catheter was inserted using trocar technique. 3,550 ml of clear yellow fluid was withdrawn with a portion sent to the lab for analysis. The patient tolerated the procedure well and there were no immediate complications. Reviewed by GIANCARLO Herrera 08/03/2016 03:34 PSigned by Joni Jaramillo MD 08/03/2016 03:56 P
[2016-08-03] MEDS ORDERED: FAT EMULSION IV 20% 500 ML IV SCH (18:00)
[2016-08-03] MEDS ORDERED: MULTIVITAMIN -ADULT INJECTION 10 ML, CR/CU/SE/MN/ZN INJ 1 ML in AMINO AC/ELECTROLYTE/DE... IV SCH (18:00)
[2016-08-03 22:00] VITALS: BP 132/76
[2016-08-04] MEDS: NYSTATIN 500,000 U/5 ML SUSP UDC PO SCH ×4 (00:05→18:00)
[2016-08-04] MEDS: VANCOMYCIN HCL 1,000 MG, VIAL MATE ADAPTER 1 EACH in D5W 250 ML IV SCH (00:05)
[2016-08-04] MEDS: HumaLOG INSULIN (NovoLOG) PER UNIT SC SCH ×4 (00:10→19:12)
--- NOTE | 2016-08-04 05:01 | PHACANCOPD ---
PHARMACY VANCOMYCIN DOSING Pt Demographics Demographics Patient Age:71 , Weight:67.100 , Gender: female Adjusted Body Weight Date: 07/26/16, Adjusted Body Weight: [62.4] Kg Vancomycin Vancomycin indication: SEPSIS Vancomycin Target Ranges: 10-20 mcg/ml Vancomycin Load Y/N: No Load Dose Date Time Vancomycin Load Dose: Date: Time: Vancomycin Dose Date: 07/29/16. Current Vancomycin Dose: [1g IV q18h @06] Date: 07/26/16. Current Vancomycin Dose: [1g IV Q24H] Intermittent Dosing?: No Labs Micro Microbiology 07/26/16 Blood Culture - Final, Complete NO GROWTH AFTER 5 DAYS 07/26/16 Blood Culture - Final, Complete NO GROWTH AFTER 5 DAYS 08/03/16 Fungal Smear, Received Pending 08/03/16 Fungal Culture, Received Pending 08/03/16 Gram Stain, Received Pending 08/03/16 Body Fluid Culture, Received Pending 07/26/16 Urine Culture - Final, Complete Staphylococcus Hominis Ssp Iza Staphylococcus Hominis Ssp Iza#2 07/26/16 Urine Culture - Final, Complete Staphylococcus Hominis Ssp Iza Creatinine Clearance Date:07/31/16. Creatinine Clearance: [~75 ml/min]. Date:07/26/16. Estimated Creatinine Clearance: [~32.7ml/min]. Assessment and Plan Maintaining Current Dose?: No Reason for dose change: Other Pharmacist Note Pharmacist Note Date: 08/04/16. Pharmacist note:Vancomycin trough drawn tonight reported as 18.7 : patient scr=1.32(crcl has decreased appreciably from 51.6 to 37.2 in 24 hours) will adjust vanco dose accordingly from 1 gram q18 hours to 1 gram every 24 hours to begin immediately: will continue to monitor labs and levels Date: 07/31/16. Pharmacist note: Vanco trough drawn prior to 4th dose was low ( 8.5), I changed her dosing to 1g IV q18h to begin ~12 hours after her last dose. Repeat trough this afternoon was 16. I will continue her current dosing. Urine cultures from nephrostomy tube positive for Staph hominis ([facility] = 0.5). Cefepime has been discontinued. We will continue to monitor. 07/28/16: I have scheduled a vancomycin trough for 07/29/16 @1800, prior to the fourth dose. The patient's scr has improved, and output remains stable. We will continue to monitor and follow-up on trough level tomorrow, adjusting dose accordingly. Date: 07/26/16. Pharmacist note: Day #1 empiric cefepime/vanco initiated at 1g IV Q24H for the treatment of sepsis possibly secondary to a complicated UTI - aiming for a goal trough of 10-20mcg/ml. The patient has a PMH of bilateral hydroureteronephrosis s/p nephrostomy tubes and double j stent, as well as a hx of ARF - baseline scr ~ <1. WBC, lactic acid, and CRP are currently elevated. Patient is afebrile. No PMH of MRSA or vanco use here at [facility]. Blood and urine cultures are pending. We will continue to monitor the patient's kidney function and schedule a trough/adjust dosing if needed. JAREK [facility] August 04, 2016 05:00
[2016-08-04] MEDS: SODIUM CHLORIDE 0.9% INJ 10 ML SYR IV SCH ×2 (05:18→17:51)
[2016-08-04 05:48] LABS: MEAN CORPUSCULAR HEMOGLOBIN 28.4 pg (27.0-33.0); MEAN CORPUSCULAR VOLUME 83.7 fl (80.0-96.0); RED CELL DISTRIBUTION WIDTH 14.5 % (11.5-14.5); WHITE BLOOD COUNT 13.8 K/mm3 (4.0-10.0)
[2016-08-04 06:00] VITALS: BP 141/76
[2016-08-04 06:02] LABS: CALCIUM LEVEL 8.8 MG/DL (8.8-10.2); CREATININE FOR GFR 1.07 MG/DL (0.55-1.02); GLOMERULAR FILTRATION RATE 53.5 (>39); POTASSIUM SERUM 3.5 MEQ/L (3.5-5.1)
--- NOTE | 2016-08-04 08:40 | REP ---
Clinical: Leukocytosis. Comparison: 07/26/2016. Findings: Right PICC line with tip in the SVC. Nasogastric tube courses below left hemidiaphragm. Bilateral nephrostomy tubes noted in the upper abdomen. Mediastinum and cardiac silhouette are within normal limits and stable. Lung colón are clear and without consolidation, effusion, or pneumothorax. Skeletal structures intact. Impression: No acute cardiopulmonary process or focal consolidation. Signed by Juan Pablo Garsia MD 08/04/2016 08:32 A
[2016-08-04] MEDS ORDERED: ISOVUE-300 61% 50ML VIAL (Q9967) As Ordered ONE (09:04)
[2016-08-04] MEDS ORDERED: SODIUM BICARBONATE 8.4% INJ 50MEQ 50 ML VIAL As Ordered ONE (09:04)
[2016-08-04] MEDS ORDERED: LIDOCAINE 2% MDV 20 ML VIAL As Ordered ONE (09:04)
[2016-08-04] MEDS ORDERED: fentaNYL 100 MCG/2 ML INJECTION (J3010) As Ordered ONE (09:47)
[2016-08-04 10:18] LABS: ALBUMIN 1.9 GM/DL (3.2-5.2); ALBUMIN/GLOBULIN RATIO 0.61 (1.00-1.93); BILIRUBIN,DIRECT 0.2 MG/DL (0.0-0.2); BILIRUBIN,TOTAL 0.4 MG/DL (0.2-1.0)
--- NOTE | 2016-08-04 11:35 | IPNPDOC ---
Subjective Date Seen The patient was seen on 08/04/16. Subjective Chief Complaint/HPI The patient is a 71-year-old female admitted with a reason for visit of Mental Status Alteration; Sepsis. Events since last encounter Patient was seen this morning at bedside. Reports that her abd feels better after paracentesis. No fevers or chills, although she does have a white count. Denies any nausea or emesis, has NG tube in place. No chest pain/pressure, SOB, diarrhea, urinary complaints Objective Physical Examination General Exam: Positive: Alert, Cooperative, No Acute Distress Eye Exam: Positive: Conjunctiva & lids normal, EOMI, Negative: Sclera icteric ENT Exam: Positive: Atraumatic, Pharynx Normal, Tongue Midline, Other ENT (NG tube in place) Neck Exam: Positive: Supple, Negative: thyromegaly Chest Exam: Positive: Normal air movement, Negative: Rhonchi, Wheezing Heart Exam: Positive: Tachycardic, Regular Rhythm, Normal S1, Normal S2 Abdomen Exam: Positive: BS Hypoactive, Negative: Soft, Tenderness Extremity Exam: Positive: Edema (mild), Normal pulses, Negative: Cyanosis, Tenderness Skin Exam: Positive: Nl turgor and temperature, Negative: Rash Neuro Exam: Positive: Normal Speech, Cranial Nerves 3-12 NL Assessment /Plan Problems (1) Gastric mass Status: Acute Problem Specific Plan: Consult Specialist, Monitor Clinically, Repeat Tests Problem Text: * Upper GI series found a large irregular mass of the antrum involving the pylorus, causing partial obstruction * Has NG tube in place, will need to stay in place until surgical intervention for mass next week * Surgery consulted, she had upper endoscopy with biopsy on 08/01, pathology negative for malignancy * PICC line in place, continue TPN * Abd/pelvis CT revealed marked ascites, moderate right and small left pleural effusion with passive atelectasis, collapse appearance of the stomach with low density changes in the gastric wall, no adenopathy hepatic lesion or obvious mesenteric mass (2) Ascites Status: Acute Problem Specific Plan: Monitor Clinically, Repeat Tests Problem Text: * Paracentesis performed * 3,550 ml removed, cultures pending (3) Sepsis Status: Acute Response to Treatment: Improving Problem Specific Plan: Monitor Clinically Problem Text: * Secondary to urinary tract infection * Was initiated on cefepime and vancomycin on 07/26 * Remains on vancomycin, complete 10 day course (4) Urinary tract infection associated with nephrostomy catheter Status: Acute Response to Treatment: Improving Problem Specific Plan: Monitor Clinically Problem Text: * Initiated on cefepime and vancomycin on 07/26, remains on vancomycin given that she is NPO * Urine culture grew Staphylococcus hominis, with history of chronic nephrostomy tubes * Blood cultures show no growth * Complete 10 day course * White count elevated, afebrile, will obtain another UA, CXR today negative (5) Hydroureteronephrosis Status: Chronic Problem Specific Plan: Consult Specialist, Monitor Clinically Problem Text: * 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 * Nephrostomy tubes being changed today * She was supposed to have urological procedure (ureterolysis, ureteral implantation, possible flap and double-J stent placement) on July 26, however came to the emergency department instead * Will need to schedule follow-up with urology once acute issues have resolved (6) Metabolic encephalopathy Status: Resolved Response to Treatment: Improving Problem Specific Plan: Monitor Clinically Problem Text: * Likely secondary to infection * Mentation is back to baseline (7) Hypokalemia Status: Resolved Problem Specific Plan: Monitor Clinically, Repeat Labs Problem Text: * Received IV and by mouth supplementation * Monitor electrolytes while on TPN (8) Nausea and vomiting Status: Acute Problem Specific Plan: Monitor Clinically Problem Text: * Upper GI series/abd xray revealed a large irregular mass in the antrum extending to the pylorus causing partial obstruction * Likely the cause of nausea & vomiting * No recurrence since NG in place * Antiemetics as needed (9) Metabolic alkalosis Status: Acute Response to Treatment: Improving Problem Specific Plan: Monitor Clinically Problem Text: * Will obtain ABG (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 No cranial nerve deficits. Patient is asymptomatic. * Spoke to the neurosurgeon commissioning editor, Dr Brower and he stated that patient could just followup with their office on discharge, given incidental finding without SAH. (11) HTN (hypertension) Status: Chronic Problem Specific Plan: Monitor Clinically Problem Text: * Blood pressure stable * Continue amlodipine (12) COPD (chronic obstructive pulmonary disease) Status: Chronic Problem Specific Plan: Monitor Clinically Problem Text: * Breathing is stable and at baseline * Albuterol as needed (13) Hyperparathyroidism Status: Chronic Problem Text: * Calcium level is within normal Plan/VTE VTE Prophylaxis Ordered?: Yes (lovenox) VS, I&O, 24H, Fishbone Vital Signs/I&O Vital Signs Date Time Temp Pulse Resp B/P (MAP) Pulse Ox O2 Delivery O2 Flow Rate FiO2 08/04/16 06:00 97.9 107 18 141/76 (97) 96 Room Air 07/31/16 06:00 1.0 I&O- Last 24 Hours up to 6 AM 08/04/16 05:59 Intake Total 3420 ml Output Total 2550 ml Balance 870 ml Laboratory Data 24H LABS Laboratory Tests 2 08/03/16 11:34: Bedside Glucose (Misc Panel) 166H 08/03/16 12:05: Body Fluid Source ASCITES, Body Fluid Color YELLOW, Body Fluid Appearance HAZY, Body Fluid Specific [place] 1.023, Body Fluid RBC (Auto) < 10, Body Fluid Total Nucleated Cells 153H, Body Fluid Neutrophils 4, Body Fluid Lymphocytes 71, Body Fluid Monocytes/Macrophages 25, Body Fluid Glucose Source ASCITES, Body Fluid Glucose 103, Body Fluid Protein Source ASCITES, Body Fluid Total Protein 3.2, Body Fluid Albumin Source ASCITES, Body Fluid Albumin 1.7 08/03/16 17:31: Bedside Glucose (Misc Panel) 132H 08/03/16 23:01: Vancomycin Level Trough 18.7 08/04/16 00:08: Bedside Glucose (Misc Panel) 118H 08/04/16 05:27: Anion Gap 9, Glomerular Filtration Rate 53.5, Blood Urea Nitrogen 40H, Creatinine 1.07H, Sodium Level 139, Potassium Level 3.5, Chloride Level 89L, Carbon Dioxide Level 41H, Calcium Level 8.8, Aspartate Amino Transf (AST/SGOT) 20, Alanine Aminotransferase (ALT/SGPT) 17, Alkaline Phosphatase 93, Total Bilirubin 0.4, Direct Bilirubin 0.2, Total Protein 5.0L, Albumin 1.9L, Albumin/ Globulin Ratio 0.61L 08/04/16 06:10: Bedside Glucose (Misc Panel) 129H CBC/BMP Laboratory Tests 08/04/16 05:27 Red Blood Count 4.54, Mean Corpuscular Volume 83.7, Mean Corpuscular Hemoglobin 28.4, Mean Corpuscular Hemoglobin Concent 34.0, Red Cell Distribution Width 14.5 , Calcium Level 8.8 Microbiology Microbiology 07/26/16 Blood Culture - Final, Complete NO GROWTH AFTER 5 DAYS 07/26/16 Blood Culture - Final, Complete NO GROWTH AFTER 5 DAYS 08/03/16 Fungal Smear, Received Pending 08/03/16 Fungal Culture, Received Pending 08/03/16 Gram Stain - Final, Resulted 08/03/16 Body Fluid Culture, Resulted Pending 07/26/16 Urine Culture - Final, Complete Staphylococcus Hominis Ssp Iza Staphylococcus Hominis Ssp Iza#2 07/26/16 Urine Culture - Final, Complete Staphylococcus Hominis Ssp Iza GME ATTESTATION GME ATTESTATION My preceptor for this patient encounter was physically present in the building during the encounter and was fully available. As needed, all aspects of the patient interview, examination, medical decision making process, and medical care plan development were reviewed and approved by the preceptor. Preceptor is aware and concurs with the plan as stated in the body of this note and will attest to such by his/her cosignature. JORGE MOE DO August 04, 2016 11:35
[2016-08-04] MEDS: amLODIPine 10 MG TAB PO SCH (11:50)
[2016-08-04] MEDS: ENOXAPARIN 40 MG/0.4 ML SYRINGE (J1650) SC SCH (11:50)
[2016-08-04 12:04] VITALS: BP 120/75
[2016-08-04 14:00] VITALS: BP 112/70
[2016-08-04 15:37] LABS: ABG BASE EXCESS 19.7 (-2.0-2.0); ABG HCO3 43.8 MEQ/L (22.0-26.0); ABG PARTIAL PRESSURE CO2 45.9 mmHg (35.0-45.0); ABG PARTIAL PRESSURE O2 75.5 mmHg (75.0-100.0); ABG STANDARD HCO3 44.1 MEQ/L (22.0-26.0); ABG TOTAL CO2 45.3 MEQ/L (23.0-31.0); ABG pH (ARTERIAL) 7.598 UNITS (7.350-7.450)
[2016-08-04] MEDS: NS 1,000 ML IV SCH (16:32)
--- NOTE | 2016-08-04 17:10 | REPKIM ---
CLINICAL HISTORY: Patient with bilateral hydronephrosis has bilateral nephrostomy urinary diversion tubes. UTI and leaking around the left PCN. Patient needs bilateral nephrostomy tube check and change. PROCEDURE: Check and Change Bilateral Nephrostomy Catheter INTERVENTIONALIST: Yvonne Mendoza MD MEDICATIONS: Local Lidocaine, Fentanyl 25 mcg IV. Independent trained observer was present during the entire duration of the procedure for monitoring. EBL: 1 mL CONTRAST: 10 mL Isovue 300 FLUORO TIME: 0.9 minutes DEVICES USED: Left: Resolve 10F Lot#[id number], Right: Resolve 8.5F Lot#[id number] Description of procedure: The risks, benefits, and alternatives of the procedure were discussed with the patient and informed written consent was obtained. The patient was brought to the interventional radiology suite where a timeout procedure was performed. The patient was placed in the prone position. The existing indwelling catheters and the flank were prepped and draped with standard technique. Left: Contrast was injected showing its tip in the renal pelvis in a satisfactory course and position. A guidewire was advanced through the existing indwelling catheter. The existing indwelling catheter was unlocked and removed over the guidewire. Then a 10-Dutch nephrostomy drainage catheter was introduced over the guidewire. The guidewire was removed and the distal loop of the drainage catheter was formed and locked in the renal pelvis. Contrast was gently hand injected, confirming satisfactory drainage catheter positioning. The cavity was then irrigated with saline, and then connected to a gravity drainage bag. The drainage catheter exit site was covered with a sterile dressing. Right: Contrast was injected showing its tip in the renal pelvis. A guidewire was advanced through the existing drainage catheter. The existing indwelling catheter was unlocked and removed over the guidewire. A new 8.5-Dutch nephrostomy drainage catheter was introduced over the guidewire. The guidewire was removed and the distal loop of the drainage catheter was formed and locked in the renal pelvis. Contrast was gently hand injected, confirming satisfactory drainage catheter positioning. The drainage catheter exit site was covered with a sterile dressing. The drainage catheter was flushed and connected to a gravity drainage bag. The patient tolerated the procedure well with no immediate complications. This procedure was performed using fluoroscopy. Dr. Mendoza was present. Description of findings: Each new catheter is in appropriate positioning and works well. IMPRESSION: Successful bilateral Nephrostomy catheter check and change as discussed above. Plan: Patient will be followed by the urology service for possible bilateral internal ureteral stent placement. cc: MD Wicho Keating MD Viliane Vilcant, DO MTDD
[2016-08-04] MEDS ORDERED: FAT EMULSION IV 20% 500 ML IV SCH (18:00)
[2016-08-04] MEDS ORDERED: AMINO AC/ELECTROLYTE/DEX/CALC 2,000 ML IV SCH (18:00)
[2016-08-04] MEDS ORDERED: VANCOMYCIN HCL 1,000 MG, VIAL MATE ADAPTER 1 EACH in D5W 250 ML IV SCH (21:00)
[2016-08-04 22:00] VITALS: BP 127/71
[2016-08-05] MEDS: NYSTATIN 500,000 U/5 ML SUSP UDC PO SCH ×5 (00:12→23:59)
[2016-08-05] MEDS: HumaLOG INSULIN (NovoLOG) PER UNIT SC SCH ×5 (00:13→23:59)
[2016-08-05] MEDS: NS 1,000 ML IV SCH ×4 (03:53→20:30)
[2016-08-05 05:52] LABS: MEAN CORPUSCULAR HEMOGLOBIN 28.3 pg (27.0-33.0); MEAN CORPUSCULAR VOLUME 85.7 fl (80.0-96.0); RED CELL DISTRIBUTION WIDTH 14.5 % (11.5-14.5); WHITE BLOOD COUNT 15.9 K/mm3 (4.0-10.0)
[2016-08-05] MEDS: SODIUM CHLORIDE 0.9% INJ 10 ML SYR IV SCH ×2 (05:59→18:26)
[2016-08-05 06:00] VITALS: BP 128/71
[2016-08-05 06:09] LABS: CALCIUM LEVEL 9.2 MG/DL (8.8-10.2); CREATININE FOR GFR 1.2 MG/DL (0.55-1.02); GLOMERULAR FILTRATION RATE 46.9 (>39); POTASSIUM SERUM 3.2 MEQ/L (3.5-5.1)
--- NOTE | 2016-08-05 07:20 | ECGEPIP ---
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
[2016-08-05] MEDS ORDERED: MEROPENEM INJ 1 GM in D5W MINI-BAG PLUS 100 ML IV SCH (08:00)
[2016-08-05] MEDS: amLODIPine 10 MG TAB PO SCH (08:45)
[2016-08-05] MEDS: MEROPENEM INJ 1 GM in D5W MINI-BAG PLUS 100 ML IV SCH ×2 (08:46→20:52)
[2016-08-05] MEDS: ENOXAPARIN 40 MG/0.4 ML SYRINGE (J1650) SC SCH (08:46)
[2016-08-05 11:08] LABS: MAGNESIUM LEVEL 2.1 MG/DL (1.8-2.4); PHOSPHORUS LEVEL 3.8 MG/DL (2.5-4.9)
[2016-08-05 11:10] VITALS: BP 123/81
--- NOTE | 2016-08-05 11:18 | IPNPDOC ---
Subjective Date Seen The patient was seen on 08/05/16. Subjective Chief Complaint/HPI The patient is a 71-year-old female admitted with a reason for visit of Mental Status Alteration; Sepsis. Events since last encounter This morning at bedside. No acute overnight events. Continues to have NG tube in place. Gastric output of about 2 L in the previous 24 hours. Intake of 2.2 liters and output of 2.5 L and previous 24 hours. No nausea. Abdomen is a bit firm and tender to deep palpation. No fevers or chills but white count has increased further. No chest pain/pressure, shortness of breath, diarrhea. Objective Physical Examination General Exam: Positive: Alert, Cooperative, No Acute Distress Eye Exam: Positive: Conjunctiva & lids normal, EOMI, Negative: Sclera icteric ENT Exam: Positive: Atraumatic, Pharynx Normal, Tongue Midline, Other ENT (NG tube in place) Neck Exam: Positive: Supple, Negative: thyromegaly Chest Exam: Positive: Normal air movement, Negative: Rhonchi, Wheezing Heart Exam: Positive: Tachycardic, Regular Rhythm, Normal S1, Normal S2 Abdomen Exam: Positive: BS Hypoactive, Tenderness (diffuse), Negative: Soft Extremity Exam: Positive: Edema (mild), Normal pulses, Negative: Cyanosis, Tenderness Skin Exam: Positive: Nl turgor and temperature, Negative: Rash Neuro Exam: Positive: Normal Speech, Cranial Nerves 3-12 NL Assessment /Plan Problems (1) Gastric mass Status: Acute Problem Specific Plan: Consult Specialist, Monitor Clinically, Repeat Tests Problem Text: * Upper GI series found a large irregular mass of the antrum involving the pylorus, causing partial obstruction * Surgery consulted, she had upper endoscopy with biopsy on 08/01, pathology negative for malignancy * Has NG tube in place, will need to stay in place until surgical intervention for mass next week * PICC line in place, continue TPN * Abd/pelvis CT revealed marked ascites, moderate right and small left pleural effusion with passive atelectasis, collapse appearance of the stomach with low density changes in the gastric wall, no adenopathy hepatic lesion or obvious mesenteric mass (2) Ascites Status: Acute Problem Specific Plan: Monitor Clinically, Repeat Tests Problem Text: * Paracentesis performed * 3,550 ml removed, cultures and cytology pending (3) Metabolic alkalosis Status: Acute Problem Specific Plan: Consult Specialist, Monitor Clinically Problem Text: * ABG shows continued metabolic acidosis * She is on normal saline, will continue to hydrate * Nephrology consulted * TPN orders have been adjusted by nephrology, no acetate included * Monitor electrolytes while on TPN (4) Tachycardia Status: Acute Problem Specific Plan: Monitor Clinically Problem Text: * EKG revealed sinus tachycardia * Also reveal ST-T wave abnormalities and prolonged QT * Will monitor on telemetry * Avoid QT prolonging medications (5) Leukocytosis Status: Acute Problem Specific Plan: Monitor Clinically, Repeat Labs Problem Text: * Also has elevated CRP * Given elevation in inflammatory markers and abdominal tenderness with recent paracentesis, meropenem has been initiated for abdominal coverage * Urinalysis and chest x-ray negative (6) Hypokalemia Status: Acute Problem Specific Plan: Monitor Clinically, Repeat Labs Problem Text: * Will receive IV supplementation * TPN to be adjusted to compensate (7) Sepsis Status: Acute Response to Treatment: Improving Problem Specific Plan: Monitor Clinically Problem Text: * Secondary to urinary tract infection * Completed 10 day course of vancomycin (8) Urinary tract infection associated with nephrostomy catheter Status: Acute Response to Treatment: Improving Problem Specific Plan: Monitor Clinically Problem Text: * Urine culture grew Staphylococcus hominis, with history of chronic nephrostomy tubes * Blood cultures show no growth * Completed 10 day course of vancomycin (9) Hydroureteronephrosis Status: Chronic Problem Specific Plan: Consult Specialist, Monitor Clinically Problem Text: * 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 * Nephrostomy tubes were changed on 08/04 * She was supposed to have urological procedure (ureterolysis, ureteral implantation, possible flap and double-J stent placement) on July 26, however came to the emergency department instead * Will need to schedule follow-up with urology once acute issues have resolved (10) Nausea and vomiting Status: Acute Problem Specific Plan: Monitor Clinically Problem Text: * Upper GI series/abd xray revealed a large irregular mass in the antrum extending to the pylorus causing partial obstruction * Likely the cause of nausea & vomiting * No recurrence since NG in place * Antiemetics as needed (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 No cranial nerve deficits. Patient is asymptomatic. * Spoke to the neurosurgeon utilization management manager, Dr Brower and he stated that patient could just followup with their office on discharge, given incidental finding without SAH. (12) HTN (hypertension) Status: Chronic Problem Specific Plan: Monitor Clinically Problem Text: * Blood pressure stable * Continue amlodipine (13) COPD (chronic obstructive pulmonary disease) Status: Chronic Problem Specific Plan: Monitor Clinically Problem Text: * Breathing is stable and at baseline * Albuterol as needed (14) Hyperparathyroidism Status: Chronic Problem Text: l Plan/VTE VTE Prophylaxis Ordered?: Yes (lovenox) VS, I&O, 24H, Fishbone Vital Signs/I&O Vital Signs Date Time Temp Pulse Resp B/P (MAP) Pulse Ox O2 Delivery O2 Flow Rate FiO2 08/05/16 08:45 103 119/78 08/05/16 06:00 98.2 18 97 Room Air 07/31/16 06:00 1.0 I&O- Last 24 Hours up to 6 AM 08/05/16 06:00 Intake Total 2540 ml Output Total 2675 ml Balance -135 ml Laboratory Data CBC/BMP Laboratory Tests 08/05/16 05:35 Red Blood Count 4.78, Mean Corpuscular Volume 85.7, Mean Corpuscular Hemoglobin 28.3, Mean Corpuscular Hemoglobin Concent 33.0, Red Cell Distribution Width 14.5 , Calcium Level 9.2 Microbiology Microbiology 07/26/16 Blood Culture - Final, Complete NO GROWTH AFTER 5 DAYS 07/26/16 Blood Culture - Final, Complete NO GROWTH AFTER 5 DAYS 08/03/16 Fungal Smear, Received Pending 08/03/16 Fungal Culture, Received Pending 08/03/16 Gram Stain - Final, Resulted 08/03/16 Body Fluid Culture, Resulted Pending 08/04/16 Urine Culture, Received Pending 07/26/16 Urine Culture - Final, Complete Staphylococcus Hominis Ssp Iza Staphylococcus Hominis Ssp Iza#2 07/26/16 Urine Culture - Final, Complete Staphylococcus Hominis Ssp Iza GME ATTESTATION GME ATTESTATION My preceptor for this patient encounter was physically present in the building during the encounter and was fully available. As needed, all aspects of the patient interview, examination, medical decision making process, and medical care plan development were reviewed and approved by the preceptor. Preceptor is aware and concurs with the plan as stated in the body of this note and will attest to such by his/her cosignature. JORGE MOE DO August 05, 2016 11:18
[2016-08-05] MEDS: KCL 10MEQ IN 100ML SWI (KRUN) 10 MEQ in APPROPRIATE DILUENT 1 EA IV SCH ×8 (11:19→16:13)
[2016-08-05 11:53] VITALS: BP 132/79
[2016-08-05] MEDS: ACETAMINOPHEN TAB 650MG DOSE (2X325MG) PO PRN (12:59)
--- NOTE | 2016-08-05 13:55 | CR ---
DATE OF CONSULTATION: 08/05/2016 REQUESTING PHYSICIAN: Dr. Wicho Wright. CONSULTING PHYSICIAN: Dr. Navarrete. REASON FOR CONSULTATION: Management of acute kidney injury and metabolic alkalosis. CHIEF COMPLAINT: Patient presented to emergency room on 07/26/2016 with altered mental status. HISTORY OF PRESENT ILLNESS: Ms. Briana Castellanos is a 71-year-old female who is well known to nephrology service from previous admissions and from outpatient nephrology clinic. She is my patient. She follows up with me because of history of bilateral ureteral strictures causing bilateral hydroureteronephrosis which required bilateral JJ stents and bilateral nephrostomy tube placements. She has almost normal baseline kidney function when her nephrostomy tubes are working. Baseline creatinine is less than 1. On 07/26/2016, she was actually supposed to have her bilateral ureteral strictures operated on but patient was found to be lethargic with confusion and altered mental status. She was brought by her to the emergency room. She was found to have acute kidney injury and multiple electrolyte abnormalities on that day along with hyponatremia, hypokalemia, metabolic alkalosis. Patient was aggressively hydrated. Further investigation including imaging showed that the patient was having pyloric obstruction and patient did admit to having severe nausea and vomiting and inability to eat anything for the last 2 weeks. Whenever she ate something, she would throw up after a few minutes. 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 Biopsies were sent. Initial report has been negative for malignancy. Patient has an NG tube at this time which is attached to suctioning. She is unable to eat anything at this time. She continues to be on IV TPN. Her creatinine is 1.2 today. Serum bicarbonate is 42. Her pH recently was 7.59. Nephrology service has been called for further help in the management of acute kidney injury, metabolic alkalosis, hypokalemia and hypochloremia. Patient was examined by me today at the bedtime and during interview, patient was not in any distress. She is awake, alert, oriented times three. At this time, her was also present at the bedside. PAST MEDICAL HISTORY: Patient has a past medical history of: Bilateral hydroureteronephrosis secondary to bilateral ureteral strictures. She is status post bilateral nephrostomy tube placements and she has bilateral JJ stents as well. History of hypertension. Hyperparathyroidism. Chronic obstructive pulmonary disease (COPD). Osteopenia. Previous admission for acute renal failure secondary to hydroureteronephrosis. PAST SURGICAL HISTORY: Patient is status post bilateral nephrostomy tubes and bilateral JJ stent placement in March 2016. She is status post right knee replacement. Bilateral cataract surgery. History of tubal ligation in the past. ALLERGIES: Patient is allergic to PENICILLINS. FAMILY HISTORY: No significant family history of end stage renal disease requiring hemodialysis. Positive history of rheumatoid arthritis. SOCIAL HISTORY: Patient lives with her . She quit smoking almost 12 years ago. She denies any elicit drug abuse or alcohol abuse. REVIEW OF SYSTEMS: Constitutional: Patient denies any fever or chills but she does report weakness and decreased appetite. Eyes: She denies any blurry vision or double vision. ENT: Patient denies any ear discharge or dysphagia or sore throat. Cardiovascular: Patient denies any chest pain or palpitation but she is telling me her heart rate is fast at this time and she is being transferred to intensive care unit (ICU) for that. Respiratory: She denies any shortness of breath, cough or wheezing. GI: As her HPI, patient was having nausea, vomiting and she was recently found to have a mass and she is currently on nasogastric tube to intermittent suctioning. Genitourinary: As mentioned above, patient has bilateral nephrostomy tubes. Endocrine: She denies any history of diabetes or hypothyroidism or hyperthyroidism. Musculoskeletal: She denies any muscle aches and pains. Hematological/oncological: Patient denies any history of easy bruising or history of anemia. 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 All other review of system was found to be negative. HOME MEDICATIONS: When patient arrived, she as on: - amlodipine - Reglan - Zofran - potassium chloride PHYSICAL EXAMINATION: General: Patient is awake, alert, oriented times three sitting in bed. Patient appears weak and cachectic on clinical exam. Vital signs: Temperature is 98.4 degrees Fahrenheit, blood pressure is 123/81, pulse is 108, respiratory rate 18, saturating 97% on room air. Intake and output: Urine output recorded as 40 mL yesterday, 0 mL so far today. Her gastric drainage was 2 liters yesterday, 850 mL so far today. Head and neck exam: Extraocular muscles intact. Pupils equally round and reactive to light. Mucous membranes are moist. Patient has an nasogastric tube attached to suctioning. Neck is supple. There is no jugular venous distention (JVD). Cardiovascular: S1, S2, regular rate. No murmur, rub or gallop. Respiratory: Chest is clear to auscultation bilaterally, bilateral equal air entry. No rales or rhonchi. Abdomen: Soft, positive bowel sounds, nontender, no ascites, no organomegaly. Extremities: No clubbing or cyanosis. Pulses are 2+. Genitourinary: Patient has bilateral nephrostomy tubes with clear urine in the bag. Central nervous system: No focal neurological deficit. Power is 5/5 in all extremities. Psych : Normal mood and affect. Skin: No rashes or ulcers. Lymph node: No significant cervical, axillary or inguinal lymphadenopathy. LAB REVIEW: CBC showed WBC of 15.9, hemoglobin is 13.5, platelets are 155. Urinalysis done today showed 1+ blood, negative nitrite, negative leukocyte esterase. ABG done yesterday showed pH of 7.59, pCO2 of 45, pO2 of 75, bicarbonate is 43, Oxygen sat is 96. BMP showed sodium 138, potassium 3.2, chloride 88, bicarbonate is 42, BUN is 44, creatinine is 1.2. Calcium 9.2, phosphorus 3.8, magnesium 2.1. C-reactive protein is 16.7, albumin is 1.9. Microbiology: Repeat urine culture done yesterday is negative. Imaging: Chest x-ray done yesterday showed no acute cardiopulmonary process or focal consolidation. CURRENT MEDICATIONS: Patient is currently on: - IV TPN, regular formulation with 80 mEq of acetate IV daily at 70 mL/hr along with fat emulsion. - meropenem 1 gram IV every 12 hours - normal saline 100 mL/hr - Tylenol 650 mg every 4 hours as needed - amlodipine 10 mg by mouth daily - Lovenox 40 mg subcutaneous daily - heparin subcutaneous - insulin sliding scale - Nystatin swish and swallow ASSESSMENT: 71-year-old female with past medical history of hypertension, bilateral ureteral stricture causing bilateral hydronephrosis, currently has bilateral nephrostomy tubes, admitted this time because of sepsis secondary to urinary tract infection (UTI). Hospital course complicated by new finding of fungating gastric mass. Nephrology service was called for help in management of acute kidney injury, metabolic alkalosis, hypokalemia, hypochloremia and management of TPN. PLAN: 1. Acute kidney injury most likely secondary to dehydration, volume depletion. Patient is getting nasogastric tube suctioning. Continue IV normal saline mL/mL replacement for gastric aspirate. The patient had bilateral nephrostomy tubes changed by interventional radiology yesterday. Continue to monitor for renal improvement. 2. Severe metabolic alkalosis. It is secondary to gastric aspirate suctioning and addition of sodium acetate and the TPN fluid. Each liter of TPN bag has 80 mEq of acetate which is converted into bicarbonate. I have changed the TPN orders. The next TPN fluid will have no acetate in it. Continue IV hydration. Bicarbonate level is expected to improve over the next 48 hours. 3. Hypokalemia. Hypokalemia is being corrected through TPN and IV potassium repletion. Primary team has already ordered potassium chloride 10 mEq times four. I have also ordered the potassium phosphate in the TPN. Potassium level would hopefully improve by tomorrow morning. 4. Hypochloremia. It is most likely secondary to nasogastric tube suctioning, dehydration. Continue normal saline. Hypochloremia is expected to improve with hydration, changing the TPN and improvement of metabolic acidosis. 5. Urinary tract infection (UTI). Patient was growing staphylococcus hominis. Currently she is on IV meropenem. Continue the current dose. Dose has been adjusted according to renal function by the primary team already. 6. Hypertension. Blood pressure is acceptable at this time. I will not tightly control the blood pressure in this patient who is just recovering from sepsis and dehydration along with volume depletion secondary to nausea, vomiting and inability to take anything by mouth. Continue current dose of amlodipine 10 mg by mouth daily with holding parameters. 7. Protein calorie malnutrition. Patient is unable to take anything by mouth for the last two weeks almost and she right now has an nasogastric tube which is attached to intermittent suctioning. Patient is being given standard TPN. I have stopped the standard TPN orders because her TPN order needs to be tailored according to her electrolytes and metabolic alkalosis. I have ordered a new custom TPN order today which will be started in the afternoon. I will daily change her TPN orders according to her electrolytes. 8. 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 Initial biopsy is negative for malignancy. She continues to be on nasogastric tube with suctioning. The rest of the management is as per surgical service. 9. History of bilateral hydroureteronephrosis status post bilateral nephrostomy tubes. Patient gets nephrostomy tubes changed every 3 months but because of sepsis and UTI, her tubes were changed again yesterday. Continue IV antibiotics. Patient is scheduled to have her bilateral ureterolysis and ureteral implantation surgery when she clinically becomes stable. Thank you for involving us in the care of the patient. We shall be happy to follow the patient along with you tomorrow morning. Plan of care was discussed with the primary hospitalist team and the medical insurance clerk. Orders were changed.
[2016-08-05 16:00] VITALS: BP 139/93
--- NOTE | 2016-08-05 16:57 | REP ---
Clinical: Shortness of breath. Comparison: 08/04/2016. Findings: New right middle lobe infiltrate is appreciated. Mediastinum and cardiac silhouette are stable. Right-sided PICC line with tip in the SVC. No effusion. No pneumothorax. Skeletal structures stable. Impression: New right middle lobe infiltrate. Signed by Juan Pablo Garsia MD 08/05/2016 04:49 P
--- NOTE | 2016-08-05 17:08 | ECGEPIP ---
Stationary ECG Study [facility] Test Date: 2016-08-05 Pat Name: ALFONSO BASHIR Department: Room: [place] [address] Gender: F [employer] Preparer: ERIC : [id number] Requested By: BEN MURDOCK Order Number: [id number] Reading MD: Fatoumtaa Mauro Measurements Intervals [place] Rate: 118 P: 71 IL: 136 QRS: 43 QRSD: 93 T: 24 QT: 352 QTc: 494 Interpretive Statements SINUS TACHYCARDIA POSSIBLE LEFT ATRIAL ENLARGEMENT NONSPECIFIC ST & T-WAVE ABNORMALITY ABNORMAL RHYTHM ECG prolonged QTC STABLE C/W 08/05/16 644 Electronically Signed On 08-05-2016 17:07:54 EDT by Fatoumata Mauro
[2016-08-05] MEDS ORDERED: [UNRECOGNIZED DRUG - OTHER] IV SCH ×8 (18:00)
[2016-08-05] MEDS ORDERED: FAT EMULSION IV 20% 500 ML IV SCH (18:00)
[2016-08-05] MEDS ORDERED: POTASSIUM CHLORIDE IV SCH ×8 (18:00)
[2016-08-05] MEDS ORDERED: SODIUM CHLORIDE IV SCH ×8 (18:00)
[2016-08-05] MEDS ORDERED: VANCOMYCIN HCL 1,000 MG, VIAL MATE ADAPTER 1 EACH in D5W 250 ML IV ONE (18:45)
[2016-08-05 18:47] LABS: CALCIUM LEVEL 9.2 MG/DL (8.8-10.2); CREATININE FOR GFR 1.54 MG/DL (0.55-1.02); GLOMERULAR FILTRATION RATE 35.2 (>39); MAGNESIUM LEVEL 1.9 MG/DL (1.8-2.4); POTASSIUM SERUM 3.8 MEQ/L (3.5-5.1)
[2016-08-05 20:00] VITALS: BP 134/89
--- NOTE | 2016-08-05 20:48 | ECHO ---
DATE OF PROCEDURE: 08/05/2016 REFERRING PHYSICIAN: Wicho Wright MD INDICATION: Abnormal ECG HEIGHT: 168 cm WEIGHT: 67 kg DIMENSIONS: IVS: 1.2 LV: 3.4 LVPW: 1.2 LA: 2.2 Aorta: 2.8 FINDINGS: The study is of fair technical quality. Left ventricle is relatively small. Mild left ventricular hypertrophy is present. There is a hyperdynamic contractility with estimated left ventricular ejection fraction (LVEF) 70-75%. Right ventricle was poorly seen but appeared grossly normal. Both atria are probably normal. Aortic valve is mildly sclerotic, but has normal mobility. There are also mild degenerative abnormalities of mitral valve with mitral annular calcifications. Mobility of leaflet is preserved. Tricuspid valve is normal. Pulmonic valve was not visualized. No pericardial effusion is present. Inferior vena cava was not well seen. Left pleural effusion is noted. Aortic root is normal. Aortic arch and abdominal aorta was not visualized. Doppler interrogation reveals no significant aortic stenosis or insufficiency. There is no mitral stenosis or insufficiency. Trace tricuspid insufficiency is present. Calculated pulmonary artery pressure is within normal limits assuming normal central venous pressure. Pulmonic valve is functionally competent. Mitral inflow pattern and tissue Doppler imaging of mitral annulus reveal grade 1 diastolic dysfunction. This is in setting of sinus tachycardia with ventricular rate approximately 115-120 BPM. CONCLUSIONS: 1. Study is of fair technical quality. 2. Normal LV size with mild left ventricular hypertrophy (LVH) and hyperdynamic LV systolic function. Grade 1 diastolic dysfunction. 3. No significant valvular disease. 4. Unable to estimate central venous pressure, but probably normal pulmonary artery pressure. 5. Left pleural effusion. COMMENTS: Subacute bacterial endocarditis (SBE) prophylaxis is not recommended.
[2016-08-05] MEDS: MORPHINE 2 MG/ML 1ML SYRINGE IV PRN (22:49)
[2016-08-06] VITALS: BP 133/94
[2016-08-06] MEDS: MORPHINE 2 MG/ML 1ML SYRINGE IV PRN ×3 (02:06→22:01)
[2016-08-06 04:00] VITALS: BP 130/80
[2016-08-06] MEDS: SODIUM CHLORIDE 0.9% INJ 10 ML SYR IV SCH ×2 (04:20→17:46)
[2016-08-06 04:21] LABS: MEAN CORPUSCULAR HEMOGLOBIN 28.3 pg (27.0-33.0); MEAN CORPUSCULAR HGB CONC 32.7 g/dl (32.0-36.5); MEAN CORPUSCULAR VOLUME 86.6 fl (80.0-96.0); RED CELL DISTRIBUTION WIDTH 14.5 % (11.5-14.5); WHITE BLOOD COUNT 15.2 K/mm3 (4.0-10.0)
[2016-08-06 04:47] LABS: CALCIUM LEVEL 8.2 MG/DL (8.8-10.2); CREATININE FOR GFR 1.49 MG/DL (0.55-1.02); GLOMERULAR FILTRATION RATE 36.5 (>39); MAGNESIUM LEVEL 1.8 MG/DL (1.8-2.4); POTASSIUM SERUM 3.6 MEQ/L (3.5-5.1)
[2016-08-06] MEDS: NYSTATIN 500,000 U/5 ML SUSP UDC PO SCH ×4 (05:15→23:55)
[2016-08-06] MEDS: HumaLOG INSULIN (NovoLOG) PER UNIT SC SCH ×4 (05:16→23:58)
[2016-08-06 08:00] VITALS: BP 132/77
[2016-08-06] MEDS: NS 1,000 ML IV SCH ×3 (08:48→19:44)
[2016-08-06] MEDS: amLODIPine 10 MG TAB PO SCH (08:49)
[2016-08-06] MEDS: MEROPENEM INJ 1 GM in D5W MINI-BAG PLUS 100 ML IV SCH ×2 (08:49→19:43)
[2016-08-06] MEDS: ENOXAPARIN 40 MG/0.4 ML SYRINGE (J1650) SC SCH (08:49)
--- NOTE | 2016-08-06 10:59 | IPNPDOC ---
Subjective Date Seen The patient was seen on 08/06/16. Subjective Chief Complaint/HPI The patient is a 71-year-old female admitted with a reason for visit of Mental Status Alteration; Sepsis. Events since last encounter Patient was seen this morning at bedside. No acute overnight issues. Continues to have an NG tube in place. She denies any nausea or emesis or abdominal pain, however abdomen is tender to deep palpation. No fevers or chills. No dizziness, diarrhea, chest pain/pressure, shortness of breath. Patient continues to be tachycardic and C-reactive protein has trended up. No significant other events on telemetry. Objective Physical Examination General Exam: Positive: Alert, Cooperative, No Acute Distress Eye Exam: Positive: Conjunctiva & lids normal, EOMI, Negative: Sclera icteric ENT Exam: Positive: Atraumatic, Pharynx Normal, Tongue Midline, Other ENT (NG tube in place) Neck Exam: Positive: Supple, Negative: thyromegaly Chest Exam: Positive: Normal air movement, Negative: Rhonchi, Wheezing Heart Exam: Positive: Tachycardic, Regular Rhythm, Normal S1, Normal S2 Abdomen Exam: Positive: BS Hypoactive, Tenderness (diffusely tender with deep palpation), Negative: Soft Extremity Exam: Positive: Edema (trace), Normal pulses, Negative: Cyanosis, Tenderness Skin Exam: Positive: Nl turgor and temperature, Negative: Rash Neuro Exam: Positive: Normal Speech, Cranial Nerves 3-12 NL Assessment /Plan Problems (1) Healthcare-associated pneumonia Status: Acute Problem Specific Plan: Monitor Clinically, Repeat Labs Problem Text: * Chest x-ray obtained on 08/05 revealed a new right middle lobe infiltrate * Likely the cause of her elevated white count and increasing CRP, patient is afebrile * She is being covered with vancomycin and meropenem, initiated on 08/05 (2) Gastric mass Status: Acute Problem Specific Plan: Consult Specialist, Monitor Clinically Problem Text: * Upper GI series found a large irregular mass of the antrum involving the pylorus, causing partial obstruction * Surgery consulted, she had upper endoscopy with biopsy on 08/01, pathology negative for malignancy * Has NG tube in place, will possibly have repeat EGD with more aggressive biopsy to establish a diagnosis * PICC line in place, continue TPN * Abd/pelvis CT revealed marked ascites, moderate right and small left pleural effusion with passive atelectasis, collapse appearance of the stomach with low density changes in the gastric wall, no adenopathy hepatic lesion or obvious mesenteric mass (3) Ascites Status: Acute Problem Specific Plan: Monitor Clinically Problem Text: * Paracentesis performed on 08/03 where 3,550 ml of fluid was removed * Pathology revealed reactive mesothelial cells, inflammatory cells, and rare atypical cells of unknown significance, no reported malignancy (4) Metabolic alkalosis Status: Acute Problem Specific Plan: Consult Specialist, Monitor Clinically, Repeat Labs Problem Text: * ABG revealed continued metabolic acidosis * She is on normal saline, will continue to hydrate * Nephrology consulted * TPN orders have been adjusted by nephrology, no acetate included * Monitor electrolytes while on TPN (5) Tachycardia Status: Acute Problem Specific Plan: Monitor Clinically Problem Text: * EKG revealed sinus tachycardia, also reveal ST-T wave abnormalities and prolonged QT * Tachycardia probably secondary to acute infection, continue antibiotics * Will monitor on telemetry * Avoid QT prolonging medications (6) Hypokalemia Status: Acute Problem Specific Plan: Monitor Clinically, Repeat Labs Problem Text: * Potassium within normal with adjustments in TPN * Continue to monitor electrolytes (7) Urinary tract infection associated with nephrostomy catheter Status: Acute Response to Treatment: Improving Problem Specific Plan: Monitor Clinically Problem Text: * Urine culture grew Staphylococcus hominis, with history of chronic nephrostomy tubes * Blood cultures showed no growth * Had previously completed 10 day course of vancomycin (8) Hydroureteronephrosis Status: Chronic Problem Specific Plan: Consult Specialist, Monitor Clinically Problem Text: * 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 * Nephrostomy tubes were changed on 08/04 * She was supposed to have urological procedure (ureterolysis, ureteral implantation, possible flap and double-J stent placement) on July 26, however came to the emergency department instead * Will need to schedule follow-up with urology once acute issues have resolved (9) Nausea and vomiting Status: Acute Problem Specific Plan: Monitor Clinically Problem Text: * Upper GI series/abd xray revealed a large irregular mass in the antrum extending to the pylorus causing partial obstruction * Likely the cause of nausea & vomiting * Continue antiemetics as needed, until surgical intervention could be performed for gastric mass (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 No cranial nerve deficits. Patient is asymptomatic. * Spoke to the neurosurgeon transcription specialist, Dr Brower and he stated that patient could just followup with their office on discharge, given incidental finding without SAH. (11) HTN (hypertension) Status: Chronic Problem Specific Plan: Monitor Clinically Problem Text: * Blood pressure stable * Continue amlodipine (12) COPD (chronic obstructive pulmonary disease) Status: Chronic Problem Specific Plan: Monitor Clinically Problem Text: * Breathing is stable and at baseline * Albuterol as needed (13) Hyperparathyroidism Status: Chronic Problem Text: l Plan/VTE VTE Prophylaxis Ordered?: Yes (lovenox) VS, I&O, 24H, Fishbone Vital Signs/I&O Vital Signs Date Time Temp Pulse Resp B/P (MAP) Pulse Ox O2 Delivery O2 Flow Rate FiO2 08/06/16 08:49 132/77 08/06/16 08:00 99.2 106 18 94 Room Air 07/31/16 06:00 1.0 I&O- Last 24 Hours up to 6 AM 08/06/16 06:00 Intake Total 1460 ml Output Total 3580 ml Balance -2120 ml Laboratory Data CBC/BMP Laboratory Tests 08/05/16 18:11 Calcium Level 9.2 08/06/16 04:11 Calcium Level 8.2 L, Red Blood Count 4.67, Mean Corpuscular Volume 86.6, Mean Corpuscular Hemoglobin 28.3, Mean Corpuscular Hemoglobin Concent 32.7, Red Cell Distribution Width 14.5 Microbiology Microbiology 08/03/16 Fungal Smear, Received Pending 08/03/16 Fungal Culture, Received Pending 08/03/16 Gram Stain - Final, Complete 08/03/16 Body Fluid Culture - Final, Complete 08/04/16 Urine Culture - Final, Complete GME ATTESTATION GME ATTESTATION My preceptor for this patient encounter was physically present in the building during the encounter and was fully available. As needed, all aspects of the patient interview, examination, medical decision making process, and medical care plan development were reviewed and approved by the preceptor. Preceptor is aware and concurs with the plan as stated in the body of this note and will attest to such by his/her cosignature. JORGE MOE DO August 06, 2016 10:59
[2016-08-06 12:00] VITALS: BP 116/73
[2016-08-06 16:00] VITALS: BP 120/84
[2016-08-06] MEDS ORDERED: POTASSIUM CHLORIDE IV SCH ×6 (18:00)
[2016-08-06] MEDS ORDERED: SODIUM CHLORIDE IV SCH ×6 (18:00)
[2016-08-06] MEDS ORDERED: [UNRECOGNIZED DRUG - OTHER] IV SCH ×6 (18:00)
[2016-08-06] MEDS ORDERED: FAT EMULSION IV 20% 500 ML IV SCH (18:00)
[2016-08-06 20:00] VITALS: BP 133/82
[2016-08-06] MEDS ORDERED: VANCOMYCIN HCL 1,000 MG, VIAL MATE ADAPTER 1 EACH in D5W 250 ML IV SCH (21:00)
[2016-08-07] VITALS: BP 125/80
[2016-08-07 04:41] LABS: MEAN CORPUSCULAR HEMOGLOBIN 28.4 pg (27.0-33.0); MEAN CORPUSCULAR HGB CONC 32.7 g/dl (32.0-36.5); RED CELL DISTRIBUTION WIDTH 14.6 % (11.5-14.5); WHITE BLOOD COUNT 18.7 K/mm3 (4.0-10.0)
[2016-08-07 05:06] LABS: CALCIUM LEVEL 8.7 MG/DL (8.8-10.2); CREATININE FOR GFR 1.54 MG/DL (0.55-1.02); GLOMERULAR FILTRATION RATE 35.2 (>39); POTASSIUM SERUM 3.9 MEQ/L (3.5-5.1)
[2016-08-07] MEDS: NYSTATIN 500,000 U/5 ML SUSP UDC PO SCH ×4 (05:39→23:52)
[2016-08-07] MEDS: SODIUM CHLORIDE 0.9% INJ 10 ML SYR IV SCH ×2 (05:40→17:17)
[2016-08-07] MEDS: HumaLOG INSULIN (NovoLOG) PER UNIT SC SCH ×4 (05:44→23:53)
[2016-08-07] MEDS: MEROPENEM INJ 1 GM in D5W MINI-BAG PLUS 100 ML IV SCH ×2 (07:37→19:46)
[2016-08-07] MEDS: NS 1,000 ML IV SCH ×2 (07:40→17:43)
[2016-08-07] MEDS: MORPHINE 2 MG/ML 1ML SYRINGE IV PRN ×2 (07:48→14:52)
[2016-08-07 08:00] VITALS: BP 139/84
[2016-08-07] MEDS: ACETAMINOPHEN TAB 650MG DOSE (2X325MG) PO PRN (09:23)
[2016-08-07] MEDS: ENOXAPARIN 40 MG/0.4 ML SYRINGE (J1650) SC SCH (09:24)
[2016-08-07] MEDS: amLODIPine 10 MG TAB PO SCH (09:27)
--- NOTE | 2016-08-07 11:08 | IPN ---
DATE: 08/06/2016 SUBJECTIVE: The patient was seen and examined at the bedside in the intensive care unit (ICU). The patient is afebrile, hemodynamically stable. She continues to be on nasogastric tube with intermittent suctioning. The patient is still tachycardic in the ICU. At this time, her renal function is slightly better as compared with yesterday, and the patient is still alkalotic at this time. REVIEW OF SYSTEMS: The patient denies any fever, chills, rigors, headache, nausea, vomiting or chest pain. She does report some palpitations and tachycardia. She denies any shortness of breath. She continues to be on nasogastric tube suctioning. She denies any pain in the abdomen, constipation or abdominal bloating. The rest of the review of systems is negative. OBJECTIVE: VITAL SIGNS: Temperature is 98.1 degrees Fahrenheit, blood pressure is 116/73, pulse is 109, respiratory rate of 18, saturating 93% on room air. INTAKE/OUTPUT: Urine output recorded as 300 mL so far since overnight. Gastric drainage is 600 mL so far. Weight on the bed scale is not available at this time. PHYSICAL EXAMINATION: GENERAL: The patient is awake, alert, oriented times three, sitting in the bed, in no apparent distress. The patient has lost a lot of weight. She looks weak and cachectic. HEAD AND NECK EXAM: Extraocular muscles intact. Pupils equally round and reactive to light. The patient has temporal wasting. She has an nasogastric tube attached to suction. Mucous membranes are moist. Neck is supple. There is no jugular venous distention (JVD). CARDIOVASCULAR: S1, S2, tachycardia. No murmur, rub or gallop. RESPIRATORY: Chest is clear to auscultation bilaterally. Bilateral equal air entry. No rales or rhonchi. ABDOMEN: Abdomen is soft. Positive bowel sounds. Patient's left side of the abdomen is slightly distended and mildly tender to palpation. EXTREMITIES: No clubbing or cyanosis. Pulses are 2+. CENTRAL NERVOUS SYSTEM: No focal neurological deficit. Power is 5/5 in all extremities. PSYCHIATRIC: Normal mood and affect. LAB REVIEW: CBC showed a WBC of 15.2, hemoglobin is 13.2, platelets are 139. BMP shows sodium 137, potassium 3.6, chloride 92, bicarbonate 39, BUN 49, creatinine is 1.4, calcium is 8.2, phosphorus is 4, magnesium is 1.8. Microbiology: Body fluid cultures are negative. Cytology from the peritoneal fluid so far is satisfactory for evaluation. It shows atypical cytology consisting of lymphocytes and macrophages. No evidence of malignancy was found. CURRENT MEDICATIONS: Patient's medications were all reviewed by me. There is no change in the medications today as compared with yesterday. She continues to be on IV TPN at this time. ASSESSMENT: A 71-year-old female with a past medical history of hypertension, bilateral ureteral stricture causing bilateral hydroureteronephrosis, status post bilateral nephrostomy tube placement, admitted at this time because of sepsis secondary to urinary tract infection (UTI), multiple electrolyte abnormalities and during this hospitalization, she was found to have a fungating gastric mass. Nephrology service is following the patient for management of acute kidney injury, metabolic alkalosis, hypokalemia, hypochloremia and management of total parenteral nutrition. PLAN: 1. Acute kidney injury. It is most likely secondary to dehydration. No oral intake because of nasogastric tube suctioning and large gastric mass. Continue the TPN at this time. Continue normal saline repletion mL by mL for nasogastric tube aspirate. The patient's creatinine is slightly better today; it is 1.49. Continue to monitor intake and output. 2. Severe metabolic alkalosis. It is secondary to a combination of continuous nasogastric tube suctioning, and the patient was getting acetate in the TPN as well. I have manually changed the TPN orders since yesterday. I am hopeful with the IV fluid hydration and change in the TPN orders her bicarbonate level will come down. 3. Hypokalemia. Hypokalemia is being corrected with TPN. Her potassium is improved to 3.6 today, which is within the acceptable range. 4. Hypochloremia. Hypochloremia is secondary to volume depletion, continuous nasogastric tube suctioning. Chloride level is slightly improved to 92 today. Continue IV normal saline hydration. 5. Urinary tract infection. The patient continues to be on IV meropenem. Duration of antibiotics is as per primary team. 6. Hypertension. Blood pressure is acceptable at this time. Amlodipine is on hold. 7. Protein-calorie malnutrition. The patient is unable to take anything orally because of a large prepyloric mass. She has an nasogastric tube which is attached to suctioning. I am managing the TPN at this time. I have ordered another new TPN order today. I have discussed the possibility of placing a feeding tube past the prepyloric gastric obstruction. Surgical service is planning to do another endoscopy and possible biopsy of the mass to rule out the possibility of cancer and to plan the future surgical intervention, and after that they might place a feeding tube. Awaiting further surgical management of this patient. Until then, I would continue the TPN in this patient. 8. Large gastric mass. Biopsies have been negative so far for malignancy. Surgical service is planning to do another endoscopy and biopsy. 9. History of bilateral hydroureteronephrosis. Status post bilateral nephrostomy tubes. Continue the nephrostomy tube change every 3 months. Nephrostomy tube was recently changed a few days ago during this admission. Unfortunately, she cannot undergo the surgical repair of bilateral ureteral strictures because of severe sickness, electrolyte abnormalities and new finding of gastric mass. The plan of care was discussed with the hospitalist team, Dr. Wicho Wright.
[2016-08-07 12:00] VITALS: BP 126/79
--- NOTE | 2016-08-07 14:53 | IPNPDOC ---
Text Note Date of Service The patient was seen on 08/07/16. NOTE Subjective: Denies any complaints. No acute changes overnight. Objective: Vitals: (see below) General: No acute distress, laying comfortably in bed. HEENT: Moist mucous membranes. NG tube in place. Neck: No JVD or lymphadenopathy Cardiac: RRR, No murmurs Pulm:Coarse crackles b/l bases R>L. No wheezing, rhonchi Abd: NT. Mildly distended. + BS. Ext: No edema or cyanosis. Labs (see below) Images: Assessment/Plan 1. HCAP - RML - on meropenem and vancomycin. Leukocytosis and elevated CRP. Afebrile. 2. Gastric mass - surgery on consult - EGD with negative biopsy. Abd ascites with paracentesis with rare atypical cells. Spoke with Dr. Aparicio, who is considering repeat EGD with aggressive biopsy. Will need feeding tubing bypassing mass in an effort to stop TPN. 3. Severe metabolic alkalosis 2/2 NG tube suction and TPN. Improving. Appreciate nephrology input. 4. UTI with nephrostomy tubes - staph hominis - s/p 10 day course of vanco. 5. 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 Nephrostomy tubes changed . 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 Dr. Brower recommending outpt f/u. 7. HTN - controlled. 8. COPD - cont nebs DVT prophy - lovenox Very poor prognosis. VS,Fishbone, I+O VS, Fishbone, I+O Laboratory Tests 08/07/16 04:31 Red Blood Count 4.57, Mean Corpuscular Volume 87.0, Mean Corpuscular Hemoglobin 28.4, Mean Corpuscular Hemoglobin Concent 32.7, Red Cell Distribution Width 14.6 H, Calcium Level 8.7 L Vital Signs Date Time Temp Pulse Resp B/P (MAP) Pulse Ox O2 Delivery O2 Flow Rate FiO2 08/07/16 12:00 97.8 106 18 126/79 (95) 94 Room Air I&O- Last 24 Hours up to 6 AM 08/07/16 05:59 Intake Total 2380 ml Output Total 1500 ml Balance 880 ml ABED,BEN MD August 07, 2016 14:53
[2016-08-07 16:00] VITALS: BP 118/70
[2016-08-07] MEDS ORDERED: FAT EMULSION IV 20% 500 ML IV SCH (18:00)
[2016-08-07] MEDS ORDERED: SODIUM CHLORIDE IV SCH ×5 (18:00)
[2016-08-07] MEDS ORDERED: POTASSIUM CHLORIDE IV SCH ×5 (18:00)
[2016-08-07] MEDS ORDERED: [UNRECOGNIZED DRUG - OTHER] IV SCH ×5 (18:00)
[2016-08-07] MEDS ORDERED: SODIUM CHLORIDE 0.9% 1000 ML IV ONE (19:00)
[2016-08-07] MEDS ORDERED: ISOVUE-370 76% 100ML VIAL (Q9967) As Ordered ONE (19:14)
[2016-08-07] MEDS ORDERED: GASTROGRAFIN SOLUTION 30ML PO ONE (19:30)
[2016-08-07 20:00] VITALS: BP 134/78
[2016-08-07] MEDS ORDERED: GASTROGRAFIN SOLUTION 30ML (Q9963) PO ONE (20:00)
[2016-08-07] MEDS: METOCLOPRAMIDE INJ 10MG/2ML VIAL (J2765) IV PRN (20:37)
--- NOTE | 2016-08-07 21:56 | IPN ---
DATE: 08/07/2016 SUBJECTIVE: The patient was seen and examined at the bedside today in the morning. She was getting her blood cultures drawn when I saw her. The patient's white cell count continues to trend up, and she has a slight elevation in her lactate. Otherwise, she is afebrile and asymptomatic at this time. The patient's renal function is slightly worse as compared with yesterday. Creatinine is fluctuating around 1.4 to 1.5. REVIEW OF SYSTEMS: The patient denies any fevers, chills, rigors, headaches, chest pain, shortness of breath. She denies any nausea or vomiting. She has an nasogastric tube (NGT) attached to intermittent suctioning. The patient denies any pain abdomen at this time. Rest of review of systems is negative. OBJECTIVE: VITAL SIGNS: Temperature is 97.7 degrees Fahrenheit, blood pressure is 118/70, pulse is 101, respiratory rate of 17, saturating 94% on room air. INTAKE AND OUTPUT: The patient is 130 mL positive for intake/output yesterday, and around 75 mL negative for her intake and output so far today. Weight in the bed scale is 66.9 kg. PHYSICAL EXAMINATION: GENERAL: The patient is awake, alert, and oriented times three, sitting in sofa, no apparent distress. HEAD/NECK: Extraocular muscles intact. Pupils equal, round, and reactive to light. She has temporal wasting. She has an NGT attached to intermittent suctioning, and aspirate is greenish-brown. CARDIOVASCULAR: S1, S2. Mild tachycardia. No murmur, rub, or gallop. RESPIRATORY: Chest is clear to auscultation bilaterally. Bilateral equal air entry. No rales or rhonchi. ABDOMEN: Soft. Positive bowel sounds. Left side of the abdomen is slightly firm, mildly tender to palpation. EXTREMITIES: No clubbing or cyanosis. Pulses are 2+. 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 Power is 5/5 in all extremities. PSYCHIATRIC: Normal mood and affect. LABORATORY DATA: CBC showed a WBC of 18.7 which is slightly worse than yesterday; it was 15.2 yesterday. Hemoglobin is 13, platelets of 130. BMP showed sodium 140, potassium 3.9, chloride 95, bicarbonate 37, BUN is 53, creatinine 1.5; it was 1.49 yesterday. Lactic acid is 2.3. Calcium is 8.7. Phosphorus is 4. Magnesium is 2. C-reactive protein is 24.7. CURRENT MEDICATIONS: The patient's medications were all reviewed by me. I have ordered a bolus of 500 mL of normal saline. She continues to be on intravenous (IV) total parenteral nutrition (TPN). She continues to be on IV meropenem and IV vancomycin. There is no other change in the medications today as compared with yesterday. ASSESSMENT: A 71-year-old female with past medical history of hypertension, bilateral ureteral strictures causing bilateral hydroureteronephrosis, status post bilateral nephrostomy tube placements, admitted this time because of sepsis secondary to urinary tract infection (UTI), and multiple electrolyte abnormalities along with acute kidney injury. Further evaluation including esophagogastroduodenoscopy (EGD) showed the patient had a fungating gastric mass which has been negative for malignancy so far on the biopsy. Nephrology service following the patient for management of acute kidney injury, metabolic alkalosis, and multiple electrolyte abnormalities. PLAN: 1. Acute kidney injury. It is most likely secondary to dehydration, volume depletion, inability of the patient to take oral liquids and diet, and continues nasogastric aspiration. Continue intravenous (IV) fluid hydration. The patient's creatinine is fluctuating around 1.4 to 1.5. 2. Metabolic alkalosis. It is secondary to continuous nasogastric tube (NGT) suctioning, slight volume depletion, and patient was also getting acetate in the total parenteral nutrition (TPN) which was stopped now. Bicarbonate level is slowly decreasing. It is 37 now. Continue the mL per mL replacement of NGT aspirate with normal saline. 3. Hypokalemia. Potassium level is stable now. It is 3.9. I am repleting potassium in the TPN at this time. 4. Hypochloremia. It is secondary to volume depletion and NGT suctioning. Chloride level is slowly improving. It is 95 today. 5. Urinary tract infection. The patient is on IV meropenem at this time, and IV vancomycin. 6. Leukocytosis and elevated lactic acid level. The patient is fever free and she is on IV meropenem and vancomycin, and despite that, she has slight elevation of lactic acid level. I have ordered a bolus of normal saline 500 mL. Continue the antibiotics at this time. The patient is on TPN as well. There is a risk of fungal infection. The patient's cultures were drawn today. They should be kept for fungal growth as well. If leukocytosis does not improve, the patient will likely need addition of fluconazole as well. 7. Hypertension. The patient's blood pressure is acceptable at this time. Amlodipine was held because of dropping blood pressure. No need of antihypertensive regimen at this time. 8. Protein calorie malnutrition. The patient's NGT is attached to suctioning. She is unable to take anything orally because of a prepyloric mass which is obstructing the gastric outlet. Continue the TPN at this time. The patient will likely need a feeding tube placement to go beyond the obstruction in the pylorus. 9. Large gastric mass. Biopsy and evaluation of ascitic fluid have been negative so far for malignancy. Surgical service is planning to another endoscopy. 10. History of bilateral hydroureteronephrosis, status post bilateral nephrostomy tubes. Nephrostomy tubes were changed on 08/04/2016. She is not a surgical candidate at this time for repair of bilateral ureteral strictures. The plan of care was discussed with the hospitalist team, Dr. Wicho Wright.
--- NOTE | 2016-08-07 22:10 | REPUSA ---
CT of the abdomen and pelvis with contrast Clinical statement: Pain. Abscess versus bowel necrosis. Technique: Multiple axial CT images were obtained from the base of the lungs through the floor of the pelvis utilizing 5 mm axial slices after administration of nonionic intravenous contrast. Coronal an d sagittal reconstructions were also obtained. Comparison: 08/02/2016. Findings: Chest: The visualized lung bases demonstrate moderate sized bilateral pleural effusions with lower lo be atelectasis.. There is a small hiatal hernia. Abdomen: The liver, spleen, pancreas, gallbladder, and adrenal glands are unremarkable. Bilateral per cutaneous nephrostomy tubes are in place. Severebilateral hydronephrosis is noted, with narrowing of the ureters in the mid-ureter bilaterally. No discrete obstructing stone or mass is identified. The a mirna is within normal limits. There is no evidence of abdominal lymphadenopathy. There is a large francisca unt of abdominal ascites. Pelvis: The bowel is unremarkable, with no obstructive or inflammatory changes. Moderate amount of st ool fills the colon.The urinary bladder is contracted. The other pelvic structures appear grossly in tact. There is no evidence of pelvic lymphadenopathy. There is a large amount of pelvic ascites. Bones: There are no suspicious osseous abnormalities seen. Impression: 1. Large amount of abdominal and pelvic ascites, grossly stable. 2. No obstructive or inflammatory bowel changes. Moderate constipation. 3. Severe bilateral hydronephrosis and proximal hydroureter is stable. Bilateral nephrostomy tubes re main in place. 4. Increasing bilateral pleural effusions and lower lobe atelectasis. 5. Stable small hiatal hernia. 6 Overall, no significant interval change.
[2016-08-07 22:16] LABS: VENOUS BASE EXCESS 9.9 (-2.0-2.0); VENOUS O2 SATURATION 90.5 % (60.0-80.0); VENOUS PARTIAL PRESSURE CO2 45.6 mmHg (38.0-50.0); VENOUS PARTIAL PRESSURE O2 60.2 mmHg (30.0-50.0); VENOUS STANDARD HCO3 33.5 MEQ/L; VENOUS TOTAL CO2 35.8 MEQ/L (24.0-28.0)
[2016-08-07] MEDS: FLUCONAZOLE 100 MG in APPROPRIATE DILUENT 1 EA IV SCH (22:27)
[2016-08-08] VITALS: BP 131/81
[2016-08-08] MEDS: MORPHINE 2 MG/ML 1ML SYRINGE IV PRN (02:15)
--- NOTE | 2016-08-08 03:44 | PHACANCOPD ---
PHARMACY VANCOMYCIN DOSING Pt Demographics Demographics Patient Age:71 , Weight:66.900 , Gender: female Adjusted Body Weight Date: 07/26/16, Adjusted Body Weight: [62.4] Kg Vancomycin Vancomycin indication: SEPSIS Vancomycin Target Ranges: 10-20 mcg/ml Vancomycin Load Y/N: No Load Dose Date Time Vancomycin Load Dose: Date: Time: Vancomycin Dose Date: 07/29/16. Current Vancomycin Dose: [1g IV q18h @06] Date: 07/26/16. Current Vancomycin Dose: [1g IV Q24H] Intermittent Dosing?: No Labs Micro Microbiology 08/07/16 Blood Culture, Received Pending 08/07/16 Blood Culture, Received Pending 08/03/16 Fungal Smear, Received Pending 08/03/16 Fungal Culture, Received Pending 08/03/16 Gram Stain - Final, Complete 08/03/16 Body Fluid Culture - Final, Complete 08/04/16 Urine Culture - Final, Complete Creatinine Clearance Date:07/31/16. Creatinine Clearance: [~75 ml/min]. Date:07/26/16. Estimated Creatinine Clearance: [~32.7ml/min]. Assessment and Plan Maintaining Current Dose?: No Reason for dose change: Trough too high Pharmacist Note Pharmacist Note Date: 08/08/16. Pharmacist noteVancomycin trough drawn this evening reported as 23.9,SCR has beed gradually increasing(1.54 today)CRCL=32Calculated will adjust regimen to Vancomycin 750mg IV Q24H beginning 08/08@0600;will continue to follow levels and labs Date: 08/04/16. Pharmacist note:Vancomycin trough drawn tonight reported as 18.7 : patient scr=1.32(crcl has decreased appreciably from 51.6 to 37.2 in 24 hours) will adjust vanco dose accordingly from 1 gram q18 hours to 1 gram every 24 hours to begin immediately: will continue to monitor labs and levels Date: 07/31/16. Pharmacist note: Vanco trough drawn prior to 4th dose was low ( 8.5), I changed her dosing to 1g IV q18h to begin ~12 hours after her last dose. Repeat trough this afternoon was 16. I will continue her current dosing. Urine cultures from nephrostomy tube positive for Staph hominis ([facility] = 0.5). Cefepime has been discontinued. We will continue to monitor. 07/28/16: I have scheduled a vancomycin trough for 07/29/16 @1800, prior to the fourth dose. The patient's scr has improved, and output remains stable. We will continue to monitor and follow-up on trough level tomorrow, adjusting dose accordingly. Date: 07/26/16. Pharmacist note: Day #1 empiric cefepime/vanco initiated at 1g IV Q24H for the treatment of sepsis possibly secondary to a complicated UTI - aiming for a goal trough of 10-20mcg/ml. The patient has a PMH of bilateral hydroureteronephrosis s/p nephrostomy tubes and double j stent, as well as a hx of ARF - baseline scr ~ <1. WBC, lactic acid, and CRP are currently elevated. Patient is afebrile. No PMH of MRSA or vanco use here at [facility]. Blood and urine cultures are pending. We will continue to monitor the patient's kidney function and schedule a trough/adjust dosing if needed. JAREK FARFAN PHARMACY August 08, 2016 03:44
[2016-08-08 04:30] VITALS: BP 123/71
--- NOTE | 2016-08-08 04:54 | IPN ---
DATE OF SERVICE: 08/07/2016 The patient is a 71-year-old woman on the hospitalist service undergoing treatment for gastric outlet obstruction, bilateral ureteral obstructions with bilateral nephrostomy tubes, and apparently a newer diagnosis of pneumonia. She is currently on vancomycin and meropenem for her pneumonia. She has a nasogastric tube in place and is receiving total parenteral nutrition. Her nephrostomy tubes were changed within the last few days and are connected to separate drainage bags and she is putting out urine. She has a known thickening in the distal gastric wall with out outflow obstruction which is highly suspicious for gastric cancer. Her upper endoscopy done 6 days ago showed nodularity of the gastric wall, but a biopsy showed only some gastric mucosa with no malignancy identified. She had a paracentesis done on 08/03, which showed some atypical cytology with small groups and single atypical cells of undetermined significance. She remains now in the intensive care unit. Most recent vital signs today showed a temperature of 97.7. Her pulse is 101, respiratory rate is 17 and her blood pressure was 117/70 with an oxygen saturation of 94% on room air. Intake and output on the was 2380 in and 2250 out with 1400 mL of gastric drainage reported. She is taking some ice chips and reports that today she has taken quite a few and I suspect a lot of this NG output is oral fluid that is being withdrawn through her NG tube. The patient is alert and oriented and remains quite pleasant. She reports that her abdomen feels full, but not particularly painful. Physical exam reveals her heart rate to be approximately 100 and regular. She has clear heart sounds. Breath sounds are clear bilaterally. The abdomen is firmly distended, but not tender to palpation. She does have some bowel sounds present. Her laboratory studies today showed a white count of 18.7 thousand with a hemoglobin of 13, hematocrit of 40 and a platelet count of 130,000. Her white blood cell count is up from 15.2 on the . Her chemistry profile shows a sodium of 140, potassium 3.9, chloride 95, CO2 of 37, BUN of 53, creatinine 1.54 and a glucose of 115. Her lactic acid earlier today was 2.3 with a repeat of 2.6 four hours later. Her C-reactive protein is 24.7 today, which is up from 20.8 on the and 16.7 on the . A chest x-ray from the was interpreted as showing a new right middle lobe infiltrate. IMPRESSION: 1. 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 She has marked thickening of the distal gastric wall by CT scan and on endoscopy. She has now developed ascites and has some atypical cells identified on paracentesis fluid. I think it is most likely that this represents a gastric malignancy. Unfortunately, we have been unable to get an adequate sample for diagnosis. 2. Hospital-acquired pneumonia. 3. Bilateral ureteral obstructions requiring bilateral nephrostomies. RECOMMENDATIONS: At this point, I think our best approach as to identifying a definite etiology for her gastric abnormality is to attempt another upper endoscopy with a more aggressive approach to sampling of the gastric wall. This could certainly be accomplished, I would think, within the next day or two. If this is unrevealing, then perhaps a repeat paracentesis with cytology would be helpful. At some point, in order to allow her to eat if possible, a surgical procedure would be necessary. This might be as simple as performing a gastric to jejunal bypass without any sort of gastric resection or could involve a more involved procedure with a gastrectomy and reconstruction. If she has carcinomatosis of the abdomen, then this sort of extensive surgery would likely not be of a lasting benefit. I will discuss the patient's status with Dr. Molina on the and we can determine how best to proceed. CARMINA
[2016-08-08 05:13] LABS: MEAN CORPUSCULAR HEMOGLOBIN 28.3 pg (27.0-33.0); MEAN CORPUSCULAR HGB CONC 33.6 g/dl (32.0-36.5); MEAN CORPUSCULAR VOLUME 84.3 fl (80.0-96.0); WHITE BLOOD COUNT 17.9 K/mm3 (4.0-10.0)
[2016-08-08 05:33] LABS: CALCIUM LEVEL 8.2 MG/DL (8.8-10.2); CREATININE FOR GFR 1.75 MG/DL (0.55-1.02); GLOMERULAR FILTRATION RATE 30.3 (>39); MAGNESIUM LEVEL 1.8 MG/DL (1.8-2.4); PHOSPHORUS LEVEL 5.7 MG/DL (2.5-4.9); POTASSIUM SERUM 3.8 MEQ/L (3.5-5.1)
[2016-08-08] MEDS: SODIUM CHLORIDE 0.9% INJ 10 ML SYR IV SCH ×2 (05:47→18:00)
[2016-08-08] MEDS: NS 1,000 ML IV SCH ×2 (05:48→15:52)
[2016-08-08] MEDS: NYSTATIN 500,000 U/5 ML SUSP UDC PO SCH ×3 (05:49→18:01)
[2016-08-08] MEDS: HumaLOG INSULIN (NovoLOG) PER UNIT SC SCH ×3 (05:49→18:00)
[2016-08-08] MEDS ORDERED: VANCOMYCIN HCL 750 MG, VIAL MATE ADAPTER 1 EACH in D5W 250 ML IV SCH (06:00)
[2016-08-08] MEDS: METOCLOPRAMIDE INJ 10MG/2ML VIAL (J2765) IV PRN (07:48)
[2016-08-08] MEDS: MEROPENEM INJ 1 GM in D5W MINI-BAG PLUS 100 ML IV SCH ×2 (07:49→20:43)
[2016-08-08 08:00] VITALS: BP 117/63
[2016-08-08] MEDS: ENOXAPARIN 30 MG/0.3 ML SYR (J1650) SC SCH (08:59)
[2016-08-08] MEDS: amLODIPine 10 MG TAB PO SCH (08:59)
--- NOTE | 2016-08-08 10:57 | IPNPDOC ---
Subjective Date Seen The patient was seen on 08/08/16. Subjective Chief Complaint/HPI The patient is a 71-year-old female admitted with a reason for visit of Mental Status Alteration; Sepsis. Events since last encounter She was seen this morning at bedside. She did report some nausea last night and again this morning. According to the notes, her NG tube was not functioning properly. Since that has been corrected, she no longer has any nausea. She does have abdominal fullness and tenderness to palpation. No diarrhea. Continues to be tachycardic but other vitals are stable. She is afebrile. White count and CRP remained elevated. No chest pain/pressure, shortness of breath, palpitations. Nephrostomy tubes have been draining well. Patient's IV infiltrated yesterday in the left upper extremity. She does have ecchymoses in that region. She denies any pain or increased swelling. Will need to monitor this closely. He has received warm compresses. Objective Physical Examination General Exam: Positive: Alert, Cooperative, No Acute Distress Eye Exam: Positive: Conjunctiva & lids normal, EOMI, Negative: Sclera icteric ENT Exam: Positive: Atraumatic, Pharynx Normal, Tongue Midline, Other ENT (NG tube in place) Neck Exam: Positive: Supple, Negative: thyromegaly Chest Exam: Positive: Normal air movement, Negative: Rhonchi, Wheezing Heart Exam: Positive: Tachycardic, Regular Rhythm, Normal S1, Normal S2 Abdomen Exam: Positive: BS Hypoactive, Tenderness (diffusely tender with deep palpation), Negative: Soft Extremity Exam: Positive: Edema (mild), Normal pulses, Negative: Cyanosis, Tenderness Skin Exam: Positive: Nl turgor and temperature, Other skin issue (has a bruise on the left upper extremity), Negative: Rash Neuro Exam: Positive: Normal Speech, Cranial Nerves 3-12 NL Assessment /Plan Problems (1) Healthcare-associated pneumonia Status: Acute Problem Specific Plan: Monitor Clinically, Repeat Labs Problem Text: * Chest x-ray obtained on 08/05 revealed a new right middle lobe infiltrate * White count and CRP remain elevated, patient is afebrile * She is being covered with vancomycin and meropenem, initiated on 08/05 * Also initiated on fluconazole, 08/07 (2) Gastric mass Status: Acute Problem Specific Plan: Consult Specialist, Monitor Clinically Problem Text: * Upper GI series found a large irregular mass of the antrum involving the pylorus, causing partial obstruction * Surgery consulted, she had upper endoscopy with biopsy on 08/01, pathology negative for malignancy * Has NG tube in place, will possibly have repeat EGD with more aggressive biopsy to establish a diagnosis, hopefully tomorrow * PICC line in place, continue TPN (3) Ascites Status: Acute Problem Specific Plan: Monitor Clinically Problem Text: * Paracentesis performed on 08/03 where 3,550 ml of fluid was removed * Pathology revealed reactive mesothelial cells, inflammatory cells, and rare atypical cells of unknown significance, no reported malignancy * Abd/pelvis CT on 08/07 revealed large amount of abdominal and pelvic ascites, no obstructive or inflammatory bowel changes, severe I lateral hydronephrosis and proximal hydroureter that is stable, increasing bilateral pleural effusions and lower lobe atelectasis * Patient will have repeat paracentesis today (4) Acute kidney injury Status: Acute Problem Specific Plan: Monitor Clinically, Repeat Labs Problem Text: * Creatinine has worsened * Will hydrate and monitor renal function * She has been receiving vanco, with a high trough level yesterday (5) Metabolic alkalosis Status: Acute Response to Treatment: Improving Problem Specific Plan: Monitor Clinically, Repeat Labs Problem Text: * Improving * She is on normal saline * Nephrology was consulted * TPN orders have been adjusted by nephrology * Monitor electrolytes while on TPN (6) Tachycardia Status: Acute Problem Specific Plan: Monitor Clinically Problem Text: * EKG revealed sinus tachycardia, also reveal ST-T wave abnormalities and prolonged QT * Tachycardia probably secondary to acute infection, continue antibiotics * Will monitor on telemetry * Avoid QT prolonging medications (7) Hypokalemia Status: Resolved Problem Specific Plan: Monitor Clinically, Repeat Labs Problem Text: * Potassium within normal with adjustments in TPN * Continue to monitor electrolytes (8) Urinary tract infection associated with nephrostomy catheter Status: Acute Problem Specific Plan: Monitor Clinically Problem Text: * Urine culture grew Staphylococcus hominis, with history of chronic nephrostomy tubes * Blood cultures showed no growth * Had previously completed 10 day course of vancomycin (9) Hydroureteronephrosis Status: Chronic Problem Specific Plan: Consult Specialist, Monitor Clinically Problem Text: * 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 * Nephrostomy tubes were changed on 08/04 * She was supposed to have urological procedure (ureterolysis, ureteral implantation, possible flap and double-J stent placement) on July 26, however came to the emergency department instead * Will need to schedule follow-up with urology once acute issues have resolved (10) Nausea and vomiting Status: Acute Problem Specific Plan: Monitor Clinically Problem Text: * Upper GI series/abd xray revealed a large irregular mass in the antrum extending to the pylorus causing partial obstruction * Likely the cause of nausea & vomiting * Continue antiemetics as needed, until surgical intervention could be performed for gastric mass (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 No cranial nerve deficits. Patient is asymptomatic. * Spoke to the neurosurgeon front desk lead, Dr Brower and he stated that patient could just followup with their office on discharge, given incidental finding without SAH. (12) HTN (hypertension) Status: Chronic Problem Specific Plan: Monitor Clinically Problem Text: * Blood pressure stable * Continue amlodipine (13) COPD (chronic obstructive pulmonary disease) Status: Chronic Problem Specific Plan: Monitor Clinically Problem Text: * Breathing is stable and at baseline * Albuterol as needed (14) Hyperparathyroidism Status: Chronic Problem Text: l Plan/VTE VTE Prophylaxis Ordered?: Yes (lovenox) VS, I&O, 24H, Fishbone Vital Signs/I&O Vital Signs Date Time Temp Pulse Resp B/P (MAP) Pulse Ox O2 Delivery O2 Flow Rate FiO2 08/08/16 08:59 104 117/63 08/08/16 08:00 97.7 18 94 Room Air I&O- Last 24 Hours up to 6 AM 08/08/16 06:00 Intake Total 6470 ml Output Total 4020 ml Balance 2450 ml Laboratory Data CBC/BMP Laboratory Tests 08/08/16 04:42 Red Blood Count 4.06, Mean Corpuscular Volume 84.3, Mean Corpuscular Hemoglobin 28.3, Mean Corpuscular Hemoglobin Concent 33.6, Red Cell Distribution Width 15.0 H, Calcium Level 8.2 L Microbiology Microbiology 08/07/16 Blood Culture - Preliminary, Resulted No growth after 24 hours . All specim... 08/07/16 Blood Culture - Preliminary, Resulted No growth after 24 hours . All specim... 08/03/16 Fungal Smear, Received Pending 08/03/16 Fungal Culture, Received Pending 08/03/16 Gram Stain - Final, Complete 08/03/16 Body Fluid Culture - Final, Complete 08/04/16 Urine Culture - Final, Complete GME ATTESTATION GME ATTESTATION My preceptor for this patient encounter was physically present in the building during the encounter and was fully available. As needed, all aspects of the patient interview, examination, medical decision making process, and medical care plan development were reviewed and approved by the preceptor. Preceptor is aware and concurs with the plan as stated in the body of this note and will attest to such by his/her cosignature. JORGE MOE DO August 08, 2016 10:57
[2016-08-08 12:00] VITALS: BP 98/65
[2016-08-08 15:08] LABS: CALCIUM LEVEL 8.3 MG/DL (8.8-10.2); CREATININE FOR GFR 1.67 MG/DL (0.55-1.02); MAGNESIUM LEVEL 1.9 MG/DL (1.8-2.4); PHOSPHORUS LEVEL 5.2 MG/DL (2.5-4.9); POTASSIUM SERUM 3.6 MEQ/L (3.5-5.1)
[2016-08-08 16:00] VITALS: BP 124/74
[2016-08-08] MEDS ORDERED: POTASSIUM CHLORIDE IV SCH ×7 (18:00)
[2016-08-08] MEDS ORDERED: FAT EMULSION IV 20% 500 ML IV SCH (18:00)
[2016-08-08] MEDS ORDERED: [UNRECOGNIZED DRUG - OTHER] IV SCH ×7 (18:00)
[2016-08-08] MEDS ORDERED: SODIUM CHLORIDE IV SCH ×7 (18:00)
[2016-08-08 20:00] VITALS: BP 111/64
--- NOTE | 2016-08-08 20:17 | IPN ---
DATE: 08/08/2016 Mrs. Castellanos is seen this morning on her bedside in intensive care unit. She continues to have difficulty breathing with distended abdomen. She has a nasogastric tube in place. She is quite uncomfortable in the bed. Nursing staff reports that she is scheduled for a paracentesis later this afternoon. The patient has remained on NG tube suctioning with large volume of drainage. Apparently she has gastric outlet obstruction with a large mass. However, she had an inadequate biopsy which did not prove conclusive. PHYSICAL EXAMINATION: Temperature is 97.7 degrees Fahrenheit, heart rate 104 per minute and respiratory rate 18 per minute. Blood pressure 117/63 mmHg and oxygen saturation 94% on room air. Intake and output records from yesterday are positive by only 275. Head: Atraumatic. Neck is supple and without hypertensive vascular disease or thyroid enlargement. Oral mucosa is dry. A nasogastric tube is present. Heart: Sounds are tachycardiac. Lungs with diminished breath sounds at bases. Abdomen is markedly distended with ascites. Bowel sounds are hypoactive. Extremities: Have no cyanosis or clubbing. Skin has no rash or ulcers. Neurologically she is awake, alert and oriented x3. Today's labs show sodium level 143, potassium 3.8, chloride 99, CO2 34, BUN 64 and creatinine 1.75. Calcium level 8.5, phosphorus 5.7 and magnesium 1.8. C-reactive protein is 22.2. Random vancomycin level is 21.4. PROBLEMS: 1. Acute renal failure superimposed on chronic kidney disease. The patient has slight improvement in her kidney function. She is receiving IV fluids due to GI problems and we will try to maintain her intake equals output as she has large volumes of gastric drainage. 2. Gastric outlet obstruction. The patient is being considered for another upper endoscopy and possible biopsy of the gastric mass. She also has large amount of ascites and is going to have a paracentesis today. 3. Abnormal electrolytes and metabolic alkalosis. Her electrolytes have improved. Metabolic alkalosis is related to GI suctioning. We will continue to adjust her TPN according to her needs on daily basis. 4. Nutrition. TPN orders are being written as her oral intake is nothing due to gastric outlet obstruction.
[2016-08-08] MEDS: FLUCONAZOLE 100 MG in APPROPRIATE DILUENT 1 EA IV SCH (21:24)
[2016-08-09] VITALS (7 sets, daily range): BP systolic 105–131; BP diastolic 57–79
[2016-08-09] MEDS: NS 1,000 ML IV SCH ×3 (00:48→15:31)
[2016-08-09] MEDS: NYSTATIN 500,000 U/5 ML SUSP UDC PO SCH ×5 (00:52→23:59)
[2016-08-09] MEDS: SODIUM CHLORIDE 0.9% INJ 10 ML SYR IV SCH ×2 (05:43→18:40)
[2016-08-09 06:34] LABS: MEAN CORPUSCULAR HEMOGLOBIN 28.5 pg (27.0-33.0); MEAN CORPUSCULAR HGB CONC 33.5 g/dl (32.0-36.5); MEAN CORPUSCULAR VOLUME 84.8 fl (80.0-96.0); RED CELL DISTRIBUTION WIDTH 15.3 % (11.5-14.5); WHITE BLOOD COUNT 14.1 K/mm3 (4.0-10.0)
[2016-08-09 06:46] LABS: CALCIUM LEVEL 8.1 MG/DL (8.8-10.2); CREATININE FOR GFR 1.61 MG/DL (0.55-1.02); GLOMERULAR FILTRATION RATE 33.4 (>39); POTASSIUM SERUM 3.5 MEQ/L (3.5-5.1)
[2016-08-09] MEDS: HumaLOG INSULIN (NovoLOG) PER UNIT SC SCH ×5 (06:52→23:58)
[2016-08-09] MEDS: ENOXAPARIN 30 MG/0.3 ML SYR (J1650) SC SCH (08:22)
[2016-08-09] MEDS: amLODIPine 10 MG TAB PO SCH (08:22)
[2016-08-09] MEDS: MEROPENEM INJ 1 GM in D5W MINI-BAG PLUS 100 ML IV SCH ×2 (08:22→20:13)
--- NOTE | 2016-08-09 11:47 | IPNPDOC ---
Subjective Date Seen The patient was seen on 08/09/16. Subjective Chief Complaint/HPI The patient is a 71-year-old female admitted with a reason for visit of Mental Status Alteration; Sepsis. Events since last encounter Patient was seen this morning at bedside. Her NG tube was turned off secondary to receiving by mouth medications. She did begin to have some nausea, which improved once suction was turned back on. She does have some abdominal tenderness. Has some ecchymosis of the left upper extremity, without pain or increased swelling. She denies any chest pain/pressure, palpitations or shortness of breath. No fevers, chills, dizziness. She is moving her bowels Objective Physical Examination General Exam: Positive: Alert, Cooperative, No Acute Distress Eye Exam: Positive: Conjunctiva & lids normal, EOMI, Negative: Sclera icteric ENT Exam: Positive: Atraumatic, Pharynx Normal, Tongue Midline, Other ENT (NG tube in place) Neck Exam: Positive: Supple, Negative: thyromegaly Chest Exam: Positive: Normal air movement, Negative: Rhonchi, Wheezing Heart Exam: Positive: Tachycardic, Regular Rhythm, Normal S1, Normal S2 Abdomen Exam: Positive: BS Hypoactive, Tenderness (diffusely tender with deep palpation), Negative: Soft Extremity Exam: Positive: Edema (mild), Normal pulses, Negative: Cyanosis, Tenderness Skin Exam: Positive: Nl turgor and temperature, Other skin issue (has a bruise on the left upper extremity), Negative: Rash Neuro Exam: Positive: Normal Speech, Cranial Nerves 3-12 NL Assessment /Plan Problems (1) Healthcare-associated pneumonia Status: Acute Problem Specific Plan: Monitor Clinically, Repeat Labs Problem Text: * Chest x-ray obtained on 08/05 revealed a new right middle lobe infiltrate * White count and CRP trending down, patient is afebrile * She is being covered with vancomycin and meropenem, initiated on 08/05 * Also initiated on fluconazole, 08/07 (2) Gastric mass Status: Acute Problem Specific Plan: Consult Specialist, Monitor Clinically Problem Text: * Upper GI series found a large irregular mass of the antrum involving the pylorus, causing partial obstruction * Surgery consulted, she had upper endoscopy with biopsy on 08/01, pathology negative for malignancy * Has NG tube in place, will need repeat EGD with more aggressive biopsy to establish a diagnosis * PICC line in place, continue TPN (3) Ascites Status: Acute Problem Specific Plan: Monitor Clinically Problem Text: * Paracentesis performed on 08/03 where 3,550 ml of fluid was removed * Pathology revealed reactive mesothelial cells, inflammatory cells, and rare atypical cells of unknown significance, no reported malignancy * Abd/pelvis CT on 08/07 revealed large amount of abdominal and pelvic ascites, no obstructive or inflammatory bowel changes, severe I lateral hydronephrosis and proximal hydroureter that is stable, increasing bilateral pleural effusions and lower lobe atelectasis * Patient will have repeat paracentesis with cytology and cultures (4) Acute kidney injury Status: Acute Problem Specific Plan: Monitor Clinically, Repeat Labs Problem Text: * Creatinine seems to be improving * She is currently on normal saline, will decrease rate secondary to increasing lower extremity edema (5) Metabolic alkalosis Status: Acute Response to Treatment: Improving Problem Specific Plan: Monitor Clinically, Repeat Labs Problem Text: * She is on normal saline * Nephrology is following * TPN orders have been adjusted by nephrology * Monitor electrolytes while on TPN (6) Tachycardia Status: Acute Problem Specific Plan: Monitor Clinically Problem Text: * EKG revealed sinus tachycardia, also reveal ST-T wave abnormalities and prolonged QT * Tachycardia may be secondary to acute infection, continue antibiotics * Will monitor on telemetry * Avoid QT prolonging medications (7) Urinary tract infection associated with nephrostomy catheter Status: Acute Problem Specific Plan: Monitor Clinically Problem Text: * Urine culture grew Staphylococcus hominis, with history of chronic nephrostomy tubes * Blood cultures showed no growth * Had previously completed 10 day course of vancomycin (8) Hydroureteronephrosis Status: Chronic Problem Specific Plan: Consult Specialist, Monitor Clinically Problem Text: * 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 * Nephrostomy tubes were changed on 08/04 * She was supposed to have urological procedure (ureterolysis, ureteral implantation, possible flap and double-J stent placement) on July 26, however came to the emergency department instead * Will need to schedule follow-up with urology once acute issues have resolved (9) Nausea and vomiting Status: Acute Problem Specific Plan: Monitor Clinically Problem Text: * Upper GI series/abd xray revealed a large irregular mass in the antrum extending to the pylorus causing partial obstruction * Likely the cause of nausea & vomiting * Continue antiemetics as needed, until surgical intervention could be performed for gastric mass (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 No cranial nerve deficits. Patient is asymptomatic. * Spoke to the neurosurgeon fire control technician, Dr Brower and he stated that patient could just followup with their office on discharge, given incidental finding without SAH. (11) HTN (hypertension) Status: Chronic Problem Specific Plan: Monitor Clinically Problem Text: * Blood pressure stable * Continue amlodipine (12) COPD (chronic obstructive pulmonary disease) Status: Chronic Problem Specific Plan: Monitor Clinically Problem Text: * Breathing is stable and at baseline * Albuterol as needed (13) Hyperparathyroidism Status: Chronic Problem Text: l Plan/VTE VTE Prophylaxis Ordered?: Yes (lovenox) [facility] Signs/I&O Vital Signs Date Time Temp Pulse Resp B/P (MAP) Pulse Ox O2 Delivery O2 Flow Rate FiO2 08/09/16 08:22 103 121/67 08/09/16 07:38 98.0 20 92 Room Air I&O- Last 24 Hours up to 6 AM 08/09/16 06:00 Intake Total 5118 ml Output Total 5000 ml Balance 118 ml Laboratory Data CBC/BMP Laboratory Tests 08/08/16 14:15 Calcium Level 8.3 L 08/09/16 05:45 Calcium Level 8.1 L, Red Blood Count 3.95 L, Mean Corpuscular Volume 84.8, Mean Corpuscular Hemoglobin 28.5, Mean Corpuscular Hemoglobin Concent 33.5, Red Cell Distribution Width 15.3 H Microbiology Microbiology 08/07/16 Blood Culture - Preliminary, Resulted No Growth after 48 hours. All Specime... 08/07/16 Blood Culture - Preliminary, Resulted No Growth after 48 hours. All Specime... 08/08/16 Acid Fast Stain, Received Pending 08/08/16 Mycobacterial Culture, Received Pending 08/08/16 Fungal Smear, Received Pending 08/08/16 Fungal Culture, Received Pending 08/08/16 Gram Stain, Received Pending 08/08/16 Body Fluid Culture, Received Pending 08/03/16 Fungal Smear, Received Pending 08/03/16 Fungal Culture, Received Pending 08/03/16 Gram Stain - Final, Complete 08/03/16 Body Fluid Culture - Final, Complete 08/04/16 Urine Culture - Final, Complete GME ATTESTATION GME ATTESTATION My preceptor for this patient encounter was physically present in the building during the encounter and was fully available. As needed, all aspects of the patient interview, examination, medical decision making process, and medical care plan development were reviewed and approved by the preceptor. Preceptor is aware and concurs with the plan as stated in the body of this note and will attest to such by his/her cosignature. JORGE MOE DO August 09, 2016 11:47
[2016-08-09 11:52] LABS: BF DIFF IF INDICATED? YES (NO); RBC ASCITES FLUID < 10 (<10mm3 cells/uL); TNC ASCITES FLUID 98 cells/uL (0-20)
[2016-08-09 12:17] LABS: TOTAL PROTEIN, BODY FLUID 2.5 G/DL (NOT ESTABLISHED)
[2016-08-09 12:33] LABS: CC BF DIFF EXAM CYTOCENTRIFUGE
--- NOTE | 2016-08-09 16:20 | REP ---
ULTRASOUND GUIDED PARACENTESIS: The procedure was performed under the direct supervision of Dr. Jaramillo. The risks and benefits of the procedure were explained to the patient and informed consent was obtained. The largest pocket of fluid was localized in the right upper quadrant using ultrasound guidance. The skin was prepped and draped in a sterile fashion. 1% Lidocaine was used as a local anesthetic. An 8-[place]og[place] [id number] catheter was inserted using trocar technique. 2450 mL of laquita colored fluid was withdrawn with a sample sent to the lab for analysis. The patient tolerated the procedure well and there were no immediate complications. Reviewed by GIANCARLO Herrera 08/10/2016 12:18 PEdited and Signed by Joni Jaramillo MD 08/10/2016 03:48 P
[2016-08-09] MEDS ORDERED: [UNRECOGNIZED DRUG - OTHER] IV SCH ×6 (18:00)
[2016-08-09] MEDS ORDERED: FAT EMULSION IV 20% 500 ML IV SCH (18:00)
[2016-08-09] MEDS ORDERED: SODIUM CHLORIDE IV SCH ×6 (18:00)
[2016-08-09] MEDS ORDERED: POTASSIUM CHLORIDE IV SCH ×6 (18:00)
--- NOTE | 2016-08-09 21:45 | IPN ---
DATE: 08/09/2016 Mrs. Castellanos is seen this morning on her bedside in intensive care unit. She is feeling slightly better today. However, her abdominal distension is unchanged. She did not have paracentesis done yesterday. She still has a nasogastric (NG) tube which is hooked to suctioning. She continues to receive total parenteral nutrition (TPN) for nutritional support. PHYSICAL EXAMINATION: Temperature 98 degrees Fahrenheit, heart rate 105 per minute and respiratory rate 20 per minute. Blood pressure 121/67 mmHg and oxygen saturation 92% on room air. Intake and output records from yesterday showed total intake 5663 and output 4895. Her head is atraumatic. NG tube is in place. Neck is supple and without jugular venous distention (JVD) or thyroid enlargement. Oral mucosa is somewhat dry. Heart sounds are tachycardiac and lungs sound clear to auscultation. Abdomen is distended with ascites. Bowel sounds are present. Extremities have no cyanosis or clubbing. Skin has no rash or ulcers. Neurologically she is awake, alert and oriented times three. Today's labs show WBC count 14.1, hemoglobin 11.2 and hematocrit 33.5. Platelets 195. Sodium 145, potassium 3.5. BUN 67 and creatinine 1.61. C-reactive protein is 18.8. PROBLEMS: 1. Acute kidney injury superimposed on possible chronic kidney disease. Slight improvement in kidney function is noted. She is somewhat in negative fluid balance. She has significant NG tube suctioning. We will continue with IV fluid and try to maintain her intake equals output. 2. Nutrition. The patient is receiving TPN and her TPN orders are written. 3. Hypokalemia. This is related to TPN and no oral intake. NG tube suctioning is also worsening her hypokalemia. We are increasing potassium chloride to 40 mEq in the TPN bag. Electrolytes will be checked again tomorrow morning. 4. Ascites. The patient is likely to have paracentesis later today. 5. Gastric outlet obstruction with possible gastric malignancy. Patient is going to have another upper endoscopy for possible biopsy due to negative biopsy related to inadequate tissue.
[2016-08-09] MEDS: FLUCONAZOLE 100 MG in APPROPRIATE DILUENT 1 EA IV SCH (21:54)
[2016-08-10] VITALS (12 sets, daily range): BP systolic 92–119; BP diastolic 58–70; O2SAT 90–97
[2016-08-10] MEDS: NS 1,000 ML IV SCH (03:20)
[2016-08-10] MEDS: HumaLOG INSULIN (NovoLOG) PER UNIT SC SCH ×3 (06:00→17:39)
[2016-08-10] MEDS: SODIUM CHLORIDE 0.9% INJ 10 ML SYR IV SCH ×2 (06:00→16:22)
[2016-08-10] MEDS: NYSTATIN 500,000 U/5 ML SUSP UDC PO SCH ×3 (06:11→17:38)
[2016-08-10 06:15] LABS: MEAN CORPUSCULAR HEMOGLOBIN 27.7 pg (27.0-33.0); MEAN CORPUSCULAR HGB CONC 32.5 g/dl (32.0-36.5); RED CELL DISTRIBUTION WIDTH 15.1 % (11.5-14.5); WHITE BLOOD COUNT 11.1 K/mm3 (4.0-10.0)
[2016-08-10 06:36] LABS: ALBUMIN 1.4 GM/DL (3.2-5.2); ALBUMIN/GLOBULIN RATIO 0.44 (1.00-1.93); BILIRUBIN,TOTAL 0.5 MG/DL (0.2-1.0); CALCIUM LEVEL 8.5 MG/DL (8.8-10.2); CREATININE FOR GFR 1.49 MG/DL (0.55-1.02); GLOMERULAR FILTRATION RATE 36.5 (>39); MAGNESIUM LEVEL 2.1 MG/DL (1.8-2.4); POTASSIUM SERUM 3.3 MEQ/L (3.5-5.1); TOTAL PROTEIN 4.6 GM/DL (6.4-8.2)
[2016-08-10] MEDS ORDERED: POTASSIUM CHLORIDE INJ 40 MEQ in D5W 1,000 ML IV SCH (08:00)
--- NOTE | 2016-08-10 08:00 | IPNPDOC ---
Subjective General Date/Time Seen The patient was seen on 08/10/16 at 07:55. Subject Chief Complaint/History The patient is a 71-year-old female admitted with a reason for visit of nausea, vomiting, possible gastric mass Events last week reviewed in chart, with patient and nursing staff as well as my covering surgeon/s. Attempts at cofirming possiblity of malignancy has failed to yield any definitive pathology results. Patient still with NGT on TPN. Now is being treated for possible pneumonia. Paracentesis again done yesterday. Pathology results pending. Patient otherwise reports feeling improved after paracentesis, denies nausea, shortness of breath. Current Medications Current Medications Current Medications Acetaminophen (Tylenol Tab) 650 mg Q4HP PRN PO MILD PAIN OR FEVER Last administered on 08/07/16 09:23; Start 07/26/16 at 16:00; Stop 08/25/16 at 15:59 Albuterol/ Ipratropium (Duoneb (Ipr 0.5mg/Alb 2.5mg)) 3 ml Q4HP PRN NEB SOB/ WHEEZING; Start 07/26/16 at 17:15; Stop 08/25/16 at 17:14 Amino Ac/Electrol/ Dextrose/Calcium 1,000 ml @ 70 mls/hr [id number] IV Last administered on 08/01/16 09:15; Start 07/30/16 at 16:00; Stop 08/01/16 at 17:59 ; Status DC Amino Ac/Electrol/ Dextrose/Calcium 2,000 ml @ 70 mls/hr 1T@18 IV Last administered on 08/01/16 18:28; Start 08/01/16 at 18:00; Stop 08/02/16 at 17:59 ; Status DC Amino Ac/Electrol/ Dextrose/Calcium 2,000 ml @ 70 mls/hr 1T@18 IV Last administered on 08/02/16 18:06; Start 08/02/16 at 18:00; Stop 08/03/16 at 17:59 ; Status DC Amino Ac/Electrol/ Dextrose/Calcium 2,000 ml @ 70 mls/hr 1T@18 IV Last administered on 08/04/16 21:12; Start 08/04/16 at 18:00; Stop 08/05/16 at 12:49 ; Status DC Amlodipine Besylate (Norvasc) 10 mg DAILY PO Last administered on 08/09/16 08: 22; Start 07/30/16 at 09:00; Stop 08/29/16 at 08:59 Bisacodyl (Dulcolax Tab) 5 mg DAILYPRN PRN PO CONSTIPATION Last administered on 08/08/16 08:59; Start 07/26/16 at 16:00; Stop 08/25/16 at 15:59 Cefepime HCl 1 gm/ Dextrose 50 ml @ 100 mls/hr Q24H IV Last administered on 17:26; Start 07/26/16 at 18:00; Stop 07/29/16 at 11:00; Status DC Dextrose (Dextrose 50%) 25 ml ASDIRECTED PRN IV SEE LABEL COMMENTS; Start 07/30 at 15:30; Stop 08/29/16 at 15:29 Dimenhydrinate (Dramamine) 50 mg Q6H PRN PO NAUSEA OR VOMITING Last administered on 08/05/16 12:58; Start 08/05/16 at 12:30; Stop 09/04/16 at 12:29 Enoxaparin Sodium (Lovenox) 30 mg DAILY SC Last administered on 08/08/16 08:59 ; Start 08/08/16 at 09:00; Stop 08/13/16 at 08:59 Enoxaparin Sodium (Lovenox) 40 mg DAILY SC Last administered on 08/07/16 09:24 ; Start 08/02/16 at 09:00; Stop 08/07/16 at 21:01; Status DC Fat Emulsion Intravenous 500 ml @ 20 mls/hr 1T@18 IV Last administered on 07/30 17:16; Start 07/30/16 at 18:00; Stop 07/31/16 at 17:59; Status DC Fat Emulsion Intravenous 500 ml @ 20 mls/hr 1T@18 IV Last administered on 07/31 17:50; Start 07/31/16 at 18:00; Stop 08/01/16 at 13:37; Status DC Fat Emulsion Intravenous 500 ml @ 20 mls/hr 1T@18 IV Last administered on 08/01 18:29; Start 08/01/16 at 18:00; Stop 08/02/16 at 17:59; Status DC Fat Emulsion Intravenous 500 ml @ 20 mls/hr 1T@18 IV Last administered on 08/02 18:07; Start 08/02/16 at 18:00; Stop 08/03/16 at 17:59; Status DC Fat Emulsion Intravenous 500 ml @ 20 mls/hr 1T@18 IV Last administered on 08/03 17:55; Start 08/03/16 at 18:00; Stop 08/04/16 at 17:59; Status DC Fat Emulsion Intravenous 500 ml @ 20 mls/hr 1T@18 IV Last administered on 08/04 21:12; Start 08/04/16 at 18:00; Stop 08/05/16 at 12:48; Status DC Fat Emulsion Intravenous 500 ml @ 20 mls/hr 1T@18 IV Last administered on 08/05 18:15; Start 08/05/16 at 18:00; Stop 08/06/16 at 17:59; Status DC Fat Emulsion Intravenous 500 ml @ 20 mls/hr 1T@18 IV Last administered on 08/06 17:44; Start 08/06/16 at 18:00; Stop 08/07/16 at 17:59; Status DC Fat Emulsion Intravenous 500 ml @ 20 mls/hr 1T@18 IV Last administered on 08/07 17:16; Start 08/07/16 at 18:00; Stop 08/08/16 at 17:59; Status DC Fat Emulsion Intravenous 500 ml @ 20 mls/hr 1T@18 IV Last administered on 08/08 18:01; Start 08/08/16 at 18:00; Stop 08/09/16 at 17:59; Status DC Fat Emulsion Intravenous 500 ml @ 20 mls/hr 1T@18 IV Last administered on 08/09 18:35; Start 08/09/16 at 18:00; Stop 08/10/16 at 17:59 Fluconazole 100 mg/IV Miscellaneous Supplies 50 ml @ 50 mls/hr Q24H IV Last administered on 08/09/16 21:54; Start 08/07/16 at 22:00; Stop 08/14/16 at 21:59 Glucagon (Glucagon) 1 mg ASDIRECTED PRN SC SEE LABEL COMMENTS; Start 07/30/16 at 15:30; Stop 08/29/16 at 15:29 Glucose (Glucose) 16 GM ASDIRECTED PRN PO SEE LABEL COMMENTS; Start 07/30/16 at 15:30; Stop 08/29/16 at 15:29 Heparin Sodium (Heparin (Flush)) 200 units ASDIRECTED PRN IV SEE LABEL COMMENTS Last administered on 08/02/16 17:08; Start 08/01/16 at 19:00; Stop at 18:59 Heparin Sodium (Heparin (Flush)) 200 units PICC IV Last administered on 17:17; Start 08/02/16 at 06:00; Stop 09/01/16 at 05:59 Heparin Sodium (Porcine) (Heparin) 5,000 units Q8H SQ Last administered on 07/31 21:41; Start 07/27/16 at 14:00; Stop 08/01/16 at 13:59; Status DC Home Med (Med Rec Complete!) ASDIRECTED XX ; Start 07/26/16 at 14:00; Stop at 14:00; Status DC Insulin Human Lispro (HumaLOG INSULIN) See Protocol Table Q6H SC Last administered on 07/31/16 12:07; Start 07/30/16 at 18:00; Stop 07/31/16 at 12:01 ; Status DC Insulin Human Lispro (HumaLOG INSULIN) See Protocol Table Q6H SC Last administered on 08/01/16 05:37; Start 07/31/16 at 18:00; Stop 08/01/16 at 12:01 ; Status DC Insulin Human Lispro (HumaLOG INSULIN) See Protocol Table Q6H SC Last administered on 08/02/16 12:16; Start 08/01/16 at 18:00; Stop 08/02/16 at 15:00 ; Status DC Insulin Human Lispro (HumaLOG INSULIN) See Protocol Table Q6H SC Last administered on 08/03/16 11:44; Start 08/02/16 at 18:00; Stop 08/03/16 at 15:00 ; Status DC Insulin Human Lispro (HumaLOG INSULIN) See Protocol Table Q6H SC Last administered on 08/04/16 11:51; Start 08/03/16 at 18:00; Stop 08/04/16 at 15:00 ; Status DC Insulin Human Lispro (HumaLOG INSULIN) See Protocol Table Q6H SC Last administered on 08/05/16 06:00; Start 08/04/16 at 18:00; Stop 08/05/16 at 12:01 ; Status DC Insulin Human Lispro (HumaLOG INSULIN) See Protocol Table Q6H SC Last administered on 08/06/16 12:15; Start 08/05/16 at 18:00; Stop 08/06/16 at 15:00 ; Status DC Insulin Human Lispro (HumaLOG INSULIN) See Protocol Table Q6H SC Last administered on 08/07/16 12:17; Start 08/06/16 at 18:00; Stop 08/07/16 at 12:01 ; Status DC Insulin Human Lispro (HumaLOG INSULIN) See Protocol Table Q6H SC Last administered on 08/08/16 12:34; Start 08/07/16 at 18:00; Stop 08/08/16 at 12:01 ; Status DC Insulin Human Lispro (HumaLOG INSULIN) See Protocol Table Q6H SC Last administered on 08/09/16 12:04; Start 08/08/16 at 18:00; Stop 08/09/16 at 12:01 ; Status DC Insulin Human Lispro (HumaLOG INSULIN) See Protocol Table Q6H SC Last administered on 08/10/16 06:00; Start 08/09/16 at 18:00; Stop 08/10/16 at 12:01 Lactated Ringer's 1,000 ml @ 75 mls/hr [id number] IV ; Start 08/01/16 at 14:15; Stop 08/01/16 at 15:15; Status DC Meropenem 1 gm/ Dextrose 100 ml @ 200 mls/hr Q12H IV Last administered on 08/09 20:13; Start 08/05/16 at 08:00; Stop 08/12/16 at 07:59 Meropenem 1 gm/ Dextrose 100 ml @ 200 mls/hr Q8H IV ; Start 08/05/16 at 08:00; Stop 08/05/16 at 08:00; Status DC Metoclopramide HCl (REGLAN INJection) 10 mg Q6HP PRN IV NAUSEA OR VOMITING Last administered on 08/08/16 07:48; Start 08/07/16 at 20:15; Stop 09/06/16 at 20:14 Miscellaneous (Unresolved Clarification Entry) SEE LABEL COMMENTS UNRESOLVED XX ; Start 08/02/16 at 00:01; Stop 08/02/16 at 19:14; Status DC Morphine Sulfate (Morphine Sulfate Inj) 1 mg Q3HP PRN IV PAIN Last administered on 08/08/16 02:15; Start 08/05/16 at 16:15; Stop 08/12/16 at 16:14 Multivitamins 10 ml/Chromium/ Copper/Manganese/ Seleni/Zn 1 ml/ Amino Ac/ Electrol/ Dextrose/Calcium 2,011 ml @ 70 mls/hr 1T@18 IV Last administered on 08/03/16 17:54; Start 08/03/16 at 18:00; Stop 08/04/16 at 17:59; Status DC Nystatin (Mycostatin) 0.5 ml Q6H PO Last administered on 08/10/16 06:11; Start 08/03/16 at 06:00; Stop 08/16/16 at 05:59 Ondansetron HCl (ZOFRAN INJection) 4 mg Q4HP PRN IV NAUSEA OR VOMITING; Start 08/01/16 at 14:15; Stop 08/01/16 at 15:15; Status DC Ondansetron HCl (ZOFRAN INJection) 4 mg Q6HP PRN IV NAUSEA OR VOMITING Last administered on 07/28/16 10:44; Start 07/26/16 at 16:00; Stop 08/05/16 at 11:04 ; Status DC Potassium Chloride 10 meq/ Dextrose/Sodium Chloride 1,005 ml @ 100 mls/hr Q10H3M IV ; Start 07/26/16 at 13:15; Stop 08/25/16 at 13:14; Status Cancel Potassium Chloride 10 meq/ IV Miscellaneous Supplies 100 ml @ 100 mls/hr 1T@ 0800,0900 IV Last administered on 07/30/16 09:32; Start 07/30/16 at 08:00; Stop 07/30/16 at 12:00; Status DC Potassium Chloride 10 meq/ IV Miscellaneous Supplies 100 ml @ 100 mls/hr 1T@ 1300,1400 IV Last administered on 07/31/16 14:15; Start 07/31/16 at 13:00; Stop 07/31/16 at 18:00; Status DC Potassium Chloride 10 meq/ IV Miscellaneous Supplies 100 ml @ 100 mls/hr 1T@ 1700,1800 IV Last administered on 07/26/16 18:41; Start 07/26/16 at 17:00; Stop 07/26/16 at 20:00; Status DC Potassium Chloride 10 meq/ IV Miscellaneous Supplies 100 ml @ 100 mls/hr Q1H IV Last administered on 08/05/16 16:13; Start 08/05/16 at 11:00; Stop at 14:59; Status DC Potassium Chloride 10 meq/ IV Miscellaneous Supplies 100 ml @ 100 mls/hr TID@ 0000,2200,2300 IV ; Start 07/26/16 at 22:00; Stop 07/26/16 at 22:00; Status DC Potassium Chloride 30 meq/ IV Miscellaneous Supplies 300 ml @ 100 mls/hr 1T@ 0100,0200,0300 IV Last administered on 07/27/16 03:41; Start 07/27/16 at 01:00 ; Stop 07/27/16 at 09:00; Status DC Potassium Chloride 40 meq/ Dextrose/Water 1,020 ml @ 60 mls/hr Q17H IV ; Start 08/10/16 at 08:00; Stop 09/09/16 at 07:59 Potassium Chloride/Sodium Chloride 1,000 ml @ 100 mls/hr Q10H IV Last administered on 08/02/16 03:05; Start 07/26/16 at 20:00; Stop 08/02/16 at 11:54 ; Status DC Sodium Chloride 1,000 ml @ 75 mls/hr [id number] IV Last administered on 03:20; Start 08/05/16 at 10:30; Stop 08/10/16 at 07:10; Status DC Sodium Chloride 1,000 ml @ 100 mls/hr Q10H IV Last administered on 08/05/16 03:53; Start 08/04/16 at 14:00; Stop 08/05/16 at 07:51; Status DC Sodium Chloride 1,000 ml @ 100 mls/hr Q10H IV Last administered on 07/26/16 11 :45; Start 07/26/16 at 11:12; Stop 07/26/16 at 17:06; Status DC Sodium Chloride (Saline Lock Flush) 10 ML PICC IV Last administered on 06:00; Start 08/02/16 at 06:00; Stop 09/01/16 at 05:59 Sodium Chloride (Saline Lock Flush) 10ML ASDIRECTED PRN IV SEE LABEL COMMENTS Last administered on 08/02/16 17:08; Start 08/01/16 at 19:00; Stop 08/31/16 at 18:59 Sodium Chloride 250 meq/Potassium Chloride 80 meq/ Potassium Phosphate 20 mmol/ Magnesium Sulfate 9.5 meq/Calcium Gluconate 1190 mg/ Amino Acids/ Dextrose 2, 123.4417 ml @ 70 mls/hr 1T@18 IV Last administered on 08/09/16 18:36; Start at 18:00; Stop 08/10/16 at 17:59 Sodium Chloride 260 meq/Potassium Chloride 40 meq/ Magnesium Sulfate 9.5 meq/ Calcium Gluconate 1190 mg/ Multivitamins 10 ml/Chromium/ Copper/Manganese/ Seleni/Zn 1 ml/ Amino Acids/ Dextrose 2,110.275 ml @ 70 mls/hr 1T@18 IV Last administered on 08/08/16 18:01; Start 08/08/16 at 18:00; Stop 08/09/16 at 17:59 ; Status DC Sodium Chloride 270 meq/Potassium Chloride 40 meq/ Potassium Phosphate 40 mmol/ Calcium Gluconate 1190 mg/Amino Acids/Dextrose 2,112.7333 ml @ 70 mls/hr 1T@18 IV Last administered on 08/07/16 17:16; Start 08/07/16 at 18:00; Stop at 17:59; Status DC Sodium Chloride 270 meq/Potassium Chloride 40 meq/ Potassium Phosphate 40 mmol/ Magnesium Sulfate 6 meq/Calcium Gluconate 1190 mg/ Amino Acids/ Dextrose 2, 114.2333 ml @ 70 mls/hr 1T@18 IV Last administered on 08/06/16 17:45; Start at 18:00; Stop 08/07/16 at 17:59; Status DC Sodium Chloride 270 meq/Potassium Chloride 40 meq/ Potassium Phosphate 40 mmol/ Magnesium Sulfate 6 meq/Calcium Gluconate 1190 mg/ Multivitamins 10 ml/Chromium / Copper/Manganese/ Seleni/Zn 1 ml/ Amino Acids/ Dextrose 2,125.2333 ml @ 70 mls /hr 1T@18 IV Last administered on 08/05/16 18:16; Start 08/05/16 at 18:00; Stop 08/06/16 at 17:59; Status DC Vancomycin HCl 750 mg/IV Miscellaneous Supplies 1 each/ Dextrose 275 ml @ 275 mls/hr Q24H IV Last administered on 08/08/16 05:49; Start 08/08/16 at 06:00; Stop 08/08/16 at 14:20; Status DC Vancomycin HCl 1000 mg/IV Miscellaneous Supplies 1 each/ Dextrose 270 ml @ 270 mls/hr Q18H IV Last administered on 07/31/16 17:50; Start 07/30/16 at 06:00; Stop 08/01/16 at 15:25; Status DC Vancomycin HCl 1000 mg/IV Miscellaneous Supplies 1 each/ Dextrose 270 ml @ 270 mls/hr Q18H IV Last administered on 08/04/16 00:05; Start 08/01/16 at 16:00; Stop 08/04/16 at 04:53; Status DC Vancomycin HCl 1000 mg/IV Miscellaneous Supplies 1 each/ Dextrose 270 ml @ 270 mls/hr Q24H IV Last administered on 08/04/16 21:12; Start 08/04/16 at 21:00; Stop 08/04/16 at 23:59; Status DC Vancomycin HCl 1000 mg/IV Miscellaneous Supplies 1 each/ Dextrose 270 ml @ 270 mls/hr Q24H IV Last administered on 08/06/16 20:56; Start 08/06/16 at 21:00; Stop 08/07/16 at 20:26; Status DC Vancomycin HCl 1000 mg/IV Miscellaneous Supplies 1 each/ Dextrose 270 ml @ 270 mls/hr Q24H IV Last administered on 07/29/16 18:44; Start 07/26/16 at 19:00; Stop 07/29/16 at 21:00; Status DC Allergies Coded Allergies: Penicillins (Verified Allergy, Mild, Rash / Hives, 07/18/16) Objective Physical Examination Examination GENERAL APPEARANCE:[Patient seen, laying in bed, awake, alert, and oriented. Comfortable, in no acute distress]. SKIN: [Warm and moist]. HEENT: [Normocephalic, atraumatic. Mild pale palpebral conjunctiva, anicteric sclerae. Lips and mucosa appear dry. NGT in place.. NECK: [Supple, no thyromegaly. No obvious jugular venous distention]. LUNGS: [Clear to auscultation bilaterally. No wheezing appreciated]. HEART: [No chest wall abnormalities. Regular rate and rhythm with no murmurs appreciated]. ABDOMEN: Abdomen is round, protuberant, soft, There is still some central hardness- feels like bowels fixed at the mid-abdomen. Nontender to palpation EXTREMITIES: [Extremities have no deformities. +++ edema. Vital Signs Vital Signs Date Time Temp Pulse Resp B/P (MAP) Pulse Ox O2 Delivery O2 Flow Rate FiO2 08/10/16 04:35 98.2 99 18 105/61 (76) 94 Room Air I&Os I&O- Last 24 Hours up to 6 AM 08/10/16 06:00 Intake Total 4360 ml Output Total 3675 ml Balance 685 ml Laboratory Data Labs 24H Laboratory Tests 2 08/09/16 11:57: Bedside Glucose (Misc Panel) 103 08/09/16 18:16: Bedside Glucose (Misc Panel) 103 08/09/16 23:53: Bedside Glucose (Misc Panel) 99 08/10/16 05:56: Anion Gap 5L, Glomerular Filtration Rate 36.5L, Blood Urea Nitrogen 66H, Creatinine 1.49H, Sodium Level 151H, Potassium Level 3.3L, Chloride Level 108H, Carbon Dioxide Level 38H, Calcium Level 8.5L, Phosphorus Level 4.0, Aspartate Amino Transf (AST/SGOT) 31, Alanine Aminotransferase (ALT/SGPT) 18, Alkaline Phosphatase 129H, Total Bilirubin 0.5, Total Protein 4.6L, Albumin 1.4L, Magnesium Level 2.1, Albumin/Globulin Ratio 0.44L, Prealbumin 4.9L 08/10/16 06:04: Bedside Glucose (Misc Panel) 117H CBC/BMP Laboratory Tests 08/10/16 05:56 Red Blood Count 3.89 L, Mean Corpuscular Volume 85.0, Mean Corpuscular Hemoglobin 27.7, Mean Corpuscular Hemoglobin Concent 32.5, Red Cell Distribution Width 15.1 H, Calcium Level 8.5 L, Phosphorus Level 4.0, Aspartate Amino Transf (AST/SGOT) 31, Alanine Aminotransferase (ALT/SGPT) 18, Alkaline Phosphatase 129 H, Total Bilirubin 0.5, Total Protein 4.6 L, Albumin 1.4 L Microbiology Microbiology 08/07/16 Blood Culture - Preliminary, Resulted No Growth after 48 hours. All Specime... 08/07/16 Blood Culture - Preliminary, Resulted No Growth after 48 hours. All Specime... 08/08/16 Acid Fast Stain, Received Pending 08/08/16 Mycobacterial Culture, Received Pending 08/08/16 Fungal Smear, Received Pending 08/08/16 Fungal Culture, Received Pending 08/08/16 Gram Stain - Final, Resulted 08/08/16 Body Fluid Culture, Resulted Pending 08/03/16 Fungal Smear, Received Pending 08/03/16 Fungal Culture, Received Pending 08/03/16 Gram Stain - Final, Complete 08/03/16 Body Fluid Culture - Final, Complete 08/04/16 Urine Culture - Final, Complete Impression Possible gastric mass, gastric outlet obstruction Will repeat EGD today and try to take more biopsies, deeper biopsies. Await pathology results from paracentesis Continue TPN Further recommendations after EGD today Plan / VTE VTE Prophylaxis Ordered?: Yes (lovenox) SOFIE BEAUCHAMP MD August 10, 2016 08:00
[2016-08-10] MEDS: MEROPENEM INJ 1 GM in D5W MINI-BAG PLUS 100 ML IV SCH ×2 (08:59→22:10)
--- NOTE | 2016-08-10 10:35 | IPNPDOC ---
Subjective Date Seen The patient was seen on 08/10/16. Subjective Chief Complaint/HPI The patient is a 71-year-old female admitted with a reason for visit of Mental Status Alteration; Sepsis. Events since last encounter Patient was seen this morning at bedside. No acute overnight issues. She continues to have a G-tube in place and on TPN. She is to have upper endoscopy this morning. She denies any nausea. Abdomen is somewhat firm and tender to deep palpation. She denies any chest pain/pressure, palpitations, shortness of breath, lightheadedness, dizziness, diarrhea, fevers or chills. Objective Physical Examination General Exam: Positive: Alert, Cooperative, No Acute Distress Eye Exam: Positive: Conjunctiva & lids normal, EOMI, Negative: Sclera icteric ENT Exam: Positive: Atraumatic, Pharynx Normal, Tongue Midline, Other ENT (NG tube in place) Neck Exam: Positive: Supple, Negative: thyromegaly Chest Exam: Positive: Normal air movement, Negative: Rhonchi, Wheezing Heart Exam: Positive: Tachycardic, Regular Rhythm, Normal S1, Normal S2 Abdomen Exam: Positive: BS Hypoactive, Tenderness (diffusely tender with deep palpation), Other (ecchymosis on lower abdomen from injections), Negative: Soft Extremity Exam: Positive: Edema (mild), Normal pulses, Negative: Cyanosis, Tenderness Skin Exam: Positive: Nl turgor and temperature, Other skin issue (has a bruise on the left upper extremity), Negative: Rash Neuro Exam: Positive: Normal Speech, Cranial Nerves 3-12 NL Assessment /Plan Problems (1) Gastric mass Status: Acute Problem Specific Plan: Consult Specialist, Monitor Clinically Problem Text: * Upper GI series found a large irregular mass of the antrum involving the pylorus, causing partial obstruction * Surgery consulted, she had upper endoscopy with biopsy on 08/01, pathology negative for malignancy * Will have repeat upper endoscopy this morning with more aggressive biopsy to establish the diagnosis * Has NG tube in place * PICC line in place, continue TPN (2) Ascites Status: Acute Problem Specific Plan: Monitor Clinically Problem Text: * Paracentesis performed on 08/03 where 3,550 ml of fluid was removed * Pathology revealed reactive mesothelial cells, inflammatory cells, and rare atypical cells of unknown significance, no reported malignancy * Abd/pelvis CT with contrast on 08/07 revealed large amount of abdominal and pelvic ascites, no obstructive or inflammatory bowel changes, severe bilateral hydronephrosis and proximal hydroureter that is stable, increasing bilateral pleural effusions and lower lobe atelectasis * Repeat paracentesis done on 08/09 where 2450 mL of fluid was removed, cytology and cultures pending (3) Healthcare-associated pneumonia Status: Acute Problem Specific Plan: Monitor Clinically, Repeat Labs Problem Text: * Chest x-ray obtained on 08/05 revealed a new right middle lobe infiltrate * White count and CRP trending down, patient is afebrile * She is being covered with vancomycin and meropenem, initiated on 08/05 * Also initiated on fluconazole, 08/07 (4) Hypernatremia Status: Acute Problem Specific Plan: Monitor Clinically, Repeat Labs Problem Text: * Normal saline has been discontinued * We'll continue to monitor her sodium level, as patient remains nothing by mouth (5) Hypokalemia Status: Acute Problem Specific Plan: Monitor Clinically, Repeat Labs Problem Text: * Fluids have been changed to potassium chloride in dextrose * Continue to monitor electrolytes (6) Hypoalbuminemia Status: Acute Problem Specific Plan: Monitor Clinically Problem Text: * Need to establish a diagnosis, protein level may be affected by malignancy * Attempt to adjust protein in TPN (7) Acute kidney injury Status: Acute Problem Specific Plan: Monitor Clinically, Repeat Labs Problem Text: * Creatinine is improving * Continue with IV hydration (8) Metabolic alkalosis Status: Acute Problem Specific Plan: Monitor Clinically, Repeat Labs Problem Text: * Nephrology is following * TPN orders have been adjusted by nephrology * Monitor electrolytes while on TPN (9) Tachycardia Status: Acute Response to Treatment: Improving Problem Specific Plan: Monitor Clinically Problem Text: * EKG revealed sinus tachycardia, also reveal ST-T wave abnormalities and prolonged QT * Tachycardia may be secondary to acute infection, continue antibiotics * Will monitor on telemetry * Avoid QT prolonging medications (10) Urinary tract infection associated with nephrostomy catheter Status: Resolved Problem Specific Plan: Monitor Clinically Problem Text: * Urine culture grew Staphylococcus hominis, with history of chronic nephrostomy tubes * Blood cultures showed no growth * Had previously completed 10 day course of vancomycin (11) Hydroureteronephrosis Status: Chronic Problem Specific Plan: Monitor Clinically Problem Text: * 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 * Nephrostomy tubes were changed on 08/04 * She was supposed to have urological procedure (ureterolysis, ureteral implantation, possible flap and double-J stent placement) on July 26, however came to the emergency department instead * Will need to schedule follow-up with urology once acute issues have resolved (12) Nausea and vomiting Status: Acute Problem Specific Plan: Monitor Clinically Problem Text: * Upper GI series/abd xray revealed a large irregular mass in the antrum extending to the pylorus causing partial obstruction * Continue antiemetics as needed, until surgical intervention could be performed for gastric mass (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 No cranial nerve deficits. Patient is asymptomatic. * Spoke to the neurosurgeon precision assembler, Dr Brower and he stated that patient could just followup with their office on discharge, given incidental finding without SAH. (14) HTN (hypertension) Status: Chronic Problem Specific Plan: Monitor Clinically Problem Text: * Blood pressure stable * Continue amlodipine (15) COPD (chronic obstructive pulmonary disease) Status: Chronic Problem Specific Plan: Monitor Clinically Problem Text: * Breathing is stable and at baseline * Albuterol as needed (16) Hyperparathyroidism Status: Chronic Problem Text: l Plan/VTE VTE Prophylaxis Ordered?: Yes (lovenox) VS, I&O, 24H, Fishbone Vital Signs/I&O Vital Signs Date Time Temp Pulse Resp B/P (MAP) Pulse Ox O2 Delivery O2 Flow Rate FiO2 08/10/16 07:30 97.9 95 20 100/70 (80) 94 Room Air I&O- Last 24 Hours up to 6 AM 08/10/16 06:00 Intake Total 4360 ml Output Total 3675 ml Balance 685 ml Laboratory Data CBC/BMP Laboratory Tests 08/10/16 05:56 Red Blood Count 3.89 L, Mean Corpuscular Volume 85.0, Mean Corpuscular Hemoglobin 27.7, Mean Corpuscular Hemoglobin Concent 32.5, Red Cell Distribution Width 15.1 H, Calcium Level 8.5 L, Phosphorus Level 4.0, Aspartate Amino Transf (AST/SGOT) 31, Alanine Aminotransferase (ALT/SGPT) 18, Alkaline Phosphatase 129 H, Total Bilirubin 0.5, Total Protein 4.6 L, Albumin 1.4 L Microbiology Microbiology 08/07/16 Blood Culture - Preliminary, Resulted No Growth after 72 hours. All specime... 08/07/16 Blood Culture - Preliminary, Resulted No Growth after 72 hours. All specime... 08/08/16 Acid Fast Stain, Received Pending 08/08/16 Mycobacterial Culture, Received Pending 08/08/16 Fungal Smear, Received Pending 08/08/16 Fungal Culture, Received Pending 08/08/16 Gram Stain - Final, Resulted 08/08/16 Body Fluid Culture, Resulted Pending 08/03/16 Fungal Smear, Received Pending 08/03/16 Fungal Culture, Received Pending 08/03/16 Gram Stain - Final, Complete 08/03/16 Body Fluid Culture - Final, Complete 08/04/16 Urine Culture - Final, Complete GME ATTESTATION GME ATTESTATION My preceptor for this patient encounter was physically present in the building during the encounter and was fully available. As needed, all aspects of the patient interview, examination, medical decision making process, and medical care plan development were reviewed and approved by the preceptor. Preceptor is aware and concurs with the plan as stated in the body of this note and will attest to such by his/her cosignature. JORGE MOE DO August 10, 2016 10:35
[2016-08-10] MEDS ORDERED: LIDOCAINE 2% INJ 100 MG/5 ML SDV (FOR ANES.) As Ordered ONE (11:17)
[2016-08-10] MEDS ORDERED: PROPOFOL 200 MG/20 ML VIAL As Ordered ONE (11:17)
--- NOTE | 2016-08-10 11:25 | ROOR ---
Patient Name: Briana Castellanos Procedure Date: 08/10/2016 10:52 AM Date of : 1945 Age: 71 Room: [facility] Gender: Female Note Status: Finalized Procedure: Upper GI endoscopy Indications: Abnormal CT of the GI tract, Suspected gastric outlet obstruction Providers: John Paul Zheng MD Referring MD: Hellen Bose NP Requesting Provider: Medicines: Monitored Anesthesia Care Complications: No immediate complications. Procedure: Pre-Anesthesia Assessment: - Prior to the procedure, a History and Physical was performed, and patient medications and allergies were reviewed. The patient is competent. The risks and benefits of the procedure and the sedation options and risks were discussed with the patient. All questions were answered and informed consent was obtained. Patient identification and proposed procedure were verified by the physician, the nurse and the anesthesiologist in the endoscopy suite. Mental Status Examination: alert and oriented. Airway Examination: normal oropharyngeal airway and neck mobility. Respiratory Examination: clear to auscultation. CV Examination: normal. Prophylactic Antibiotics: The patient does not require prophylactic antibiotics. Prior Anticoagulants: The patient has taken Lovenox (enoxaparin), last dose was 1 day prior to procedure. ASA Grade Assessment: III - A patient with severe systemic disease. After reviewing the risks and benefits, the patient was deemed in satisfactory condition to undergo the procedure. The anesthesia plan was to use monitored anesthesia care (MAC). Immediately prior to administration of medications, the patient was re-assessed for adequacy to receive sedatives. The heart rate, respiratory rate, oxygen saturations, blood pressure, adequacy of pulmonary ventilation, and response to care were monitored throughout the procedure. The physical status of the patient was re-assessed after the procedure. The Endoscope was introduced through the mouth, and advanced to the antrum of the stomach. The upper GI endoscopy was performed with moderate difficulty due to a partially obstructing mass and the patient's respiratory instability (hypoxia). The patient tolerated the procedure. Findings: Savary-Gilbert Grade II (multiple lesions and folds, noncircumferential, with or without confluence) esophagitis with bleeding was found 30 to 38 cm from the incisors. A large, infiltrative and ulcerated, partially circumferential (involving one-half of the lumen circumference) mass with no bleeding and stigmata of recent bleeding was found in the gastric antrum. Biopsies were taken with a cold forceps for histology. Estimated blood loss was minimal. Impression: - Savary-Gilbert Grade II esophagitis. 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 Biopsied. Recommendation: - Admit the patient to [facility] for ongoing care. John Paul Zheng MD John Paul Zheng MD 08/10/2016 11:24:36 AM This report has been signed electronically. Number of Addenda: 0 Note Initiated On: 08/10/2016 10:52 AM Estimated Blood Loss: Estimated blood loss was minimal.
[2016-08-10] MEDS ORDERED: ALBUTEROL SULFATE 2.5 MG/0.5 ML INH NEB SOLN As Ordered ONE (12:02)
[2016-08-10] MEDS: ENOXAPARIN 30 MG/0.3 ML SYR (J1650) SC SCH (13:18)
[2016-08-10] MEDS: amLODIPine 10 MG TAB PO SCH (13:34)
--- NOTE | 2016-08-10 14:02 | REP ---
CHEST, ONE VIEW: HISTORY: Shortness of breath. COMPARISON: 08/05/2016 Increased density is present in the lower lobes consistent with bibasilar atelectasis or infiltrates. These are increased on the right and new on the left. Small bilateral pleural effusions are present. The heart is normal in size. The pulmonary vasculature is normal in appearance. A PICC line is present in the superior vena cava. IMPRESSION: 1. Bibasilar atelectasis or infiltrates increased on the right and new on the left. 2. Small bilateral pleural effusions. Signed by Branden Horne MD 08/10/2016 02:06 P
[2016-08-10] MEDS ORDERED: ISOVUE-370 76% 100ML VIAL (Q9967) As Ordered ONE (15:12)
--- NOTE | 2016-08-10 15:24 | REP ---
Clinical: Shortness of breath. Edema. Technique: Vásquez scale and color Doppler evaluation using linear high frequency transducer. Findings: Ultrasound examination of the right and left lower extremity deep venous structures from the common femoral vein to the popliteal vein demonstrates normal compressibility flow and wave patterns in response to respiration and augmentation. There is no evidence for deep venous thrombosis. Diffuse subcutaneous edema noted bilaterally. Impression: No evidence for deep venous thrombosis. Bilateral subcutaneous edema. Signed by Juan Pablo Garsia MD 08/10/2016 03:15 P
--- NOTE | 2016-08-10 15:26 | IPN ---
DATE: 08/10/2016 Mrs. Castellanos is seen this morning on her bedside. She has been moved out of the intensive care unit. She is going to have an upper endoscopy again today for biopsy of her gastric mass. The patient remains with nasogastric (NG) tube hooked to suctioning. She is receiving total parenteral nutrition (TPN) and IV fluid. She denies any shortness of breath today. She has no fever or chills. PHYSICAL EXAMINATION: On physical examination, temperature 97.9 degrees Fahrenheit, heart rate 95 per minute and respiratory rate 20 per minute. Blood pressure 100/70 mmHg and oxygen saturation 94% on room air. Head is atraumatic. Neck veins are not abnormally distended. Her neck is supple and there is no thyroid enlargement. Nasogastric tube is in place. Heart sounds are tachycardiac. Lungs are clear to auscultation. Abdomen is somewhat firm and ascites is present. Extremities have no cyanosis or clubbing. Neurologically, she is awake, alert and oriented times three. LABORATORY DATA: Today's laboratories show WBC count 11.1, hemoglobin 10.8 and hematocrit 33.1. Platelets are 232. Her chemistry today showed a sodium level of 151, potassium 3.3, BUN 66 and creatinine 1.49. Glucose 107 and calcium 8.5. Total protein 4.6 and albumin 1.4. PROBLEMS: 1. Acute renal failure, superimposed on chronic kidney disease. Kidney function is gradually improving. She remains intravascularly volume depleted due to low serum albumin. She also had paracentesis done yesterday. At this point, we will continue with total parenteral nutrition (TPN) and IV fluids to manage her urine output. 2. Hypernatremia. This is related to IV normal saline in addition to TPN. She also had paracentesis done which probably contributed to her hypernatremia. Normal saline is being stopped and IV fluid is being switched to D5W with 40 mEq of potassium chloride in each liter. We will run it at 60 mL per hour and recheck her electrolytes later this afternoon. 3. Hypokalemia. This is related to nasogastric (NG) tube suctioning and no oral intake. She is receiving potassium in the TPN. We are adding 40 mEq potassium chloride in the IV fluid in addition. Electrolytes will be checked again this afternoon and tomorrow morning. 4. Protein-calorie malnutrition. This is related to no oral intake, gastric outlet obstruction with a large gastric mass. At present, we will continue TPN. I do not feel that giving her IV albumin is likely to improve her serum albumin, as she most likely has a gastric malignancy. Once a diagnosis is confirmed with biopsies then the patient can be referred for possible resection of her gastric tumor. She had a CT scan of abdomen and pelvis with IV contrast done on admission which did not show any significant evidence for metastasis. 5. Anemia. Her anemia is stable at present and no intervention is indicated.
--- NOTE | 2016-08-10 16:13 | REP ---
Clinical: Acute chest pain and decompensation. Technique: Axial contrast enhanced images from the thoracic inlet to the upper abdomen using 100 ml Isovue 370 intravenous contrast material with coronal and sagittal re-formations. Findings: Satisfactory enhancement of the pulmonary vasculature is achieved and no filling defects are identified to suggest pulmonary embolus. [id number] bilateral pleural effusions (right greater than left appreciated along with no moderate left lower lobe consolidation and smaller right lower lobe, lingular, and right middle lobe consolidations as well as scattered small alveolar infiltrates primarily involving the left upper lung zones. Underlying chronic interstitial changes and right apical emphysematous changes noted. Thoracic aorta is without aneurysm or dissection. The heart and pericardium are normal in size and without pericardial effusion. A nasogastric tube is identified extending into the stomach. The tracheobronchial tree appears patent. Surrounding musculoskeletal structures demonstrate age-related degenerative changes. Limited evaluation of the upper abdomen demonstrates presumed cirrhosis with significant ascites as well as bilateral hydrocephalus with high-density material filling the collecting system likely reflecting hemorrhage/debris. Impression: 1. No evidence for pulmonary embolus. 2. [id number] bilateral pleural effusions (right greater than left) as well as multifocal consolidations primarily involving the left lower lobe and right lower lobe and scattered patchy left upper lobe alveolar infiltrates. Findings suggest multifocal pneumonia and require correlation. 3. Limited upper abdomen demonstrates significant ascites, and bilateral hydronephrosis with high-density material filling the collecting system consistent with hemorrhage / debris. Signed by Juan Pablo Garsia MD 08/10/2016 04:04 P
[2016-08-10] MEDS ORDERED: FUROSEMIDE 100 MG/10 ML VIAL (J1940) IV ONE (16:45)
[2016-08-10] MEDS: PANTOPRAZOLE 40MG INJ (PROTONIX) (C9113) IV SCH (17:38)
[2016-08-10] MEDS ORDERED: FAT EMULSION IV 20% 500 ML IV SCH (18:00)
[2016-08-10] MEDS ORDERED: [UNRECOGNIZED DRUG - OTHER] IV SCH ×8 (18:00)
[2016-08-10] MEDS ORDERED: SODIUM CHLORIDE IV SCH ×8 (18:00)
[2016-08-10] MEDS ORDERED: POTASSIUM CHLORIDE IV SCH ×8 (18:00)
[2016-08-10 19:16] LABS: CALCIUM LEVEL 8.4 MG/DL (8.8-10.2); CREATININE FOR GFR 1.55 MG/DL (0.55-1.02); GLOMERULAR FILTRATION RATE 34.9 (>39); POTASSIUM SERUM 3.7 MEQ/L (3.5-5.1)
[2016-08-10] MEDS: FLUCONAZOLE 100 MG in APPROPRIATE DILUENT 1 EA IV SCH (22:11)
[2016-08-11] VITALS (11 sets, daily range): BP systolic 78–111; BP diastolic 47–69
[2016-08-11] MEDS: NYSTATIN 500,000 U/5 ML SUSP UDC PO SCH ×4 (06:20→17:44)
[2016-08-11] MEDS: SODIUM CHLORIDE 0.9% INJ 10 ML SYR IV SCH ×2 (06:21→17:46)
[2016-08-11] MEDS: HumaLOG INSULIN (NovoLOG) PER UNIT SC SCH ×4 (06:21→18:20)
[2016-08-11 06:32] LABS: MEAN CORPUSCULAR HGB CONC 32.5 g/dl (32.0-36.5); MEAN CORPUSCULAR VOLUME 86.3 fl (80.0-96.0); RED CELL DISTRIBUTION WIDTH 15.3 % (11.5-14.5); WHITE BLOOD COUNT 14.8 K/mm3 (4.0-10.0)
[2016-08-11 06:55] LABS: CALCIUM LEVEL 8.7 MG/DL (8.8-10.2); CREATININE FOR GFR 1.56 MG/DL (0.55-1.02); GLOMERULAR FILTRATION RATE 34.6 (>39); MAGNESIUM LEVEL 2.1 MG/DL (1.8-2.4); PHOSPHORUS LEVEL 4.3 MG/DL (2.5-4.9); POTASSIUM SERUM 3.6 MEQ/L (3.5-5.1)
[2016-08-11] MEDS ORDERED: POTASSIUM CHLORIDE INJ 40 MEQ in D5W 1,000 ML IV SCH ×2 (08:00→10:00)
[2016-08-11] MEDS: amLODIPine 10 MG TAB PO SCH (08:58)
[2016-08-11] MEDS: ENOXAPARIN 30 MG/0.3 ML SYR (J1650) SC SCH (08:58)
[2016-08-11] MEDS: MEROPENEM INJ 1 GM in D5W MINI-BAG PLUS 100 ML IV SCH ×2 (08:58→21:36)
[2016-08-11] MEDS ORDERED: FUROSEMIDE 100 MG/10 ML VIAL (J1940) IV ONE (09:45)
--- NOTE | 2016-08-11 10:09 | IPNPDOC ---
Subjective Date Seen The patient was seen on 08/11/16. Subjective Chief Complaint/HPI The patient is a 71-year-old female admitted with a reason for visit of Mental Status Alteration; Sepsis. Events since last encounter Patient was seen this morning at bedside. No acute overnight issues. She continues to have an NG tube in place. No nausea. Mild abdominal tenderness to deep palpation. No fevers or chills. No chest pain/pressure, palpitations. No lightheadedness or dizziness. She had an episode of acute shortness of breath after endoscopy and was briefly on nonrebreather and titrated down to nasal cannula. CT of the chest revealed bilateral moderate size pleural effusions. She received 1 dose of Lasix yesterday. No events on telemetry overnight Objective Physical Examination General Exam: Positive: Alert, Cooperative, No Acute Distress Eye Exam: Positive: Conjunctiva & lids normal, EOMI, Negative: Sclera icteric ENT Exam: Positive: Atraumatic, Pharynx Normal, Tongue Midline, Other ENT (NG tube in place) Neck Exam: Positive: Supple, Negative: thyromegaly Chest Exam: Positive: Normal air movement, Rales, Negative: Rhonchi, Wheezing Heart Exam: Positive: Tachycardic, Regular Rhythm, Normal S1, Normal S2 Abdomen Exam: Positive: BS Hypoactive, Tenderness (diffusely tender with deep palpation), Other (ecchymosis on lower abdomen from injections), Negative: Soft Extremity Exam: Positive: Edema (+1), Normal pulses, Negative: Cyanosis, Tenderness Skin Exam: Positive: Nl turgor and temperature, Negative: Rash Neuro Exam: Positive: Normal Speech, Cranial Nerves 3-12 NL Assessment /Plan Problems (1) Gastric mass Status: Acute Problem Specific Plan: Consult Specialist, Monitor Clinically Problem Text: * Upper GI series found a large irregular mass of the antrum involving the pylorus, causing partial obstruction * Surgery consulted, she had upper endoscopy with biopsy on 08/01, pathology negative for malignancy * Repeat endoscopy done on 08/10, biopsy results pending * Has NG tube in place * PICC line in place, continue TPN (2) Ascites Status: Acute Problem Specific Plan: Monitor Clinically Problem Text: * Paracentesis performed on 08/03 where 3,550 ml of fluid was removed * Pathology revealed reactive mesothelial cells, inflammatory cells, and rare atypical cells of unknown significance, no reported malignancy * Abd/pelvis CT with contrast on 08/07 revealed large amount of abdominal and pelvic ascites, no obstructive or inflammatory bowel changes, severe bilateral hydronephrosis and proximal hydroureter that is stable, increasing bilateral pleural effusions and lower lobe atelectasis * Repeat paracentesis done on 08/09 where 2450 mL of fluid was removed * Pathology of repeat paracentesis revealed reactive mesothelial cells, mixed with WBCs and blood elements (3) Healthcare-associated pneumonia Status: Acute Problem Specific Plan: Monitor Clinically, Repeat Labs Problem Text: * Chest x-ray obtained on 08/05 revealed a new right middle lobe infiltrate * White count has trended up, CRP unchanged, patient is afebrile * She is being covered with vancomycin and meropenem, initiated on 08/05 * Also initiated on fluconazole, 08/07 * Remains on meropenem (4) Bilateral pleural effusion Status: Acute Problem Specific Plan: Monitor Clinically Problem Text: * Likely secondary to third spacing of fluid * Breathing has improved * Has been taken off of nasal cannula * Received a one-time dose of 60 mg of Lasix on 08/10 * Will be given another dose of 100 mg of Lasix this morning (5) Hypernatremia Status: Acute Problem Specific Plan: Monitor Clinically, Repeat Labs Problem Text: * Normal saline discontinued on 08/10 * We'll continue to monitor her sodium level, as patient remains nothing by mouth * Initiated on potassium and dextrose fluids on 08/11 * Nephrology following, we appreciate Dr. Doe's assistance with management (6) Hypokalemia Status: Acute Problem Specific Plan: Monitor Clinically, Repeat Labs Problem Text: * Fluids have been changed to potassium chloride in dextrose * Continue to monitor electrolytes (7) Hypoalbuminemia Status: Acute Problem Specific Plan: Monitor Clinically Problem Text: * Need to establish a diagnosis, protein level may be affected by malignancy * Received albumin on 08/10 * Attempt to adjust protein in TPN (8) Acute kidney injury Status: Acute Problem Specific Plan: Monitor Clinically, Repeat Labs Problem Text: * Creatinine not significantly changed * Continue with IV hydration (9) Metabolic alkalosis Status: Acute Problem Specific Plan: Monitor Clinically, Repeat Labs Problem Text: * Nephrology is following * TPN orders have been adjusted by nephrology * Monitor electrolytes while on TPN (10) Tachycardia Status: Acute Response to Treatment: Improving Problem Specific Plan: Monitor Clinically Problem Text: * EKG revealed sinus tachycardia, also reveal ST-T wave abnormalities and prolonged QT * Tachycardia may be secondary to acute infection, continue antibiotics * Will monitor on telemetry * Avoid QT prolonging medications (11) Urinary tract infection associated with nephrostomy catheter Status: Resolved Problem Specific Plan: Monitor Clinically Problem Text: * Urine culture grew Staphylococcus hominis, with history of chronic nephrostomy tubes * Blood cultures showed no growth * Had previously completed 10 day course of vancomycin (12) Hydroureteronephrosis Status: Chronic Problem Specific Plan: Monitor Clinically Problem Text: * 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 * Nephrostomy tubes were changed on 08/04 * She was supposed to have urological procedure (ureterolysis, ureteral implantation, possible flap and double-J stent placement) on July 26, however came to the emergency department instead * Will need to schedule follow-up with urology once acute issues have resolved (13) Nausea and vomiting Status: Acute Problem Specific Plan: Monitor Clinically Problem Text: * Upper GI series/abd xray revealed a large irregular mass in the antrum extending to the pylorus causing partial obstruction * Continue antiemetics as needed, until surgical intervention could be performed for gastric mass (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 No cranial nerve deficits. Patient is asymptomatic. * Spoke to the neurosurgeon concrete precast moulder, Dr Brower and he stated that patient could just followup with their office on discharge, given incidental finding without SAH. (15) HTN (hypertension) Status: Chronic Problem Specific Plan: Monitor Clinically Problem Text: * Blood pressure stable * Continue amlodipine (16) COPD (chronic obstructive pulmonary disease) Status: Chronic Problem Specific Plan: Monitor Clinically Problem Text: * Breathing is stable and at baseline * Albuterol as needed (17) Hyperparathyroidism Status: Chronic Problem Text: l Plan/VTE VTE Prophylaxis Ordered?: Yes (lovenox) VS, I&O, 24H, Fishbone Vital Signs/I&O Vital Signs Date Time Temp Pulse Resp B/P (MAP) Pulse Ox O2 Delivery O2 Flow Rate FiO2 08/11/16 08:58 100 105/63 08/11/16 08:53 Room Air 08/11/16 08:22 97.9 20 96 2.0 08/10/16 12:45 100 I&O- Last 24 Hours up to 6 AM 08/11/16 06:00 Intake Total 3450 ml Output Total 3325 ml Balance 125 ml Laboratory Data CBC/BMP Laboratory Tests 08/11/16 06:19 Red Blood Count 3.80 L, Mean Corpuscular Volume 86.3, Mean Corpuscular Hemoglobin 28.0, Mean Corpuscular Hemoglobin Concent 32.5, Red Cell Distribution Width 15.3 H, Calcium Level 8.7 L Microbiology Microbiology 08/07/16 Blood Culture - Preliminary, Resulted No Growth after 72 hours. All specime... 08/07/16 Blood Culture - Preliminary, Resulted No Growth after 72 hours. All specime... 08/08/16 Acid Fast Stain - Final, Resulted 08/08/16 Mycobacterial Culture, Resulted Pending 08/08/16 Fungal Smear - Final, Resulted 08/08/16 Fungal Culture, Resulted Pending 08/08/16 Gram Stain - Final, Complete 08/08/16 Body Fluid Culture - Final, Complete 08/03/16 Fungal Smear, Received Pending 08/03/16 Fungal Culture, Received Pending 08/03/16 Gram Stain - Final, Complete 08/03/16 Body Fluid Culture - Final, Complete 08/04/16 Urine Culture - Final, Complete GME ATTESTATION GME ATTESTATION My preceptor for this patient encounter was physically present in the building during the encounter and was fully available. As needed, all aspects of the patient interview, examination, medical decision making process, and medical care plan development were reviewed and approved by the preceptor. Preceptor is aware and concurs with the plan as stated in the body of this note and will attest to such by his/her cosignature. JORGE MOE DO August 11, 2016 10:09
[2016-08-11] MEDS ORDERED: DIGOXIN INJ 0.5 MG/2 ML AMP (J1160) IV STA (10:57)
[2016-08-11] MEDS ORDERED: VANCOMYCIN HCL 1,000 MG, VIAL MATE ADAPTER 1 EACH in D5W 250 ML IV SCH (11:30)
[2016-08-11] MEDS: VANCOMYCIN HCL 750 MG, VIAL MATE ADAPTER 1 EACH in D5W 250 ML IV SCH (12:17)
[2016-08-11] MEDS: MORPHINE 2 MG/ML 1ML SYRINGE IV PRN ×2 (12:29→17:45)
--- NOTE | 2016-08-11 14:42 | ECGEPIP ---
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 Clinical correlation advised Electronically Signed On 08-11-2016 14:42:29 EDT by Bola Cavazos
[2016-08-11] MEDS ORDERED: DIGOXIN 0.25 MG TAB PO STA (15:15)
[2016-08-11] MEDS: DIGOXIN INJ 0.5 MG/2 ML AMP (J1160) IV STA ×2 (15:59→16:09)
[2016-08-11] MEDS: PANTOPRAZOLE 40MG INJ (PROTONIX) (C9113) IV SCH (17:44)
[2016-08-11] MEDS ORDERED: [UNRECOGNIZED DRUG - OTHER] IV SCH ×6 (18:00)
[2016-08-11] MEDS ORDERED: POTASSIUM CHLORIDE IV SCH ×6 (18:00)
[2016-08-11] MEDS ORDERED: SODIUM CHLORIDE IV SCH ×6 (18:00)
[2016-08-11] MEDS ORDERED: FAT EMULSION IV 20% 500 ML IV SCH (18:00)
--- NOTE | 2016-08-11 21:02 | IPN ---
DATE: 08/11/2016 Mrs. Castellanos is seen this morning on her bedside. She remains quite short of breath and weak. She remains with nasogastric tube hooked to suctioning. She has no fever or chills. Yesterday's CT angiogram was done after endoscopy when she desaturated. She was noticed to have bilateral pleural effusions and ascites. One dose of Lasix was given however, her volume status remained positive fluid balance. PHYSICAL EXAMINATION: Temperature 97.9 degrees Fahrenheit, heart rate 100 per minute and respiratory rate 20 per minute. Blood pressure 105/63 mmHg and oxygen saturation 96% on 2 liters oxygen. Intake and output records from yesterday show total intake 3500 and output 3300. Head is atraumatic. Neck is supple and there is no abnormal jugular venous distention (JVD). Nasogastric tube is in suctioning. Oral mucosa is dry. Pupils are equal and reactive to light and sclerae is anicteric. Heart sounds are tachycardiac. Lungs have diminished breath sounds bilaterally. Abdomen soft, distended with ascites and bowel sounds are present. Extremities have no cyanosis or clubbing. Skin has no rash or ulcers. Neurologically she is awake, alert and oriented times three. Today's labs show WBC count 14.8, hemoglobin 10.6 and hematocrit 32.8. Sodium 152 and potassium 3.6. Chloride 109, CO2 34, BUN 67 and creatinine 1.56. Calcium level 8.7. A C-reactive protein is 18.10. PROBLEMS: 1. Acute renal failure superimposed on chronic kidney disease. 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 She did receive IV contrast dye yesterday which may have contributed to her kidney dysfunction. At present she is non oliguric and will continue to monitor her kidney function on a daily basis. 2. Shortness of breath with bilateral pleural effusions. The patient has significant ascites and bilateral pleural effusions with low serum albumin. She remains on total parenteral nutrition (TPN), however her albumin is not improving. This is most likely related to malignancy in her stomach. At this point we are waiting for biopsy results and will continue with TPN. Will also try to correct her volume status and give her a dose of Lasix 100 mg intravenously and see if we can diurese her. 3. Hypernatremia. This is related to TPN and IV fluids given. She is significantly volume overloaded so we cannot give her too much of IV D5W. I have started her on D5W at 60 mL/hour and we are giving her a dose of IV Lasix 100 mg to see if we can get her in negative fluid balance. At this point her electrolytes will be rechecked tomorrow morning. 4. Hypokalemia. Her potassium level has improved and is likely to worsen again with diuretic use. She is receiving 40 mEq potassium chloride in the IV fluid and I am increasing her potassium in TPN up to 70 mEq per liter. 5. Protein calorie malnutrition. The patient remains on TPN and orders are being written. 6. Gastric mass and ascites. 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 At the time of my visit pathology report is still pending. Her ascites could also be malignant. Overall prognosis remains poor.
[2016-08-11] MEDS: FLUCONAZOLE 100 MG in APPROPRIATE DILUENT 1 EA IV SCH (21:36)
[2016-08-11] MEDS: METOCLOPRAMIDE INJ 10MG/2ML VIAL (J2765) IV PRN (21:36)
[2016-08-12] VITALS: BP 139/88
[2016-08-12] MEDS: NYSTATIN 500,000 U/5 ML SUSP UDC PO SCH ×4 (01:03→17:48)
[2016-08-12] MEDS: HumaLOG INSULIN (NovoLOG) PER UNIT SC SCH ×4 (01:05→17:48)
[2016-08-12 05:46] LABS: MEAN CORPUSCULAR HEMOGLOBIN 27.7 pg (27.0-33.0); MEAN CORPUSCULAR HGB CONC 31.9 g/dl (32.0-36.5); MEAN CORPUSCULAR VOLUME 86.8 fl (80.0-96.0); RED CELL DISTRIBUTION WIDTH 15.2 % (11.5-14.5); WHITE BLOOD COUNT 13.2 K/mm3 (4.0-10.0)
[2016-08-12 06:00] LABS: CALCIUM LEVEL 8.9 MG/DL (8.8-10.2); CREATININE FOR GFR 1.61 MG/DL (0.55-1.02); GLOMERULAR FILTRATION RATE 33.4 (>39); MAGNESIUM LEVEL 2.1 MG/DL (1.8-2.4); PHOSPHORUS LEVEL 4.4 MG/DL (2.5-4.9); POTASSIUM SERUM 4.2 MEQ/L (3.5-5.1)
[2016-08-12] MEDS: SODIUM CHLORIDE 0.9% INJ 10 ML SYR IV SCH ×2 (06:25→17:48)
--- NOTE | 2016-08-12 06:57 | REP ---
Clinical: Aspiration. Comparison: 08/10/2016. Findings: Increasing bibasilar opacities compatible with small to moderate pleural effusions and associated atelectasis. No pneumothorax. Right PICC line with tip in the SVC. Skeletal structures grossly intact. Impression: Increasing pleural effusions and bibasilar atelectasis. Signed by Juan Pablo Garsia MD 08/12/2016 06:48 A
[2016-08-12 08:00] VITALS: BP 114/72
--- NOTE | 2016-08-12 08:40 | PHACANCOPD ---
PHARMACY VANCOMYCIN DOSING Pt Demographics Demographics Patient Age:71 , Weight:79.700 , Gender: female Adjusted Body Weight Date: 07/26/16, Adjusted Body Weight: [62.4] Kg Events Past 24 Hours Events Past 24 Hours: YES: Elevation in WBC Vancomycin Vancomycin indication: SEPSIS Vancomycin Target Ranges: 10-20 mcg/ml Vancomycin Load Y/N: No Load Dose Date Time Vancomycin Load Dose: Date: Time: Vancomycin Dose Date: 07/29/16. Current Vancomycin Dose: [1g IV q18h @06] Date: 07/26/16. Current Vancomycin Dose: [1g IV Q24H] Intermittent Dosing?: No Labs Micro Microbiology 08/07/16 Blood Culture - Preliminary, Resulted No Growth after 72 hours. All specime... 08/07/16 Blood Culture - Preliminary, Resulted No Growth after 72 hours. All specime... 08/08/16 Acid Fast Stain - Final, Resulted 08/08/16 Mycobacterial Culture, Resulted Pending 08/08/16 Fungal Smear - Final, Resulted 08/08/16 Fungal Culture, Resulted Pending 08/08/16 Gram Stain - Final, Complete 08/08/16 Body Fluid Culture - Final, Complete 08/03/16 Fungal Smear, Received Pending 08/03/16 Fungal Culture, Received Pending 08/03/16 Gram Stain - Final, Complete 08/03/16 Body Fluid Culture - Final, Complete 08/04/16 Urine Culture - Final, Complete Creatinine Clearance Date:07/31/16. Creatinine Clearance: [~75 ml/min]. Date:07/26/16. Estimated Creatinine Clearance: [~32.7ml/min]. Assessment and Plan Maintaining Current Dose?: Yes Reason for dose change: No Dose Change Pharmacist Note Pharmacist Note 08/12/16: Empiric vancomycin restarted at 750mg IV Q24H for the treatment of sepsis - aiming for a goal trough of 10-20 mcg/ml. The patient remains on IV meropenem. We will continue to monitor the patient's renal function and clinical status, and schedule a trough/adjust dosing accordingly. Date: 08/08/16. Pharmacist noteVancomycin trough drawn this evening reported as 23.9,SCR has beed gradually increasing(1.54 today)CRCL=32Calculated will adjust regimen to Vancomycin 750mg IV Q24H beginning 08/08@0600;will continue to follow levels and labs Date: 08/04/16. Pharmacist note:Vancomycin trough drawn tonight reported as 18.7 : patient scr=1.32(crcl has decreased appreciably from 51.6 to 37.2 in 24 hours) will adjust vanco dose accordingly from 1 gram q18 hours to 1 gram every 24 hours to begin immediately: will continue to monitor labs and levels Date: 07/31/16. Pharmacist note: Vanco trough drawn prior to 4th dose was low ( 8.5), I changed her dosing to 1g IV q18h to begin ~12 hours after her last dose. Repeat trough this afternoon was 16. I will continue her current dosing. Urine cultures from nephrostomy tube positive for Staph hominis ([facility] = 0.5). Cefepime has been discontinued. We will continue to monitor. 07/28/16: I have scheduled a vancomycin trough for 07/29/16 @1800, prior to the fourth dose. The patient's scr has improved, and output remains stable. We will continue to monitor and follow-up on trough level tomorrow, adjusting dose accordingly. Date: 07/26/16. Pharmacist note: Day #1 empiric cefepime/vanco initiated at 1g IV Q24H for the treatment of sepsis possibly secondary to a complicated UTI - aiming for a goal trough of 10-20mcg/ml. The patient has a PMH of bilateral hydroureteronephrosis s/p nephrostomy tubes and double j stent, as well as a hx of ARF - baseline scr ~ <1. WBC, lactic acid, and CRP are currently elevated. Patient is afebrile. No PMH of MRSA or vanco use here at [facility]. Blood and urine cultures are pending. We will continue to monitor the patient's kidney function and schedule a trough/adjust dosing if needed. [facility] August 12, 2016 08:40
--- NOTE | 2016-08-12 09:07 | IPNPDOC ---
Subjective Date Seen The patient was seen on 08/12/16. Subjective Chief Complaint/HPI The patient is a 71-year-old female admitted with a reason for visit of Mental Status Alteration; Sepsis. Events since last encounter Patient was seen this morning at bedside. Breathing is stable but she does continue to use nasal cannula. Repeat chest x-ray showed increased pleural effusions. She had an episode of atrial fibrillation with rapid ventricular rate yesterday. She received a total of 0.75 mg of digoxin and spontaneously converted back to sinus rhythm. She does remain tachycardic however. She denies any chest pain/pressure or palpitations. No nausea. Abdomen is tender to deep palpation. She continues to have an NG tube in place. She is afebrile. White count and CRP are trending downward. She denies any diarrhea. No dizziness or lightheadedness. She continues to take in ice chips. They are awaiting for children to come into town to discuss hospice further. Objective Physical Examination General Exam: Positive: Alert, Cooperative, No Acute Distress Eye Exam: Positive: Conjunctiva & lids normal, EOMI, Negative: Sclera icteric ENT Exam: Positive: Atraumatic, Pharynx Normal, Tongue Midline, Other ENT (NG tube in place) Neck Exam: Positive: Supple, Negative: thyromegaly Chest Exam: Positive: Normal air movement, Rales, Negative: Rhonchi, Wheezing Heart Exam: Positive: Tachycardic, Regular Rhythm, Normal S1, Normal S2 Abdomen Exam: Positive: Normal bowel sounds, Tenderness (diffusely tender with deep palpation), Other (ecchymosis on lower abdomen from injections), Negative: Soft Extremity Exam: Positive: Edema (+2), Normal pulses, Negative: Cyanosis, Tenderness Skin Exam: Positive: Nl turgor and temperature, Negative: Rash Neuro Exam: Positive: Normal Speech, Cranial Nerves 3-12 NL Assessment /Plan Problems (1) Gastric mass Status: Acute Problem Specific Plan: Consult Specialist, Monitor Clinically Problem Text: * Upper GI series found a large irregular mass of the antrum involving the pylorus, causing partial obstruction * Surgery consulted, she had upper endoscopy with biopsy on 08/01, pathology negative for malignancy * Repeat endoscopy done on 08/10, 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 They would like to wait until her children come into town to come up with a definitive plan. Patient would like to go home however they live in a trailer and it is unsure if there is enough room to accommodate. They are also considering hospice house boat like to wait for children to arrive. (2) Ascites Status: Acute Problem Specific Plan: Monitor Clinically Problem Text: * Paracentesis performed on 08/03 where 3,550 ml of fluid was removed * Pathology revealed reactive mesothelial cells, inflammatory cells, and rare atypical cells of unknown significance, no reported malignancy * Abd/pelvis CT with contrast on 08/07 revealed large amount of abdominal and pelvic ascites, no obstructive or inflammatory bowel changes, severe bilateral hydronephrosis and proximal hydroureter that is stable, increasing bilateral pleural effusions and lower lobe atelectasis * Repeat paracentesis done on 08/09 where 2450 mL of fluid was removed * Pathology of repeat paracentesis revealed reactive mesothelial cells, mixed with WBCs and blood elements. In view of significant ring cell carcinoma, fluid was stained to see if any significant ring cells were identified, mucin stain highlighted a few sickle cells containing mucin consistent with peritoneal involvement of malignancy (3) Healthcare-associated pneumonia Status: Acute Problem Specific Plan: Monitor Clinically, Repeat Labs Problem Text: * Chest x-ray obtained on 08/05 revealed a new right middle lobe infiltrate * White count has trended down, CRP unchanged, patient is afebrile * She is being covered with vancomycin and meropenem, initiated on 08/05 * Also initiated on fluconazole, 08/07 * Remains on meropenem and vancomycin (4) Atrial fibrillation with rapid ventricular response Status: Acute Problem Specific Plan: Monitor Clinically Problem Text: * No history of previous atrial fibrillation * Went into atrial fibrillation with rapid ventricular rate on the morning of * Received a total of 0.75 mg of digoxin * No beta dipesh was given due to soft blood pressures * She spontaneously converted back to sinus rhythm on the evening of 08/11, still tachycardic but now sinus (5) Bilateral pleural effusion Status: Acute Problem Specific Plan: Monitor Clinically Problem Text: * Likely secondary to third spacing of fluid * Breathing is stable, but she remains on nasal cannula * Received a one-time dose of 60 mg of Lasix on 08/10 * Given another dose of 100 mg of Lasix on 08/11 * Repeat CXR revealed increased effusions with atelectasis (6) Hypernatremia Status: Acute Response to Treatment: Improving Problem Specific Plan: Monitor Clinically, Repeat Labs Problem Text: * Normal saline discontinued on 08/10 * We'll continue to monitor her sodium level, as patient remains nothing by mouth * Was given potassium and dextrose fluids on 08/11 * Nephrology following, we appreciate Dr. Doe's assistance with management (7) Hypokalemia Status: Resolved Problem Specific Plan: Monitor Clinically, Repeat Labs Problem Text: * Received fluids (potassium chloride in dextrose) * Continue to monitor electrolytes (8) Hypoalbuminemia Status: Acute Problem Specific Plan: Monitor Clinically Problem Text: * Received albumin on 08/10 * Attempt to adjust protein in TPN (9) Acute kidney injury Status: Acute Problem Specific Plan: Monitor Clinically, Repeat Labs Problem Text: * Creatinine not significantly changed * Received IV hydration (10) Metabolic alkalosis Status: Acute Response to Treatment: Improving Problem Specific Plan: Monitor Clinically, Repeat Labs Problem Text: * TPN orders are being adjusted by nephrology * Monitor electrolytes while on TPN (11) Urinary tract infection associated with nephrostomy catheter Status: Resolved Problem Specific Plan: Monitor Clinically Problem Text: * Urine culture grew Staphylococcus hominis, with history of chronic nephrostomy tubes * Blood cultures showed no growth * Had previously completed 10 day course of vancomycin (12) Hydroureteronephrosis Status: Chronic Problem Specific Plan: Monitor Clinically Problem Text: * 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 * Nephrostomy tubes were changed on 08/04 * She was supposed to have urological procedure (ureterolysis, ureteral implantation, possible flap and double-J stent placement) on July 26, however came to the emergency department instead * Will need to schedule follow-up with urology once acute issues have resolved (13) Nausea and vomiting Status: Acute Problem Specific Plan: Monitor Clinically Problem Text: * Upper GI series/abd xray revealed a large irregular mass in the antrum extending to the pylorus causing partial obstruction * Continue antiemetics as needed, continue NG tube (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 No cranial nerve deficits. Patient is asymptomatic. * Spoke to the neurosurgeon telephone information clerk, Dr Brower and he stated that patient could just followup with their office on discharge, given incidental finding without SAH. (15) HTN (hypertension) Status: Chronic Problem Specific Plan: Monitor Clinically Problem Text: * Amlodipine discontinued due to a soft blood pressures * Continue to monitor, may resume if needed (16) COPD (chronic obstructive pulmonary disease) Status: Chronic Problem Specific Plan: Monitor Clinically Problem Text: * Breathing is stable and at baseline * Albuterol as needed (17) Hyperparathyroidism Status: Chronic Problem Text: l Plan/VTE VTE Prophylaxis Ordered?: Yes (lovenox) VS, I&O, 24H, Fishbone Vital Signs/I&O Vital Signs Date Time Temp Pulse Resp B/P (MAP) Pulse Ox O2 Delivery O2 Flow Rate FiO2 08/12/16 04:00 Room Air 08/12/16 04:00 99.0 111 22 93 8.0 08/12/16 00:00 139/88 (105) 08/10/16 12:45 100 I&O- Last 24 Hours up to 6 AM 08/12/16 06:00 Intake Total 3040 ml Output Total 2780 ml Balance 260 ml Laboratory Data CBC/BMP Laboratory Tests 08/12/16 05:30 Red Blood Count 4.03, Mean Corpuscular Volume 86.8, Mean Corpuscular Hemoglobin 27.7, Mean Corpuscular Hemoglobin Concent 31.9 L, Red Cell Distribution Width 15.2 H, Calcium Level 8.9 Microbiology Microbiology 08/07/16 Blood Culture - Preliminary, Resulted No Growth after 72 hours. All specime... 08/07/16 Blood Culture - Final, Complete NO GROWTH AFTER 5 DAYS 08/08/16 Acid Fast Stain - Final, Resulted 08/08/16 Mycobacterial Culture, Resulted Pending 08/08/16 Fungal Smear - Final, Resulted 08/08/16 Fungal Culture, Resulted Pending 08/08/16 Gram Stain - Final, Complete 08/08/16 Body Fluid Culture - Final, Complete 08/03/16 Fungal Smear, Received Pending 08/03/16 Fungal Culture, Received Pending 08/03/16 Gram Stain - Final, Complete 08/03/16 Body Fluid Culture - Final, Complete 08/04/16 Urine Culture - Final, Complete GME ATTESTATION GME ATTESTATION My preceptor for this patient encounter was physically present in the building during the encounter and was fully available. As needed, all aspects of the patient interview, examination, medical decision making process, and medical care plan development were reviewed and approved by the preceptor. Preceptor is aware and concurs with the plan as stated in the body of this note and will attest to such by his/her cosignature. JORGE MOE DO August 12, 2016 09:07
[2016-08-12] MEDS: ENOXAPARIN 30 MG/0.3 ML SYR (J1650) SC SCH (09:34)
[2016-08-12] MEDS: MEROPENEM INJ 1 GM in D5W MINI-BAG PLUS 100 ML IV SCH ×2 (09:34→21:07)
[2016-08-12] MEDS ORDERED: FUROSEMIDE 100 MG/10 ML VIAL (J1940) IV ONE ×2 (10:45→16:00)
[2016-08-12] MEDS: VANCOMYCIN HCL 750 MG, VIAL MATE ADAPTER 1 EACH in D5W 250 ML IV SCH (11:09)
[2016-08-12 12:00] VITALS: BP 112/72
[2016-08-12] MEDS: PANTOPRAZOLE 40MG INJ (PROTONIX) (C9113) IV SCH (15:55)
[2016-08-12 16:00] VITALS: BP 103/58
[2016-08-12] MEDS ORDERED: [UNRECOGNIZED DRUG - OTHER] IV SCH ×8 (18:00)
[2016-08-12] MEDS ORDERED: SODIUM CHLORIDE IV SCH ×8 (18:00)
[2016-08-12] MEDS ORDERED: POTASSIUM CHLORIDE IV SCH ×8 (18:00)
[2016-08-12] MEDS ORDERED: FAT EMULSION IV 20% 500 ML IV SCH (18:00)
--- NOTE | 2016-08-12 18:14 | IPN ---
DATE: 08/12/2016 SUBJECTIVE: Mrs. Castellanos is seen this morning on her bedside. Yesterday her gastric biopsy came back positive for malignancy. Her ascitic fluid also tested positive for malignant cells. Hospitalist reviewed the results with the patient and her . However, they reacted quite angrily and have not been willing to further discuss the care plan. The meantime the patient remains on total parenteral nutrition (TPN) and nasogastric (NG) tube suctioning. She is quite short of breath due to volume overload. PHYSICAL EXAMINATION: VITAL SIGNS: Temperature 98.7 degrees Fahrenheit, heart rate 110 per minute and respiratory rate 24 per minute. Blood pressure 114/72 mmHg and oxygen saturation 94% on 10 liters oxygen with high-flow cannula. HEENT: Head is atraumatic. Nasogastric tube is in place. NECK: Neck is supple and jugular venous distention (JVD) is only mild. HEART: Sounds are tachycardic and irregular. The patient had atrial fibrillation yesterday. LUNGS: Have markedly diminished breath sounds at bases bilaterally. ABDOMEN: Soft, filled with ascites, and bowel sounds are present. EXTREMITIES: Have no cyanosis or clubbing. NEUROLOGIC: She is awake, alert and oriented times three. LABORATORY DATA: Today's labs show sodium level down to 149, potassium 4.2, CO2 32, BUN 71 and creatinine 1.61. Calcium is 8.9, phosphorus 4.4 and magnesium 2.1. Hemoglobin 11.2 and hematocrit 35.0. PROBLEMS: 1. Acute renal failure superimposed on chronic kidney disease. No significant change in kidney function over last three days. At this point we will continue with IV fluid. 2. Hypernatremia. Sodium level has slightly improved today and we will cut down further on the sodium in TPN. Electrolytes will be checked again tomorrow morning. 3. Shortness of breath and hypoxemia. The patient has grossly volume overload with bilateral pleural effusions and ascites. She will be given two doses of Lasix 100 mg each six hours apart today and we will try to get her in negative fluid balance if she responds well. Unfortunately she has to receive TPN for nutrition and volume status has been decompensated persistently. 4. Gastric malignancy with malignant ascites. The hospitalist service and oncology service have discussed with the patient and her about her prognosis and treatment options. In my opinion, her prognosis is poor as she is not likely to be cured with surgery and not likely to tolerate chemotherapy. Hospice and comfort care is probably her best option.
[2016-08-12 19:25] VITALS: BP 109/64
--- NOTE | 2016-08-12 21:30 | CR ---
DATE OF CONSULTATION: 08/12/2016 REFERRING PHYSICIAN: Dr. Bedoya REASON FOR CONSULTATION: New diagnosis of gastric carcinoma with peritoneal involvement, likely metastatic disease. HISTORY OF PRESENT ILLNESS: Briana Castellanos is a 71-year-old female who was admitted on 07/26/2016, for malaise and altered mental status. She had noted intermittent episodes of nausea, vomiting, diarrhea and a 50-pound weight loss. She subsequently underwent an upper gastrointestinal (GI) series, and pre-pyloric irregular shift mass was found obstructing the gastric outlet, concerning for gastric malignancy. She subsequently underwent endoscopy requiring two biopsies of gastric mass. She is currently on total parenteral nutrition (TPN) and she is on oxygen via nonrebreather with a new diagnosis of atrial fibrillation. Biopsy of the gastric mass revealed gastric carcinoma of signet ring cell type. She also underwent a paracentesis on 08/09/2016 which showed the presence of signet ring cells in the ascitic fluid, consistent with peritoneal fluid involvement. Hematology/oncology was consulted, given the new diagnosis of metastatic gastric carcinoma signet ring cell type. The patient is sitting in bed and she does have 3-4 word dyspnea. She tells me that she has had malaise for a prolonged period of time. Her family is at the bedside, including her [id number]; i.e., her 's brother, and also a sister. PAST MEDICAL HISTORY: 1. Hypertension. 2. Obstructive uropathy with acute kidney failure and bilateral hydronephrosis with bilateral ureteral strictures, status post nephrostomy tubes and double-J stent. 3. Hyperparathyroidism. 4. Chronic obstructive pulmonary disease (COPD). 5. Vitamin D deficiency. 6. Osteopenia. PAST SURGICAL HISTORY: 1. Bilateral nephrostomy tubes and stent in March. 2. Right knee replacement. 3. Bilateral cataract surgery. 4. Tubal ligation. MEDICATIONS AT HOME: Include amlodipine, metoclopramide, Zofran and potassium. ALLERGIES: PENICILLIN. SOCIAL HISTORY: Remote history of tobacco use, quitting 2004, over a [id number] history. Rare alcohol. She lives with her . FAMILY HISTORY: No history of malignancy in the family. PHYSICAL EXAMINATION: VITAL SIGNS: Temperature is 98.6, blood pressure is 138/88, oxygen saturation is 83% on three liters of oxygen. GENERAL: She is cachectic, thin, in no acute distress, and she does have 3-4 word dyspnea. She is on oxygen. She also is on TPN. HEENT: No pallor, anicteric sclerae. Moist mucous membranes. HEART: Regular rate and rhythm. LUNGS: Clear bilaterally. She does have decreased breath sounds at the bases. EXTREMITIES: No edema. LABORATORIES AND STUDIES: CT angiogram on 08/10/2016, revealed no evidence of pulmonary embolism, but she has moderate to large bilateral pleural effusions with significant ascites and bilateral hydronephrosis. Creatinine is 1.6 with BUN of 71. White count is 13.2, hemoglobin is 11.2, platelets 274,000. IMPRESSION AND PLAN: A 71-year-old female with what appears to be metastatic gastric carcinoma with mucinous features, positive ascitic fluid with an ECOG performance status of three. I discussed with the patient in detail today regarding natural progression, treatment, and prognosis of metastatic gastric carcinoma. Given her poor functional status, she is not a candidate for chemotherapy at this time. I did address concerns regarding the risk of toxicities from chemotherapy, even with her new diagnosis. She is currently on TPN and unable to tolerate any feeding via mouth nutrition. I asked her to schedule an appointment after discharge and after she is stable to discuss further, but at this time she is not a candidate for chemotherapy.
[2016-08-12] MEDS: FLUCONAZOLE 100 MG in APPROPRIATE DILUENT 1 EA IV SCH (22:39)
[2016-08-12 23:23] VITALS: BP 113/71
[2016-08-13] MEDS: NYSTATIN 500,000 U/5 ML SUSP UDC PO SCH ×5 (00:53→23:59)
[2016-08-13] MEDS: HumaLOG INSULIN (NovoLOG) PER UNIT SC SCH ×4 (00:54→18:05)
[2016-08-13 05:26] VITALS: BP 117/73
[2016-08-13] MEDS: SODIUM CHLORIDE 0.9% INJ 10 ML SYR IV SCH ×2 (05:54→18:06)
[2016-08-13 06:11] LABS: MEAN CORPUSCULAR HEMOGLOBIN 28.7 pg (27.0-33.0); MEAN CORPUSCULAR HGB CONC 32.9 g/dl (32.0-36.5); MEAN CORPUSCULAR VOLUME 87.4 fl (80.0-96.0); RED CELL DISTRIBUTION WIDTH 15.4 % (11.5-14.5); WHITE BLOOD COUNT 16.3 K/mm3 (4.0-10.0)
[2016-08-13 06:39] LABS: CALCIUM LEVEL 8.9 MG/DL (8.8-10.2); CREATININE FOR GFR 1.69 MG/DL (0.55-1.02); GLOMERULAR FILTRATION RATE 31.6 (>39); MAGNESIUM LEVEL 2.3 MG/DL (1.8-2.4); PHOSPHORUS LEVEL 4.8 MG/DL (2.5-4.9); POTASSIUM SERUM 4.5 MEQ/L (3.5-5.1)
[2016-08-13 07:56] VITALS: BP 112/68
[2016-08-13] MEDS: MEROPENEM INJ 1 GM in D5W MINI-BAG PLUS 100 ML IV SCH ×2 (09:03→20:39)
[2016-08-13] MEDS: ENOXAPARIN 30 MG/0.3 ML SYR (J1650) SC SCH (09:03)
--- NOTE | 2016-08-13 09:58 | IPNPDOC ---
Subjective Date Seen The patient was seen on 08/13/16. Subjective Chief Complaint/HPI The patient is a 71-year-old female admitted with a reason for visit of Mental Status Alteration; Sepsis. Events since last encounter Patient was seen this morning at bedside. She does not offer any complaints. She continues to be tachycardic on telemetry, however she is in sinus rhythm. She denies any chest pain/pressure, palpitations. She denies any increased shortness of breath although she is on 10 L of nasal cannula. She denies any nausea or abdominal pain. She continues to have an NG tube in place. No diarrhea , fevers, chills, lightheadedness or dizziness. Objective Physical Examination General Exam: Positive: Alert, Cooperative, No Acute Distress Eye Exam: Positive: Conjunctiva & lids normal, EOMI, Negative: Sclera icteric ENT Exam: Positive: Atraumatic, Mucous membr. moist/pink, Pharynx Normal, Other ENT (NG tube in place) Neck Exam: Positive: Supple, Negative: thyromegaly Chest Exam: Positive: Normal air movement, Rales, Negative: Rhonchi, Wheezing Heart Exam: Positive: Tachycardic, Regular Rhythm, Normal S1, Normal S2 Abdomen Exam: Positive: BS Hypoactive, Tenderness (diffusely tender with deep palpation), Other (ecchymosis on lower abdomen from injections), Negative: Soft Extremity Exam: Positive: Edema (+2), Normal pulses, Negative: Cyanosis, Tenderness Skin Exam: Positive: Nl turgor and temperature, Negative: Rash Neuro Exam: Positive: Normal Speech, Cranial Nerves 3-12 NL Psych Exam: Positive: Mental status NL, Oriented x 3 Assessment /Plan Problems (1) Gastric mass Status: Acute Problem Specific Plan: Consult Specialist, Monitor Clinically Problem Text: * Upper GI series found a large irregular mass of the antrum involving the pylorus, causing partial obstruction * Surgery consulted, she had upper endoscopy with biopsy on 08/01, pathology negative for malignancy * Repeat endoscopy done on 08/10, 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 They would like to wait until her children come into town to come up with a definitive plan. Patient would like to go home however they live in a trailer and it is unsure if there is enough room to accommodate. They are also considering hospice house but would like to wait for children to arrive. * Was evaluated by Dr. Stahl on 08/12. No suitable for chemotherapy at this time. (2) Ascites Status: Acute Problem Specific Plan: Monitor Clinically Problem Text: * Paracentesis performed on 08/03 where 3,550 ml of fluid was removed * Pathology revealed reactive mesothelial cells, inflammatory cells, and rare atypical cells of unknown significance, no reported malignancy * Abd/pelvis CT with contrast on 08/07 revealed large amount of abdominal and pelvic ascites, no obstructive or inflammatory bowel changes, severe bilateral hydronephrosis and proximal hydroureter that is stable, increasing bilateral pleural effusions and lower lobe atelectasis * Repeat paracentesis done on 08/09 where 2450 mL of fluid was removed * Pathology of repeat paracentesis revealed reactive mesothelial cells, mixed with WBCs and blood elements. In view of significant ring cell carcinoma, fluid was stained to see if any significant ring cells were identified, mucin stain highlighted cells containing mucin consistent with peritoneal involvement of malignancy (3) Healthcare-associated pneumonia Status: Acute Problem Specific Plan: Monitor Clinically, Repeat Labs Problem Text: * Chest x-ray obtained on 08/05 revealed a new right middle lobe infiltrate * White count and CRP has trended up, patient is afebrile * She is being covered with vancomycin and meropenem, initiated on 08/05 * Also initiated on fluconazole, 08/07 * Remains on meropenem and vancomycin (4) Atrial fibrillation with rapid ventricular response Status: Acute Problem Specific Plan: Monitor Clinically Problem Text: * No history of previous atrial fibrillation * Went into atrial fibrillation with rapid ventricular rate on the morning of * Received a total of 0.75 mg of digoxin * No beta dipesh was given due to soft blood pressures * She spontaneously converted back to sinus rhythm on the evening of 08/11, still tachycardic but remains in sinus rhythm (5) Bilateral pleural effusion Status: Acute Problem Specific Plan: Monitor Clinically Problem Text: * Likely secondary to third spacing of fluid * Breathing is stable, but she remains on nasal cannula * Given multiple doses of Lasix over the last couple of days * Repeat CXR on 08/12 revealed increased effusions with atelectasis (6) Hypernatremia Status: Acute Response to Treatment: Improving Problem Specific Plan: Monitor Clinically, Repeat Labs Problem Text: * Normal saline discontinued on 08/10 * We'll continue to monitor her sodium level, as patient remains nothing by mouth * Sodium levels are improving * Nephrology following, we appreciate their assistance with management (7) Acute kidney injury Status: Acute Problem Specific Plan: Monitor Clinically, Repeat Labs Problem Text: * Slowly trending up over the last few days (8) Hypoalbuminemia Status: Acute Problem Specific Plan: Monitor Clinically Problem Text: * Received albumin on 08/10 * Attempt to adjust protein in TPN (9) Metabolic alkalosis Status: Acute Response to Treatment: Improving Problem Specific Plan: Monitor Clinically, Repeat Labs Problem Text: * Improved * Nephrology managing TPN * Continue to monitor electrolytes (10) Urinary tract infection associated with nephrostomy catheter Status: Resolved Problem Specific Plan: Monitor Clinically Problem Text: * Urine culture grew Staphylococcus hominis, with history of chronic nephrostomy tubes * Blood cultures showed no growth * Had previously completed 10 day course of vancomycin (11) Hydroureteronephrosis Status: Chronic Problem Specific Plan: Monitor Clinically Problem Text: * 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 * Nephrostomy tubes were changed on 08/04 * She was supposed to have urological procedure (ureterolysis, ureteral implantation, possible flap and double-J stent placement) on July 26, however came to the emergency department instead (12) Nausea and vomiting Status: Acute Problem Specific Plan: Monitor Clinically Problem Text: * Upper GI series/abd xray revealed a large irregular mass in the antrum extending to the pylorus causing partial obstruction * Continue antiemetics as needed, continue NG tube (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 No cranial nerve deficits. Patient is asymptomatic. * Spoke to the neurosurgeon camp recreation specialist, Dr Brower and he stated that patient could just followup with their office on discharge, given incidental finding without SAH. (14) HTN (hypertension) Status: Chronic Problem Specific Plan: Monitor Clinically Problem Text: * Amlodipine discontinued due to a soft blood pressures * Continue to monitor, may resume if needed (15) COPD (chronic obstructive pulmonary disease) Status: Chronic Problem Specific Plan: Monitor Clinically Problem Text: * Currently on Coumadin to oxygen due to pleural effusions (16) Hyperparathyroidism Status: Chronic Problem Text: l Plan/VTE VTE Prophylaxis Ordered?: Yes (lovenox) VS, I&O, 24H, Fishbone Vital Signs/I&O Vital Signs Date Time Temp Pulse Resp B/P (MAP) Pulse Ox O2 Delivery O2 Flow Rate FiO2 08/13/16 07:56 97.6 108 20 112/68 (83) 99 High Flow Cannula 10.0 08/10/16 12:45 100 I&O- Last 24 Hours up to 6 AM 08/13/16 06:00 Intake Total 3220 ml Output Total 2675 ml Balance 545 ml Laboratory Data CBC/BMP Laboratory Tests 08/13/16 06:01 Red Blood Count 3.61 L, Mean Corpuscular Volume 87.4, Mean Corpuscular Hemoglobin 28.7, Mean Corpuscular Hemoglobin Concent 32.9, Red Cell Distribution Width 15.4 H, Calcium Level 8.9 Microbiology Microbiology 08/07/16 Blood Culture - Final, Complete NO GROWTH AFTER 5 DAYS 08/07/16 Blood Culture - Final, Complete NO GROWTH AFTER 5 DAYS 08/08/16 Acid Fast Stain - Final, Resulted 08/08/16 Mycobacterial Culture, Resulted Pending 08/08/16 Fungal Smear - Final, Resulted 08/08/16 Fungal Culture, Resulted Pending 08/08/16 Gram Stain - Final, Complete 08/08/16 Body Fluid Culture - Final, Complete 08/03/16 Fungal Smear, Received Pending 08/03/16 Fungal Culture, Received Pending 08/03/16 Gram Stain - Final, Complete 08/03/16 Body Fluid Culture - Final, Complete 08/04/16 Urine Culture - Final, Complete GME ATTESTATION GME ATTESTATION My preceptor for this patient encounter was physically present in the building during the encounter and was fully available. As needed, all aspects of the patient interview, examination, medical decision making process, and medical care plan development were reviewed and approved by the preceptor. Preceptor is aware and concurs with the plan as stated in the body of this note and will attest to such by his/her cosignature. JORGE MOE, August 13, 2016 09:58
--- NOTE | 2016-08-13 11:48 | REP ---
Clinical: Bilateral nephrostomy tubes with urine leak. Technique: Real time casiano scale and color evaluation using curved array transducer. Findings: The right kidney is normal in contour, size, echogenicity and reniform shape measuring 11.1 x 5.2 x 4.1 cm. A nephrostomy tube is identified extending into the renal pelvis and previously noted hydronephrosis has resolved. No evidence for nephrolithiasis, cystic or mass lesion and no perinephric collection is appreciated. The left kidney is normal in contour, size, echogenicity and reniform shape measuring 11.4 x 4.4 x 5.2 cm. The nephrostomy tube is identified through the renal parenchyma but cannot be visualized within the collecting system and mild residual hydronephrosis is appreciated. No evidence for nephrolithiasis, cystic or mass lesion and no definite perinephric collection is appreciated. Incidental note is made of moderate ascites. Impression: 1. Right kidney appears relatively normal with nephrostomy tube extending into the collecting system and no residual hydronephrosis. 2. The left kidney demonstrates mild residual hydronephrosis and the nephrostomy tube is identified within the renal parenchyma but not definitively extending into the collecting system. 3. Moderate ascites. Signed by Juan Pablo Garsia MD 08/13/2016 11:40 A
--- NOTE | 2016-08-13 11:52 | REP ---
Clinical: Nephrostomy tube leak. Technique: Single supine view of the abdomen and pelvis. Findings: Comparison is made with coronal process plant operator film of the CT dated 08/07/2016. The right nephrostomy tube appears to be normal position and overlies the renal silhouette. The left nephrostomy tube no longer appears to be with in the left kidney and actual position cannot be determined. Bowel gas pattern is nonspecific. Skeletal structures demonstrate age-related changes. Multiple phleboliths noted in the pelvis. A nasogastric tube overlies the left upper quadrant. Impression: 1. Left nephrostomy tube likely no longer within the left renal collecting system. 2. Relatively normal positioned right nephrostomy tube. 3. Nonspecific bowel gas pattern. Signed by Juan Pablo Garsia MD 08/13/2016 11:43 A
[2016-08-13 12:00] VITALS: BP 137/76
[2016-08-13] MEDS: VANCOMYCIN HCL 750 MG, VIAL MATE ADAPTER 1 EACH in D5W 250 ML IV SCH (12:41)
[2016-08-13 16:00] VITALS: BP 118/78
[2016-08-13] MEDS ORDERED: SODIUM CHLORIDE IV SCH ×6 (18:00)
[2016-08-13] MEDS ORDERED: POTASSIUM CHLORIDE IV SCH ×6 (18:00)
[2016-08-13] MEDS ORDERED: FAT EMULSION IV 20% 500 ML IV SCH (18:00)
[2016-08-13] MEDS ORDERED: [UNRECOGNIZED DRUG - OTHER] IV SCH ×6 (18:00)
[2016-08-13] MEDS: PANTOPRAZOLE 40MG INJ (PROTONIX) (C9113) IV SCH (18:04)
[2016-08-13 19:28] VITALS: BP 125/71
[2016-08-13] MEDS: METOCLOPRAMIDE INJ 10MG/2ML VIAL (J2765) IV PRN (20:46)
[2016-08-13] MEDS: MORPHINE 2 MG/ML 1ML SYRINGE IV PRN (20:46)
[2016-08-13] MEDS: FLUCONAZOLE 100 MG in APPROPRIATE DILUENT 1 EA IV SCH (22:30)
[2016-08-14] MEDS: HumaLOG INSULIN (NovoLOG) PER UNIT SC SCH ×4 (00:07→18:14)
[2016-08-14 01:04] VITALS: BP 117/65
[2016-08-14] MEDS: MORPHINE 2 MG/ML 1ML SYRINGE IV PRN ×5 (02:13→22:05)
--- NOTE | 2016-08-14 02:33 | IPN ---
DATE OF SERVICE: 08/13/2016 SUBJECTIVE: Patient was seen and examined at the bedside today. I have seen her after about a week. She has lost a significant amount of weight. When I saw the patient today morning, her and her son and daughter along with their families were also present at the bedside. Patient denies any active complaints. She continues to deteriorate because of her malignant cancer (CA) of the stomach. REVIEW OF SYSTEMS: Patient denies any fevers, chills, rigors. She denies any chest pain or shortness of breath. She continues to be on nasogastric tube (NGT) suctioning at this time. She is unable to eat anything because of her large gastric mass. She complains of abdominal distention as well. Patient is currently dependent on total parenteral nutrition (TPN) for nutrition. OBJECTIVE: VITAL SIGNS: Temperature is 97 degrees Fahrenheit, blood pressure is 118/78, pulse is 108, respiratory rate of 18, saturating 98% on high-flow cannula at 10 liters. INTAKE AND OUTPUT: The urine output recorded from the right nephrostomy tube is 475 mL and left nephrostomy tube is not draining at this time. Weight in the bed scale is 79.3 kg. PHYSICAL EXAMINATION: GENERAL: Patient is awake, alert, and oriented times three, sitting in the bed, no apparent distress. HEAD AND NECK: Extraocular muscles intact. Pupils equally round and reactive to light. Mucous membranes are moist. Patient is cachectic. She has significant temporal wasting. She has an NGT attached to suctioning at this time. Neck is supple. There is no jugular venous distention (JVD). CARDIOVASCULAR: S1, S2. Slight tachycardia. No murmur, rub or gallop. RESPIRATORY: Decreased breath sounds at the bases. Mild crepitations at the bases as well. ABDOMEN: Tense, hard, mildly tender to palpation. There is mild amount of ascites. EXTREMITIES: No clubbing or cyanosis. She has 1+ edema of the bilateral lower extremities. CENTRAL NERVOUS SYSTEM (JUNIOR LEGAL SECRETARY): No focal neurological deficit. Power is 5/5 in all extremities. GENITOURINARY: Patient has bilateral nephrostomy tubes at this time. Right-sided nephrostomy tube is draining. Left-sided nephrostomy tube is blocked at this time. LABORATORY REVIEW: CBC showed a WBC of 16.3, hemoglobin is 10.4, platelets are 258. BMP showed sodium 146, potassium 4.5, chloride 109, bicarbonate 30, BUN is 79, creatinine 1.6. Calcium is 8.9, phosphorus 4.8, magnesium is 2.3. C-reactive protein is 22.9. IMAGING: A renal ultrasound was done today which showed normal size right-sided kidney with a nephrostomy tube. The left kidney showed mild hydronephrosis and the left nephrostomy tube was in the renal parenchyma. It was not in the collecting system. There was moderate amount of ascites. Abdominal x-ray done today showed left nephrostomy tube was not in the renal collecting system. CURRENT MEDICATIONS: Patient's medications were all reviewed by me. She continues to be on intravenous (IV) TPN. Her Humalog sliding scale has been changed. There is no other change in the medications today as compared with yesterday. ASSESSMENT: 71-year-old female with acute kidney injury superimposed on chronic kidney disease, large gastric mass, currently total parenteral nutrition (TPN) dependent, fluid overloaded with electrolyte abnormalities and now malpositioned left-sided nephrostomy tube. PLAN: 1. Acute kidney injury superimposed on chronic kidney disease. It is secondary to multiple comorbidities, inability to take oral, and she has left-sided hydronephrosis and malpositioned left nephrostomy tube as well. Continue to monitor for now. Creatinine is staying stable at around 1.6. 2. Left-sided hydronephrosis and malpositioned left-sided nephrostomy tube. Patient got ultrasound and x-ray. Both of them showed the left-sided nephrostomy tube was outside the renal collecting system. Interventional radiology is not available over the weekend. Urology has already been called by primary team and left-sided nephrostomy tube would likely be replaced by urology service today. 3. Protein calorie malnutrition and dependence on total parenteral nutrition. I have ordered new TPN orders for the patient. Patient's family wants to continue the aggressive care at this time until they finally decide about goals of care. Continue the TPN; however, I have decreased the rate to 70 mL/h because patient is losing weight and she is getting fluid overloaded. 4. Hypernatremia. Patient's sodium level is coming down to 146. I have ordered low-sodium TPN today again. Sodium level is expected to improve. 5. Metabolic alkalosis. Patient's bicarbonate level is improving. Bicarbonate is 30 today. Patient is being given TPN without acetate at this time. Metabolic alkalosis is secondary to continuous nasogastric (NG) suctioning. 6. Metastatic gastric cancer. Patient was seen by hematology/oncology as well. She is not a candidate of chemotherapy because of her multiple comorbidities and current medical status. She has a poor prognosis. I extensively discussed the patient's current medical status and poor prognosis with the family at the bedside. They are deciding about possibly taking the patient to hospice or home with hospice. Continue current care at this time. 7. Leukocytosis. It is most likely secondary to malignant ascites. She continues to be on intravenous (IV) fluconazole and meropenem and IV vancomycin. Patient has overall poor prognosis. If patient's family decides to make her comfort measures only, then IV TPN can be stopped. Plan of care was discussed with the hospitalist, Dr. Ana Luisa Moser.
[2016-08-14 04:34] VITALS: BP 122/76
[2016-08-14] MEDS: NYSTATIN 500,000 U/5 ML SUSP UDC PO SCH ×3 (05:37→18:13)
[2016-08-14] MEDS: SODIUM CHLORIDE 0.9% INJ 10 ML SYR IV SCH ×2 (05:38→18:14)
[2016-08-14 08:00] VITALS: BP 131/70
[2016-08-14 08:04] LABS: MEAN CORPUSCULAR HEMOGLOBIN 27.7 pg (27.0-33.0); MEAN CORPUSCULAR HGB CONC 31.9 g/dl (32.0-36.5); MEAN CORPUSCULAR VOLUME 86.8 fl (80.0-96.0); RED CELL DISTRIBUTION WIDTH 15.3 % (11.5-14.5); WHITE BLOOD COUNT 16.7 K/mm3 (4.0-10.0)
--- NOTE | 2016-08-14 08:11 | REP ---
Clinical: Increasing respiratory distress. Comparison: 08/12/2016. Findings: Nasogastric tube courses below left hemidiaphragm. Right PICC line with tip in the SVC. Bilateral mid to lower lobe infiltrates and possible small layering effusions are identified, but appears somewhat improved when compared to prior examination. No new acute process. No pneumothorax. Visualized mediastinum and cardiac silhouette are normal / stable. Skeletal structures intact. Impression: Continued bilateral lower lobe opacities and suspected small layering effusions appear improved by radiographic evaluation. Signed by Juan Pablo Garsia MD 08/14/2016 08:03 A
[2016-08-14 08:37] LABS: CALCIUM LEVEL 9.2 MG/DL (8.8-10.2); CREATININE FOR GFR 1.4 MG/DL (0.55-1.02); GLOMERULAR FILTRATION RATE 39.2 (>39); MAGNESIUM LEVEL 2.2 MG/DL (1.8-2.4); PHOSPHORUS LEVEL 4.3 MG/DL (2.5-4.9); POTASSIUM SERUM 4.8 MEQ/L (3.5-5.1)
[2016-08-14] MEDS: MEROPENEM INJ 1 GM in D5W MINI-BAG PLUS 100 ML IV SCH ×2 (09:19→20:07)
[2016-08-14] MEDS: ENOXAPARIN 30 MG/0.3 ML SYR (J1650) SC SCH (09:20)
[2016-08-14 12:00] VITALS: BP 119/66
[2016-08-14] MEDS: VANCOMYCIN HCL 750 MG, VIAL MATE ADAPTER 1 EACH in D5W 250 ML IV SCH (12:38)
[2016-08-14 16:00] VITALS: BP 126/70
[2016-08-14] MEDS ORDERED: SODIUM CHLORIDE IV SCH ×6 (18:00)
[2016-08-14] MEDS ORDERED: FAT EMULSION IV 20% 500 ML IV SCH (18:00)
[2016-08-14] MEDS ORDERED: [UNRECOGNIZED DRUG - OTHER] IV SCH ×6 (18:00)
[2016-08-14] MEDS ORDERED: POTASSIUM CHLORIDE IV SCH ×6 (18:00)
[2016-08-14] MEDS: PANTOPRAZOLE 40MG INJ (PROTONIX) (C9113) IV SCH (18:13)
[2016-08-14 19:46] VITALS: BP 128/75
[2016-08-14] MEDS: FLUCONAZOLE 100 MG in APPROPRIATE DILUENT 1 EA IV SCH (22:06)
--- NOTE | 2016-08-14 22:37 | IPN ---
DATE: 08/14/2016 SUBJECTIVE: The patient was seen and examined at the bedside today morning. The patient's family was also present today again. She denies any active complaints. She continues to get total parenteral nutrition (TPN) at this time. Her left-sided percutaneous nephrostomy tube could not be fixed. However, her renal function is slightly better as compared with yesterday. REVIEW OF SYSTEMS: The patient denies any fevers, chills, rigors, headache, chest pain or shortness of breath. She continues to have nasogastric tube with suctioning and she is total parenteral nutrition (TPN) dependent. The rest of review of systems is negative. OBJECTIVE: VITAL SIGNS: Temperature is 97.4 degrees Fahrenheit, blood pressure (BP) is 126/70, pulse is 67, respiratory rate of 18, saturating 98% on nasal cannula. Intake and output: Urine output recorded is 625 mL yesterday, 225 mL so far today since overnight. Weight in the bed scale is 79/3 kg. PHYSICAL EXAMINATION: GENERAL: The patient is awake, alert, oriented times three. She is weak and cachectic, sitting in bed in no apparent distress. HEAD AND NECK EXAM: The patient has bilateral temporal wasting. Pupils equally round and reactive to light. Mucous membranes are moist. She has a nasogastric tube attached to suctioning. Neck is supple. There is no jugular venous distension (JVD). CARDIOVASCULAR: S1, S2 regular rate. No murmur, rub and gallop. RESPIRATORY: Decreased breath sounds at the bases with mild crepitations on deep respirations. ABDOMEN: Tense, hard, mildly tender to deep palpation and moderate amount of ascites. EXTREMITIES: No clubbing or cyanosis. Pulses are 2+. CENTRAL NERVOUS SYSTEM: No focal neurological deficit. Power is 5/5 in all extremities. GENITOURINARY (): The patient has bilateral nephrostomy tubes. Her right nephrostomy tube is draining well; however, left nephrostomy tube has very small amount of urine and dressing is soaked. LABORATORY REVIEW: Complete blood count (CBC) showed a white blood count (WBC) of 16.7, hemoglobin is 10.4, platelets are 298. Basic metabolic panel (BMP) showed sodium 146, potassium 4.8, chloride 112, bicarbonate 29, BUN is 79, creatine is 1.4, glucose is 72, calcium 9.2, phosphorus 4.3, magnesium 2.2. CURRENT MEDICATIONS: The patient's medications were all reviewed by me. She continues to be on IV total parenteral nutrition (TPN) and she continues to be on IV fluconazole, vancomycin. At this time, there is no other change in the medications today as compared with yesterday. ASSESSMENT: 71-year-old female with bilateral ureteric obstruction most likely because of retroperitoneal fibrosis, status post bilateral percutaneous nephrostomy tubes, large gastric mass with malignant ascites. Currently, total parenteral nutrition (TPN) dependent with multiple electrolyte abnormalities. PLAN: 1. Acute kidney injury superimposed on chronic kidney disease. It is secondary to multiple comorbidities at this time including inability of the patient to decrease by mouth because of gastric malignancy. Continue nasogastric tube suctioning. Blockage of the left-sided nephrostomy tube. Creatine is stable at this time; it is 1.4. No urgent need of hemodialysis at this time. 2. Left-sided hydronephrosis and malpositioning of the left-sided nephrostomy tube. Interventional radiology is not available over the long weekend. The patient would likely need replacement of the left-sided nephrostomy tube on Monday. 3. Protein calorie malnutrition and dependence on total parenteral nutrition. I have ordered another total parenteral nutrition (TPN) order depending upon the patient's electrolytes today; the patient wants to continue current care at this time. However, she has made herself DO NOT RESUSCITATE. 4. Hypernatremia. Sodium level is 146 today. I had decreased the sodium level in the total parenteral nutrition (TPN) today. 5. Metastatic gastric cancer. The patient is not a candidate for surgery or chemotherapy at this time. Family is discussing the possibility of palliative care. The overall prognosis of the patient is very poor. Family wants to keep the patient over here with continuation of the current care along with total parenteral nutrition (TPN). The patient has not decided yet to discontinue the medications and total parenteral nutrition (TPN). I will continue to order the total parenteral nutrition (TPN) at this time.
--- NOTE | 2016-08-14 22:41 | IPN ---
DATE: 08/14/2016 SUBJECTIVE: The patient is seen and examined in the room with the . Per the patient, the patient is feeling a little bit better compared to yesterday. The patient continued to require high-flow nasal canula with 10 liters of oxygen. The patient was noted to have slow leaking to the left nephrostomy tube. OBJECTIVE: VITAL SIGNS: Temperature 97.9, pulse is 109, respiratory rate is 20, blood pressure is 119/66, pulse oximetry is 99% with 10 liters of high-flow nasal cannula. GENERAL: Fatigue, mild distress, alert and oriented times three. HEENT: The patient has nasogastric tube in place. Normocephalic, atraumatic. CARDIOVASCULAR: Tachycardia. Positive S1, S2. LUNGS: Positive crackles bilaterally. No wheezes appreciated. ABDOMEN: Mild tenderness. Hypoactive bowel sounds, soft. EXTREMITIES: 2 to 3 positive pitting edema bilaterally. No signs of cyanosis. LABORATORY DATA: White blood count (WBC) is 16.7, hemoglobin 10.4, hematocrit 32.7, platelet count is 298. Sodium is 146, potassium is 4.8, chloride is 112, carbon dioxide is 29, BUN 79, creatine 1.4, glomerular filtration rate (GFR) is 39.2. Fasting glucose is 72. C-reactive protein is 22.7. ASSESSMENT AND PLAN: 1. 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 The patient has extremely poor prognosis. The patient is not a candidate for chemotherapy. Nasogastric tube in place. The patient is fairly supported by the TPN. 2. Recurrent metastatic ascites. The patient had a paracentesis done on August 03, where than 3.5 liters of ascitic fluid was removed. The patient had repeat paracentesis August 09, where approximately 2.5 liters of fluid was removed. By the rate the patient is accumulating ascitic fluid, the patient may need recurrent paracentesis surely in the future. 3. Health acquired pneumonia and aspiration pneumonia. The patient is on vancomycin and meropenem. The patient also on fluconazole. 4. Atrial fibrillation with rapid ventricular response. The patient had paroxysmal atrial fibrillation with rapid ventricular response. Due to a soft blood pressure, the patient had a loading dose of digoxin and the patient's atrial fibrillation converted back to sinus tachycardia. 5. Bilateral pleural effusion secondary to due to 3rd spacing. The patient continued to have a very poor nutritional status, even though the patient is on TPN. The patient's albumin protein level continued to decrease. The patient is receiving intermittent Lasix to help with the oxygenation. 6. Acute kidney injury. The patient has bilateral nephrostomy tube. The left nephrostomy has been compromised. There is only some leakage to the left nephrostomy tube. Options were discussed with the patient where she may need to get a nephrostomy replaced and there is a significant risk of performing the procedure. Unfortunately, during the weekend, we do not have intervention radiology available. I have discussed the case with the urologist and we both are concerned that the patient has the risk is significantly high and may not justify the benefit, but the patient wishes to pursue with the procedure. We will try to see if [facility] has the capacity to perform nephrostomy urgently, although the decision making, risks and benefits were explained to the patient yesterday. The patient had a good discussion. The patient's both son and daughter, they both feel just leave the nephrostomy tubing where it is even though and they did not decide to be transferred or pursue nephrostomy changing at [facility]. 7. Hyperalbuminemia with poor protein level. The patient is on TPN; however, albumin and protein level continue to decrease. 8. Hypertension. Due to the hypotension, blood pressure medication has been on hold. 9. Chronic obstructive pulmonary disease (COPD). Continue to monitor. 10. Hyperparathyroidism. 11. Osteopenia. 12. Deep vein thrombosis (DVT) prophylaxis. The patient is on Lovenox.
[2016-08-15 00:06] VITALS: BP 120/72
[2016-08-15] MEDS: NYSTATIN 500,000 U/5 ML SUSP UDC PO SCH ×5 (00:19→23:27)
[2016-08-15] MEDS: HumaLOG INSULIN (NovoLOG) PER UNIT SC SCH ×4 (00:23→18:04)
[2016-08-15 02:58] VITALS: BP 118/76
[2016-08-15] MEDS: MORPHINE 2 MG/ML 1ML SYRINGE IV PRN ×3 (03:00→21:40)
[2016-08-15] MEDS: SODIUM CHLORIDE 0.9% INJ 10 ML SYR IV SCH ×2 (05:13→18:04)
[2016-08-15 05:24] LABS: MEAN CORPUSCULAR HEMOGLOBIN 28.1 pg (27.0-33.0); MEAN CORPUSCULAR HGB CONC 32.1 g/dl (32.0-36.5); MEAN CORPUSCULAR VOLUME 87.7 fl (80.0-96.0); RED CELL DISTRIBUTION WIDTH 15.4 % (11.5-14.5); WHITE BLOOD COUNT 13.5 K/mm3 (4.0-10.0)
[2016-08-15 05:45] LABS: CALCIUM LEVEL 9.1 MG/DL (8.8-10.2); CREATININE FOR GFR 1.23 MG/DL (0.55-1.02); GLOMERULAR FILTRATION RATE 45.6 (>39); MAGNESIUM LEVEL 2.1 MG/DL (1.8-2.4); POTASSIUM SERUM 5.1 MEQ/L (3.5-5.1)
[2016-08-15] MEDS: MEROPENEM INJ 1 GM in D5W MINI-BAG PLUS 100 ML IV SCH ×2 (08:00→20:07)
[2016-08-15] MEDS: ENOXAPARIN 30 MG/0.3 ML SYR (J1650) SC SCH (08:00)
[2016-08-15] MEDS: SODIUM CHLORIDE 0.9% INJ 10 ML SYR IV PRN (08:00)
[2016-08-15 08:31] VITALS: BP 118/63
[2016-08-15 12:00] VITALS: BP 110/63
--- NOTE | 2016-08-15 12:41 | IPN ---
DATE OF VISIT: 08/15/2016 SUBJECTIVE: The patient is seen and examined in the room today. The patient is alert and awake. She does not have a complaint of acute discomfort. No overnight events are reported. OBJECTIVE: VITAL SIGNS: Temperature 98.2, pulse is 110, respiratory rate 22, blood pressure is 118/63, pulse oximetry is 97% with 10 liters of high-flow cannula. GENERAL: No signs of acute distress. The patient is alert and oriented times three. HEENT: Normocephalic, atraumatic. Extraocular movements grossly intact. CARDIOVASCULAR: Tachycardic. Positive S1, S2. LUNGS: Positive crackles bilaterally. No wheezes appreciated. ABDOMEN: Distended. There is some hard mass palpable on the upper abdomen. Multiple ecchymoses in the lower abdomen. Hypoactive bowel sounds. No tenderness to palpation. EXTREMITIES: 3 to 4 positive pitting edema bilaterally. No signs of cyanosis. LABORATORY DATA: White blood count (WBC) is 13.5, hemoglobin 9.6, hematocrit 30, platelet count 258. Sodium is 146, potassium is 5.1, chloride is 112, carbon dioxide is 27, BUN 65, creatine 1.23, glomerular filtration rate (GFR) is 45.6. Fasting glucose 103. Calcium 9.1. Phosphorus 4. Magnesium 2.1. C-reactive protein is 18.9. ASSESSMENT AND PLAN: 1. 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 The patient's prognosis is extremely poor. The patient is not a candidate for chemotherapy. The patient has been evaluated by the oncologist, Dr. Stahl. Currently, patient is supported by the TPN. Nasogastric (NG) tube in place. The patient continues to have third spacing and constantly difficulty breathing and generalized swelling. 2. Recurrent metastatic ascites. The patient had a paracentesis done on August 03, where more than 3.5 liters of ascitic fluid was removed and the patient had a repeat paracentesis on August 09 where approximately 2.5 liters of ascitic fluid was removed. At the rate of fluid accumulation, the patient may need repeat paracentesis in the near future. Currently the patient does not complain about severe discomfort from the abdomen. 3. Health acquired pneumonia and aspiration pneumonia. The patient has been on vancomycin and meropenem. The patient is also on fluconazole. 4. Atrial fibrillation with rapid ventricular response. The patient has paroxysmal atrial fibrillation with rapid ventricular response. Due to a soft blood pressure, the patient had a loading dose of digoxin and the atrial fibrillation converted back to sinus tachycardia. 5. Bilateral pleural effusion secondary third spacing. The patient is currently maintained on 10 liter high flow cannula. The patient is receiving intermittent Lasix to help with oxygenation. 6. Acute kidney injury, improving. The oracle soa architect has been assisting on the case. The patient has bilateral nephrostomy tubes. The left nephrostomy has been partially compromised. 7. Hyperalbuminemia with poor protein level. The patient is on TPN; however, the patient continues to have decreased albumin and protein levels. 8. Hypertension. Due to hypotension, the patient's blood pressure medications are on hold. 9. Chronic obstructive pulmonary disease (COPD). Continue to monitor. 10. Hyperparathyroidism. 11. Osteopenia. 12. 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 14. Deep vein thrombosis (DVT) prophylaxis. The patient is on thromboembolic deterrent stockings (TEDs) and sequential compression device.
[2016-08-15] MEDS: VANCOMYCIN HCL 750 MG, VIAL MATE ADAPTER 1 EACH in D5W 250 ML IV SCH (12:48)
[2016-08-15 16:00] VITALS: BP 123/70
[2016-08-15] MEDS ORDERED: SODIUM CHLORIDE IV SCH ×8 (18:00)
[2016-08-15] MEDS ORDERED: POTASSIUM CHLORIDE IV SCH ×8 (18:00)
[2016-08-15] MEDS ORDERED: FAT EMULSION IV 20% 500 ML IV SCH (18:00)
[2016-08-15] MEDS ORDERED: [UNRECOGNIZED DRUG - OTHER] IV SCH ×8 (18:00)
[2016-08-15] MEDS: PANTOPRAZOLE 40MG INJ (PROTONIX) (C9113) IV SCH (18:02)
--- NOTE | 2016-08-15 20:14 | IPN ---
DATE: 08/15/2016 SUBJECTIVE: The patient was seen and examined at the bedside today. The patient continues to be on total parenteral nutrition (TPN). She continues to have nasogastric (NG) tube with suctioning. All family members were present at the bedside as well. Patient still wants to continue full care including medications and parenteral nutrition. REVIEW OF SYSTEMS: The patient is depressed today. She is not really interested in communication. She does not have any active complaints at this time. OBJECTIVE: VITAL SIGNS: Temperature is 98.5 degrees Fahrenheit, blood pressure is 110/63, pulse is 110, respiratory rate of 18, saturating 99% on nasal cannula at 10 liters. INTAKE and OUTPUT: Patient was 605 mL positive yesterday and she is 95 mL positive so far today with intake and output. Weight in the bed scale is 79.3 kg. PHYSICAL EXAMINATION: GENERAL: The patient is awake, alert, oriented times three, laying in the bed. No apparent distress. She is very weak and cachectic. HEAD and NECK EXAM: Extraocular muscles intact. Pupils equally round and reactive to light. Mucous membranes are moist. She has a NG tube attached to suctioning. CARDIOVASCULAR: S1, S2, regular rate. No murmur, rub, or gallop. RESPIRATORY: Decreased breath sounds at the bases with mild crepitations on deep inspiration. ABDOMEN: Tense, hard, mildly tender with a moderate amount of ascites. EXTREMITIES: No clubbing or cyanosis. She has 2+ pitting edema of the bilateral lower extremities. CENTRAL NERVOUS SYSTEM (REVIEW ASSISTANT): No focal neurological deficit. Power is 5/5 in all extremities. GENITOURINARY: The patient has bilateral nephrostomy tubes. Left-sided nephrostomy tube is now draining well. LABORATORY REVIEW: CBC showed WBC 13.5, hemoglobin 9.6, platelets 258. BMP showed sodium 146, potassium 5.1, chloride 112, bicarbonate 27, BUN 65, creatine is 1.2, calcium 9.1, phosphorus 4, magnesium 2.1. IMAGING: A chest xray done yesterday morning showed continuous bilateral lower lobe opacities and small layering effusions. CURRENT MEDICATIONS: The patient's medications were all reviewed by me. She continues to be on IV TPN. I have stopped patient's Lovenox because of abdominal wall hematomas. ASSESSMENT: 71-year-old female with metastatic cancer of the stomach with malignant ascites, bilateral hydronephrosis secondary to ureteric structures status post bilateral percutaneous nephrostomies. Nephrology service following the patient for management of total parenteral nutrition and acute kidney injury. PLAN: 1. Acute kidney injury. Patient's renal function continues to improve despite the fact that she has a dislodged left-sided nephrostomy tube. Patient and family members have not decided whether she wants the left-sided nephrostomy tube replaced by interventional radiology (IR) or not. However, kidney function is stable at this time. 2. Protein calorie malnutrition and dependence on total parenteral nutrition. Patient still wants to continue with total parenteral nutrition (TPN) and family is still undecided at this time. I will continue to order total parenteral nutrition (TPN) at this time. 3. Metastatic gastric cancer. The patient is not a surgical candidate or candidate for chemotherapy at this time. She was already seen by hematology/oncology service. 4. Left-sided hydronephrosis and malpositioning of the left-sided nephrostomy tube. Patient has not decided about getting another procedure done. I will talk to her again tomorrow if she wants to go to interventional radiology (IR) for replacement of left-sided percutaneous nephrostomy. 5. Hypernatremia. I have decreased the amount of sodium chloride in the total parenteral nutrition (TPN). Sodium is stable at around 146, it is expected to improve by tomorrow. The patient has overall poor prognosis. She has made herself DO NOT RESUSCITATE but she still wants to continue the total parenteral nutrition and current medications.
[2016-08-15] MEDS: FLUCONAZOLE 100 MG in APPROPRIATE DILUENT 1 EA IV SCH (21:40)
[2016-08-15] MEDS: ACETAMINOPHEN TAB 650MG DOSE (2X325MG) PO PRN (23:26)
[2016-08-16] VITALS: BP 116/69
[2016-08-16] MEDS: HumaLOG INSULIN (NovoLOG) PER UNIT SC SCH ×2 (00:09→06:25)
[2016-08-16 04:00] VITALS: BP 131/86
[2016-08-16] MEDS: SODIUM CHLORIDE 0.9% INJ 10 ML SYR IV SCH (06:26)
[2016-08-16 06:41] LABS: MEAN CORPUSCULAR HEMOGLOBIN 27.8 pg (27.0-33.0); MEAN CORPUSCULAR HGB CONC 31.7 g/dl (32.0-36.5); MEAN CORPUSCULAR VOLUME 87.8 fl (80.0-96.0); RED CELL DISTRIBUTION WIDTH 15.6 % (11.5-14.5); WHITE BLOOD COUNT 13.3 K/mm3 (4.0-10.0)
[2016-08-16 06:59] LABS: CALCIUM LEVEL 9.3 MG/DL (8.8-10.2); CREATININE FOR GFR 1.16 MG/DL (0.55-1.02); GLOMERULAR FILTRATION RATE 48.8 (>39); POTASSIUM SERUM 5.3 MEQ/L (3.5-5.1)
[2016-08-16 08:00] VITALS: BP 102/56
[2016-08-16] MEDS: MEROPENEM INJ 1 GM in D5W MINI-BAG PLUS 100 ML IV SCH (08:02)
[2016-08-16] MEDS ORDERED: SCOPOLAMINE 1.5 MG TRANSDERMAL TOP SCH (09:00)
[2016-08-16] MEDS ORDERED: MORPHINE SULF IN 0.9% NACL 100 MG in APPROPRIATE DILUENT 1 EA IV SCH ×2 (10:00)
--- NOTE | 2016-08-16 11:54 | IPN ---
DATE: 08/16/2016 SUBJECTIVE: Patient was seen and examined at the bedside today in the morning. Her was also present at the bedside. reported that their children have all left after visiting the patient over the long weekend. The patient's medical condition is deteriorating. She is having rectal bleeding at this time now. REVIEW OF SYSTEMS: The patient is very weak and lethargic, in moderate respiratory distress. Not interested in doing any review of systems at this time. OBJECTIVE: VITAL SIGNS: Temperature is 96.8 degrees Fahrenheit, blood pressure is 102/56, pulse is 70, respiratory rate of 18, saturating 96% on high flow cannula at 10 liters. INTAKE/OUTPUT: Patient was 900 mL negative so far since overnight. Weight on the bed scale is not available. PHYSICAL EXAMINATION: GENERAL: The patient is awake, alert, oriented times three, laying in the bed, but very weak and cachectic, in moderate respiratory distress. HEAD/NECK EXAM: Extraocular muscles intact. Pupils equally round and reactive to light. She has bilateral temporal wasting. Mucous membranes are moist. She has an NG tube which is attached to suctioning at this time. CARDIOVASCULAR: S1, S2, regular rate. No murmur, rub, or gallop. RESPIRATORY: Decreased breath sounds at the bases and a moderate amount of crepitations at the bases on inspiration. ABDOMEN: Tense, hard, mildly tender with a moderate amount of ascites. EXTREMITIES: No clubbing or cyanosis. She has 2+ pitting edema of the bilateral lower extremities. PLATFORM POWER TECHNICIAN: Patient is drowsy at this time. Otherwise, power is 5/5 in bilateral upper extremities. GENITOURINARY: Patient has bilateral nephrostomy tubes. The right tube is working better than the left one. LABORATORY REVIEW: CBC showed WBC 13.3, hemoglobin 9.7, platelets 159. BMP showed sodium 145, potassium 5.3, chloride 113, bicarbonate 27, BUN 62, creatine is 1.1, calcium 9.3. CURRENT MEDICATIONS: The patient's medications were all reviewed by me. There is no change in the medications today as compared with yesterday. ASSESSMENT: 71-year-old female with metastatic cancer of the stomach with malignant ascites, bilateral hydronephrosis secondary to ureteric strictures status post bilateral percutaneous nephrostomies, severe protein calorie malnutrition currently dependent on total parenteral nutrition. PLAN: 1. Metastatic gastric cancer. I discussed the goals of care with the patient and her . She is deteriorating at this time. She started having rectal bleeding at this time as well. She is in moderate respiratory distress as well. She is TPN dependent. Her children have visited her over the weekened. She is agreeable to stopping all the medications and TPN at this time. The patient's wants to keep her comfortable. We shall start the patient on morphine drip and put her on scopolamine patch. I have stopped the TPN and all the antibiotics, IV fluids and medications at this time. The patient will be down graded to the medical/surgical floor at this time. Plan of care was discussed with the patient's RN and with the hospitalist team as well. The patient has been made comfort measures only (MAMMAL CONTROL AGENT).
[2016-08-16] MEDS ORDERED: NS 1,000 ML IV SCH (13:15)
--- NOTE | 2016-08-16 13:43 | IPNPDOC ---
Text Note Date of Service The patient was seen on 08/16/16. NOTE Subjective: Denies any complaints. No acute changes overnight. Patient wants to be made comfort measures only today. I did speak with the today's well and he agrees. Objective: Vitals: (see below) General: No acute distress, laying comfortably in bed. HEENT: Moist mucous membranes. NG tube in place. Neck: No JVD or lymphadenopathy Cardiac: RRR, No murmurs Pulm:Coarse crackles b/l bases R>L. No wheezing, rhonchi Abd: NT. Mildly distended. + BS. Ext: No edema or cyanosis. Labs (see below) Images: Assessment/Plan 1. HCAP 2. 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 3. Acute Hypoxic resp failure on 10L NC. 4. Severe metabolic alkalosis 5. UTI with nephrostomy tubes 6. Hydrouteronephrosis 7. Carlton aneurysm 8. HTN 9. COPD 10. Severe protein calorie malnutrition TPN dependent Very poor prognosis. Patient was agreeable to CASHIER today. Molst form has been updated. We will discontinue her TPN. Her NG tube was in place for comfort's as the patient has extensive and nausea and vomiting if the NG tube was clamped or removed. Morphine when necessary pain. Ativan when necessary anxiety. Appreciate nephrology and surgery input. Downgraded to MedSurcherry VS,Stefano, I+O VS, Stefano, I+O Laboratory Tests 08/16/16 06:28 Red Blood Count 3.50 L, Mean Corpuscular Volume 87.8, Mean Corpuscular Hemoglobin 27.8, Mean Corpuscular Hemoglobin Concent 31.7 L, Red Cell Distribution Width 15.6 H, Calcium Level 9.3 Vital Signs Date Time Temp Pulse Resp B/P (MAP) Pulse Ox O2 Delivery O2 Flow Rate FiO2 08/16/16 08:09 Nasal Cannula 10.0 08/16/16 08:00 96.8 70 18 102/56 (71) 96 08/15/16 21:50 100 I&O- Last 24 Hours up to 6 AM 08/16/16 06:00 Intake Total 1160 ml Output Total 1050 ml Balance 110 ml BEN MURDOCK MD August 16, 2016 13:43
--- NOTE | 2016-08-16 22:32 | ECGEPIP ---
Stationary ECG Study [facility] Test Date: 2016-08-16 Pat Name: ALFONSO BASHIR Department: Room: [place] [address] Gender: F Law Reporter: JANEE : [id number] Requested By: BEN MURDOCK Order Number: [id number] Reading MD: Kiran Garcia Measurements Intervals Phenix Rate: 110 P: 48 UT: 141 QRS: 21 QRSD: 93 T: 37 QT: 289 QTc: 391 Interpretive Statements SINUS TACHYCARDIA NONSPECIFIC ST & T-WAVE ABNORMALITY ABNORMAL RHYTHM ECG Electronically Signed On 08-16-2016 22:32:07 EDT by Kiran Garcia
--- NOTE | 2016-08-17 16:03 | DS.PDOC ---
Discharge Summary General Date of Admission July 26, 2016 at 14:28 Date of Discharge 08/17/16 Attending Physician: BEN MURDOCK MD Specialist/Consultants Involve: JORGE LUIS MEMBRENO MD Specialist/Consultants Involve Dr Zheng Discharge Summary PROCEDURES PERFORMED DURING STAY: EGD x2, nephrostomy change, paracentesis x2 ADMITTING DIAGNOSES: 1. Nausea/vomiting/weightloss 2. Severe metabolic alkalosis 3. UTI with nephrostomy tubes 4. Hypochloremia/Hypokalemia 5. Hydrouteronephrosis w/ b/l nephrostomy tubes 6. Carlton aneurysm 7. HTN 8. COPD 9. Severe protein calorie malnutrition DISCHARGE DIAGNOSES: 1. HCAP 2. 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 3. Acute Hypoxic resp failure on 10L NC. 4. Severe metabolic alkalosis 5. UTI with nephrostomy tubes 6. Hydrouteronephrosis w/ b/l nephrostomy tubes 7. Carlton aneurysm 8. HTN 9. COPD 10. Severe protein calorie malnutrition TPN dependent COMPLICATIONS/CHIEF COMPLAINT: Mental Status Alteration; Sepsis. HISTORY OF PRESENT ILLNESS/HOSPITAL COURSE: This is a 71-year-old female past medical history of hydroureter nephrosis with bilateral nephrostomy tubes, COPD, hypertension who presented after her noted that she had altered mental status. Patient had noted nausea/vomiting/ anorexia/50 pound weight loss since March 2015. Over the course of the patient 's hospitalization, patient was noted to have sepsis from urinary tract infection was treated for complete course of antibiotics. The patient also had an EGD with biopsy epigastric mass that was noted given her persistent nausea and vomiting. Initial biopsy was nondiagnostic. Patient also had 2 paracentesis given significant abdominal ascites. The patient was also on TPN dependent during this hospitalization as she is unable to keep anything down with the by mouth intake. As patient required NG tube for her persistent nausea and vomiting, patient developed a metabolic alkalosis, was treated with IV fluids, and had her TPN intake titrated with the help of nephrology. Given the patient's persistent symptoms and poor prognosis as well as this undiagnosed gastric mass, patient had a repeat EGD which was confirmatory Signet cell gastric cancer with peritoneal involvement. Given the patient's guarded prognosis, the patient and the family had requested that the patient be made comfort measures only. Aggressive measures were discontinued and the patient on 08/17/16 at 5:33 AM. DISCHARGE MEDICATIONS: Please see below. ALLERGIES: Please see below. TIME SPENT ON DISCHARGE: Greater than 30 minutes. Vital Signs/I&Os Vital Signs Date Time Temp Pulse Resp B/P (MAP) Pulse Ox O2 Delivery O2 Flow Rate FiO2 08/16/16 20:00 Nasal Cannula 10.0 08/16/16 08:00 96.8 70 18 102/56 (71) 96 08/15/16 21:50 100 I&O- Last 24 Hours up to 6 AM 08/17/16 06:00 Intake Total 0 ml Output Total 700 ml Balance -700 ml Microbiology Microbiology 08/07/16 Blood Culture - Final, Complete NO GROWTH AFTER 5 DAYS 08/07/16 Blood Culture - Final, Complete NO GROWTH AFTER 5 DAYS 08/08/16 Acid Fast Stain - Final, Resulted 08/08/16 Mycobacterial Culture, Resulted Pending 08/08/16 Fungal Smear - Final, Resulted 08/08/16 Fungal Culture, Resulted Pending 08/08/16 Gram Stain - Final, Complete 08/08/16 Body Fluid Culture - Final, Complete Discharge Medications Scheduled Amlodipine Besylate (Amlodipine Besylate) 10 Mg Tab, 10 MG PO DAILY, (Reported) Potassium Chloride (Klor-Con M20) 20 Meq Tabcr, 20 MEQ PO BID, (Reported) Scheduled PRN Metoclopramide HCl (Metoclopramide HCl) 5 Mg Tab, 5 MG PO TID PRN for STOMACH PAIN, (Reported) Ondansetron HCl (Zofran) 4 Mg Tab, 4 MG PO TID PRN for NAUSEA OR VOMITING, ( Reported) Allergies Coded Allergies: Penicillins (Verified Allergy, Mild, Rash / Hives, 07/18/16) BEN MURDOCK MD August 17, 2016 16:03
== END 2016-08-17 05:33 | disposition expired | DRG 698 ==
LOC: M ED 13:55 → M ED INP 14:28 → M PCU 16:50 → M MSPAV 07-28 11:33 → M ICU 08-05 11:43 → M PCU 08-09 16:50 → M MSPAV 08-16 14:23
PROVIDERS: ADMIT Internal Medicine; ATTEND Internal Medicine
PROC: 05HB33Z Insertion of Infusion Device into Right Basilic Vein, Percutaneous Approach (ICD-10-PCS; 2016-08-01)
PROC: 3E0336Z Introduction of Nutritional Substance into Peripheral Vein, Percutaneous Approach (ICD-10-PCS; 2016-08-01)
PROC: 0DB48ZX Excision of Esophagogastric Junction, Via Natural or Artificial Opening Endoscopic, Diagnostic (ICD-10-PCS; principal; 2016-08-01 11:55)
PROC: 0W9G3ZX Drainage of Peritoneal Cavity, Percutaneous Approach, Diagnostic (ICD-10-PCS; 2016-08-03)
PROC: 0T25X0Z Change Drainage Device in Kidney, External Approach (ICD-10-PCS; 2016-08-04)
PROC: 0W9G3ZX Drainage of Peritoneal Cavity, Percutaneous Approach, Diagnostic (ICD-10-PCS; 2016-08-09)
PROC: 0DB78ZZ Excision of Stomach, Pylorus, Via Natural or Artificial Opening Endoscopic (ICD-10-PCS; 2016-08-10)
PROC: 30253J1 (ICD-10-PCS; 2016-08-10)
DX: T83.512A Infection and inflammatory reaction due to nephrostomy catheter, initial encounter (principal); E43 Unspecified severe protein-calorie malnutrition; J96.01 Acute respiratory failure with hypoxia; A41.9 Sepsis, unspecified organism; J69.0 Pneumonitis due to inhalation of food and vomit; N39.0 Urinary tract infection, site not specified; N13.1 Hydronephrosis with ureteral stricture, not elsewhere classified; N17.9 Acute kidney failure, unspecified; E87.1 Hypo-osmolality and hyponatremia; C16.4 Malignant neoplasm of pylorus; R18.0 Malignant ascites; J90 Pleural effusion, not elsewhere classified; E87.3 Alkalosis; C78.89 Secondary malignant neoplasm of other digestive organs; Z51.5 Encounter for palliative care; Z66 Do not resuscitate; N13.5 Crossing vessel and stricture of ureter without hydronephrosis; I10 Essential (primary) hypertension; I67.1 Cerebral aneurysm, nonruptured; R11.2 Nausea with vomiting, unspecified; E87.6 Hypokalemia; K20.8 Other esophagitis; E86.0 Dehydration; K29.70 Gastritis, unspecified, without bleeding; J44.9 Chronic obstructive pulmonary disease, unspecified; K44.9 Diaphragmatic hernia without obstruction or gangrene; E21.3 Hyperparathyroidism, unspecified; E55.9 Vitamin D deficiency, unspecified; M85.80 Other specified disorders of bone density and structure, unspecified site; Z93.6 Other artificial openings of urinary tract status; Z96.651 Presence of right artificial knee joint; Z88.0 Allergy status to penicillin; Z79.899 Other long term (current) drug therapy; Z87.891 Personal history of nicotine dependence; E87.8 Other disorders of electrolyte and fluid balance, not elsewhere classified; Y95 Nosocomial condition